=== PATIENT | female | born 1980 | race Hispanic/Latino ===

== ENCOUNTER 2020-08-07 07:13 | Emergency (ER) | payer SELFPAY ==
[2020-08-07] MEDS ORDERED: NA CHLORIDE 0.9% 1,000 ML ONE (08:04)
[2020-08-07 08:13] LABS: Absolute Lymphocytes (CBC) 1.9 K/uL (0.7-4.9); Basophils % 0.3 % (0-1.3); Hematocrit 37.3 % (36.0-45.0); Lymphocytes % 44.9 % (15.3-44.8); MPV 8.5 fL (7.6-11.3); RBC Red Blood Cell Count 4.76 M/uL (3.86-4.86)
[2020-08-07 08:49] LABS: BUN Blood Urea Nitrogen 10 mg/dL (7-18); Bicarbonate 21 mmol/L (21-32); Glucose Level 150 mg/dL (74-106); HCG, Quantitative 7864 mIU/mL (1-3); Potassium 3.8 mmol/L (3.5-5.1); Sodium Level 139 mmol/L (136-145)
[2020-08-07] MEDS ORDERED: CEFTRIAXONE/SWI 1gm 1 GM/10 ML SYR ONE (08:59)
--- NOTE | 2020-08-07 09:45 | ER ---
Nurse's Notes [facility] Name: Brenda Castillo Age: 40 yrs Sex: Female : 1980 Arrival Date: 08/07/2020 Time: 07:18 Bed 19 Private MD: Diagnosis: Threatened ; related conditions, unspecified, first trimester;Type 1 diabetes mellitus Presentation: 08/07 07:25 Chief complaint: Patient states: Blood on toilet paper when she wipes after voiding x ss 3-4 days. Vaginal bleeding that began this morning described as a light period. Pt reports she is approximately 8 weeks . Has had an appointment at the [facility] confirming the . Coronavirus screen: Client denies travel out of the [place] in the last 14 days. Ebola Screen: Patient denies exposure to infectious person. Patient denies travel to an Ebola-affected area in the 21 days before illness onset. Initial Sepsis Screen: Does the patient meet any 2 criteria? No. Patient's initial sepsis screen is negative. Does the patient have a suspected source of infection? No. Patient's initial sepsis screen is negative. Risk Assessment: Do you want to hurt yourself or someone else? Patient reports no desire to harm self or others. Onset of symptoms was August 02, 2020. 07:25 Method Of Arrival: Ambulatory ss 07:25 Acuity: CHIQUITA 3 ss V BELT M[employer]ER AND CURER: 09:39 5, Full Term 4, Premature 0, 0, Living 0 cleo Historical: - Allergies: 07:29 No Known Allergies; ss - PMHx: 07:29 High Cholesterol; Diabetes - IDDM; ss - PSHx: 07:29 None; ss - Immunization history:: Adult Immunizations up to date. - Social history:: Smoking status: Patient denies any tobacco usage or history of. - Family history:: not pertinent. Screenin:06 Abuse screen: Denies threats or abuse. Denies injuries from another. Nutritional hb screening: No deficits noted. Tuberculosis screening: No symptoms or risk factors identified. Fall Risk None identified. Assessment: 08:07 General: Appears in no apparent distress. Behavior is calm, cooperative. Pain: Pain hb currently is 4 out of 10 on a pain scale. Neuro: Level of Consciousness is awake, alert, obeys commands, Oriented to person, place, time, situation. Cardiovascular: Capillary refill < 3 seconds Patient's skin is warm and dry. Respiratory: Respiratory effort is even, unlabored, Respiratory pattern is regular, symmetrical. GI: No signs and/or symptoms were reported involving the gastrointestinal system. : Reports cramping, vaginal bleeding that is bright red, light flow. EENT: No signs and/or symptoms were reported regarding the EENT system. Derm: Skin is pink, warm \T\ dry. Musculoskeletal: No signs and/or symptoms reported regarding the musculoskeletal system. Vital Signs: 07:25 BP 126 / 91; Pulse 90; Resp 16; Temp 98.1(O); Pulse Ox 99% on R/A; Weight 83.46 kg; ss Height 5 ft. 4 in. (162.56 cm); Pain 4/10; 07:25 Body Mass Index 31.58 (83.46 kg, 162.56 cm) ED Course: 07:18 Patient arrived in ED. mr 07:28 Rufus Magallanes MD is Attending Physician. cleo 07:29 Triage completed. ss 07:29 Arm band placed on right wrist. ss 07:40 Katherine Mcginnis, KEATON is Primary Nurse. hb 07:47 Inserted saline lock: 20 gauge in right antecubital area, using aseptic technique. hb Blood collected. 08:06 Patient has correct armband on for positive identification. Call light in reach. Side hb rails up X 1. 09:38 US Transvaginal Ob In Process Unspecified. EDMS 09:44 Teto Mitchell MD is Referral Physician. cleo 10:02 IV discontinued, intact, bleeding controlled, No redness/swelling at site. hb Administered Medications: 07:50 Drug: NS 0.9% 1000 ml Route: IV; Rate: 1 bolus; Site: right antecubital; hb 09:20 Follow up: IV Status: Completed infusion; IV Intake: 1000ml hb 09:05 Drug: Rocephin 1 grams Route: IV; Rate: per protocol; Site: right antecubital; hb 09:07 Follow up: IV Status: Completed infusion; IV Intake: 10ml hb 09:45 Follow up: Response: No adverse reaction hb Intake: 09:07 IV: 10ml; Total: 10ml. hb 09:20 IV: 1000ml; Total: 1010ml. hb Outcome: 09:45 Discharge ordered by . cleo 10:00 Discharged to home ambulatory. hb 10:00 Condition: stable 10:00 Discharge instructions given to patient, Instructed on discharge instructions, follow up and referral plans. medication usage, Demonstrated understanding of instructions, follow-up care, medications, Prescriptions given X 1. 10:06 Patient left the ED. hb Addendum: 08/10/2020 09:51 Addendum: Culture Results: Positive urine culture. Patient was not prescribed s v antibiotics at discharge. Report given to SHASHANK for further evaluation and then to edge gluer for follow up with patient. Phone call Attempt #1 successful Prescription called-in to pharmacy of choice. Keo YUN. Signatures: Dispatcher [employer] Liza White, RN RN Rufus Jordan MD MD cha Rivera, Diana Savage RN RN ss Baxter, Heather, RN RN
--- NOTE | 2020-08-07 09:45 | EDPHYS ---
Physician Documentation [facility] Name: Brenda Castillo Age: 40 yrs Sex: Female : 1980 Arrival Date: 08/07/2020 Time: 07:18 Bed 19 Private MD: ED Physician Rufus Magallanes HPI: 08/07 09:39 This 40 yrs old Female presents to ER via Ambulatory with complaints of cleo Vaginal Bleeding, + Preg <12wks. 09:39 The patient presents to the emergency department with abdominal pain, of the right cleo lower quadrant and left lower quadrant. The estimated gestational age is 8 weeks. course: care: none. Previous pregnancies: in previous pregnancies patient has had Associated signs and symptoms: The patient has no apparent associated signs or symptoms. The patient has not experienced similar symptoms in the past. DATA LEAD: 09:39 5, Full Term 4, Premature 0, 0, Living 0 cleo Historical: - Allergies: 07:29 No Known Allergies; ss - PMHx: 07:29 High Cholesterol; Diabetes - IDDM; ss - PSHx: 07:29 None; ss - Immunization history:: Adult Immunizations up to date. - Social history:: Smoking status: Patient denies any tobacco usage or history of. - Family history:: not pertinent. ROS: 09:39 MS/Extremity: Negative for injury and deformity. cleo 09:39 Constitutional: Negative for fever, chills, and weight loss, Eyes: Negative for injury, pain, redness, and discharge, ENT: Negative for injury, pain, and discharge, Neck: Negative for injury, pain, and swelling, Cardiovascular: Negative for chest pain, palpitations, and edema, Respiratory: Negative for shortness of breath, cough, wheezing, and pleuritic chest pain, Back: Negative for injury and pain, MS/Extremity: Negative for injury and deformity, Skin: Negative for injury, rash, and discoloration, Neuro: Negative for headache, weakness, numbness, tingling, and seizure, Psych: Negative for depression, anxiety, suicide ideation, homicidal ideation, and hallucinations, Allergy/Immunology: Negative for hives, rash, and allergies, Endocrine: Negative for neck swelling, polydipsia, polyuria, polyphagia, and marked weight changes. 09:39 Abdomen/GI: Positive for abdominal pain, of the right lower quadrant and left lower quadrant. 09:39 : Positive for vaginal bleeding. 09:39 MS/extremity: Positive for Exam: 09:39 Constitutional: This is a well developed, well nourished patient who is awake, alert, cleo and in no acute distress. Head/Face: Normocephalic, atraumatic. Eyes: Pupils equal round and reactive to light, extra-ocular motions intact. Lids and lashes normal. Conjunctiva and sclera are non-icteric and not injected. Cornea within normal limits. Periorbital areas with no swelling, redness, or edema. ENT: Nares patent. No nasal discharge, no septal abnormalities noted. Tympanic membranes are normal and external auditory canals are clear. Oropharynx with no redness, swelling, or masses, exudates, or evidence of obstruction, uvula midline. Mucous membranes moist. Neck: Trachea midline, no thyromegaly or masses palpated, and no cervical lymphadenopathy. Supple, full range of motion without nuchal rigidity, or vertebral point tenderness. No Meningismus. Chest/axilla: Normal chest wall appearance and motion. Nontender with no deformity. No lesions are appreciated. Cardiovascular: Regular rate and rhythm with a normal S1 and S2. No gallops, murmurs, or rubs. Normal PMI, no JVD. No pulse deficits. Respiratory: Lungs have equal breath sounds bilaterally, clear to auscultation and percussion. No rales, rhonchi or wheezes noted. No increased work of breathing, no retractions or nasal flaring. Abdomen/GI: Soft, non-tender, with normal bowel sounds. No distension or tympany. No guarding or rebound. No evidence of tenderness throughout. Back: No spinal tenderness. No costovertebral tenderness. Full range of motion. Female : Normal external genitalia. Skin: Warm, dry with normal turgor. Normal color with no rashes, no lesions, and no evidence of cellulitis. MS/ Extremity: Pulses equal, no cyanosis. Neurovascular intact. Full, normal range of motion. Neuro: Awake and alert, GCS 15, oriented to person, place, time, and situation. Cranial nerves II-XII grossly intact. Motor strength 5/5 in all extremities. Sensory grossly intact. Cerebellar exam normal. Normal gait. Psych: Awake, alert, with orientation to person, place and time. Behavior, mood, and affect are within normal limits. Vital Signs: 07:25 BP 126 / 91; Pulse 90; Resp 16; Temp 98.1(O); Pulse Ox 99% on R/A; Weight 83.46 kg; ss Height 5 ft. 4 in. (162.56 cm); Pain 4/10; 07:25 Body Mass Index 31.58 (83.46 kg, 162.56 cm) ss MDM: 07:35 Patient medically screened. [facility] 09:39 Differential diagnosis: ectopic . Data reviewed: vital signs, nurses notes, [facility] lab test result(s), radiologic studies, ultrasound. Data interpreted: gambling monitor: not applicable for this patient encounter. rate is 90 beats/min, rhythm is regular, Pulse oximetry: on room air is 99 %. Counseling: I had a detailed discussion with the patient and/or guardian regarding: the historical points, exam findings, and any diagnostic results supporting the discharge/admit diagnosis, lab results, radiology results, the need for outpatient follow up, for definitive care, an OB/Gyne specialist. 08/07 07:29 Order name: Quantitative Hcg; Complete Time: 09:34 [facility] 08/07 07:29 Order name: Abo/rh Typing; Complete Time: 09:34 [facility] 08/07 07:29 Order name: Basic Metabolic Panel; Complete Time: 09:34 [facility] 08/07 07:29 Order name: CBC with Diff; Complete Time: 09:34 [facility] 08/07 07:29 Order name: Urine Culture [facility] 08/07 08:07 Order name: Urine Dipstick--Ancillary (enter results) 08/07 07:29 Order name: Urine Test (obtain specimen); Complete Time: 08:08 [facility] 08/07 07:29 Order name: IV Saline Lock; Complete Time: 08:08 [facility] 08/07 07:29 Order name: Labs collected and sent; Complete Time: 08:08 [facility] 08/07 07:29 Order name: NPO; Complete Time: 08:08 [facility] 08/07 07:29 Order name: US Transvaginal Ob [facility] 08/07 08:07 Order name: Urine --Ancillary (enter results) 08/07 07:29 Order name: Urine Dipstick-Ancillary (obtain specimen); Complete Time: 08:08 [facility] Administered Medications: 07:50 Drug: NS 0.9% 1000 ml Route: IV; Rate: 1 bolus; Site: right antecubital; hb 09:20 Follow up: IV Status: Completed infusion; IV Intake: 1000ml hb 09:05 Drug: Rocephin 1 grams Route: IV; Rate: per protocol; Site: right antecubital; hb 09:07 Follow up: IV Status: Completed infusion; IV Intake: 10ml hb 09:45 Follow up: Response: No adverse reaction hb Disposition: 08/07/20 09:45 Discharged to Home. Impression: Threatened , related conditions, unspecified, first trimester, Type 1 diabetes mellitus. - Condition is Stable. - Discharge Instructions: Type 1 Diabetes Mellitus, Diagnosis, Adult, Threatened Miscarriage, Vaginal Bleeding During , First Trimester, First Trimester of , [id number], First Trimester of , Diabetes Mellitus and Food, Threatened Miscarriage, [id number]-[id number], Pelvic Rest, Type 1 Diabetes Mellitus, Self Care, Adult, Type 1 Diabetes Mellitus, Diagnosis, Adult, Dzcr-[id number], Type 1 Diabetes Mellitus, Self Care, Adult, [id number]. - Prescriptions for Vitamin 27- 0.8 mg Oral Tablet - take 1 tablet by ORAL route once daily; 30 tablet. - Medication Reconciliation Form, Thank You Letter, Antibiotic Education, Prescription Opioid Use form. - Follow up: Private Physician; When: 2 - 3 days; Reason: Recheck today's complaints, Continuance of care, Re-evaluation by your physician. Follow up: Teto Mitchell MD; When: 2 - 3 days; Reason: Recheck today's complaints, Re-evaluation by your physician. - Problem is new. - Symptoms have improved. Signatures: Dispatcher [employer] EDTX Rufus Magallanes MD MD cha Smirch, Shelby, KEATON RN Katherine Mcginnis RN RN Corrections: (The following items were deleted from the chart) 09:45 09:45 08/07/2020 09:45 Discharged to Home. Impression: Threatened ; cleo related conditions, unspecified, first trimester. Condition is Stable. Forms are Medication Reconciliation Form, Thank You Letter, Antibiotic Education, Prescription Opioid Use. Follow up: Private Physician; When: 2 - 3 days; Reason: Recheck today's complaints, Continuance of care, Re-evaluation by your physician. Follow up: Teto Mitchell; When: 2 - 3 days; Reason: Recheck today's complaints, Re-evaluation by your physician. Problem is new. Symptoms have improved. cleo 10:06 09:45 08/07/2020 09:45 Discharged to Home. Impression: Threatened ; hb related conditions, unspecified, first trimester; Type 1 diabetes mellitus. Condition is Stable. Forms are Medication Reconciliation Form, Thank You Letter, Antibiotic Education, Prescription Opioid Use. Follow up: Private Physician; When: 2 - 3 days; Reason: Recheck today's complaints, Continuance of care, Re-evaluation by your physician. Follow up: Teto Mitchell; When: 2 - 3 days; Reason: Recheck today's complaints, Re-evaluation by your physician. Problem is new. Symptoms have improved. cleo
--- NOTE | 2020-08-07 09:56 | RAD REPORT ---
EXAM DESCRIPTION: US - Transvaginal OB - 08/07/2020 9:36 am CLINICAL HISTORY: with pelvic pain COMPARISON: None. FINDINGS: The uterus 10 x 5 x 6 centimeters. A gestational sac is present within the endometrium. W ithin this is a yolk sac and a pole with a crown-rump length 4 millimeters. Cardiac activity no t seen. . Borderline enlargement of the yolk sac 2.4 centimeter subserosal fibroid. 1.9 centimeter right ovarian cyst. Right ovary is normal in size and echotexture. 2 centimeter comple x cyst left ovary may hemorrhagic. The right and left adnexa unremarkable No significant free fluid IMPRESSION: Intrauterine with an estimated gestational 6 weeks 1 day SOHAN 04/01/2021. Cardi ac activity is not visualized which may indicate demise. Another consideration is that this is a viable and the heartbeat not seen secondary to the early gestation. It is recommended haleigh t the patient have a followup endovaginal sonogram in 1 week for re-evaluation
[2020-08-07 16:26] LABS: Urine Blood 3+ (NEG); Urine Glucose NEGATIVE (NEG); Urine Protein TRACE (NEG)
== END 2020-08-07 10:06 | disposition home or self-care (01) ==
LOC: ER 07:13
DX: O20.0 Threatened abortion (principal); O24.911 Unspecified diabetes mellitus in pregnancy, first trimester; Z3A.08 8 weeks gestation of pregnancy
CPT/HCPCS: 36415; 76817; 80048; 81003; 81025; 84702; 85025; 86900; 86901; 87077; 87086; 87088; 87186; 96361; 96374; 99284; J0696; J7030

== ENCOUNTER 2020-08-07 19:26 | Emergency (ER) | payer SELFPAY ==
[2020-08-07 20:13] LABS: Urine Blood 3+ (NEG); Urine Glucose NEGATIVE (NEG); Urine Protein 2+ (NEG); Urine Specific Gravity 1.015 (1.005-1.030); Urine pH 5.5 (5.0-7.0)
--- NOTE | 2020-08-07 21:16 | ER ---
Nurse's Notes [facility] Name: Brenda Castillo Age: 40 yrs Sex: Female : 1980 Arrival Date: 08/07/2020 Time: 19:27 Bed 20 Private MD: Diagnosis: Threatened Presentation: 08/07 19:36 Chief complaint: Patient states: vaginal bleeding. Coronavirus screen: Client denies mg2 travel out of the [place] in the last 14 days. At this time, the client does not indicate any symptoms associated with coronavirus-19. Ebola Screen: Patient negative for fever greater than or equal to 101.5 degrees Fahrenheit, and additional compatible Ebola Virus Disease symptoms. Initial Sepsis Screen: Does the patient meet any 2 criteria? No. Patient's initial sepsis screen is negative. Does the patient have a suspected source of infection? No. Patient's initial sepsis screen is negative. Risk Assessment: Do you want to hurt yourself or someone else? Patient reports no desire to harm self or others. Onset of symptoms was August 02, 2020. 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 - Social history:: Smoking status: Patient denies any tobacco usage or history of. Patient/guardian denies using alcohol, street drugs, IV drugs. Screenin:15 Abuse screen: Denies threats or abuse. Nutritional screening: No deficits noted. jb4 Tuberculosis screening: No symptoms or risk factors identified. Fall Risk None identified. Assessment: 20:15 General: Appears in no apparent distress. comfortable, Behavior is calm, cooperative. jb4 Pain: Denies pain. Neuro: Level of Consciousness is awake, alert, obeys commands, Oriented to person, place, time, situation. Cardiovascular: Patient's skin is warm and dry. Respiratory: Airway is patent Respiratory effort is even, unlabored, Respiratory pattern is regular, symmetrical. GI: No signs and/or symptoms were reported involving the gastrointestinal system. : Reports vaginal bleeding that is with clots. EENT: No signs and/or symptoms were reported regarding the EENT system. Derm: Skin is intact, Skin is pink, warm \T\ dry. Musculoskeletal: Circulation, motion, and sensation intact. Range of motion: intact in all extremities. 21:13 Reassessment: Patient appears in no apparent distress at this time. Patient and/or jb4 family updated on plan of care and expected duration. Pain level reassessed. Patient is alert, oriented x 3, equal unlabored respirations, skin warm/dry/pink. Vital Signs: 19:36 BP 126 / 90; Pulse 85; Resp 18; Temp 97.6; Pulse Ox 99% ; Weight 83.46 kg; mg2 21:00 BP 122 / 81; Pulse 73; Resp 16; Pulse Ox 99% on R/A; jb4 ED Course: 19:27 Patient arrived in ED. cl3 19:42 Triage completed. mg2 19:43 Arm band placed on. mg2 20:15 Patient has correct armband on for positive identification. Bed in low position. Call jb4 light in reach. Side rails up X 1. Pulse ox on. NIBP on. 20:23 Forest Lord MD is Attending Physician. 7 20:37 Laron Robles, KEATON is Primary Nurse. jb4 21:14 Teto Mitchell MD is Referral Physician. 7 21:20 No provider procedures requiring assistance completed. Patient did not have IV access jb4 during this emergency room visit. Administered Medications: No medications were administered Outcome: 21:15 Discharge ordered by . 7 21:20 Discharged to home ambulatory. jb4 21:20 Condition: stable 21:20 Discharge instructions given to patient, Instructed on discharge instructions, follow up and referral plans. Demonstrated understanding of instructions, follow-up care. 21:21 Patient left the ED. jb4 Signatures: Laron Robles RN RN jb4 Eleazar Cao RN RN mg2 Zoila Khan cl3 Forest Lord MD MD [facility]
--- NOTE | 2020-08-07 21:16 | EDPHYS ---
Physician Documentation [facility] Name: Brenda Castillo Age: 40 yrs Sex: Female : 1980 Arrival Date: 08/07/2020 Time: 19:27 Bed 20 Private MD: ED Physician Forest Lord HPI: 08/07 21:07 This 40 yrs old Female presents to ER via Ambulatory with complaints of mh7 Vaginal Bleeding. 21:07 The patient presents with vaginal bleeding that is moderate, with clots. Onset: The mh7 symptoms/episode began/occurred 5 day(s) ago. Modifying factors: The symptoms are alleviated by nothing, the symptoms are aggravated by nothing. Associated signs and symptoms: Pertinent positives: vaginal bleeding, Pertinent negatives: constipation, cramping, diarrhea, dyspareunia, dysuria, fever, hematuria, nausea, urinary frequency, vaginal discharge, vomiting. Severity of symptoms: At their worst the symptoms were moderate, this morning, in the emergency department the symptoms are unchanged. The patient has been recently seen at the [facility] Emergency Department, today. Patient 6 weeks with vaginal bleeding for 5 days. Seen here earlier today for same complaint with US pelvis showing IUP \T\ 6 weeks. States that she started having blood clots and possibly passed tissue later after leaving ED. She wants to know if she is still .. 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 - Social history:: Smoking status: Patient denies any tobacco usage or history of. Patient/guardian denies using alcohol, street drugs, IV drugs. ROS: 21:07 Constitutional: Negative for fever, chills, and weight loss, Eyes: Negative for injury, mh7 pain, redness, and discharge, ENT: Negative for injury, pain, and discharge, Neck: Negative for injury, pain, and swelling, Cardiovascular: Negative for chest pain, palpitations, and edema, Respiratory: Negative for shortness of breath, cough, wheezing, and pleuritic chest pain, Abdomen/GI: Negative for abdominal pain, nausea, vomiting, diarrhea, and constipation, Back: Negative for injury and pain, MS/Extremity: Negative for injury and deformity, Skin: Negative for injury, rash, and discoloration, Neuro: Negative for headache, weakness, numbness, tingling, and seizure, Psych: Negative for depression, anxiety, suicide ideation, homicidal ideation, and hallucinations, Allergy/Immunology: Negative for hives, rash, and allergies, Endocrine: Negative for neck swelling, polydipsia, polyuria, polyphagia, and marked weight changes, Hematologic/Lymphatic: Negative for swollen nodes, abnormal bleeding, and unusual bruising. Exam: 21:07 Constitutional: This is a well developed, well nourished patient who is awake, alert, mh7 and in no acute distress. Head/Face: Normocephalic, atraumatic. Eyes: Pupils equal round and reactive to light, extra-ocular motions intact. Lids and lashes normal. Conjunctiva and sclera are non-icteric and not injected. Cornea within normal limits. Periorbital areas with no swelling, redness, or edema. Neck: Trachea midline, no thyromegaly or masses palpated, and no cervical lymphadenopathy. Supple, full range of motion without nuchal rigidity, or vertebral point tenderness. No Meningismus. Chest/axilla: Normal chest wall appearance and motion. Nontender with no deformity. No lesions are appreciated. Cardiovascular: Regular rate and rhythm with a normal S1 and S2. No gallops, murmurs, or rubs. Normal PMI, no JVD. No pulse deficits. Respiratory: Lungs have equal breath sounds bilaterally, clear to auscultation and percussion. No rales, rhonchi or wheezes noted. No increased work of breathing, no retractions or nasal flaring. Abdomen/GI: Soft, non-tender, with normal bowel sounds. No distension or tympany. No guarding or rebound. No evidence of tenderness throughout. Back: No spinal tenderness. No costovertebral tenderness. Full range of motion. 21:07 Skin: Warm, dry with normal turgor. Normal color with no rashes, no lesions, and no evidence of cellulitis. MS/ Extremity: Pulses equal, no cyanosis. Neurovascular intact. Full, normal range of motion. Neuro: Awake and alert, GCS 15, oriented to person, place, time, and situation. Cranial nerves II-XII grossly intact. Motor strength 5/5 in all extremities. Sensory grossly intact. Cerebellar exam normal. Normal gait. Psych: Awake, alert, with orientation to person, place and time. Behavior, mood, and affect are within normal limits. 21:07 : CVA tenderness, is absent, Pelvic Exam: External exam: is normal, Speculum exam: mild bleeding, blood clots in vaginal vault, no cervicitis, os that is open, no tissue in cervix is seen, no tissue in vagina is seen, bimanual exam reveals no cervical motion tenderness, os that is open, no uterine tenderness, no adnexa tenderness or masses bilaterally, discharge, is not appreciated, the nurse was present for the exam, Bladder: is normal, Rectal exam: is refused by patient or guardian. Vital Signs: 19:36 BP 126 / 90; Pulse 85; Resp 18; Temp 97.6; Pulse Ox 99% ; Weight 83.46 kg; mg2 21:00 BP 122 / 81; Pulse 73; Resp 16; Pulse Ox 99% on R/A; jb4 MDM: 21:07 Differential diagnosis: cervicitis, threatened Ab, inevitable Ab, complete Ab, retained mh7 Ab, missed Ab, urinary tract infection. Data reviewed: vital signs, nurses notes, old medical records. Counseling: I had a detailed discussion with the patient and/or guardian regarding: the historical points, exam findings, and any diagnostic results supporting the discharge/admit diagnosis, to return to the emergency department if symptoms worsen or persist or if there are any questions or concerns that arise at home. Response to treatment: the patient's symptoms have markedly improved after treatment. Refusal of service: The patient/guardian displays adequate decision making capability and despite a detailed discussion of alternatives, benefits, risks, and consequences refuses: all lab tests. 21:15 Patient medically screened. [facility] 08/07 19:59 Order name: Urine Dipstick--Ancillary (enter results); Complete Time: 20:56 mt 08/07 19:59 Order name: Urine --Ancillary (enter results); Complete Time: 20:56 mt 08/07 20:56 Order name: Quantitative Hcg [facility] Administered Medications: No medications were administered Disposition: 08/07/20 21:15 Discharged to Home. Impression: Threatened . - Condition is Stable. - Discharge Instructions: Threatened Miscarriage, Vaginal Bleeding During , First Trimester. - Medication Reconciliation Form, Thank You Letter, Antibiotic Education, Prescription Opioid Use form. - Follow up: Private Physician; When: Tomorrow; Reason: Worsening of condition, Recheck today's complaints, Continuance of care, Re-evaluation by your physician. Follow up: Teto Mitchell MD; When: 1 - 2 days; Reason: Worsening of condition, Recheck today's complaints. - Problem is an ongoing problem. - Symptoms have improved. Signatures: Dispatcher [employer] EDMS Laron Robles RN RN jb4 Eleazar Cao RN RN mg2 Forest Lord MD MD 7 Corrections: (The following items were deleted from the chart) 21:07 20:56 IV Saline Lock ordered. [place] [id number] 21:07 20:56 Labs collected and sent ordered. [place] [id number] 21:08 20:56 NPO ordered. [place] [id number] 21:21 21:15 08/07/2020 21:15 Discharged to Home. Impression: Threatened . Condition jb4 is Stable. Forms are Medication Reconciliation Form, Thank You Letter, Antibiotic Education, Prescription Opioid Use. Follow up: Private Physician; When: Tomorrow; Reason: Worsening of condition, Recheck today's complaints, Continuance of care, Re-evaluation by your physician. Follow up: Teto Mitchell; When: 1 - 2 days; Reason: Worsening of condition, Recheck today's complaints. Problem is an ongoing problem. Symptoms have improved. [facility]
[2020-08-08 01:15] VITALS: TEMP 97.6; O2SAT 99
[2020-08-08 01:16] VITALS: BP 122/81
== END 2020-08-07 21:21 | disposition home or self-care (01) ==
LOC: ER 19:26
DX: O20.0 Threatened abortion (principal); O24.311 Unspecified pre-existing diabetes mellitus in pregnancy, first trimester; E11.9 Type 2 diabetes mellitus without complications; Z3A.08 8 weeks gestation of pregnancy
CPT/HCPCS: 81003; 81025; 99283

== ENCOUNTER 2021-06-24 06:28 | Emergency (ER) | payer OTHER, SELFPAY ==
[2021-06-24] MEDS ORDERED: HYDROCODONE/APAP 10/325 TAB ONE (07:52)
[2021-06-24] MEDS ORDERED: DIAZEPAM 5 MG TABLET ONE (07:53)
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
[2021-06-24] MEDS ORDERED: KETOROLAC 30 MG/ML INJ ONE (09:03)
[2021-06-24 09:46] VITALS: TEMP 96.8
[2021-06-24 09:54] VITALS: BP 96/61; O2SAT 100
== END 2021-06-24 09:34 | disposition home or self-care (01) ==
LOC: ER 06:28
DX: S86.912A Strain of unspecified muscle(s) and tendon(s) at lower leg level, left leg, initial encounter (principal); S86.911A Strain of unspecified muscle(s) and tendon(s) at lower leg level, right leg, initial encounter; M79.662 Pain in left lower leg; M79.661 Pain in right lower leg; V49.59XA Passenger injured in collision with other motor vehicles in traffic accident, initial encounter; E78.00 Pure hypercholesterolemia, unspecified; E11.9 Type 2 diabetes mellitus without complications; Z79.4 Long term (current) use of insulin
CPT/HCPCS: 72040; 96372; 99283

== ENCOUNTER 2023-01-24 10:01 | Emergency (ER) | payer SELFPAY ==
--- OUTSIDE RECORDS SUMMARY | 2023-01-24 10:14 | XMS REPORT | Continuity of Care Document ---
:1980 Author Organization [facility] t Address [address] [facility] [address] [place] [id number] Care Team Providers Name Role Phone Telma Wallace Primary Care Physician [phone] Problems This patient has no known problems. Allergies, Adverse Reactions, Alerts This patient has no known allergies or adverse reactions. Medications Ordered Filled Start Stop Current Ordering Indication Dosage Frequency Signature Comments Components Source Medication Medication Date Date Medication? Clinician (SIG) Name Name KEE MARIA GUADALUPE No TABLETA 8-18 ORALMENTE 00:00: CADA TONO AL 00 ACOSTARSE GRETEL SEA NECESARIO PARA ESPASMOS MUSCULARES KEE MARIA GUADALUPE 0 No 5 TABLETA 8-18 ORALMENTE 00:00: NICOLAS VECES 00 AL TONO GRETEL SEA NECESARIO PARA ESPASMOS MUSCULARES KEE MARIA GUADALUPE 0 No 5 TABLETA 8-18 ORALMENTE 00:00: NICOLAS VECES 00 AL TONO GRETEL SEA NECESARIO PARA ESPASMOS MUSCULARES TAKE No 600 TABLET 7-22 TWICE 00:00: DAILY. 00 25 UNITS AT 2021-0 No 100 NIGHT SC 7-22 00:00: 00 TAKE 2021-0 No 600 TABLET 7-22 TWICE 00:00: DAILY. 00 25 UNITS AT 2021-0 No 100 NIGHT SC 7-22 00:00: 00 TAKE 0 No 600 TABLET 7-22 TWICE 00:00: DAILY. 00 25 UNITS AT 2021-0 No 100 NIGHT SC 7-22 00:00: 00 TAKE 2021-0 No 600 TABLET 7-22 TWICE 00:00: DAILY. 00 25 UNITS AT 2021-0 No 100 NIGHT SC 7-22 00:00: 00 Rafal 50 2-0 No 1mg mg-1,000 mg 3-28 tablet 00:00: 00 Dose 2022-0 No Unknown 3-28 00:00: 00 Janumet 50 2022-0 No 1mg mg-1,000 mg 3-28 tablet 00:00: 00 Dose 2022-0 No Unknown 3-28 00:00: 00 Janumet 50 2022-0 No 1mg mg-1,000 mg 3-28 tablet 00:00: 00 Dose 2022-0 No Unknown 3-28 00:00: 00 Janumet 50 2-0 No 1mg mg-1,000 mg 3-28 tablet 00:00: 00 Dose 2022-0 No Unknown 3-28 00:00: 00 Dose 2022-0 No Unknown 3-08 00:00: 00 Dose 2022-0 No Unknown 3-08 00:00: 00 Dose 2022-0 No Unknown 3-08 00:00: 00 Dose 2022-0 No Unknown 3-08 00:00: 00 Dose 2022-0 No Unknown 3-08 00:00: 00 Dose 2022-0 No Unknown 3-08 00:00: 00 Dose 2022-0 No Unknown 3-08 00:00: 00 Dose 2022-0 No Unknown 3-08 00:00: 00 Levemir 2-0 No (3 mL) FlexTouch 3-07 U-100 00:00: Insulin 100 00 unit/mL (3 mL) subcutaneou s pen Levemir 2-0 No (3 mL) FlexTouch 3-07 U-100 00:00: Insulin 100 00 unit/mL (3 mL) subcutaneou s pen Levemir 2-0 No (3 mL) FlexTouch 3-07 U-100 00:00: Insulin 100 00 unit/mL (3 mL) subcutaneou s pen Levemir 2-0 No (3 mL) FlexTouch 3-07 U-100 00:00: Insulin 100 00 unit/mL (3 mL) subcutaneou s pen benzonatate 2020-1 No 1mg 100 mg 2-07 capsule 00:00: 00 penicillin 1-1 No 1mg V potassium 2-07 500 mg 00:00: tablet 00 benzonatate 2020-1 No 1mg 100 mg 2-07 capsule 00:00: 00 penicillin 2020-1 No 1mg V potassium 2-07 500 mg 00:00: tablet 00 benzonatate 2020-1 No 1mg 100 mg 2-07 capsule 00:00: 00 penicillin 2020-1 No 1mg V potassium 2-07 500 mg 00:00: tablet 00 benzonatate 2020-1 No 1mg 100 mg 2-07 capsule 00:00: 00 penicillin 2020- No 1mg V potassium 2-07 500 mg 00:00: tablet 00 diclofenac 2020- No 1% 1 % topical 1-15 gel 00:00: 00 Levemir 2020-06 No (3 mL) FlexTouch 1-15 U-100 00:00: Insulin 100 00 unit/mL (3 mL) subcutaneou s pen metformin 2020- No 1mg 850 mg 1-15 tablet 00:00: 00 gemfibrozil 2020- No 1mg 600 mg 1-15 tablet 00:00: 00 diclofenac 2020- No 1% 1 % topical 1-15 gel 00:00: 00 Levemir 2020-1 No (3 mL) FlexTouch 1-15 U-100 00:00: Insulin 100 00 unit/mL (3 mL) subcutaneou s pen metformin 2020- No 1mg 850 mg 1-15 tablet 00:00: 00 gemfibrozil 2020-1 No 1mg 600 mg 1-15 tablet 00:00: 00 diclofenac 2020- No 1% 1 % topical 1-15 gel 00:00: 00 Levemir 2020-1 No (3 mL) FlexTouch 1-15 U-100 00:00: Insulin 100 00 unit/mL (3 mL) subcutaneou s pen metformin 2020- No 1mg 850 mg 1-15 tablet 00:00: 00 gemfibrozil 2020-1 No 1mg 600 mg 1-15 tablet 00:00: 00 diclofenac 2020-1 No 1% 1 % topical 1-15 gel 00:00: 00 Levemir 2020-1 No (3 mL) FlexTouch 1-15 U-100 00:00: Insulin 100 00 unit/mL (3 mL) subcutaneou s pen metformin 2020- No 1mg 850 mg 1-15 tablet 00:00: 00 gemfibrozil 1-1 No 1mg 600 mg 1-15 tablet 00:00: 00 cholecalcif 2021-0 No 1(50,00 new 6-29 0 unit) (vitamin 00:00: D3) 1,250 00 mcg (50,000 unit) tablet cholecalcif 1-0 No 1(50,00 new 6-29 0 unit) (vitamin 00:00: D3) 1,250 00 mcg (50,000 unit) tablet cholecalcif 1-0 No 1(50,00 new 6-29 0 unit) (vitamin 00:00: D3) 1,250 00 mcg (50,000 unit) tablet cholecalcif 2021-0 No 1(50,00 new 6-29 0 unit) (vitamin 00:00: D3) 1,250 00 mcg (50,000 unit) tablet Levemir 2021-0 No (3 mL) FlexTouch 6-28 U-100 00:00: Insulin 100 00 unit/mL (3 mL) subcutaneou s pen gemfibrozil 2021-0 No 1mg 600 mg 6-28 tablet 00:00: 00 metformin 2021-0 No 1mg 850 mg 6-28 tablet 00:00: 00 Levemir 2021-0 No (3 mL) FlexTouch 6-28 U-100 00:00: Insulin 100 00 unit/mL (3 mL) subcutaneou s pen gemfibrozil 2021-0 No 1mg 600 mg 6-28 tablet 00:00: 00 metformin 2021-0 No 1mg 850 mg 6-28 tablet 00:00: 00 Levemir 2021-0 No (3 mL) FlexTouch 6-28 U-100 00:00: Insulin 100 00 unit/mL (3 mL) subcutaneou s pen gemfibrozil 2021-0 No 1mg 600 mg 6-28 tablet 00:00: 00 metformin 2021-0 No 1mg 850 mg 6-28 tablet 00:00: 00 Levemir 2021-0 No (3 mL) FlexTouch 6-28 U-100 00:00: Insulin 100 00 unit/mL (3 mL) subcutaneou s pen gemfibrozil 2021-0 No 1mg 600 mg 6-28 tablet 00:00: 00 metformin 2021-0 No 1mg 850 mg 6-28 tablet 00:00: 00 Levemir 2021-0 No 12(3 FlexTouch 4-07 mL) U-100 00:00: Insulin 100 00 unit/mL (3 mL) subcutaneou s pen metformin 2021-0 No 1mg 850 mg 4-07 tablet 00:00: 00 gemfibrozil 2021-0 No 1mg 600 mg 4-07 tablet 00:00: 00 Levemir 2021-0 No 12(3 FlexTouch 4-07 mL) U-100 00:00: Insulin 100 00 unit/mL (3 mL) subcutaneou s pen metformin 1-0 No 1mg 850 mg 4-07 tablet 00:00: 00 gemfibrozil 2021-0 No 1mg 600 mg 4-07 tablet 00:00: 00 Levemir 2021-0 No 12(3 FlexTouch 4-07 mL) U-100 00:00: Insulin 100 00 unit/mL (3 mL) subcutaneou s pen metformin 1-0 No 1mg 850 mg 4-07 tablet 00:00: 00 gemfibrozil 2021-0 No 1mg 600 mg 4-07 tablet 00:00: 00 Levemir 2021-0 No 12(3 FlexTouch 4-07 mL) U-100 00:00: Insulin 100 00 unit/mL (3 mL) subcutaneou s pen metformin 1-0 No 1mg 850 mg 4-07 tablet 00:00: 00 gemfibrozil 2021-0 No 1mg 600 mg 4-07 tablet 00:00: 00 Augmentin 2021-0 No 1mg 500 mg-125 2-16 mg tablet 00:00: 00 Augmentin 2021-0 No 1mg 500 mg-125 2-16 mg tablet 00:00: 00 Augmentin 2021-0 No 1mg 500 mg-125 2-16 mg tablet 00:00: 00 Augmentin 2021-0 No 1mg 500 mg-125 2-16 mg tablet 00:00: 00 Vitamin D2 2021-0 No 1(50,00 1,250 mcg 1-20 0 unit) (50,000 00:00: unit) 00 capsule Vitamin D2 1-0 No 1(50,00 1,250 mcg 1-20 0 unit) (50,000 00:00: unit) 00 capsule Vitamin D2 2020-0 No 1(50,00 1,250 mcg 1-20 0 unit) (50,000 00:00: unit) 00 capsule Vitamin D2 2020-0 No 1(50,00 1,250 mcg 1-20 0 unit) (50,000 00:00: unit) 00 capsule Levemir 2019-1 No 12(3 FlexTouch 2-14 mL) U-100 00:00: Insulin 100 00 unit/mL (3 mL) subcutaneou s pen gemfibrozil 2019-1 No 1mg 600 mg 2-14 tablet 00:00: 00 metformin 2019-1 No 1mg 850 mg 2-14 tablet 00:00: 00 Levemir 2019-1 No 12(3 FlexTouch 2-14 mL) U-100 00:00: Insulin 100 00 unit/mL (3 mL) subcutaneou s pen gemfibrozil 2019-1 No 1mg 600 mg 2-14 tablet 00:00: 00 metformin 2019-1 No 1mg 850 mg 2-14 tablet 00:00: 00 Levemir 2019-1 No 12(3 FlexTouch 2-14 mL) U-100 00:00: Insulin 100 00 unit/mL (3 mL) subcutaneou s pen gemfibrozil 2019-1 No 1mg 600 mg 2-14 tablet 00:00: 00 metformin 2020-1 No 1mg 850 mg 2-14 tablet 00:00: 00 Levemir 2020-1 No 12(3 FlexTouch 2-14 mL) U-100 00:00: Insulin 100 00 unit/mL (3 mL) subcutaneou s pen gemfibrozil 2019-1 No 1mg 600 mg 2-14 tablet 00:00: 00 metformin 2020-1 No 1mg 850 mg 2-14 tablet 00:00: 00 Levemir 2020-0 No 10(3 FlexTouch 7-02 mL) U-100 00:00: Insulin 100 00 unit/mL (3 mL) subcutaneou s pen diclofenac 2020-0 No 1% 3 % topical 7-02 gel 00:00: 00 gemfibrozil 2020-0 No 1mg 600 mg 7-02 tablet 00:00: 00 metformin 2020-0 No 1mg 850 mg 7-02 tablet 00:00: 00 Levemir 2020-0 No 10(3 FlexTouch 7-02 mL) U-100 00:00: Insulin 100 00 unit/mL (3 mL) subcutaneou s pen diclofenac 2020-0 No 1% 3 % topical 7-02 gel 00:00: 00 gemfibrozil 2020-0 No 1mg 600 mg 7-02 tablet 00:00: 00 metformin 2020-0 No 1mg 850 mg 7-02 tablet 00:00: 00 Levemir 2020-0 No 10(3 FlexTouch 7-02 mL) U-100 00:00: Insulin 100 00 unit/mL (3 mL) subcutaneou s pen diclofenac 2020-0 No 1% 3 % topical 7-02 gel 00:00: 00 gemfibrozil 2020-0 No 1mg 600 mg 7-02 tablet 00:00: 00 metformin 2020-0 No 1mg 850 mg 7-02 tablet 00:00: 00 Levemir 2020-0 No 10(3 FlexTouch 7-02 mL) U-100 00:00: Insulin 100 00 unit/mL (3 mL) subcutaneou s pen diclofenac 2020-0 No 1% 3 % topical 7-02 gel 00:00: 00 gemfibrozil 2020-0 No 1mg 600 mg 7-02 tablet 00:00: 00 metformin 2020-0 No 1mg 850 mg 7-02 tablet 00:00: 00 Levemir 2020-0 No 10(3 FlexTouch 3-10 mL) U-100 00:00: Insulin 100 00 unit/mL (3 mL) subcutaneou s pen gemfibrozil 2020-0 No 1mg 600 mg 3-10 tablet 00:00: 00 propranolol 2020-0 No 1mg 10 mg 3-10 tablet 00:00: 00 omeprazole 2020-0 No 1mg 20 mg 3-10 capsule,del 00:00: ayed 00 release Vitamin D2 2020-0 No 1(50,00 1,250 mcg 3-10 0 unit) (50,000 00:00: unit) 00 capsule Levemir 2020-0 No 10(3 FlexTouch 3-10 mL) U-100 00:00: Insulin 100 00 unit/mL (3 mL) subcutaneou s pen gemfibrozil 2020-0 No 1mg 600 mg 3-10 tablet 00:00: 00 propranolol 2020-0 No 1mg 10 mg 3-10 tablet 00:00: 00 omeprazole 2020-0 No 1mg 20 mg 3-10 capsule,del 00:00: ayed 00 release Vitamin D2 2020-0 No 1(50,00 1,250 mcg 3-10 0 unit) (50,000 00:00: unit) 00 capsule Levemir 2020-0 No 10(3 FlexTouch 3-10 mL) U-100 00:00: Insulin 100 00 unit/mL (3 mL) subcutaneou s pen gemfibrozil 2020-0 No 1mg 600 mg 3-10 tablet 00:00: 00 propranolol 2020-0 No 1mg 10 mg 3-10 tablet 00:00: 00 omeprazole 2020-0 No 1mg 20 mg 3-10 capsule,del 00:00: ayed 00 release Vitamin D2 2020-0 No 1(50,00 1,250 mcg 3-10 0 unit) (50,000 00:00: unit) 00 capsule Levemir 2020-0 No 10(3 FlexTouch 3-10 mL) U-100 00:00: Insulin 100 00 unit/mL (3 mL) subcutaneou s pen gemfibrozil 2020-0 No 1mg 600 mg 3-10 tablet 00:00: 00 propranolol 2020-0 No 1mg 10 mg 3-10 tablet 00:00: 00 omeprazole 2020-0 No 1mg 20 mg 3-10 capsule,del 00:00: ayed 00 release Vitamin D2 2020-0 No 1(50,00 1,250 mcg 3-10 0 unit) (50,000 00:00: unit) 00 capsule Levemir 2020-0 No 10(3 FlexTouch 2-12 mL) U-100 00:00: Insulin 100 00 unit/mL (3 mL) subcutaneou s pen gemfibrozil 2020-0 No 1mg 600 mg 2-12 tablet 00:00: 00 Levemir 2020-0 No 10(3 FlexTouch 2-12 mL) U-100 00:00: Insulin 100 00 unit/mL (3 mL) subcutaneou s pen gemfibrozil 2020-0 No 1mg 600 mg 2-12 tablet 00:00: 00 Levemir 2020-0 No 10(3 FlexTouch 2-12 mL) U-100 00:00: Insulin 100 00 unit/mL (3 mL) subcutaneou s pen gemfibrozil 2020-0 No 1mg 600 mg 2-12 tablet 00:00: 00 Levemir 2020-0 No 10(3 FlexTouch 2-12 mL) U-100 00:00: Insulin 100 00 unit/mL (3 mL) subcutaneou s pen gemfibrozil 2019-0 No 1mg 600 mg 2-12 tablet 00:00: 00 gemfibrozil 2019-1 No 1mg 600 mg 2-21 tablet 00:00: 00 gemfibrozil 2019-1 No 1mg 600 mg 2-21 tablet 00:00: 00 gemfibrozil 2019-1 No 1mg 600 mg 2-21 tablet 00:00: 00 gemfibrozil 2019-1 No 1mg 600 mg 2-21 tablet 00:00: 00 Levemir 2018- No 10(3 FlexTouch 2-18 mL) U-100 00:00: Insulin 100 00 unit/mL (3 mL) subcutaneou s pen terbinafine 2018-1 No 1% HCl 1 % 2-18 topical 00:00: cream losartan 25 2018-06 No 1mg mg tablet 2-18 00:00: 00 metformin 2019-1 No 1mg 850 mg 2-18 tablet 00:00: 00 atorvastati 2018-1 No 1mg n 40 mg 2-18 tablet 00:00: 00 Levemir 2018- No 10(3 FlexTouch 2-18 mL) U-100 00:00: Insulin 100 00 unit/mL (3 mL) subcutaneou s pen terbinafine 2018-1 No 1% HCl 1 % 2-18 topical 00:00: cream losartan 25 2018- No 1mg mg tablet 2-18 00:00: 00 metformin 2019-1 No 1mg 850 mg 2-18 tablet 00:00: 00 atorvastati 2018-1 No 1mg n 40 mg 2-18 tablet 00:00: 00 Levemir 2019-1 No 10(3 FlexTouch 2-18 mL) U-100 00:00: Insulin 100 00 unit/mL (3 mL) subcutaneou s pen terbinafine 2018-1 No 1% HCl 1 % 2-18 topical 00:00: cream 00 losartan 25 2018- No 1mg mg tablet 2-18 00:00: 00 metformin 2018-1 No 1mg 850 mg 2-18 tablet 00:00: 00 atorvastati 2018-06 No 1mg n 40 mg 2-18 tablet 00:00: 00 Levemir 2018- No 10(3 FlexTouch 2-18 mL) U-100 00:00: Insulin 100 00 unit/mL (3 mL) subcutaneou s pen terbinafine 2018- No 1% HCl 1 % 2-18 topical 00:00: cream 00 losartan 25 2018- No 1mg mg tablet 2-18 00:00: 00 metformin 2018-1 No 1mg 850 mg 2-18 tablet 00:00: 00 atorvastati 2018-06 No 1mg n 40 mg 2-18 tablet 00:00: 00 nystatin 2018- No 1unit/g 100,000 0-07 geoff unit/gram 00:00: topical 00 ointment Diflucan 2018- No 1mg 150 mg 0-07 tablet 00:00: 00 nystatin 2018- No 1unit/g 100,000 0-07 geoff unit/gram 00:00: topical 00 ointment Diflucan 2018- No 1mg 150 mg 0-07 tablet 00:00: 00 nystatin 2018- No 1unit/g 100,000 0-07 geoff unit/gram 00:00: topical 00 ointment Diflucan 2018- No 1mg 150 mg 0-07 tablet 00:00: 00 nystatin 2018-1 No 1unit/g 100,000 0-07 geoff unit/gram 00:00: topical 00 ointment Diflucan 2018- No 1mg 150 mg 0-07 tablet 00:00: 00 metformin 2019-0 No 1mg 850 mg 7-01 tablet 00:00: 00 metformin 2019-0 No 1mg 850 mg 7-01 tablet 00:00: 00 metformin 2019-0 No 1mg 850 mg 7-01 tablet 00:00: 00 metformin 2019-0 No 1mg 850 mg 7-01 tablet 00:00: 00 losartan 2018-0 No 1mg mg tablet 6-25 00:00: 00 metformin 2019-0 No 1mg 500 mg 6-25 tablet 00:00: 00 atorvastati 2019-0 No 1mg n 40 mg 6-25 tablet 00:00: 00 losartan 25 2019-0 No 1mg mg tablet 6-25 00:00: 00 metformin 2019-0 No 1mg 500 mg 6-25 tablet 00:00: 00 atorvastati 2019-0 No 1mg n 40 mg 6-25 tablet 00:00: 00 losartan 25 2019-0 No 1mg mg tablet 6-25 00:00: 00 metformin 2019-0 No 1mg 500 mg 6-25 tablet 00:00: 00 atorvastati 2019-0 No 1mg n 40 mg 6-25 tablet 00:00: 00 losartan 25 2019-0 No 1mg mg tablet 6-25 00:00: 00 metformin 2019-0 No 1mg 500 mg 6-25 tablet 00:00: 00 atorvastati 2019-0 No 1mg n 40 mg 6-25 tablet 00:00: 00 clarithromy 2019-0 No 2mg yao 250 mg 2-05 tablet 00:00: 00 cyclobenzap 2019-0 No 1mg rine 10 mg 2-05 tablet 00:00: 00 clarithromy 2019-0 No 2mg yao 250 mg 2-05 tablet 00:00: 00 prednisone 2019-0 No mg 20 mg 2-05 tablet 00:00: 00 omeprazole 2019-0 No 1mg 20 mg 2-05 capsule,del 00:00: ayed 00 release amoxicillin 2019-0 No 2mg 500 mg 2-05 capsule 00:00: 00 omeprazole 2019-0 No 1mg 20 mg 2-05 capsule,del 00:00: ayed 00 release clarithromy 2019-0 No 2mg yao 250 mg 2-05 tablet 00:00: 00 cyclobenzap 2019-0 No 1mg rine 10 mg 2-05 tablet 00:00: 00 clarithromy 2019-0 No 2mg yao 250 mg 2-05 tablet 00:00: 00 clarithromy 2019-0 No 2mg yao 250 mg 2-05 tablet 00:00: 00 cyclobenzap 2019-0 No 1mg rine 10 mg 2-05 tablet 00:00: 00 clarithromy 2019-0 No 2mg yao 250 mg 2-05 tablet 00:00: 00 prednisone 2019-0 No mg 20 mg 2-05 tablet 00:00: 00 omeprazole 2019-0 No 1mg 20 mg 2-05 capsule,del 00:00: ayed 00 release amoxicillin 2019-0 No 2mg 500 mg 2-05 capsule 00:00: 00 prednisone 2019-0 No mg 20 mg 2-05 tablet 00:00: 00 omeprazole 2019-0 No 1mg 20 mg 2-05 capsule,del 00:00: ayed 00 release omeprazole 2019-0 No 1mg 20 mg 2-05 capsule,del 00:00: ayed 00 release amoxicillin 2019-0 No 2mg 500 mg 2-05 capsule 00:00: 00 omeprazole 2019-0 No 1mg 20 mg 2-05 capsule,del 00:00: ayed 00 release clarithromy 2019-0 No 2mg yao 250 mg 2-05 tablet 00:00: 00 cyclobenzap 2019-0 No 1mg rine 10 mg 2-05 tablet 00:00: 00 clarithromy 2019-0 No 2mg yao 250 mg 2-05 tablet 00:00: 00 prednisone 2019-0 No mg 20 mg 2-05 tablet 00:00: 00 omeprazole 2019-0 No 1mg 20 mg 2-05 capsule,del 00:00: ayed 00 release amoxicillin 2019-0 No 2mg 500 mg 2-05 capsule 00:00: 00 omeprazole 2019-0 No 1mg 20 mg 2-05 capsule,del 00:00: ayed 00 release metformin 2019-0 No 1mg 500 mg 1-04 tablet 00:00: 00 sulfamethox 2019-0 No 1mg azole 800 1-04 mg-trimetho 00:00: prim 160 mg 00 tablet Vitamin D2 2019-0 No 1unit 50,000 unit 1-04 capsule 00:00: 00 metformin 2019-0 No 1mg 500 mg 1-04 tablet 00:00: 00 sulfamethox 2019-0 No 1mg azole 800 1-04 mg-trimetho 00:00: prim 160 mg 00 tablet Vitamin D2 2019-0 No 1unit 50,000 unit 1-04 capsule 00:00: 00 metformin 2019-0 No 1mg 500 mg 1-04 tablet 00:00: 00 sulfamethox 2019-0 No 1mg azole 800 1-04 mg-trimetho 00:00: prim 160 mg 00 tablet Vitamin D2 2019-0 No 1unit 50,000 unit 1-04 capsule 00:00: 00 metformin 2019-0 No 1mg 500 mg 1-04 tablet 00:00: 00 sulfamethox 2019-0 No 1mg azole 800 1-04 mg-trimetho 00:00: prim 160 mg 00 tablet Vitamin D2 2019-0 No 1unit 50,000 unit 1-04 capsule 00:00: 00 cyclobenzap 2019-0 No 1mg rine 10 mg 1-02 tablet 00:00: 00 prednisone 2019-0 No mg 20 mg 1-02 tablet 00:00: 00 cyclobenzap 2019-0 No 1mg rine 10 mg 1-02 tablet 00:00: 00 prednisone 2019-0 No mg 20 mg 1-02 tablet 00:00: 00 cyclobenzap 2019-0 No 1mg rine 10 mg 1-02 tablet 00:00: 00 prednisone 2019-0 No mg 20 mg 1-02 tablet 00:00: 00 cyclobenzap 2019-0 No 1mg rine 10 mg 1-02 tablet 00:00: 00 prednisone 2019-0 No mg 20 mg 1-02 tablet 00:00: 00 fluticasone 2018-0 No 12mcg/a 50 7-10 ctuatio mcg/actuati 00:00: n on nasal 00 spray,suspe nsion fluticasone 2018-0 No 12mcg/a 50 7-10 ctuatio mcg/actuati 00:00: n on nasal 00 spray,suspe nsion fluticasone 2018-0 No 12mcg/a 50 7-10 ctuatio mcg/actuati 00:00: n on nasal 00 spray,suspe nsion fluticasone 2018-0 No 12mcg/a 50 7-10 ctuatio mcg/actuati 00:00: n on nasal 00 spray,suspe nsion lisinopril 2018-0 No 1mg 2.5 mg 1-04 tablet 00:00: 00 citalopram 2018-0 No 1mg 40 mg 1-04 tablet 00:00: 00 metformin 2018-0 No 1mg 500 mg 1-04 tablet 00:00: 00 lisinopril 2018-0 No 1mg 2.5 mg 1-04 tablet 00:00: 00 citalopram 2018-0 No 1mg 40 mg 1-04 tablet 00:00: 00 metformin 2018-0 No 1mg 500 mg 1-04 tablet 00:00: 00 lisinopril 2018-0 No 1mg 2.5 mg 1-04 tablet 00:00: 00 citalopram 2018-0 No 1mg 40 mg 1-04 tablet 00:00: 00 metformin 2018-0 No 1mg 500 mg 1-04 tablet 00:00: 00 lisinopril 2018-0 No 1mg 2.5 mg 1-04 tablet 00:00: 00 citalopram 2018-0 No 1mg 40 mg 1-04 tablet 00:00: 00 metformin 2018-0 No 1mg 500 mg 1-04 tablet 00:00: 00 metformin 2017-0 No 1mg 500 mg 5-23 tablet 00:00: 00 lovastatin 2017-0 No 2mg 20 mg 5-23 tablet 00:00: 00 metformin 2017-0 No 1mg 500 mg 5-23 tablet 00:00: 00 lovastatin 2017-0 No 2mg 20 mg 5-23 tablet 00:00: 00 metformin 2017-0 No 1mg 500 mg 5-23 tablet 00:00: 00 lovastatin 2017-0 No 2mg 20 mg 5-23 tablet 00:00: 00 metformin 2017-0 No 1mg 500 mg 5-23 tablet 00:00: 00 lovastatin 2017-0 No 2mg 20 mg 5-23 tablet 00:00: 00 metformin 2016-1 No 1mg 500 mg 1-02 tablet 00:00: 00 lovastatin 2016-1 No 2mg 20 mg 1-02 tablet 00:00: 00 metformin 2016-1 No 1mg 500 mg 1-02 tablet 00:00: 00 lovastatin 2016-1 No 2mg 20 mg 1-02 tablet 00:00: 00 metformin 2016-1 No 1mg 500 mg 1-02 tablet 00:00: 00 lovastatin 2016-1 No 2mg 20 mg 1-02 tablet 00:00: 00 metformin 2016-1 No 1mg 500 mg 1-02 tablet 00:00: 00 lovastatin 2016-1 No 2mg 20 mg 1-02 tablet 00:00: 00 metformin 2016-0 No 1mg 500 mg 4-19 tablet 00:00: 00 metformin 2016-0 No 1mg 500 mg 4-19 tablet 00:00: 00 lovastatin 2016-0 No 2mg 20 mg 4-19 tablet 00:00: 00 lovastatin 2016-0 No 2mg 20 mg 4-19 tablet 00:00: 00 metformin 2016-0 No 1mg 500 mg 4-19 tablet 00:00: 00 metformin 2016-0 No 1mg 500 mg 4-19 tablet 00:00: 00 lovastatin 2016-0 No 2mg 20 mg 4-19 tablet 00:00: 00 lovastatin 2016-0 No 2mg 20 mg 4-19 tablet 00:00: 00 metformin 2016-0 No 1mg 500 mg 4-19 tablet 00:00: 00 metformin 2016-0 No 1mg 500 mg 4-19 tablet 00:00: 00 lovastatin 2016-0 No 2mg 20 mg 4-19 tablet 00:00: 00 lovastatin 2016-0 No 2mg 20 mg 4-19 tablet 00:00: 00 metformin 2016-0 No 1mg 500 mg 4-19 tablet 00:00: 00 metformin 2016-0 No 1mg 500 mg 4-19 tablet 00:00: 00 lovastatin 2016-0 No 2mg 20 mg 4-19 tablet 00:00: 00 lovastatin 2016-0 No 2mg 20 mg 4-19 tablet 00:00: 00 metformin 2015-0 No 1mg 500 mg 9-23 tablet 00:00: 00 naproxen 2015-0 No 1mg 500 mg 9-23 tablet 00:00: 00 lovastatin 2015-0 No 2mg 20 mg 9-23 tablet 00:00: 00 metformin 2015-0 No 1mg 500 mg 9-23 tablet 00:00: 00 naproxen 2015-0 No 1mg 500 mg 9-23 tablet 00:00: 00 lovastatin 2015-0 No 2mg 20 mg 9-23 tablet 00:00: 00 metformin 2015-0 No 1mg 500 mg 9-23 tablet 00:00: 00 naproxen 2015-0 No 1mg 500 mg 9-23 tablet 00:00: 00 lovastatin 2015-0 No 2mg 20 mg 9-23 tablet 00:00: 00 metformin 2015-0 No 1mg 500 mg 9-23 tablet 00:00: 00 naproxen 2015-0 No 1mg 500 mg 9-23 tablet 00:00: 00 lovastatin 2015-0 No 2mg 20 mg 9-23 tablet 00:00: 00 citalopram 2015-0 No 1mg 40 mg 8-13 tablet 00:00: 00 metformin 2015-0 No 1mg 500 mg 8-13 tablet 00:00: 00 citalopram 2015-0 No 1mg 40 mg 8-13 tablet 00:00: 00 naproxen 2015-0 No 1mg 500 mg 8-13 tablet 00:00: 00 lovastatin 2015-0 No 2mg 20 mg 8-13 tablet 00:00: 00 naproxen 2015-0 No 1mg 500 mg 8-13 tablet 00:00: 00 lovastatin 2015-0 No 2mg 20 mg 8-13 tablet 00:00: 00 metformin 2015-0 No 1mg 500 mg 8-13 tablet 00:00: 00 citalopram 2015-0 No 1mg 40 mg 8-13 tablet 00:00: 00 naproxen 2015-0 No 1mg 500 mg 8-13 tablet 00:00: 00 lovastatin 2015-0 No 2mg 20 mg 8-13 tablet 00:00: 00 metformin 2015-0 No 1mg 500 mg 8-13 tablet 00:00: 00 citalopram 2015-0 No 1mg 40 mg 8-13 tablet 00:00: 00 naproxen 2015-0 No 1mg 500 mg 8-13 tablet 00:00: 00 lovastatin 2015-0 No 2mg 20 mg 8-13 tablet 00:00: 00 metformin 2015-0 No 1mg 500 mg 8-13 tablet 00:00: 00 fluticasone 2015-0 No 12mcg/a 50 5-12 ctuatio mcg/actuati 00:00: n on nasal 00 spray,suspe nsion fluticasone 2015-0 No 12mcg/a 50 5-12 ctuatio mcg/actuati 00:00: n on nasal 00 spray,suspe nsion fluticasone 2015-0 No 12mcg/a 50 5-12 ctuatio mcg/actuati 00:00: n on nasal 00 spray,suspe nsion fluticasone 2015-0 No 12mcg/a 50 5-12 ctuatio mcg/actuati 00:00: n on nasal 00 spray,suspe nsion metformin 2015-0 No 1mg 500 mg 3-17 tablet 00:00: 00 lovastatin 2015-0 No 1mg 20 mg 3-17 tablet 00:00: 00 lovastatin 2015-0 No 2mg 20 mg 3-17 tablet 00:00: 00 metformin 2015-0 No 1mg 500 mg 3-17 tablet 00:00: 00 lovastatin 2015-0 No 1mg 20 mg 3-17 tablet 00:00: 00 lovastatin 2015-0 No 2mg 20 mg 3-17 tablet 00:00: 00 metformin 2015-0 No 1mg 500 mg 3-17 tablet 00:00: 00 lovastatin 2015-0 No 1mg 20 mg 3-17 tablet 00:00: 00 metformin 2015-0 No 1mg 500 mg 3-17 tablet 00:00: 00 lovastatin 2015-0 No 1mg 20 mg 3-17 tablet 00:00: 00 lovastatin 2015-0 No 2mg 20 mg 3-17 tablet 00:00: 00 lovastatin 2015-0 No 2mg 20 mg 3-17 tablet 00:00: 00 citalopram 2015-0 No 1mg 40 mg 3-09 tablet 00:00: 00 metformin 2015-0 No 1mg 500 mg 3-09 tablet 00:00: 00 citalopram 2015-0 No 1mg 40 mg 3-09 tablet 00:00: 00 citalopram 2015-0 No 1mg 40 mg 3-09 tablet 00:00: 00 metformin 2015-0 No 1mg 500 mg 3-09 tablet 00:00: 00 metformin 2015-0 No 1mg 500 mg 3-09 tablet 00:00: 00 citalopram 2015-0 No 1mg 40 mg 3-09 tablet 00:00: 00 metformin 2015-0 No 1mg 500 mg 3-09 tablet 00:00: 00 Immunizations Ordered Immunization Filled Immunization Date Status Commen ts Source Name Name Influenza, seasonal, 2020-05-23 Completed inj 00:00:00 Influenza, seasonal, 2020-05-23 Completed inj 00:00:00 Influenza, seasonal, 2020-05-23 Completed inj 00:00:00 Influenza, seasonal, 2020-05-23 Completed inj 00:00:00 influenza, injectable 2016-03-22 Completed 00:00:00 influenza, injectable 2016-03-22 Completed 00:00:00 influenza, injectable 2016-03-22 Completed 00:00:00 influenza, injectable 2016-03-22 Completed 00:00:00 [id number] 2014-12-17 Completed 00:00:00 [id number] 2014-12-17 Completed 00:00:00 [id number] 2014-12-17 Completed 00:00:00 [id number] 2014-12-17 Completed 00:00:00 [id number] 2014-10-22 Completed 00:00:00 [id number] 2014-10-22 Completed 00:00:00 [id number] 2014-10-22 Completed 00:00:00 [id number] 2014-10-22 Completed 00:00:00 Vital Signs Vital Name Observation Time Observation Value Comments Source BP Systolic 2022-05-21 14:16:00 133 mm[Hg] BP Diastolic 2022-05-21 14:16:00 87 mm[Hg] Weight Measured 2022-05-21 14:16:00 172.20 pounds Height Measured 2022-05-21 14:16:00 65.00 inches Body Temperature 2022-05-21 14:16:00 98.30 degrees Heart Rate 2022-05-21 14:16:00 70.00 /min Respiratory Rate 2022-05-21 14:16:00 18.00 /min BP Systolic 2022-02-06 08:18:00 111 mm[Hg] BP Diastolic 2022-02-06 08:18:00 71 mm[Hg] Weight Measured 2022-02-06 08:18:00 170.60 pounds Height Measured 2022-02-06 08:18:00 65.00 inches Body Temperature 2022-02-06 08:18:00 97.10 degrees Heart Rate 2022-02-06 08:18:00 71.00 /min Respiratory Rate 2022-02-06 08:18:00 BP Systolic 2022-01-30 08:16:00 123 mm[Hg] BP Diastolic 2022-01-30 08:16:00 86 mm[Hg] Weight Measured 2022-01-30 08:16:00 174.40 pounds Height Measured 2022-01-30 08:16:00 65.00 inches Body Temperature 2022-01-30 08:16:00 97.00 degrees Heart Rate 2022-01-30 08:16:00 67.00 /min Respiratory Rate 2022-01-30 08:16:00 24.00 /min BP Systolic 2021-12-28 16:31:00 120 mm[Hg] BP Diastolic 2021-12-28 16:31:00 83 mm[Hg] Weight Measured 2021-12-28 16:31:00 172.60 pounds Height Measured 2021-12-28 16:31:00 65.00 inches Body Temperature 2021-12-28 16:31:00 97.00 degrees Heart Rate 2021-12-28 16:31:00 86.00 /min Respiratory Rate 2021-12-28 16:31:00 BP Systolic 2021-09-04 14:19:00 123 mm[Hg] BP Diastolic 2021-09-04 14:19:00 83 mm[Hg] Weight Measured 2021-09-04 14:19:00 183.60 pounds Height Measured 2021-09-04 14:19:00 65.00 inches Body Temperature 2021-09-04 14:19:00 97.90 degrees Heart Rate 2021-09-04 14:19:00 89.00 /min Respiratory Rate 2021-09-04 14:19:00 16.00 /min BP Systolic 2021-08-14 12:03:00 123 mm[Hg] BP Diastolic 2021-08-14 12:03:00 82 mm[Hg] Weight Measured 2021-08-14 12:03:00 185.00 pounds Height Measured 2021-08-14 12:03:00 65.00 inches Body Temperature 2021-08-14 12:03:00 98.50 degrees Heart Rate 2021-08-14 12:03:00 78.00 /min Respiratory Rate 2021-08-14 12:03:00 16.00 /min BP Systolic 2021-06-15 16:41:00 130 mm[Hg] BP Diastolic 2021-06-15 16:41:00 86 mm[Hg] Weight Measured 2021-06-15 16:41:00 187.40 pounds Height Measured 2021-06-15 16:41:00 65.00 inches Body Temperature 2021-06-15 16:41:00 98.00 degrees Heart Rate 2021-06-15 16:41:00 78.00 /min Respiratory Rate 2021-06-15 16:41:00 16.00 /min BP Systolic 2021-05-16 14:38:00 116 mm[Hg] BP Diastolic 2021-05-16 14:38:00 81 mm[Hg] Weight Measured 2021-05-16 14:38:00 185.40 pounds Height Measured 2021-05-16 14:38:00 65.00 inches Body Temperature 2021-05-16 14:38:00 98.30 degrees Heart Rate 2021-05-16 14:38:00 70.00 /min Respiratory Rate 2021-05-16 14:38:00 BP Systolic 2021-04-24 08:09:00 113 mm[Hg] BP Diastolic 2021-04-24 08:09:00 67 mm[Hg] Weight Measured 2021-04-24 08:09:00 187.00 pounds Height Measured 2021-04-24 08:09:00 65.00 inches Body Temperature 2021-04-24 08:09:00 98.30 degrees Heart Rate 2021-04-24 08:09:00 70.00 /min Respiratory Rate 2021-04-24 08:09:00 BP Systolic 2021-04-17 10:24:00 120 mm[Hg] BP Diastolic 2021-04-17 10:24:00 81 mm[Hg] Weight Measured 2021-04-17 10:24:00 184.40 pounds Height Measured 2021-04-17 10:24:00 65.00 inches Body Temperature 2021-04-17 10:24:00 98.30 degrees Heart Rate 2021-04-17 10:24:00 79.00 /min Respiratory Rate 2021-04-17 10:24:00 BP Systolic 2020-12-07 15:20:00 111 mm[Hg] BP Diastolic 2020-12-07 15:20:00 68 mm[Hg] Weight Measured 2020-12-07 15:20:00 191.40 pounds Height Measured 2020-12-07 15:20:00 65.00 inches Body Temperature 2020-12-07 15:20:00 97.80 degrees Heart Rate 2020-12-07 15:20:00 89.00 /min Respiratory Rate 2020-12-07 15:20:00 21.00 /min BP Systolic 2020-12-05 08:04:00 113 mm[Hg] BP Diastolic 2020-12-05 08:04:00 71 mm[Hg] Weight Measured 2020-12-05 08:04:00 189.60 pounds Height Measured 2020-12-05 08:04:00 65.00 inches Body Temperature 2020-12-05 08:04:00 97.50 degrees Heart Rate 2020-12-05 08:04:00 69.00 /min Respiratory Rate 2020-12-05 08:04:00 BP Systolic 2020-09-14 09:23:00 122 mm[Hg] BP Diastolic 2020-09-14 09:23:00 79 mm[Hg] Weight Measured 2020-09-14 09:23:00 186.60 pounds Height Measured 2020-09-14 09:23:00 65.00 inches Body Temperature 2020-09-14 09:23:00 98.30 degrees Heart Rate 2020-09-14 09:23:00 74.00 /min Respiratory Rate 2020-09-14 09:23:00 17.00 /min Procedures This patient has no known procedures. Plan of Care Planned Activity Planned Date Details Comments Source Goal Plan of Care Note [code = 15924-3] Goal Plan of Care Note [code = 69909-9] Goal Plan of Care Note [code = 89102-4] Goal Plan of Care Note [code = 72290-6] Goal Plan of Care Note [code = 12543-1] Goal Plan of Care Note [code = 98687-3] Goal Plan of Care Note [code = 19906-1] Goal Plan of Care Note [code = 28497-7] Goal Plan of Care Note [code = 08766-4] Goal Plan of Care Note [code = 74482-6] Goal Plan of Care Note [code = 07822-9] Goal Plan of Care Note [code = 48316-3] Goal Plan of Care Note [code = 92839-0] Goal Plan of Care Note [code = 97971-8] Goal Plan of Care Note [code = 40822-5] Goal Plan of Care Note [code = 61761-5] Goal Plan of Care Note [code = 84827-5] Goal Plan of Care Note [code = 86376-6] Goal Plan of Care Note [code = 49444-1] Goal Plan of Care Note [code = 92308-2] Goal Plan of Care Note [code = 31076-4] Goal Plan of Care Note [code = 53462-1] Goal Plan of Care Note [code = 38088-5] Goal Plan of Care Note [code = 48305-0] Goal Plan of Care Note [code = 49802-8] Goal Plan of Care Note [code = 36049-1] Goal Plan of Care Note [code = 95789-7] Goal Plan of Care Note [code = 70604-7] Goal Plan of Care Note [code = 07362-9] Goal Plan of Care Note [code = 58029-1] Goal Plan of Care Note [code = 06832-0] Goal Plan of Care Note [code = 43502-9] Goal Plan of Care Note [code = 37960-3] Goal Plan of Care Note [code = 73198-0] Goal Plan of Care Note [code = 89136-0] Goal Plan of Care Note [code = 17516-8] Goal Plan of Care Note [code = 25492-7] Goal Plan of Care Note [code = 27716-2] Goal Plan of Care Note [code = 30300-8] Goal Plan of Care Note [code = 92928-9] Goal Plan of Care Note [code = 77886-7] Goal Plan of Care Note [code = 17690-4] Goal Plan of Care Note [code = 89264-5] Goal Plan of Care Note [code = 05677-5] Goal Plan of Care Note [code = 45053-6] Goal Plan of Care Note [code = 43705-9] Goal Plan of Care Note [code = 81475-8] Goal Plan of Care Note [code = 03017-5] Goal Plan of Care Note [code = 79708-7] Goal Plan of Care Note [code = 07339-3] Goal Plan of Care Note [code = 41964-0] Goal Plan of Care Note [code = 80418-9] Goal Plan of Care Note [code = 83658-5] Goal Plan of Care Note [code = 08451-8] Goal Plan of Care Note [code = 71786-2] Goal Plan of Care Note [code = 62843-9] Goal Plan of Care Note [code = 96190-9] Goal Plan of Care Note [code = 47569-6] Goal Plan of Care Note [code = 34668-9] Goal Plan of Care Note [code = 97705-1] Goal Plan of Care Note [code = 02228-5] Goal Plan of Care Note [code = 06646-1] Goal Plan of Care Note [code = 18363-4] Goal Plan of Care Note [code = 45284-2] Goal Plan of Care Note [code = 47676-1] Goal Plan of Care Note [code = 76405-1] Goal Plan of Care Note [code = 92468-6] Goal Plan of Care Note [code = 56272-8] Goal Plan of Care Note [code = 34352-0] Goal Plan of Care Note [code = 79105-4] Goal Plan of Care Note [code = 51838-1] Goal Plan of Care Note [code = 38643-0] Goal Plan of Care Note [code = 62563-8] Goal Plan of Care Note [code = 96597-5] Goal Plan of Care Note [code = 83069-4] Goal Plan of Care Note [code = 57948-2] Goal Plan of Care Note [code = 26953-5] Goal Plan of Care Note [code = 75537-1] Goal Plan of Care Note [code = 02343-1] Goal Plan of Care Note [code = 70680-0] Goal Plan of Care Note [code = 62855-7] Goal Plan of Care Note [code = 95154-2] Goal Plan of Care Note [code = 83633-8] Goal Plan of Care Note [code = 82494-3] Goal Plan of Care Note [code = 69983-9] Goal Plan of Care Note [code = 32521-4] Goal Plan of Care Note [code = 09565-7] Goal Plan of Care Note [code = 95736-5] Goal Plan of Care Note [code = 63989-8] Goal Plan of Care Note [code = 30337-8] Goal Plan of Care Note [code = 99111-4] Goal Plan of Care Note [code = 37533-8] Goal Plan of Care Note [code = 41053-2] Goal Plan of Care Note [code = 54007-1] Goal Plan of Care Note [code = 22779-6] Goal Plan of Care Note [code = 02697-2] Goal Plan of Care Note [code = 94814-7] Goal Plan of Care Note [code = 95965-6] Goal Plan of Care Note [code = 18149-7] Goal Plan of Care Note [code = 30038-7] Goal Plan of Care Note [code = 46839-0] Goal Plan of Care Note [code = 02212-3] Goal Plan of Care Note [code = 08378-5] Goal Plan of Care Note [code = 23794-9] Goal Plan of Care Note [code = 42695-3] Goal Plan of Care Note [code = 64928-3] Goal Plan of Care Note [code = 36988-7] Goal Plan of Care Note [code = 36894-4] Goal Plan of Care Note [code = 28560-4] Goal Plan of Care Note [code = 88260-0] Goal Plan of Care Note [code = 44946-7] Goal Plan of Care Note [code = 15725-9] Goal Plan of Care Note [code = 00833-4] Goal Plan of Care Note [code = 43687-7] Goal Plan of Care Note [code = 45533-6] Goal Plan of Care Note [code = 09892-4] Goal Plan of Care Note [code = 34123-9] Goal Plan of Care Note [code = 10774-0] Goal Plan of Care Note [code = 98173-9] Goal Plan of Care Note [code = 74970-2] Goal Plan of Care Note [code = 35569-9] Goal Plan of Care Note [code = 32453-4] Goal Plan of Care Note [code = 95864-6] Goal Plan of Care Note [code = 81068-8] Goal Plan of Care Note [code = 75572-3] Goal Plan of Care Note [code = 28559-2] Goal Plan of Care Note [code = 41345-8] Goal Plan of Care Note [code = 33356-1] Goal Plan of Care Note [code = 51212-7] Goal Plan of Care Note [code = 01975-9] Goal Plan of Care Note [code = 55415-8] Goal Plan of Care Note [code = 63147-4] Goal Plan of Care Note [code = 28243-6] Goal Plan of Care Note [code = 97985-1] Goal Plan of Care Note [code = 94888-9] Goal Plan of Care Note [code = 28008-5] Goal Plan of Care Note [code = 10345-6] Goal Plan of Care Note [code = 65587-2] Goal Plan of Care Note [code = 19533-5] Goal Plan of Care Note [code = 24724-4] Goal Plan of Care Note [code = 99126-3] Goal Plan of Care Note [code = 54210-9] Goal Plan of Care Note [code = 98477-1] Goal Plan of Care Note [code = 71852-4] Goal Plan of Care Note [code = 07510-7] Goal Plan of Care Note [code = 31723-8] Goal Plan of Care Note [code = 51311-2] Goal Plan of Care Note [code = 85380-9] Goal Plan of Care Note [code = 95329-6] Goal Plan of Care Note [code = 73515-0] Goal Plan of Care Note [code = 58803-7] Goal Plan of Care Note [code = 03451-8] Goal Plan of Care Note [code = 76617-0] Goal Plan of Care Note [code = 70136-8] Goal Plan of Care Note [code = 00949-1] Goal Plan of Care Note [code = 04063-6] Goal Plan of Care Note [code = 88654-4] Goal Plan of Care Note [code = 66425-9] Goal Plan of Care Note [code = 10960-2] Goal Plan of Care Note [code = 46758-3] Goal Plan of Care Note [code = 30470-3] Goal Plan of Care Note [code = 02754-6] Goal Plan of Care Note [code = 06824-3] Goal Plan of Care Note [code = 10483-5] Goal Plan of Care Note [code = 67107-8] Goal Plan of Care Note [code = 84239-7] Goal Plan of Care Note [code = 92596-0] Goal Plan of Care Note [code = 40721-2] Goal Plan of Care Note [code = 89400-4] Goal Plan of Care Note [code = 14749-0] Goal Plan of Care Note [code = 81682-2] Goal Plan of Care Note [code = 57188-3] Goal Plan of Care Note [code = 51111-0] Goal Plan of Care Note [code = 77274-1] Goal Plan of Care Note [code = 89189-9] Goal Plan of Care Note [code = 69295-9] Goal Plan of Care Note [code = 94678-7] Goal Plan of Care Note [code = 23421-4] Goal Plan of Care Note [code = 55058-5] Goal Plan of Care Note [code = 43453-7] Goal Plan of Care Note [code = 80513-3] Goal Plan of Care Note [code = 03497-1] Goal Plan of Care Note [code = 34635-9] Goal Plan of Care Note [code = 62064-8] Goal Plan of Care Note [code = 16081-0] Goal Plan of Care Note [code = 29308-7] Goal Plan of Care Note [code = 63370-8] Goal Plan of Care Note [code = 63974-8] Goal Plan of Care Note [code = 70862-7] Goal Plan of Care Note [code = 29775-5] Goal Plan of Care Note [code = 53675-1] Goal Plan of Care Note [code = 92700-0] Goal Plan of Care Note [code = 44846-3] Goal Plan of Care Note [code = 41287-2] Goal Plan of Care Note [code = 04649-3] Goal Plan of Care Note [code = 10843-7] Goal Plan of Care Note [code = 83605-6] Goal Plan of Care Note [code = 13338-4] Goal Plan of Care Note [code = 33369-4] Goal Plan of Care Note [code = 34212-5] Goal Plan of Care Note [code = 36603-9] Goal Plan of Care Note [code = 34125-7] Encounters Start End Encounter Admission Attending Care Care Encounter Source Date/Time Date/Time Type Type Clinicians Facility Department ID 2023-01-24 2023-01-24 Outpatient SFA SFA [id number] 230 Jayjay 08:56:06 08:56:06 817 F Moses 2022-12-26 2022-12-26 Outpatient SFA SFA 4853- 230 Jayjay 16:34:24 16:34:24 719 F Moses 2022-10-22 2022-10-22 Outpatient SFA SFA 4853- 230 Jayjay 15:38:20 15:38:20 515 F Moses 2022-08-17 2022-08-17 Outpatient SFA SFA 4853- 230 Jayjay 11:46:12 11:46:12 310 F Moses 2022-08-16 2022-08-16 Outpatient SFA SFA [id number] 230 Jayjay 08:21:17 08:21:17 309 F Cedar 2022-08-15 2022-08-15 Outpatient SFA SFA 4853-20 230 Jayjay 10:59:39 10:59:39 308 F [facility]edar 2022-08-14 2022-08-14 Outpatient SFA SFA 4853-20 230 Jayjay 09:39:39 09:39:39 307 F Cedar 2022-08-13 2022-08-13 Outpatient SFA SFA 4853-20 230 Jayjay 17:22:28 17:22:28 306 F Cedar 2022-07-23 2022-07-23 Outpatient SFA SFA 4853-20 230 Jayjay 08:25:54 08:25:54 213 F Cedar 2022-06-20 2022-06-20 Outpatient SFA SFA 4853-20 230 Jayjay 10:51:30 10:51:30 111 F Cedar 2022-05-23 2022-05-23 Outpatient SFA SFA 4853-20 221 Jayjay 17:22:02 17:22:02 214 F Cedar 2022-05-21 2022-05-21 Outpatient SFA SFA 4853-20 221 Jayjay 14:07:05 14:07:05 212 F Cedar 2022-05-21 2022-05-21 Outpatient [id number] 00:00:00 00:00:00 Visit p978-4u19 780-4e52-a -f777-0a1 040-9d74bf 3kl554y94 362e28 2022-02-06 2022-02-06 Outpatient [id number] ll1756-y 00:00:00 00:00:00 Visit k2i0-313t 8z4-035o-a -j983-99i 295-87m979 343c62z3p d32c0f 2022-01-30 2022-01-30 Outpatient [id number] 28l969-e 00:00:00 00:00:00 Visit d354-1al4 667-4cc7-b -t56o-75e 77a-02i864 9391dn2og 5ee5fd 2021-12-28 2021-12-28 Outpatient [id number] 1488af-[id number] 00:00:00 00:00:00 Visit 30e2-40rs 4u7-32ij-3 -27z9-3w9 0g3-6b4812 [id number] b76c57 Results Test Description Test Time Test Comments Results Result Comments Source TSH, THIRD GENERATION 2022-10-24 08:55:00 Test Item Value Reference Range Interpretation Comme nts TSH, THIRD GENERATION (test code = 2821) 1.010 UIU/ML 0.400-4.100 FSH + LH [id number] 08:55:00 Test Item Value Reference Range Interpretation Comments FOLLICLE STIM HORMONE 12.2 IU/L SEE BELOW EXPECTED (test code = 2700) VALUES FO R FSH FOR FEMALES >17 YEA RS FOLLICU LAR 3.5-12.5 IU/L M ID-CYCLE PEAK 4.7-21.5 I U/L LUTEAL PHASE 1. 7-7.7 IU/L POSTMENOPA USAL 25.8-134.8 IU/L LUTEINIZING HORMONE 4.1 IU/L SEE BELOW EXPECTED (test code = 2776) VALUES FO R LH FOR FEMALES >17 YEA RS MALES FEMALES >=18 YEARS 1.8- 8.6 IU/L FOLLICULAR 2.4- 12.6 IU/L MID-CYCLE PEAK 14.0-95.6 IU/L LUTEAL PHASE 1.0-11.4 IU/L POSTMENOPAUSAL 7.7-58.5 IU/L [id number] 08:55:00 Test Item Value Reference Range Interpretation Comments ESTRADIOL (test 27.2 PG/ML SEE BELOW EXPE CTED VALUES FOR code = 7065) ESTRADIOL FOR F EMALES >=18 YEARS FO LLICULAR . . . . . . . . . . . . . PG/ML 12.4-233.0 OVUL ATION. . . . . . . . . . . . . . PG/ML 41.0-398.0 LUTE AL PHASE . . . . . . . . . . . . PG/ML 22.3-341.0 POST MENOPAUSAL SUPPLEMENTED/NO N-SUPP . PG/ML <138.0/<20.0 NO TE: TO DETERMINE BARRON L VS. SUBNORMAL ESTRA DIOL IN POSTMENOPAUSAL FEMALES, CONSIDER ULTRAS ENSITIVE ESTRADIOL (CPL ORDER CODE 5678). METHODOL OGY IS LUISITO SHABANA ELECTROCH EMILUMINESCENT IMMUNOASSAY WIT H A LIMIT OF DETECTION OF 17 PG/ML. [id number] 08:55:00 Test Item Value Reference Range Interpretation Comments PROGESTERONE (test 0.25 NG/ML SEE BELOW E XPECTED code = 2790) VALUES FOR PROGESTERONE MALE . . . . . . . . . . . . . . . . N G/ML <0.20 FEMALE FOLLICULAR PHAS E . . . . . . . . . NG/ ML <0.90 OVULATION . . . . . . . . . . . . NG/ML <12.00 RORY TEAL PHASE . . . . . . . . . . . NG/ML 1.8 3-23.90 POSTMENOPAUSAL . . . . . . . . . . NG/ ML <0.20 1ST TRIMESTER. . . . . . . . . . . NG/ML 11.00-44.30 2ND TRIMESTER. . . . . . . . . . . NG/ML 25.40-83.30 3RD TRIMESTER. . . . . . . . . . . NG/ML 58.70-214.00 [id number] 08:55:00 Test Item Value Reference Range Interpretation Comments PROLACTIN (test 11.0 NG/ML 5.0-37.0 NOTE: Metho dology is Luisito code = 2800) Shabana Electrochemilum inescence Immunoassay (EC BRYANNA). Values obtained with d ifferent assays/manufact urers cannot be used interch angeably. Results should not be used as sole basis to e stablish the presence or abs ence of malignancy. UNL ESS OTHERWISE INDICATED, ALL TESTING PERFORMED AT [facility] [address] [place] [address], [place] [address] LABORATORY DIR MARCO: HILDA WYLIE M.D. WILDAIA NUMBER [id number] CAP ACCREDITATION N O. [id number] 08:01:53 Test Item Value Reference Range Interpretation Comments TESTOSTERONE (test <12 NG/DL See_Comment NOTE: TO VIKY code = 9628) TESTOSTERONE SAY SENSITIVITY IS 12 NG/DL. TO DETER MINE NORMAL VS. SUBN ORMAL TESTOSTERONE IN CHILDREN AND WO MEN, CONSIDER TESTIN G WITH ULTRASENSITIVE TESTOSTERONE. [Automated mess age] The system which ge nerated this result tra nsmitted reference range : <=55. The reference r og was not used to int erpret this result as normal/abnormal . CBC W/AUTO DIFF WITH [id number] 04:19:32 Test Item Value Reference Range Interpretation Comments WBC (test code = 8.4 K/UL 3.5-11.0 1001) RBC (test code = 4.86 M/UL 3.80-5.40 1002) HEMOGLOBIN (test code 11.6 G/DL 11.5-15.5 = 1003) HEMATOCRIT (test code 35.5 % 34.0-45.0 = 1004) MCV (test code = 73.0 fL 80.0-99.0 L 1005) MCH (test code = 23.9 PG 25.0-33.0 L 1006) MCHC (test code = 32.7 G/DL 31.0-36.0 1007) RDW (test code = 15.6 % 11.5-15.0 H 1038) NEUTROPHILS (test 57.8 % code = 1008) LYMPHOCYTES (test 33.3 % code = 1010) MONOCYTES (test code 5.6 % = 1011) EOSINOPHILS (test 2.3 % code = 1012) BASOPHILS (test code 0.6 % = 1013) IMMATURE GRANULOCYTES 0.4 % (test code = 1036) NUCLEATED RBCS (test 0.0 /100 WBC'S See_Comment [Aut omated code = 1065) message] The sy stem which generated this result transmitted reference range : 0.0. The refere nce range was not u sed to interpret th is result as normal/abnormal . PLATELET COUNT (test 384 K/UL 130-400 code = 1015) ABSOLUTE NEUTROPHILS 4.83 K/UL 1.50-7.50 (test code = 1066) ABSOLUTE LYMPHOCYTES 2.78 K/UL 1.00-4.00 (test code = 1067) ABSOLUTE MONOCYTES 0.47 K/UL 0.20-1.00 (test code = 1068) ABSOLUTE EOSINOPHILS 0.19 K/UL 0.00-0.50 (test code = 1040) ABSOLUTE BASOPHILS 0.05 K/UL 0.00-0.20 (test code = 1069) ABS IMMATURE 0.03 K/UL 0.00-0.10 GRANULOCYTES (test code = 1020) ABS NUCLEATED RBCS 0.00 K/UL 0.00-0.11 (test code = 51698) LIPID [id number] 06:59:50 Test Item Value Reference Range Interpretation Comments CHOLESTEROL (test 213 MG/DL <200 H code = 2210) TRIGLYCERIDES (test 212 MG/DL <150 H code = 2232) HDL CHOLESTEROL (test 39 MG/DL >39 L code = 2220) CALC LDL CHOL (test 139 MG/DL <100 H NOTE: C ALCULATED LDL code = 2237) IS BASED ON BYRON-COLUNGA METHOD WHICHINCLUDES ADJUSTABLE TRIGLYCERIDE:VL DL CHOLESTEROL RAT IO.THIS FACTOR VARIES B Y MEASURED TRIGLY CERIDE AND NON-HDLCHOL ESTEROL CONCENTRATIONS WITH INCREASED CALCU LATED LDL SEENIN HIGH ER TRIGLYCERIDE OR LOWER NON-HDL SPECIME NS. FOR MOREINFORMATION , SEE CLIENT ANNOUNCE MENT AT [email or web address] [email or web address] LDL/HDL 3.56 RATIO <3.22 H (test code = 2238) COMPREHENSIVE METABOLIC [id number] 06:59:50 Test Item Value Reference Range Interpretation Comments GLUCOSE (test code = 198 MG/DL 70-99 H 2216) BUN (test code = 12 MG/DL -2207) CREATININE (test 0.51 MG/DL 0.60-1.30 L code = 2214) eGFR (2020 CKD-EPI) 119 >60 (test code = 36110) ML/MIN/1.73 CALC BUN/CREAT (test 24 RATIO 6-28 code = 2235) SODIUM (test code = 137 MEQ/L 130-599 3592) POTASSIUM (test code 4.8 MEQ/L 3.5-5.4 = 2227) CHLORIDE (test code 102 MEQ/L 95-107 = 2214) CARBON DIOXIDE (test 25 MEQ/L 19-31 code = 220) CALCIUM (test code = 9.7 MG/DL 8.5-10.5 2208) PROTEIN, TOTAL (test 7.0 G/DL 6.1-8.3 code = 222) ALBUMIN (test code = 4.1 G/DL 3.5-5.2 2200) CALC GLOBULIN (test 2.9 G/DL 1.9-3.7 code = 2240) CALC A/G RATIO (test 1.4 RATIO 1.0-2.6 code = 2234) BILIRUBIN, TOTAL <0.2 MG/DL See_Comment [Automated message] (test code = 220) The syste m which generated this result transmitted ref erence range: <=1.2. T he reference range was not used to int erpret this result as normal/abnormal . ALKALINE PHOSPHATASE 107 U/L 40-113 (test code = 2203) AST (test code = 10 U/L 9-40 2217) ALT (test code = 11 U/L 5-40 CPL vizcaino s 2218) important patho logy staff changes effective 08/08. New patholo gy staff will prov martin uninterrupted, excellent patie nt care and clini breonna consultation. S ee URL: [email or web address]. UNLE SS OTHERWISE INDIC ATED, ALL TESTING PER FORMED AT [facility] [employer], [address] [place] [address] DIRECTOR: Anthony HILL BRYANNA NUMBER [id number] [facility] ACCREDITATION N O. [id number] HEMOGLOBIN [id number] 02:58:05 Test Item Value Reference Range Interpretation Comments HEMOGLOBIN A1c (test 11.1 % 4.2-5.6 H AMERIC AN DIABETES code = 40078) ASSOCIATION IDELINES FOR HGB A1C: PREDIABETES/INC REASED RISK . . . . . . . 5 .7-6.4% DIAGNOSIS OF DI ABETES . . . . . . . . . >=6 .5% WITH CONFIRMATION OR APPROPRIATE SYMPTOMS NOTE: ASSAY MAY BE AFFECTED BY HEMOGLOBINOPATH IES (SICKLE CELL ANEMIA, S- C DISEASE, OTHERS) OR YAN FICIALLY LOWERED BY DECR EASED RED CELL SURVIVAL ( HEMOLYTIC ANEMIAS, BLOOD LOSS, ETC.). CONSIDER ALTERN ATE TESTING OR LABORATORY C ONSULTATION. CT/NG, NAAT, [id number] 20:25:25 Test Item Value Reference Range Interpretation Comments CHLAMYDIA, NAAT, NEGATIVE NEGATIVE Testing is performed with URINE (test code Luisito SHABANA 6800/8800 = 62637) systems usingre al-time polymerase gwen n reaction (PCR) method. A negative result does not exclude low level infection , specimensamplin g error, or collection erro r. GONORRHEA, NAAT, NEGATIVE NEGATIVE Testing is performed with URINE (test code Luisito SHABANA 6800/8800 = 22084) systems usingre al-time polymerase gwen n reaction (PCR) method. A negative result does not exclude low level infection , specimensamplin g error, or collection erro r. VAGINAL PATHOGENS DNA [id number] 15:32:40 Test Item Value Reference Range Interpretation Comments LISA SPECIES NEGATIVE NEGATIVE (test code = ) G. VAGINALIS POSITIVE NEGATIVE A (test code = ) T. VAGINALIS NEGATIVE NEGATIVE Note: The BD A ffirm VPIII (test code = Microbial Ident ification ) Testis a DNA pr obe test intended for us e in the detectionand id entification of Lisa spec ies, Gardnerellavagi nalis and Trichomonas vag inalis nucleic acid. * [facility] has important patho logy staff changes effecti ve 08/08/2022. New pathology staff will provide uninterrupted, excellent patient care an d clinical consultation. S ee URL: [email or web address]. UNLESS OTHE RWISE INDICATED, [facility] [employer]. [address] [place] [id number] LABORATOR Y DIRECTOR: HILDA WYLIE M.D. IA NUMBER [id number] [facility] [place]ATION [place] O. [id number] 09:51:28 Test Item Value Reference Range Interpretation Comments D-DIMER (test 0.40 UG/ML FEU See_Comment NOTE: Provi ded code = 1405) reference range is established for evaluation of D eep Venous Thrombosis/Pulm onary Embolus (DVT/PE ). Results below c utoff value of <=0.49 UG/ML FEU have a high negative predictive valu e forDVT/PE. No r eference range is establ ished for disseminatedint ra-vascul ar coagulation (DIC). UNLESS OTHERWIS E INDICATED, [facility] [email or web address] [address] [place] [address] 78 [phone] LABORATORY DIRE CTOR: KIRSTIN GUTIERREZ M.D. CLIA NUMBER [id number] [place]. [id number] [Autom ated message] The sy stem which generated this result transmit more reference range : <=0.49. The reference r og was not used to int erpret this result as normal/abnormal . CBC W/AUTO DIFF WITH [id number] 06:57:16 Test Item Value Reference Range Interpretation Comments WBC (test code = 8.3 K/UL 3.5-11.0 1001) RBC (test code = 4.96 M/UL 3.80-5.40 1002) HEMOGLOBIN (test code 11.7 G/DL 11.5-15.5 = 1003) HEMATOCRIT (test code 36.7 % 34.0-45.0 = 1004) MCV (test code = 74.0 fL 80.0-99.0 L 1005) MCH (test code = 23.6 PG 25.0-33.0 L 1006) MCHC (test code = 31.9 G/DL 31.0-36.0 1007) RDW (test code = 14.4 % 11.5-15.0 1038) NEUTROPHILS (test 59.0 % code = 1008) LYMPHOCYTES (test 33.0 % code = 1010) MONOCYTES (test code 5.4 % = 1011) EOSINOPHILS (test 1.7 % code = 1012) BASOPHILS (test code 0.5 % = 1013) IMMATURE GRANULOCYTES 0.4 % (test code = 1036) NUCLEATED RBCS (test 0.0 /100 WBC'S See_Comment [Aut omated code = 1065) message] The sy stem which generated this result transmitted reference range : 0.0. The refere nce range was not u sed to interpret th is result as normal/abnormal . PLATELET COUNT (test 353 K/UL 130-400 code = 1015) ABSOLUTE NEUTROPHILS 4.89 K/UL 1.50-7.50 (test code = 1066) ABSOLUTE LYMPHOCYTES 2.73 K/UL 1.00-4.00 (test code = 1067) ABSOLUTE MONOCYTES 0.45 K/UL 0.20-1.00 (test code = 1068) ABSOLUTE EOSINOPHILS 0.14 K/UL 0.00-0.50 (test code = 1040) ABSOLUTE BASOPHILS 0.04 K/UL 0.00-0.20 (test code = 1069) ABS IMMATURE 0.03 K/UL 0.00-0.10 GRANULOCYTES (test code = 1020) ABS NUCLEATED RBCS 0.00 K/UL 0.00-0.11 (test code = 76841) HEMOGLOBIN [id number] 08:31:25 Test Item Value Reference Range Interpretation Comments HEMOGLOBIN A1c (test 9.7 % 4.2-5.6 H AMERIC AN DIABETES code = 84599) ASSOCIATION IDELINES FOR HGB A1C: PREDIABETES/INC REASED RISK . . . . . . . 5.7 -6.4% DIAGNOSIS OF DI ABETES . . . . . . . . . >=6 .5% WITH CONFIRMATION OR APPROPRIATE SYMPTOMS NOTE: ASSAY MAY BE AFFECTED BY HEMOGLOBINOPATH IES (SICKLE CELL ANEMIA, S- C DISEASE, OTHERS) OR YAN FICIALLY LOWERED BY DECR EASED RED CELL SURVIVAL ( HEMOLYTIC ANEMIAS, BLOOD LOSS, ETC.). CONSIDER ALTERN ATE TESTING OR LABORATORY C ONSULTATION. UNLESS OTHERWIS E INDICATED, ALL TESTING PER FORMED ATCLINICAL PATH [facility]. [address] [place] [address] 04 LABORATORY DIRE CTOR: KIRSTIN PAK M.D. CLIA NUMBER [id number] [place]. [id number] COMPREHENSIVE METABOLIC [id number] 04:26:44 Test Item Value Reference Range Interpretation Comments GLUCOSE (test code = 269 MG/DL 70-99 H 2216) BUN (test code = 14 MG/DL -2207) CREATININE (test 0.49 MG/DL 0.60-1.30 L code = 2214) eGFR (2020 CKD-EPI) 121 >60 (test code = 66396) ML/MIN/1.73 CALC BUN/CREAT (test 29 RATIO 6-28 H code = 2235) SODIUM (test code = 137 MEQ/L 642-691 2394) POTASSIUM (test code 5.4 MEQ/L 3.5-5.4 = 2228) CHLORIDE (test code 104 MEQ/L 95-107 = 2215) CARBON DIOXIDE (test 22 MEQ/L code = 2206) CALCIUM (test code = 9.8 MG/DL 8.5-10.5 2208) PROTEIN, TOTAL (test 7.5 G/DL 6.1-8.3 code = 222) ALBUMIN (test code = 4.3 G/DL 3.5-5.2 2200) CALC GLOBULIN (test 3.2 G/DL 1.9-3.7 code = 2240) CALC A/G RATIO (test 1.3 RATIO 1.0-2.6 code = 2234) BILIRUBIN, TOTAL <0.2 MG/DL See_Comment [Automated message] (test code = 220) The syste m which generated this result transmit more reference range : <=1.2. The refe rence range was not u sed to interpret th is result as normal/abnormal . ALKALINE PHOSPHATASE 107 U/L 40-113 (test code = 220) AST (test code = 9 U/L 9-40 2217) ALT (test code = 9 U/L 5-40 2218) LIPID [id number] 04:26:44 Test Item Value Reference Range Interpretation Comments CHOLESTEROL (test 211 MG/DL <200 H code = 2210) TRIGLYCERIDES (test 188 MG/DL <150 H code = 2232) HDL CHOLESTEROL (test 36 MG/DL >39 L code = 2220) CALC LDL CHOL (test 143 MG/DL <100 H NOTE: C ALCULATED LDL code = 2237) IS BASED ON BYRON-COLUNGA METHOD WHICHINCLUDES ADJUSTABLE TRIGLYCERIDE:VL DL CHOLESTEROL RAT IO.THIS FACTOR VARIES B Y MEASURED TRIGLY CERIDE AND NON-HDLCHOL ESTEROL CONCENTRATIONS WITH INCREASED CALCU LATED LDL SEENIN HIGH ER TRIGLYCERIDE OR LOWER NON-HDL SPECIME NS. FOR MOREINFORMATION , SEE CLIENT ANNOUNCE MENT AT [email or web address] RISK RATIO LDL/HDL 3.97 RATIO <3.22 H (test code = 2238) COMPREHENSIVE METABOLIC [id number] 00:00:00 Test Item Value Reference Range Interpretation Comments GLUCOSE (test code = 2217) 269 MG/DL BUN (test code = 2208) 14 MG/DL CREATININE (test code = 2214) 0.49 MG/DL eGFR (2020 CKD-EPI) (test 121 ML/MIN/1.73 code = 29086) CALC BUN/CREAT (test code = 29 RATIO 2235) SODIUM (test code = 2231) 137 MEQ/L POTASSIUM (test code = 2228) 5.4 MEQ/L CHLORIDE (test code = 2215) 104 MEQ/L CARBON DIOXIDE (test code = 22 MEQ/L 2206) CALCIUM (test code = 2209) 9.8 MG/DL PROTEIN, TOTAL (test code = 7.5 G/DL 2228) ALBUMIN (test code = 2201) 4.3 G/DL CALC GLOBULIN (test code = 3.2 G/DL 2240) CALC A/G RATIO (test code = 1.3 RATIO 2234) BILIRUBIN, TOTAL (test code = <0.2 MG/DL 2206) ALKALINE PHOSPHATASE (test 107 U/L code = 2204) AST (test code = 2218) 9 U/L ALT (test code = 2219) 9 U/L COMPREHENSIVE METABOLIC [id number] 00:00:00 Test Item Value Reference Range Interpretation Comments GLUCOSE (test code = 2217) 269 MG/DL BUN (test code = 2208) 14 MG/DL CREATININE (test code = 2214) 0.49 MG/DL eGFR (2020 CKD-EPI) (test 121 ML/MIN/1.73 code = 41864) CALC BUN/CREAT (test code = 29 RATIO 2235) SODIUM (test code = 2231) 137 MEQ/L POTASSIUM (test code = 2228) 5.4 MEQ/L CHLORIDE (test code = 2215) 104 MEQ/L CARBON DIOXIDE (test code = 22 MEQ/L 2206) CALCIUM (test code = 2209) 9.8 MG/DL PROTEIN, TOTAL (test code = 7.5 G/DL 2228) ALBUMIN (test code = 2201) 4.3 G/DL CALC GLOBULIN (test code = 3.2 G/DL 2240) CALC A/G RATIO (test code = 1.3 RATIO 2234) BILIRUBIN, TOTAL (test code = <0.2 MG/DL 2206) ALKALINE PHOSPHATASE (test 107 U/L code = 2204) AST (test code = 2218) 9 U/L ALT (test code = 2219) 9 U/L LIPID [id number] 00:00:00 Test Item Value Reference Range Interpretation Comments CHOLESTEROL (test code = 2210) 211 MG/DL TRIGLYCERIDES (test code = 2232) 188 MG/DL HDL CHOLESTEROL (test code = 2220) 36 MG/DL CALC LDL CHOL (test code = 2237) 143 MG/DL RISK RATIO LDL/HDL (test code = 3.97 RATIO 2238) LIPID [id number] 00:00:00 Test Item Value Reference Range Interpretation Comments CHOLESTEROL (test code = 2210) 211 MG/DL TRIGLYCERIDES (test code = 2232) 188 MG/DL HDL CHOLESTEROL (test code = 2220) 36 MG/DL CALC LDL CHOL (test code = 2237) 143 MG/DL RISK RATIO LDL/HDL (test code = 3.97 RATIO 2238) HEMOGLOBIN [id number] 00:00:00 Test Item Value Reference Range Interpretation Comments HEMOGLOBIN A1c (test code = 41367) 9.7 % HEMOGLOBIN [id number] 00:00:00 Test Item Value Reference Range Interpretation Comments HEMOGLOBIN A1c (test code = 12460) 9.7 % HEMOGLOBIN [id number] 00:00:00 Test Item Value Reference Range Interpretation Comments HEMOGLOBIN A1c (test code = 99086) 9.7 % HEMOGLOBIN [id number] 10:44:13 Test Item Value Reference Range Interpretation Comments HEMOGLOBIN A1c (test 10.5 % 4.2-5.6 H AMERIC AN DIABETES code = 91235) ASSOCIATION IDELINES FOR HGB A1C: PREDIABETES/INC REASED RISK . . . . . . . 5 .7-6.4% DIAGNOSIS OF DI ABETES . . . . . . . . . >=6 .5% WITH CONFIRMATION OR APPROPRIATE SYMPTOMS NOTE: ASSAY MAY BE AFFECTED BY HEMOGLOBINOPATH IES (SICKLE CELL ANEMIA, S- C DISEASE, OTHERS) OR YAN FICIALLY LOWERED BY DECR EASED RED CELL SURVIVAL ( HEMOLYTIC ANEMIAS, BLOOD LOSS, ETC.). CONSIDER ALTERN ATE TESTING OR LABORATORY C ONSULTATION. LIPID [id number] 04:39:45 Test Item Value Reference Range Interpretation Comments CHOLESTEROL (test 202 MG/DL <200 H code = 2210) TRIGLYCERIDES (test 281 MG/DL <150 H code = 2232) HDL CHOLESTEROL (test 36 MG/DL >39 L code = 2220) CALC LDL CHOL (test 123 MG/DL <100 H NOTE: C ALCULATED LDL code = 2237) IS BASED ON BYRON-COLUNGA METHOD WHICHINCLUDES ADJUSTABLE TRIGLYCERIDE:VL DL CHOLESTEROL RAT IO.THIS FACTOR VARIES B Y MEASURED TRIGLY CERIDE AND NON-HDLCHOL ESTEROL CONCENTRATIONS WITH INCREASED CALCU LATED LDL SEENIN HIGH ER TRIGLYCERIDE OR LOWER NON-HDL SPECIME NS. FOR MOREINFORMATION , SEE CLIENT ANNOUNCE MENT AT [email or web address] /CalcLDL-C RISK RATIO LDL/HDL 3.42 RATIO <3.22 H (test code = 2238) COMPREHENSIVE METABOLIC [id number] 04:39:45 Test Item Value Reference Range Interpretation Comments GLUCOSE (test code = 191 MG/DL 70-99 H 2216) BUN (test code = 12 MG/DL 6-20 2207) CREATININE (test 0.46 MG/DL 0.60-1.30 L code = 221) eGFR (2020 CKD-EPI) 122 >60 (test code = 28382) ML/MIN/1.73 CALC BUN/CREAT (test 26 RATIO 6-28 code = 2235) SODIUM (test code = 137 MEQ/L 692-172 5415) POTASSIUM (test code 4.6 MEQ/L 3.5-5.4 = 2227) CHLORIDE (test code 101 MEQ/L 95-107 = 221) CARBON DIOXIDE (test 25 MEQ/L 19-31 code = 220) CALCIUM (test code = 9.4 MG/DL 8.5-10.5 2208) PROTEIN, TOTAL (test 7.2 G/DL 6.1-8.3 code = 2229) ALBUMIN (test code = 4.1 G/DL 3.5-5.2 2200) CALC GLOBULIN (test 3.1 G/DL 1.9-3.7 code = 2240) CALC A/G RATIO (test 1.3 RATIO 1.0-2.6 code = 2234) BILIRUBIN, TOTAL 0.2 MG/DL See_Comment [Automated message] (test code = 220) The syste m which generated this result transmitted ref erence range: <=1.2. T he reference range was not used to int erpret this result as normal/abnormal . ALKALINE PHOSPHATASE 121 U/L 40-113 H (test code = 220) AST (test code = 10 U/L 9-40 2217) ALT (test code = 9 U/L 5-40 UNLESS OT HERWISE 2219) INDICATED, ALL TESTING PERFORM ED ATCLINICAL PATH [facility] [place] [address] [place] [address] [facility] DIRECTOR: Anthony ELAMIA NUMBER [id number] CAP ACCREDITATION N O. [id number] HEMOGLOBIN [id number] 00:00:00 Test Item Value Reference Range Interpretation Comments HEMOGLOBIN A1c (test code = 51369) 10.5 % HEMOGLOBIN [id number] 00:00:00 Test Item Value Reference Range Interpretation Comments HEMOGLOBIN A1c (test code = 55760) 10.5 % HEMOGLOBIN [id number] 00:00:00 Test Item Value Reference Range Interpretation Comments HEMOGLOBIN A1c (test code = 50402) 10.5 % LIPID [id number] 00:00:00 Test Item Value Reference Range Interpretation Comments CHOLESTEROL (test code = 2210) 202 MG/DL TRIGLYCERIDES (test code = 2232) 281 MG/DL HDL CHOLESTEROL (test code = 2220) 36 MG/DL CALC LDL CHOL (test code = 2237) 123 MG/DL RISK RATIO LDL/HDL (test code = 3.42 RATIO 2238) LIPID [id number] 00:00:00 Test Item Value Reference Range Interpretation Comments CHOLESTEROL (test code = 2210) 202 MG/DL TRIGLYCERIDES (test code = 2232) 281 MG/DL HDL CHOLESTEROL (test code = 2220) 36 MG/DL CALC LDL CHOL (test code = 2237) 123 MG/DL RISK RATIO LDL/HDL (test code = 3.42 RATIO 2238) COMPREHENSIVE METABOLIC [id number] 00:00:00 Test Item Value Reference Range Interpretation Comments GLUCOSE (test code = 2217) 191 MG/DL BUN (test code = 2208) 12 MG/DL CREATININE (test code = 2214) 0.46 MG/DL eGFR (2020 CKD-EPI) (test 122 ML/MIN/1.73 code = 35264) CALC BUN/CREAT (test code = 26 RATIO 2235) SODIUM (test code = 2231) 137 MEQ/L POTASSIUM (test code = 2228) 4.6 MEQ/L CHLORIDE (test code = 2215) 101 MEQ/L CARBON DIOXIDE (test code = 25 MEQ/L 2205) CALCIUM (test code = 2209) 9.4 MG/DL PROTEIN, TOTAL (test code = 7.2 G/DL 2228) ALBUMIN (test code = 2201) 4.1 G/DL CALC GLOBULIN (test code = 3.1 G/DL 2240) CALC A/G RATIO (test code = 1.3 RATIO 2234) BILIRUBIN, TOTAL (test code = 0.2 MG/DL 2206) ALKALINE PHOSPHATASE (test 121 U/L code = 2204) AST (test code = 2218) 10 U/L ALT (test code = 2219) 9 U/L COMPREHENSIVE METABOLIC [id number] 00:00:00 Test Item Value Reference Range Interpretation Comments GLUCOSE (test code = 2217) 191 MG/DL BUN (test code = 2208) 12 MG/DL CREATININE (test code = 2214) 0.46 MG/DL eGFR (2020 CKD-EPI) (test 122 ML/MIN/1.73 code = 57304) CALC BUN/CREAT (test code = 26 RATIO 2235) SODIUM (test code = 2231) 137 MEQ/L POTASSIUM (test code = 2228) 4.6 MEQ/L CHLORIDE (test code = 2215) 101 MEQ/L CARBON DIOXIDE (test code = 25 MEQ/L 6) CALCIUM (test code = 2209) 9.4 MG/DL PROTEIN, TOTAL (test code = 7.2 G/DL 2228) ALBUMIN (test code = 2201) 4.1 G/DL CALC GLOBULIN (test code = 3.1 G/DL 2240) CALC A/G RATIO (test code = 1.3 RATIO 2234) BILIRUBIN, TOTAL (test code = 0.2 MG/DL 2206) ALKALINE PHOSPHATASE (test 121 U/L code = 2204) AST (test code = 2218) 10 U/L ALT (test code = 2219) 9 U/L HEMOGLOBIN [id number] 00:00:00 Test Item Value Reference Range Interpretation Comments HEMOGLOBIN A1c (test code = 75534) 10.5 % HEMOGLOBIN [id number] 00:00:00 Test Item Value Reference Range Interpretation Comments HEMOGLOBIN A1c (test code = 13832) 10.5 % HEMOGLOBIN [id number] 00:00:00 Test Item Value Reference Range Interpretation Comments HEMOGLOBIN A1c (test code = 75405) 10.5 % LIPID [id number] 00:00:00 Test Item Value Reference Range Interpretation Comments CHOLESTEROL (test code = 2210) 202 MG/DL TRIGLYCERIDES (test code = 2232) 281 MG/DL HDL CHOLESTEROL (test code = 2220) 36 MG/DL CALC LDL CHOL (test code = 2237) 123 MG/DL RISK RATIO LDL/HDL (test code = 3.42 RATIO 2238) LIPID [id number] 00:00:00 Test Item Value Reference Range Interpretation Comments CHOLESTEROL (test code = 2210) 202 MG/DL TRIGLYCERIDES (test code = 2232) 281 MG/DL HDL CHOLESTEROL (test code = 2220) 36 MG/DL CALC LDL CHOL (test code = 2237) 123 MG/DL RISK RATIO LDL/HDL (test code = 3.42 RATIO 2238) COMPREHENSIVE METABOLIC [id number] 00:00:00 Test Item Value Reference Range Interpretation Comments GLUCOSE (test code = 2217) 191 MG/DL BUN (test code = 2208) 12 MG/DL CREATININE (test code = 2214) 0.46 MG/DL eGFR (2020 CKD-EPI) (test 122 ML/MIN/1.73 code = 71831) CALC BUN/CREAT (test code = 26 RATIO 2235) SODIUM (test code = 2231) 137 MEQ/L POTASSIUM (test code = 2228) 4.6 MEQ/L CHLORIDE (test code = 2215) 101 MEQ/L CARBON DIOXIDE (test code = 25 MEQ/L 2205) CALCIUM (test code = 2209) 9.4 MG/DL PROTEIN, TOTAL (test code = 7.2 G/DL 2228) ALBUMIN (test code = 2201) 4.1 G/DL CALC GLOBULIN (test code = 3.1 G/DL 2240) CALC A/G RATIO (test code = 1.3 RATIO 2234) BILIRUBIN, TOTAL (test code = 0.2 MG/DL 2206) ALKALINE PHOSPHATASE (test 121 U/L code = 2204) AST (test code = 2218) 10 U/L ALT (test code = 2219) 9 U/L COMPREHENSIVE METABOLIC [id number] 00:00:00 Test Item Value Reference Range Interpretation Comments GLUCOSE (test code = 2217) 191 MG/DL BUN (test code = 2208) 12 MG/DL CREATININE (test code = 2214) 0.46 MG/DL eGFR (2020 CKD-EPI) (test 122 ML/MIN/1.73 code = 68216) CALC BUN/CREAT (test code = 26 RATIO 2235) SODIUM (test code = 2231) 137 MEQ/L POTASSIUM (test code = 2228) 4.6 MEQ/L CHLORIDE (test code = 2215) 101 MEQ/L CARBON DIOXIDE (test code = 25 MEQ/L 2205) CALCIUM (test code = 2209) 9.4 MG/DL PROTEIN, TOTAL (test code = 7.2 G/DL 2228) ALBUMIN (test code = 2201) 4.1 G/DL CALC GLOBULIN (test code = 3.1 G/DL 2239) CALC A/G RATIO (test code = 1.3 RATIO 2233) BILIRUBIN, TOTAL (test code = 0.2 MG/DL 2206) ALKALINE PHOSPHATASE (test 121 U/L code = 2204) AST (test code = 2218) 10 U/L ALT (test code = 2219) 9 U/L HEMOGLOBIN [id number] 00:00:00 Test Item Value Reference Range Interpretation Comments HEMOGLOBIN A1c (test code = 95888) 10.5 % HEMOGLOBIN [id number] 00:00:00 Test Item Value Reference Range Interpretation Comments HEMOGLOBIN A1c (test code = 65690) 10.5 % HEMOGLOBIN [id number] 00:00:00 Test Item Value Reference Range Interpretation Comments HEMOGLOBIN A1c (test code = 20384) 10.5 % LIPID [id number] 00:00:00 Test Item Value Reference Range Interpretation Comments CHOLESTEROL (test code = 2210) 202 MG/DL TRIGLYCERIDES (test code = 2232) 281 MG/DL HDL CHOLESTEROL (test code = 2220) 36 MG/DL CALC LDL CHOL (test code = 2237) 123 MG/DL RISK RATIO LDL/HDL (test code = 3.42 RATIO 2238) LIPID [id number] 00:00:00 Test Item Value Reference Range Interpretation Comments CHOLESTEROL (test code = 2210) 202 MG/DL TRIGLYCERIDES (test code = 2232) 281 MG/DL HDL CHOLESTEROL (test code = 2220) 36 MG/DL CALC LDL CHOL (test code = 2237) 123 MG/DL RISK RATIO LDL/HDL (test code = 3.42 RATIO 2238) COMPREHENSIVE METABOLIC [id number] 00:00:00 Test Item Value Reference Range Interpretation Comments GLUCOSE (test code = 2217) 191 MG/DL BUN (test code = 2208) 12 MG/DL CREATININE (test code = 2214) 0.46 MG/DL eGFR (2020 CKD-EPI) (test 122 ML/MIN/1.73 code = 97160) CALC BUN/CREAT (test code = 26 RATIO 2235) SODIUM (test code = 2231) 137 MEQ/L POTASSIUM (test code = 2228) 4.6 MEQ/L CHLORIDE (test code = 2215) 101 MEQ/L CARBON DIOXIDE (test code = 25 MEQ/L 220) CALCIUM (test code = 2209) 9.4 MG/DL PROTEIN, TOTAL (test code = 7.2 G/DL 2228) ALBUMIN (test code = 2201) 4.1 G/DL CALC GLOBULIN (test code = 3.1 G/DL 2240) CALC A/G RATIO (test code = 1.3 RATIO 2234) BILIRUBIN, TOTAL (test code = 0.2 MG/DL 2206) ALKALINE PHOSPHATASE (test 121 U/L code = 2204) AST (test code = 2218) 10 U/L ALT (test code = 2219) 9 U/L COMPREHENSIVE METABOLIC [id number] 00:00:00 Test Item Value Reference Range Interpretation Comments GLUCOSE (test code = 2217) 191 MG/DL BUN (test code = 2208) 12 MG/DL CREATININE (test code = 2214) 0.46 MG/DL eGFR (2020 CKD-EPI) (test 122 ML/MIN/1.73 code = 30783) CALC BUN/CREAT (test code = 26 RATIO 2235) SODIUM (test code = 2231) 137 MEQ/L POTASSIUM (test code = 2228) 4.6 MEQ/L CHLORIDE (test code = 2215) 101 MEQ/L CARBON DIOXIDE (test code = 25 MEQ/L 220) CALCIUM (test code = 2209) 9.4 MG/DL PROTEIN, TOTAL (test code = 7.2 G/DL 2228) ALBUMIN (test code = 2201) 4.1 G/DL CALC GLOBULIN (test code = 3.1 G/DL 2240) CALC A/G RATIO (test code = 1.3 RATIO 2234) BILIRUBIN, TOTAL (test code = 0.2 MG/DL 2207) ALKALINE PHOSPHATASE (test 121 U/L code = 2204) AST (test code = 2218) 10 U/L ALT (test code = 2219) 9 U/L LIPID [id number] 05:56:32 Test Item Value Reference Range Interpretation Comments CHOLESTEROL (test 194 MG/DL <200 code = 2210) TRIGLYCERIDES (test 160 MG/DL <150 H code = 2232) HDL CHOLESTEROL (test 37 MG/DL >39 L code = 2220) CALC LDL CHOL (test 129 MG/DL <100 H NOTE: C ALCULATED LDL code = 2237) IS BASED ON BYRON-COLUNGA METHOD WHICHINCLUDES ADJUSTABLE TRIGLYCERIDE:VL DL CHOLESTEROL RAT IO.THIS FACTOR VARIES B Y MEASURED TRIGLY CERIDE AND NON-HDLCHOL ESTEROL CONCENTRATIONS WITH INCREASED CALCU LATED LDL SEENIN HIGH ER TRIGLYCERIDE OR LOWER NON-HDL SPECIME NS. FOR MOREINFORMATION , SEE CLIENT ANNOUNCE MENT AT [email or web address] /CalcLDL-C RISK RATIO LDL/HDL 3.49 RATIO <3.22 H UNLESS O THERWISE (test code = 2238) INDICATED , ALL TESTING PERFORMED [facility], [id number] [place] [address] DIRECTOR: KIRSTIN PAK M.D. CLIA NUMBER [id number] CAP ACCREDITATION N O. [id number] HEMOGLOBIN [id number] 03:52:59 Test Item Value Reference Range Interpretation Comments HEMOGLOBIN A1c (test 10.1 % 4.2-5.6 H [employer] AN DIABETES code = 84485) ASSOCIATION IDELINES FOR HGB A1C: PREDIABETES/INC REASED RISK . . . . . . . 5 .7-6.4% DIAGNOSIS OF DI ABETES . . . . . . . . . >=6 .5% WITH CONFIRMATION OR APPROPRIATE SYMPTOMS NOTE: ASSAY MAY BE AFFECTED BY HEMOGLOBINOPATH IES (SICKLE CELL ANEMIA, S- C DISEASE, OTHERS) OR YAN FICIALLY LOWERED BY DECR EASED RED CELL SURVIVAL ( HEMOLYTIC ANEMIAS, BLOOD LOSS, ETC.). CONSIDER ALTERN ATE TESTING OR LABORATORY C ONSULTATION. HEMOGLOBIN A1c [ADDED]2021-08-17 00:00:00 Test Item Value Reference Range Interpretation Comments HEMOGLOBIN A1c (test code = 75263) 10.1 % HEMOGLOBIN A1c [ADDED]2021-08-17 00:00:00 Test Item Value Reference Range Interpretation Comments HEMOGLOBIN A1c (test code = 36145) 10.1 % HEMOGLOBIN A1c [ADDED]2021-08-17 00:00:00 Test Item Value Reference Range Interpretation Comments HEMOGLOBIN A1c (test code = 09669) 10.1 % LIPID PANEL [ADDED]2021-08-17 00:00:00 Test Item Value Reference Range Interpretation Comments CHOLESTEROL (test code = 2210) 194 MG/DL TRIGLYCERIDES (test code = 2232) 160 MG/DL HDL CHOLESTEROL (test code = 2220) 37 MG/DL CALC LDL CHOL (test code = 2237) 129 MG/DL RISK RATIO LDL/HDL (test code = 3.49 RATIO 2238) LIPID PANEL [ADDED]2021-08-17 00:00:00 Test Item Value Reference Range Interpretation Comments CHOLESTEROL (test code = 2210) 194 MG/DL TRIGLYCERIDES (test code = 2232) 160 MG/DL HDL CHOLESTEROL (test code = 2220) 37 MG/DL CALC LDL CHOL (test code = 2237) 129 MG/DL RISK RATIO LDL/HDL (test code = 3.49 RATIO 2238) HEMOGLOBIN A1c [ADDED]2021-08-17 00:00:00 Test Item Value Reference Range Interpretation Comments HEMOGLOBIN A1c (test code = 49051) 10.1 % LIPID PANEL [ADDED]2021-08-17 00:00:00 Test Item Value Reference Range Interpretation Comments CHOLESTEROL (test code = 2210) 194 MG/DL TRIGLYCERIDES (test code = 2232) 160 MG/DL HDL CHOLESTEROL (test code = 2220) 37 MG/DL CALC LDL CHOL (test code = 2237) 129 MG/DL RISK RATIO LDL/HDL (test code = 3.49 RATIO 2238) HEMOGLOBIN A1c [ADDED]2021-08-17 00:00:00 Test Item Value Reference Range Interpretation Comments HEMOGLOBIN A1c (test code = 81674) 10.1 % HEMOGLOBIN A1c [ADDED]2021-08-17 00:00:00 Test Item Value Reference Range Interpretation Comments HEMOGLOBIN A1c (test code = 17256) 10.1 % HEMOGLOBIN A1c [ADDED]2021-08-17 00:00:00 Test Item Value Reference Range Interpretation Comments HEMOGLOBIN A1c (test code = 32154) 10.1 % LIPID PANEL [ADDED]2021-08-17 00:00:00 Test Item Value Reference Range Interpretation Comments CHOLESTEROL (test code = 2210) 194 MG/DL TRIGLYCERIDES (test code = 2232) 160 MG/DL HDL CHOLESTEROL (test code = 2220) 37 MG/DL CALC LDL CHOL (test code = 2237) 129 MG/DL RISK RATIO LDL/HDL (test code = 3.49 RATIO 2238) LIPID PANEL [ADDED]2021-08-17 00:00:00 Test Item Value Reference Range Interpretation Comments CHOLESTEROL (test code = 2210) 194 MG/DL TRIGLYCERIDES (test code = 2232) 160 MG/DL HDL CHOLESTEROL (test code = 2220) 37 MG/DL CALC LDL CHOL (test code = 2237) 129 MG/DL RISK RATIO LDL/HDL (test code = 3.49 RATIO 2238) HEMOGLOBIN A1c [ADDED]2021-08-17 00:00:00 Test Item Value Reference Range Interpretation Comments HEMOGLOBIN A1c (test code = 40225) 10.1 % HEMOGLOBIN A1c [ADDED]2021-08-17 00:00:00 Test Item Value Reference Range Interpretation Comments HEMOGLOBIN A1c (test code = 91751) 10.1 % HEMOGLOBIN A1c [ADDED]2021-08-17 00:00:00 Test Item Value Reference Range Interpretation Comments HEMOGLOBIN A1c (test code = 32088) 10.1 % LIPID PANEL [ADDED]2021-08-17 00:00:00 Test Item Value Reference Range Interpretation Comments CHOLESTEROL (test code = 2210) 194 MG/DL TRIGLYCERIDES (test code = 2232) 160 MG/DL HDL CHOLESTEROL (test code = 2220) 37 MG/DL CALC LDL CHOL (test code = 2237) 129 MG/DL RISK RATIO LDL/HDL (test code = 3.49 RATIO 2238) LIPID PANEL [ADDED]2021-08-17 00:00:00 Test Item Value Reference Range Interpretation Comments CHOLESTEROL (test code = 2210) 194 MG/DL TRIGLYCERIDES (test code = 2232) 160 MG/DL HDL CHOLESTEROL (test code = 2220) 37 MG/DL CALC LDL CHOL (test code = 2237) 129 MG/DL RISK RATIO LDL/HDL (test code = 3.49 RATIO 2238) HEMOGLOBIN A1c [ADDED]2021-08-17 00:00:00 Test Item Value Reference Range Interpretation Comments HEMOGLOBIN A1c (test code = 10056) 10.1 % HEMOGLOBIN [id number] 00:00:00 Test Item Value Reference Range Interpretation Comments HEMOGLOBIN A1c (test code = 46889) 8.8 % HEMOGLOBIN [id number] 00:00:00 Test Item Value Reference Range Interpretation Comments HEMOGLOBIN A1c (test code = 92217) 8.8 % HEMOGLOBIN [id number] 00:00:00 Test Item Value Reference Range Interpretation Comments HEMOGLOBIN A1c (test code = 28928) 8.8 % HEMOGLOBIN [id number] 00:00:00 Test Item Value Reference Range Interpretation Comments HEMOGLOBIN A1c (test code = 77869) 8.8 % HEMOGLOBIN [id number] 00:00:00 Test Item Value Reference Range Interpretation Comments HEMOGLOBIN A1c (test code = 88067) 8.8 % LIPID [id number] 00:00:00 Test Item Value Reference Range Interpretation Comments CHOLESTEROL (test code = 2210) 177 MG/DL TRIGLYCERIDES (test code = 2232) 206 MG/DL HDL CHOLESTEROL (test code = 2220) 37 MG/DL CALC LDL CHOL (test code = 2237) 108 MG/DL RISK RATIO LDL/HDL (test code = 2.92 RATIO 2238) LIPID [id number] 00:00:00 Test Item Value Reference Range Interpretation Comments CHOLESTEROL (test code = 2210) 177 MG/DL TRIGLYCERIDES (test code = 2232) 206 MG/DL HDL CHOLESTEROL (test code = 2220) 37 MG/DL CALC LDL CHOL (test code = 2237) 108 MG/DL RISK RATIO LDL/HDL (test code = 2.92 RATIO 2238) VITAMIN D, 25 [id number] 00:00:00 Test Item Value Reference Range Interpretation Comments VITAMIN D, 25 OH (test code = 4958) 30 NG/ML VITAMIN D, 25 [id number] 00:00:00 Test Item Value Reference Range Interpretation Comments VITAMIN D, 25 OH (test code = 4958) 30 NG/ML LIPID [id number] 00:00:00 Test Item Value Reference Range Interpretation Comments CHOLESTEROL (test code = 2210) 177 MG/DL TRIGLYCERIDES (test code = 2232) 206 MG/DL HDL CHOLESTEROL (test code = 2220) 37 MG/DL CALC LDL CHOL (test code = 2237) 108 MG/DL RISK RATIO LDL/HDL (test code = 2.92 RATIO 2238) VITAMIN D, 25 [id number] 00:00:00 Test Item Value Reference Range Interpretation Comments VITAMIN D, 25 OH (test code = 4958) 30 NG/ML HEMOGLOBIN [id number] 00:00:00 Test Item Value Reference Range Interpretation Comments HEMOGLOBIN A1c (test code = 30320) 8.8 % HEMOGLOBIN [id number] 00:00:00 Test Item Value Reference Range Interpretation Comments HEMOGLOBIN A1c (test code = 97186) 8.8 % HEMOGLOBIN [id number] 00:00:00 Test Item Value Reference Range Interpretation Comments HEMOGLOBIN A1c (test code = 44489) 8.8 % LIPID [id number] 00:00:00 Test Item Value Reference Range Interpretation Comments CHOLESTEROL (test code = 2210) 177 MG/DL TRIGLYCERIDES (test code = 2232) 206 MG/DL HDL CHOLESTEROL (test code = 2220) 37 MG/DL CALC LDL CHOL (test code = 2237) 108 MG/DL RISK RATIO LDL/HDL (test code = 2.92 RATIO 2238) LIPID [id number] 00:00:00 Test Item Value Reference Range Interpretation Comments CHOLESTEROL (test code = 2210) 177 MG/DL TRIGLYCERIDES (test code = 2232) 206 MG/DL HDL CHOLESTEROL (test code = 2220) 37 MG/DL CALC LDL CHOL (test code = 2237) 108 MG/DL RISK RATIO LDL/HDL (test code = 2.92 RATIO 2238) VITAMIN D, 25 [id number] 00:00:00 Test Item Value Reference Range Interpretation Comments VITAMIN D, 25 OH (test code = 4958) 30 NG/ML VITAMIN D, 25 [id number] 00:00:00 Test Item Value Reference Range Interpretation Comments VITAMIN D, 25 OH (test code = 4958) 30 NG/ML HEMOGLOBIN [id number] 00:00:00 Test Item Value Reference Range Interpretation Comments HEMOGLOBIN A1c (test code = 71970) 8.8 % HEMOGLOBIN [id number] 00:00:00 Test Item Value Reference Range Interpretation Comments HEMOGLOBIN A1c (test code = 48861) 8.8 % HEMOGLOBIN [id number] 00:00:00 Test Item Value Reference Range Interpretation Comments HEMOGLOBIN A1c (test code = 15947) 8.8 % LIPID [id number] 00:00:00 Test Item Value Reference Range Interpretation Comments CHOLESTEROL (test code = 2210) 177 MG/DL TRIGLYCERIDES (test code = 2232) 206 MG/DL HDL CHOLESTEROL (test code = 2220) 37 MG/DL CALC LDL CHOL (test code = 2237) 108 MG/DL RISK RATIO LDL/HDL (test code = 2.92 RATIO 2238) LIPID [id number] 00:00:00 Test Item Value Reference Range Interpretation Comments CHOLESTEROL (test code = 2210) 177 MG/DL TRIGLYCERIDES (test code = 2232) 206 MG/DL HDL CHOLESTEROL (test code = 2220) 37 MG/DL CALC LDL CHOL (test code = 2237) 108 MG/DL RISK RATIO LDL/HDL (test code = 2.92 RATIO 2238) VITAMIN D, 25 [id number] 00:00:00 Test Item Value Reference Range Interpretation Comments VITAMIN D, 25 OH (test code = 4958) 30 NG/ML VITAMIN D, 25 [id number] 00:00:00 Test Item Value Reference Range Interpretation Comments VITAMIN D, 25 OH (test code = 4958) 30 NG/ML HEMOGLOBIN [id number] 00:00:00 Test Item Value Reference Range Interpretation Comments HEMOGLOBIN A1c (test code = 58107) 8.3 % HEMOGLOBIN [id number] 00:00:00 Test Item Value Reference Range Interpretation Comments HEMOGLOBIN A1c (test code = 34987) 8.3 % HEMOGLOBIN [id number] 00:00:00 Test Item Value Reference Range Interpretation Comments HEMOGLOBIN A1c (test code = 21723) 8.3 % LIPID [id number] 00:00:00 Test Item Value Reference Range Interpretation Comments CHOLESTEROL (test code = 2210) 188 MG/DL TRIGLYCERIDES (test code = 2232) 323 MG/DL HDL CHOLESTEROL (test code = 2220) 36 MG/DL CALC LDL CHOL (test code = 2237) 109 MG/DL RISK RATIO LDL/HDL (test code = 3.03 RATIO 2238) HEMOGLOBIN [id number] 00:00:00 Test Item Value Reference Range Interpretation Comments HEMOGLOBIN A1c (test code = 15894) 8.3 % LIPID [id number] 00:00:00 Test Item Value Reference Range Interpretation Comments CHOLESTEROL (test code = 2210) 188 MG/DL TRIGLYCERIDES (test code = 2232) 323 MG/DL HDL CHOLESTEROL (test code = 2220) 36 MG/DL CALC LDL CHOL (test code = 2237) 109 MG/DL RISK RATIO LDL/HDL (test code = 3.03 RATIO 2238) COMPREHENSIVE METABOLIC [id number] 00:00:00 Test Item Value Reference Range Interpretation Comments GLUCOSE (test code = 2217) 201 MG/DL BUN (test code = 2208) 14 MG/DL CREATININE (test code = 2214) 0.66 MG/DL eGFR AMER. (test code 127 ML/MIN/1.73 = 57454) eGFR NON- AMER. (test 110 ML/MIN/1.73 code = 94064) CALC BUN/CREAT (test code = 21 RATIO 2235) SODIUM (test code = 2231) 139 MEQ/L POTASSIUM (test code = 2228) 4.4 MEQ/L CHLORIDE (test code = 2215) 104 MEQ/L CARBON DIOXIDE (test code = 23 MEQ/L 220) CALCIUM (test code = 2209) 9.6 MG/DL PROTEIN, TOTAL (test code = 7.1 G/DL 2228) ALBUMIN (test code = 2201) 4.2 G/DL CALC GLOBULIN (test code = 2.9 G/DL 2239) CALC A/G RATIO (test code = 1.4 RATIO 4) BILIRUBIN, TOTAL (test code = <0.2 MG/DL 2206) ALKALINE PHOSPHATASE (test 104 U/L code = 2204) AST (test code = 2218) 13 U/L ALT (test code = 2219) 13 U/L COMPREHENSIVE METABOLIC [id number] 00:00:00 Test Item Value Reference Range Interpretation Comments GLUCOSE (test code = 2217) 201 MG/DL BUN (test code = 2208) 14 MG/DL CREATININE (test code = 2214) 0.66 MG/DL eGFR AMER. (test code 127 ML/MIN/1.73 = 24164) eGFR NON- AMER. (test 110 ML/MIN/1.73 code = 43203) CALC BUN/CREAT (test code = 21 RATIO 2235) SODIUM (test code = 2231) 139 MEQ/L POTASSIUM (test code = 2228) 4.4 MEQ/L CHLORIDE (test code = 2215) 104 MEQ/L CARBON DIOXIDE (test code = 23 MEQ/L 2206) CALCIUM (test code = 2209) 9.6 MG/DL PROTEIN, TOTAL (test code = 7.1 G/DL 2228) ALBUMIN (test code = 2201) 4.2 G/DL CALC GLOBULIN (test code = 2.9 G/DL 2240) CALC A/G RATIO (test code = 1.4 RATIO 2234) BILIRUBIN, TOTAL (test code = <0.2 MG/DL 2206) ALKALINE PHOSPHATASE (test 104 U/L code = 2204) AST (test code = 2218) 13 U/L ALT (test code = 2219) 13 U/L VITAMIN D, 25 [id number] 00:00:00 Test Item Value Reference Range Interpretation Comments VITAMIN D, 25 OH (test code = 4958) 18 NG/ML VITAMIN D, 25 [id number] 00:00:00 Test Item Value Reference Range Interpretation Comments VITAMIN D, 25 OH (test code = 4958) 18 NG/ML LIPID [id number] 00:00:00 Test Item Value Reference Range Interpretation Comments CHOLESTEROL (test code = 2210) 188 MG/DL TRIGLYCERIDES (test code = 2232) 323 MG/DL HDL CHOLESTEROL (test code = 2220) 36 MG/DL CALC LDL CHOL (test code = 2237) 109 MG/DL RISK RATIO LDL/HDL (test code = 3.03 RATIO 2238) COMPREHENSIVE METABOLIC [id number] 00:00:00 Test Item Value Reference Range Interpretation Comments GLUCOSE (test code = 2217) 201 MG/DL BUN (test code = 2208) 14 MG/DL CREATININE (test code = 2214) 0.66 MG/DL eGFR AMER. (test code 127 ML/MIN/1.73 = 67205) eGFR NON- AMER. (test 110 ML/MIN/1.73 code = 04202) CALC BUN/CREAT (test code = 21 RATIO 2235) SODIUM (test code = 2231) 139 MEQ/L POTASSIUM (test code = 2228) 4.4 MEQ/L CHLORIDE (test code = 2215) 104 MEQ/L CARBON DIOXIDE (test code = 23 MEQ/L 6) CALCIUM (test code = 220) 9.6 MG/DL PROTEIN, TOTAL (test code = 7.1 G/DL 2228) ALBUMIN (test code = 2201) 4.2 G/DL CALC GLOBULIN (test code = 2.9 G/DL 2240) CALC A/G RATIO (test code = 1.4 RATIO 2234) BILIRUBIN, TOTAL (test code = <0.2 MG/DL 2206) ALKALINE PHOSPHATASE (test 104 U/L code = 2204) AST (test code = 2218) 13 U/L ALT (test code = 2219) 13 U/L VITAMIN D, 25 [id number] 00:00:00 Test Item Value Reference Range Interpretation Comments VITAMIN D, 25 OH (test code = 4958) 18 NG/ML HEMOGLOBIN [id number] 00:00:00 Test Item Value Reference Range Interpretation Comments HEMOGLOBIN A1c (test code = 64261) 8.3 % HEMOGLOBIN [id number] 00:00:00 Test Item Value Reference Range Interpretation Comments HEMOGLOBIN A1c (test code = 75709) 8.3 % HEMOGLOBIN [id number] 00:00:00 Test Item Value Reference Range Interpretation Comments HEMOGLOBIN A1c (test code = 13636) 8.3 % LIPID [id number] 00:00:00 Test Item Value Reference Range Interpretation Comments CHOLESTEROL (test code = 2210) 188 MG/DL TRIGLYCERIDES (test code = 2232) 323 MG/DL HDL CHOLESTEROL (test code = 2220) 36 MG/DL CALC LDL CHOL (test code = 2237) 109 MG/DL RISK RATIO LDL/HDL (test code = 3.03 RATIO 2238) LIPID [id number] 00:00:00 Test Item Value Reference Range Interpretation Comments CHOLESTEROL (test code = 2210) 188 MG/DL TRIGLYCERIDES (test code = 2232) 323 MG/DL HDL CHOLESTEROL (test code = 2220) 36 MG/DL CALC LDL CHOL (test code = 2237) 109 MG/DL RISK RATIO LDL/HDL (test code = 3.03 RATIO 2238) COMPREHENSIVE METABOLIC [id number] 00:00:00 Test Item Value Reference Range Interpretation Comments GLUCOSE (test code = 2217) 201 MG/DL BUN (test code = 2208) 14 MG/DL CREATININE (test code = 2214) 0.66 MG/DL eGFR AMER. (test code 127 ML/MIN/1.73 = 83313) eGFR NON- AMER. (test 110 ML/MIN/1.73 code = 65851) CALC BUN/CREAT (test code = 21 RATIO 2235) SODIUM (test code = 2231) 139 MEQ/L POTASSIUM (test code = 2228) 4.4 MEQ/L CHLORIDE (test code = 2215) 104 MEQ/L CARBON DIOXIDE (test code = 23 MEQ/L 2206) CALCIUM (test code = 2209) 9.6 MG/DL PROTEIN, TOTAL (test code = 7.1 G/DL 2229) ALBUMIN (test code = 2201) 4.2 G/DL CALC GLOBULIN (test code = 2.9 G/DL 2240) CALC A/G RATIO (test code = 1.4 RATIO 2234) BILIRUBIN, TOTAL (test code = <0.2 MG/DL 220) ALKALINE PHOSPHATASE (test 104 U/L code = 2204) AST (test code = 2218) 13 U/L ALT (test code = 2219) 13 U/L COMPREHENSIVE METABOLIC [id number] 00:00:00 Test Item Value Reference Range Interpretation Comments GLUCOSE (test code = 2217) 201 MG/DL BUN (test code = 2208) 14 MG/DL CREATININE (test code = 2214) 0.66 MG/DL eGFR AMER. (test code 127 ML/MIN/1.73 = 39211) eGFR NON- AMER. (test 110 ML/MIN/1.73 code = 95360) CALC BUN/CREAT (test code = 21 RATIO 2235) SODIUM (test code = 2231) 139 MEQ/L POTASSIUM (test code = 2228) 4.4 MEQ/L CHLORIDE (test code = 2215) 104 MEQ/L CARBON DIOXIDE (test code = 23 MEQ/L 2206) CALCIUM (test code = 2209) 9.6 MG/DL PROTEIN, TOTAL (test code = 7.1 G/DL 2229) ALBUMIN (test code = 2201) 4.2 G/DL CALC GLOBULIN (test code = 2.9 G/DL 2240) CALC A/G RATIO (test code = 1.4 RATIO 2234) BILIRUBIN, TOTAL (test code = <0.2 MG/DL 220) ALKALINE PHOSPHATASE (test 104 U/L code = 2204) AST (test code = 2218) 13 U/L ALT (test code = 2219) 13 U/L VITAMIN D, 25 [id number] 00:00:00 Test Item Value Reference Range Interpretation Comments VITAMIN D, 25 OH (test code = 4958) 18 NG/ML VITAMIN D, 25 [id number] 00:00:00 Test Item Value Reference Range Interpretation Comments VITAMIN D, 25 OH (test code = 4958) 18 NG/ML HEMOGLOBIN [id number] 00:00:00 Test Item Value Reference Range Interpretation Comments HEMOGLOBIN A1c (test code = 45586) 8.3 % HEMOGLOBIN [id number] 00:00:00 Test Item Value Reference Range Interpretation Comments HEMOGLOBIN A1c (test code = 99061) 8.3 % HEMOGLOBIN [id number] 00:00:00 Test Item Value Reference Range Interpretation Comments HEMOGLOBIN A1c (test code = 04225) 8.3 % LIPID [id number] 00:00:00 Test Item Value Reference Range Interpretation Comments CHOLESTEROL (test code = 2210) 188 MG/DL TRIGLYCERIDES (test code = 2232) 323 MG/DL HDL CHOLESTEROL (test code = 2220) 36 MG/DL CALC LDL CHOL (test code = 2237) 109 MG/DL RISK RATIO LDL/HDL (test code = 3.03 RATIO 2238) LIPID [id number] 00:00:00 Test Item Value Reference Range Interpretation Comments CHOLESTEROL (test code = 2210) 188 MG/DL TRIGLYCERIDES (test code = 2232) 323 MG/DL HDL CHOLESTEROL (test code = 2220) 36 MG/DL CALC LDL CHOL (test code = 2237) 109 MG/DL RISK RATIO LDL/HDL (test code = 3.03 RATIO 2238) COMPREHENSIVE METABOLIC [id number] 00:00:00 Test Item Value Reference Range Interpretation Comments GLUCOSE (test code = 2217) 201 MG/DL BUN (test code = 2208) 14 MG/DL CREATININE (test code = 2214) 0.66 MG/DL eGFR AMER. (test code 127 ML/MIN/1.73 = 47550) eGFR NON- AMER. (test 110 ML/MIN/1.73 code = 63915) CALC BUN/CREAT (test code = 21 RATIO 2235) SODIUM (test code = 2231) 139 MEQ/L POTASSIUM (test code = 2228) 4.4 MEQ/L CHLORIDE (test code = 2215) 104 MEQ/L CARBON DIOXIDE (test code = 23 MEQ/L 2206) CALCIUM (test code = 2209) 9.6 MG/DL PROTEIN, TOTAL (test code = 7.1 G/DL 222) ALBUMIN (test code = 2201) 4.2 G/DL CALC GLOBULIN (test code = 2.9 G/DL 2240) CALC A/G RATIO (test code = 1.4 RATIO 2234) BILIRUBIN, TOTAL (test code = <0.2 MG/DL 2206) ALKALINE PHOSPHATASE (test 104 U/L code = 2204) AST (test code = 2218) 13 U/L ALT (test code = 2219) 13 U/L COMPREHENSIVE METABOLIC [id number] 00:00:00 Test Item Value Reference Range Interpretation Comments GLUCOSE (test code = 2217) 201 MG/DL BUN (test code = 2208) 14 MG/DL CREATININE (test code = 2214) 0.66 MG/DL eGFR AMER. (test code 127 ML/MIN/1.73 = 49003) eGFR NON- AMER. (test 110 ML/MIN/1.73 code = 90047) CALC BUN/CREAT (test code = 21 RATIO 2235) SODIUM (test code = 2231) 139 MEQ/L POTASSIUM (test code = 2228) 4.4 MEQ/L CHLORIDE (test code = 2215) 104 MEQ/L CARBON DIOXIDE (test code = 23 MEQ/L 2205) CALCIUM (test code = 2209) 9.6 MG/DL PROTEIN, TOTAL (test code = 7.1 G/DL 2228) ALBUMIN (test code = 2201) 4.2 G/DL CALC GLOBULIN (test code = 2.9 G/DL 2240) CALC A/G RATIO (test code = 1.4 RATIO 2234) BILIRUBIN, TOTAL (test code = <0.2 MG/DL 2206) ALKALINE PHOSPHATASE (test 104 U/L code = 2204) AST (test code = 2218) 13 U/L ALT (test code = 2219) 13 U/L HEMOGLOBIN [id number] 00:00:00 Test Item Value Reference Range Interpretation Comments HEMOGLOBIN A1c (test code = 64213) 8.3 % VITAMIN D, 25 [id number] 00:00:00 Test Item Value Reference Range Interpretation Comments VITAMIN D, 25 OH (test code = 4958) 18 NG/ML VITAMIN D, 25 [id number] 00:00:00 Test Item Value Reference Range Interpretation Comments VITAMIN D, 25 OH (test code = 4958) 18 NG/ML HCG, [id number] 00:00:00 Test Item Value Reference Range Interpretation Comments HCG, QUANTITATIVE (test code = 43 MIU/ML 2506) HCG, [id number] 00:00:00 Test Item Value Reference Range Interpretation Comments HCG, QUANTITATIVE (test code = 43 MIU/ML 2506) HCG, [id number] 00:00:00 Test Item Value Reference Range Interpretation Comments HCG, QUANTITATIVE (test code = 43 MIU/ML 2506) HCG, [id number] 00:00:00 Test Item Value Reference Range Interpretation Comments HCG, QUANTITATIVE (test code = 43 MIU/ML 2506) HCG, [id number] 00:00:00 Test Item Value Reference Range Interpretation Comments HCG, QUANTITATIVE (test code = 43 MIU/ML 2506) HCG, [id number] 00:00:00 Test Item Value Reference Range Interpretation Comments HCG, QUANTITATIVE (test code = 43 MIU/ML 2506) HCG, [id number] 00:00:00 Test Item Value Reference Range Interpretation Comments HCG, QUANTITATIVE (test code = 43 MIU/ML 2506) HCG, [id number] 00:00:00 Test Item Value Reference Range Interpretation Comments HCG, QUANTITATIVE (test code = 43 MIU/ML 2506) HCG, [id number] 00:00:00 Test Item Value Reference Range Interpretation Comments HCG, QUANTITATIVE (test code = 43 MIU/ML 2506) HCG, [id number] 00:00:00 Test Item Value Reference Range Interpretation Comments HCG, QUANTITATIVE (test code = 43 MIU/ML 2506) HCG, [id number] 00:00:00 Test Item Value Reference Range Interpretation Comments HCG, QUANTITATIVE (test code = 43 MIU/ML 2506) HCG, [id number] 00:00:00 Test Item Value Reference Range Interpretation Comments HCG, QUANTITATIVE (test code = 707 MIU/ML 2506) HCG, [id number] 00:00:00 Test Item Value Reference Range Interpretation Comments HCG, QUANTITATIVE (test code = 707 MIU/ML 2506) HCG, [id number] 00:00:00 Test Item Value Reference Range Interpretation Comments HCG, QUANTITATIVE (test code = 707 MIU/ML 2506) HCG, [id number] 00:00:00 Test Item Value Reference Range Interpretation Comments HCG, QUANTITATIVE (test code = 707 MIU/ML 2506) HCG, [id number] 00:00:00 Test Item Value Reference Range Interpretation Comments HCG, QUANTITATIVE (test code = 707 MIU/ML 2506) HCG, [id number] 00:00:00 Test Item Value Reference Range Interpretation Comments HCG, QUANTITATIVE (test code = 707 MIU/ML 2506) HCG, [id number] 00:00:00 Test Item Value Reference Range Interpretation Comments HCG, QUANTITATIVE (test code = 707 MIU/ML 2506) HCG, [id number] 00:00:00 Test Item Value Reference Range Interpretation Comments HCG, QUANTITATIVE (test code = 707 MIU/ML 2506) HCG, [id number] 00:00:00 Test Item Value Reference Range Interpretation Comments HCG, QUANTITATIVE (test code = 707 MIU/ML 2506) HCG, [id number] 00:00:00 Test Item Value Reference Range Interpretation Comments HCG, QUANTITATIVE (test code = 707 MIU/ML 2506) HCG, [id number] 00:00:00 Test Item Value Reference Range Interpretation Comments HCG, QUANTITATIVE (test code = 707 MIU/ML 2506) SARS-CoV-2 (COVID-19) by RT-PCR (HIGH RISK)2020-08-07 00:00:00 Test Item Value Reference Range Interpretation Comments SARS-CoV-2 INTERPRETATION POSITIVE (test code = 25733) SOURCE (test code = 22549) NASOPHARYNGEAL SARS-CoV-2 (COVID-19) by RT-PCR (HIGH RISK)2020-08-07 00:00:00 Test Item Value Reference Range Interpretation Comments SARS-CoV-2 INTERPRETATION POSITIVE (test code = 04662) SOURCE (test code = 40999) NASOPHARYNGEAL SARS-CoV-2 (COVID-19) by RT-PCR (HIGH RISK)2020-08-07 00:00:00 Test Item Value Reference Range Interpretation Comments SARS-CoV-2 INTERPRETATION POSITIVE (test code = 68025) SOURCE (test code = 09584) NASOPHARYNGEAL SARS-CoV-2 (COVID-19) by RT-PCR (HIGH RISK)2020-08-07 00:00:00 Test Item Value Reference Range Interpretation Comments SARS-CoV-2 INTERPRETATION POSITIVE (test code = 70314) SOURCE (test code = 05782) NASOPHARYNGEAL SARS-CoV-2 (COVID-19) by RT-PCR (HIGH RISK)2020-08-07 00:00:00 Test Item Value Reference Range Interpretation Comments SARS-CoV-2 INTERPRETATION POSITIVE (test code = 83750) SOURCE (test code = 88910) NASOPHARYNGEAL SARS-CoV-2 (COVID-19) by RT-PCR (HIGH RISK)2020-08-07 00:00:00 Test Item Value Reference Range Interpretation Comments SARS-CoV-2 INTERPRETATION POSITIVE (test code = 86200) SOURCE (test code = 63270) NASOPHARYNGEAL SARS-CoV-2 (COVID-19) by RT-PCR (HIGH RISK)2020-08-07 00:00:00 Test Item Value Reference Range Interpretation Comments SARS-CoV-2 INTERPRETATION POSITIVE (test code = 05256) SOURCE (test code = 39003) NASOPHARYNGEAL HCG, [id number] 00:00:00 Test Item Value Reference Range Interpretation Comments HCG, QUANTITATIVE (test code = 8419 MIU/ML 2506) HCG, [id number] 00:00:00 Test Item Value Reference Range Interpretation Comments HCG, QUANTITATIVE (test code = 8419 MIU/ML 2506) HCG, [id number] 00:00:00 Test Item Value Reference Range Interpretation Comments HCG, QUANTITATIVE (test code = 8419 MIU/ML 2506) HCG, [id number] 00:00:00 Test Item Value Reference Range Interpretation Comments HCG, QUANTITATIVE (test code = 8419 MIU/ML 2506) [id number] 00:00:00 Test Item Value Reference Range Interpretation Comments PROGESTERONE (test code = 2790) 5.55 NG/ML [id number] 00:00:00 Test Item Value Reference Range Interpretation Comments PROGESTERONE (test code = 2790) 5.55 NG/ML HCG, [id number] 00:00:00 Test Item Value Reference Range Interpretation Comments HCG, QUANTITATIVE (test code = 8419 MIU/ML 2506) [id number] 00:00:00 Test Item Value Reference Range Interpretation Comments PROGESTERONE (test code = 2790) 5.55 NG/ML HCG, [id number] 00:00:00 Test Item Value Reference Range Interpretation Comments HCG, QUANTITATIVE (test code = 8419 MIU/ML 2506) HCG, [id number] 00:00:00 Test Item Value Reference Range Interpretation Comments HCG, QUANTITATIVE (test code = 8419 MIU/ML 2506) HCG, [id number] 00:00:00 Test Item Value Reference Range Interpretation Comments HCG, QUANTITATIVE (test code = 8419 MIU/ML 2506) [id number] 00:00:00 Test Item Value Reference Range Interpretation Comments PROGESTERONE (test code = 2790) 5.55 NG/ML [id number] 00:00:00 Test Item Value Reference Range Interpretation Comments PROGESTERONE (test code = 2790) 5.55 NG/ML HCG, [id number] 00:00:00 Test Item Value Reference Range Interpretation Comments HCG, QUANTITATIVE (test code = 8419 MIU/ML 2506) HCG, [id number] 00:00:00 Test Item Value Reference Range Interpretation Comments HCG, QUANTITATIVE (test code = 8419 MIU/ML 2506) HCG, [id number] 00:00:00 Test Item Value Reference Range Interpretation Comments HCG, QUANTITATIVE (test code = 8419 MIU/ML 2506) [id number] 00:00:00 Test Item Value Reference Range Interpretation Comments PROGESTERONE (test code = 2790) 5.55 NG/ML [id number] 00:00:00 Test Item Value Reference Range Interpretation Comments PROGESTERONE (test code = 2790) 5.55 NG/ML [id number] 00:00:00 Test Item Value Reference Range Interpretation Comments PROGESTERONE (test code = 2790) 8.47 NG/ML [id number] 00:00:00 Test Item Value Reference Range Interpretation Comments PROGESTERONE (test code = 2790) 8.47 NG/ML [id number] 00:00:00 Test Item Value Reference Range Interpretation Comments PROGESTERONE (test code = 2790) 8.47 NG/ML HCG, [id number] 00:00:00 Test Item Value Reference Range Interpretation Comments HCG, QUANTITATIVE (test code = 5806 MIU/ML 2506) HCG, [id number] 00:00:00 Test Item Value Reference Range Interpretation Comments HCG, QUANTITATIVE (test code = 5806 MIU/ML 2506) HCG, [id number] 00:00:00 Test Item Value Reference Range Interpretation Comments HCG, QUANTITATIVE (test code = 5806 MIU/ML 2506) HCG, [id number] 00:00:00 Test Item Value Reference Range Interpretation Comments HCG, QUANTITATIVE (test code = 5806 MIU/ML 2506) HCG, [id number] 00:00:00 Test Item Value Reference Range Interpretation Comments HCG, QUANTITATIVE (test code = 5806 MIU/ML 2506) [id number] 00:00:00 Test Item Value Reference Range Interpretation Comments PROGESTERONE (test code = 2790) 8.47 NG/ML [id number] 00:00:00 Test Item Value Reference Range Interpretation Comments PROGESTERONE (test code = 2790) 8.47 NG/ML HCG, [id number] 00:00:00 Test Item Value Reference Range Interpretation Comments HCG, QUANTITATIVE (test code = 5806 MIU/ML 2506) HCG, [id number] 00:00:00 Test Item Value Reference Range Interpretation Comments HCG, QUANTITATIVE (test code = 5806 MIU/ML 2506) HCG, [id number] 00:00:00 Test Item Value Reference Range Interpretation Comments HCG, QUANTITATIVE (test code = 5806 MIU/ML 2506) [id number] 00:00:00 Test Item Value Reference Range Interpretation Comments PROGESTERONE (test code = 2790) 8.47 NG/ML [id number] 00:00:00 Test Item Value Reference Range Interpretation Comments PROGESTERONE (test code = 2790) 8.47 NG/ML HCG, [id number] 00:00:00 Test Item Value Reference Range Interpretation Comments HCG, QUANTITATIVE (test code = 5806 MIU/ML 2506) HCG, [id number] 00:00:00 Test Item Value Reference Range Interpretation Comments HCG, QUANTITATIVE (test code = 5806 MIU/ML 2506) HCG, [id number] 00:00:00 Test Item Value Reference Range Interpretation Comments HCG, QUANTITATIVE (test code = 5806 MIU/ML 2506) DRUG ABUSE PANEL 10 WITH [id number] 00:00:00 Test Item Value Reference Range Interpretation Comments COMMENTS (test code = TEST NOT PERFORMED 3222) AMPHETAMINES (test code = TEST NOT PERFORMED 3201) BARBITURATES (test code = TEST NOT PERFORMED 3202) BENZODIAZEPINES (test code TEST NOT PERFORMED = 3203) CANNABINOIDS (test code = TEST NOT PERFORMED 3204) COCAINE METABOLITE (test TEST NOT PERFORMED code = 3205) OPIATES (test code = 3209) TEST NOT PERFORMED OXYCODONE (test code = TEST NOT PERFORMED 67400) PHENCYCLIDINE (test code = TEST NOT PERFORMED 3210) METHADONE (test code = TEST NOT PERFORMED 3207) BUPRENORPHINE (test code = TEST NOT PERFORMED 16868) DRUG ABUSE PANEL 10 WITH [id number] 00:00:00 Test Item Value Reference Range Interpretation Comments COMMENTS (test code = TEST NOT PERFORMED 3222) AMPHETAMINES (test code = TEST NOT PERFORMED 3201) BARBITURATES (test code = TEST NOT PERFORMED 3202) BENZODIAZEPINES (test code TEST NOT PERFORMED = 3203) CANNABINOIDS (test code = TEST NOT PERFORMED 3204) COCAINE METABOLITE (test TEST NOT PERFORMED code = 3205) OPIATES (test code = 3209) TEST NOT PERFORMED OXYCODONE (test code = TEST NOT PERFORMED 47305) PHENCYCLIDINE (test code = TEST NOT PERFORMED 3210) METHADONE (test code = TEST NOT PERFORMED 3207) BUPRENORPHINE (test code = TEST NOT PERFORMED 25084) DRUG ABUSE PANEL 10 WITH [id number] 00:00:00 Test Item Value Reference Range Interpretation Comments COMMENTS (test code = TEST NOT PERFORMED 3222) AMPHETAMINES (test code = TEST NOT PERFORMED 3201) BARBITURATES (test code = TEST NOT PERFORMED 3202) BENZODIAZEPINES (test code TEST NOT PERFORMED = 3203) CANNABINOIDS (test code = TEST NOT PERFORMED 3204) COCAINE METABOLITE (test TEST NOT PERFORMED code = 3205) OPIATES (test code = 3209) TEST NOT PERFORMED OXYCODONE (test code = TEST NOT PERFORMED 80270) PHENCYCLIDINE (test code = TEST NOT PERFORMED 3210) METHADONE (test code = TEST NOT PERFORMED 3207) BUPRENORPHINE (test code = TEST NOT PERFORMED 89491) DRUG ABUSE PANEL 10 WITH [id number] 00:00:00 Test Item Value Reference Range Interpretation Comments COMMENTS (test code = TEST NOT PERFORMED 3222) AMPHETAMINES (test code = TEST NOT PERFORMED 3201) BARBITURATES (test code = TEST NOT PERFORMED 3202) BENZODIAZEPINES (test code TEST NOT PERFORMED = 3203) CANNABINOIDS (test code = TEST NOT PERFORMED 3204) COCAINE METABOLITE (test TEST NOT PERFORMED code = 3205) OPIATES (test code = 3209) TEST NOT PERFORMED OXYCODONE (test code = TEST NOT PERFORMED 61675) PHENCYCLIDINE (test code = TEST NOT PERFORMED 3210) METHADONE (test code = TEST NOT PERFORMED 3207) BUPRENORPHINE (test code = TEST NOT PERFORMED 17743) DRUG ABUSE PANEL 10 WITH [id number] 00:00:00 Test Item Value Reference Range Interpretation Comments COMMENTS (test code = TEST NOT PERFORMED 3222) AMPHETAMINES (test code = TEST NOT PERFORMED 3201) BARBITURATES (test code = TEST NOT PERFORMED 3202) BENZODIAZEPINES (test code TEST NOT PERFORMED = 3203) CANNABINOIDS (test code = TEST NOT PERFORMED 3204) COCAINE METABOLITE (test TEST NOT PERFORMED code = 3205) OPIATES (test code = 3209) TEST NOT PERFORMED OXYCODONE (test code = TEST NOT PERFORMED 26910) PHENCYCLIDINE (test code = TEST NOT PERFORMED 3210) METHADONE (test code = TEST NOT PERFORMED 3207) BUPRENORPHINE (test code = TEST NOT PERFORMED 58109) DRUG ABUSE PANEL 10 WITH [id number] 00:00:00 Test Item Value Reference Range Interpretation Comments COMMENTS (test code = TEST NOT PERFORMED 3222) AMPHETAMINES (test code = TEST NOT PERFORMED 3201) BARBITURATES (test code = TEST NOT PERFORMED 3202) BENZODIAZEPINES (test code TEST NOT PERFORMED = 3203) CANNABINOIDS (test code = TEST NOT PERFORMED 3204) COCAINE METABOLITE (test TEST NOT PERFORMED code = 3205) OPIATES (test code = 3209) TEST NOT PERFORMED OXYCODONE (test code = TEST NOT PERFORMED 26739) PHENCYCLIDINE (test code = TEST NOT PERFORMED 3210) METHADONE (test code = TEST NOT PERFORMED 3207) BUPRENORPHINE (test code = TEST NOT PERFORMED 37194) DRUG ABUSE PANEL 10 WITH [id number] 00:00:00 Test Item Value Reference Range Interpretation Comments COMMENTS (test code = TEST NOT PERFORMED 3222) AMPHETAMINES (test code = TEST NOT PERFORMED 3201) BARBITURATES (test code = TEST NOT PERFORMED 3202) BENZODIAZEPINES (test code TEST NOT PERFORMED = 3203) CANNABINOIDS (test code = TEST NOT PERFORMED 3204) COCAINE METABOLITE (test TEST NOT PERFORMED code = 3205) OPIATES (test code = 3209) TEST NOT PERFORMED OXYCODONE (test code = TEST NOT PERFORMED 31798) PHENCYCLIDINE (test code = TEST NOT PERFORMED 3210) METHADONE (test code = TEST NOT PERFORMED 3207) BUPRENORPHINE (test code = TEST NOT PERFORMED 85019) CULTURE, [id number] 00:00:00 Test Item Value Reference Range Interpretation Comments CULTURE, URINE (test SPECIMEN NUMBER: code = 36770) [id number] CULTURE, [id number] 00:00:00 Test Item Value Reference Range Interpretation Comments CULTURE, URINE (test SPECIMEN NUMBER: code = 01706) [id number] CULTURE, [id number] 00:00:00 Test Item Value Reference Range Interpretation Comments CULTURE, URINE (test SPECIMEN NUMBER: code = 57870) [id number] CULTURE, [id number] 00:00:00 Test Item Value Reference Range Interpretation Comments CULTURE, URINE (test SPECIMEN NUMBER: code = 35022) [id number] CULTURE, [id number] 00:00:00 Test Item Value Reference Range Interpretation Comments CULTURE, URINE (test SPECIMEN NUMBER: code = 54745) [id number] CULTURE, [id number] 00:00:00 Test Item Value Reference Range Interpretation Comments CULTURE, URINE (test SPECIMEN NUMBER: code = 93639) [id number] CULTURE, [id number] 00:00:00 Test Item Value Reference Range Interpretation Comments CULTURE, URINE (test SPECIMEN NUMBER: code = 74711) [id number] HEMOGLOBIN [id number] 00:00:00 Test Item Value Reference Range Interpretation Comments HEMOGLOBIN A1 (test code = 2575) 97.3 % HEMOGLOBIN A2 (test code = 2576) 2.7 % HEMOGLOBIN F () (test code 0.0 % = 2722) HEMOGLOBIN S (test code = 2724) NONE % HEMOGLOBIN C (test code = 2726) NONE % OTHER HEMOGLOBIN VARIANT (test NONE DETEC % code = 10453) PATHOLOGIST'S INTERPRETATION (NOTE) (test code = 2577) HEMOGLOBIN [id number] 00:00:00 Test Item Value Reference Range Interpretation Comments HEMOGLOBIN A1 (test code = 2575) 97.3 % HEMOGLOBIN A2 (test code = 2576) 2.7 % HEMOGLOBIN F () (test code 0.0 % = 2722) HEMOGLOBIN S (test code = 2724) NONE % HEMOGLOBIN C (test code = 2726) NONE % OTHER HEMOGLOBIN VARIANT (test NONE DETEC % code = 55692) PATHOLOGIST'S INTERPRETATION (NOTE) (test code = 2577) HEMOGLOBIN [id number] 00:00:00 Test Item Value Reference Range Interpretation Comments HEMOGLOBIN A1 (test code = 2575) 97.3 % HEMOGLOBIN A2 (test code = 2576) 2.7 % HEMOGLOBIN F () (test code 0.0 % = 2722) HEMOGLOBIN S (test code = 2724) NONE % HEMOGLOBIN C (test code = 2726) NONE % OTHER HEMOGLOBIN VARIANT (test NONE DETEC % code = 49222) PATHOLOGIST'S INTERPRETATION (NOTE) (test code = 2577) HEMOGLOBIN [id number] 00:00:00 Test Item Value Reference Range Interpretation Comments HEMOGLOBIN A1 (test code = 2575) 97.3 % HEMOGLOBIN A2 (test code = 2576) 2.7 % HEMOGLOBIN F () (test code 0.0 % = 2722) HEMOGLOBIN S (test code = 2724) NONE % HEMOGLOBIN C (test code = 2726) NONE % OTHER HEMOGLOBIN VARIANT (test NONE DETEC % code = 08989) PATHOLOGIST'S INTERPRETATION (NOTE) (test code = 2577) HEMOGLOBIN [id number] 00:00:00 Test Item Value Reference Range Interpretation Comments HEMOGLOBIN A1 (test code = 2575) 97.3 % HEMOGLOBIN A2 (test code = 2576) 2.7 % HEMOGLOBIN F () (test code 0.0 % = 2722) HEMOGLOBIN S (test code = 2724) NONE % HEMOGLOBIN C (test code = 2726) NONE % OTHER HEMOGLOBIN VARIANT (test NONE DETEC % code = 79994) PATHOLOGIST'S INTERPRETATION (NOTE) (test code = 2577) HEMOGLOBIN [id number] 00:00:00 Test Item Value Reference Range Interpretation Comments HEMOGLOBIN A1 (test code = 2575) 97.3 % HEMOGLOBIN A2 (test code = 2576) 2.7 % HEMOGLOBIN F () (test code 0.0 % = 2722) HEMOGLOBIN S (test code = 2724) NONE % HEMOGLOBIN C (test code = 2726) NONE % OTHER HEMOGLOBIN VARIANT (test NONE DETEC % code = 95738) PATHOLOGIST'S INTERPRETATION (NOTE) (test code = 2577) HEMOGLOBIN [id number] 00:00:00 Test Item Value Reference Range Interpretation Comments HEMOGLOBIN A1 (test code = 2575) 97.3 % HEMOGLOBIN A2 (test code = 2576) 2.7 % HEMOGLOBIN F () (test code 0.0 % = 2722) HEMOGLOBIN S (test code = 2724) NONE % HEMOGLOBIN C (test code = 2726) NONE % OTHER HEMOGLOBIN VARIANT (test NONE DETEC % code = 59400) PATHOLOGIST'S INTERPRETATION (NOTE) (test code = 2577) HEMOGLOBIN [id number] 00:00:00 Test Item Value Reference Range Interpretation Comments HEMOGLOBIN A1 (test code = 2575) 97.3 % HEMOGLOBIN A2 (test code = 2576) 2.7 % HEMOGLOBIN F () (test code 0.0 % = 2722) HEMOGLOBIN S (test code = 2724) NONE % HEMOGLOBIN C (test code = 2726) NONE % OTHER HEMOGLOBIN VARIANT (test NONE DETEC % code = 22335) PATHOLOGIST'S INTERPRETATION (NOTE) (test code = 2577) HEMOGLOBIN [id number] 00:00:00 Test Item Value Reference Range Interpretation Comments HEMOGLOBIN A1 (test code = 2575) 97.3 % HEMOGLOBIN A2 (test code = 2576) 2.7 % HEMOGLOBIN F () (test code 0.0 % = 2722) HEMOGLOBIN S (test code = 2724) NONE % HEMOGLOBIN C (test code = 2726) NONE % OTHER HEMOGLOBIN VARIANT (test NONE DETEC % code = 20839) PATHOLOGIST'S INTERPRETATION (NOTE) (test code = 2577) HEMOGLOBIN [id number] 00:00:00 Test Item Value Reference Range Interpretation Comments HEMOGLOBIN A1 (test code = 2575) 97.3 % HEMOGLOBIN A2 (test code = 2576) 2.7 % HEMOGLOBIN F () (test code 0.0 % = 2722) HEMOGLOBIN S (test code = 2724) NONE % HEMOGLOBIN C (test code = 2726) NONE % OTHER HEMOGLOBIN VARIANT (test NONE DETEC % code = 65290) PATHOLOGIST'S INTERPRETATION (NOTE) (test code = 2577) HEMOGLOBIN [id number] 00:00:00 Test Item Value Reference Range Interpretation Comments HEMOGLOBIN A1 (test code = 2575) 97.3 % HEMOGLOBIN A2 (test code = 2576) 2.7 % HEMOGLOBIN F () (test code 0.0 % = 2722) HEMOGLOBIN S (test code = 2724) NONE % HEMOGLOBIN C (test code = 2726) NONE % OTHER HEMOGLOBIN VARIANT (test NONE DETEC % code = 54083) PATHOLOGIST'S INTERPRETATION (NOTE) (test code = 2577) OBSTETRIC PANEL + [id number] 00:00:00 Test Item Value Reference Range Interpretation Comments WBC (test code = 1001) 7.7 K/UL RBC (test code = 1002) 4.87 M/UL HEMOGLOBIN (test code = 12.6 G/DL 1003) HEMATOCRIT (test code = 38.6 % 1004) MCV (test code = 1005) 79.3 fL MCH (test code = 1006) 25.9 PG MCHC (test code = 1007) 32.6 G/DL RDW (test code = 1038) 14.2 % NEUTROPHILS (test code = 64.2 % 1008) LYMPHOCYTES (test code = 27.6 % 1010) MONOCYTES (test code = 1011) 5.6 % EOSINOPHILS (test code = 1.8 % 1012) BASOPHILS (test code = 1013) 0.8 % PLATELET COUNT (test code = 307 K/UL 1015) BLOOD TYPE AND RH (test code A POSITIVE = 3901) ANTIBODY SCREEN (test code = NEGATIVE 3902) RUBELLA ANTIBODY SCREEN 24 IU/ML (test code = 4600) RUBELLA IgG INTERP (test REACTIVE code = 95288) HEPATITIS B SURF AG (test NON-REACTIVE code = 2739) RPR (test code = 88521) NON-REACTIVE RPR TITER (test code = 3500) NOT INDIC. TITER HIV 1/2 4TH GEN, RFLX CONF NON-REACTIVE (test code = 3514) OBSTETRIC PANEL + [id number] 00:00:00 Test Item Value Reference Range Interpretation Comments WBC (test code = 1001) 7.7 K/UL RBC (test code = 1002) 4.87 M/UL HEMOGLOBIN (test code = 12.6 G/DL 1003) HEMATOCRIT (test code = 38.6 % 1004) MCV (test code = 1005) 79.3 fL MCH (test code = 1006) 25.9 PG MCHC (test code = 1007) 32.6 G/DL RDW (test code = 1038) 14.2 % NEUTROPHILS (test code = 64.2 % 1008) LYMPHOCYTES (test code = 27.6 % 1010) MONOCYTES (test code = 1011) 5.6 % EOSINOPHILS (test code = 1.8 % 1012) BASOPHILS (test code = 1013) 0.8 % PLATELET COUNT (test code = 307 K/UL 1015) BLOOD TYPE AND RH (test code A POSITIVE = 3901) ANTIBODY SCREEN (test code = NEGATIVE 3902) RUBELLA ANTIBODY SCREEN 24 IU/ML (test code = 4600) RUBELLA IgG INTERP (test REACTIVE code = 31944) HEPATITIS B SURF AG (test NON-REACTIVE code = 2739) RPR (test code = 11652) NON-REACTIVE RPR TITER (test code = 3500) NOT INDIC. TITER HIV 1/2 4TH GEN, RFLX CONF NON-REACTIVE (test code = 3514) OBSTETRIC PANEL + [id number] 00:00:00 Test Item Value Reference Range Interpretation Comments WBC (test code = 1001) 7.7 K/UL RBC (test code = 1002) 4.87 M/UL HEMOGLOBIN (test code = 12.6 G/DL 1003) HEMATOCRIT (test code = 38.6 % 1004) MCV (test code = 1005) 79.3 fL MCH (test code = 1006) 25.9 PG MCHC (test code = 1007) 32.6 G/DL RDW (test code = 1038) 14.2 % NEUTROPHILS (test code = 64.2 % 1008) LYMPHOCYTES (test code = 27.6 % 1010) MONOCYTES (test code = 1011) 5.6 % EOSINOPHILS (test code = 1.8 % 1012) BASOPHILS (test code = 1013) 0.8 % PLATELET COUNT (test code = 307 K/UL 1015) BLOOD TYPE AND RH (test code A POSITIVE = 3901) ANTIBODY SCREEN (test code = NEGATIVE 3902) RUBELLA ANTIBODY SCREEN 24 IU/ML (test code = 4600) RUBELLA IgG INTERP (test REACTIVE code = 52706) HEPATITIS B SURF AG (test NON-REACTIVE code = 2739) RPR (test code = 53070) NON-REACTIVE RPR TITER (test code = 3500) NOT INDIC. TITER HIV 1/2 4TH GEN, RFLX CONF NON-REACTIVE (test code = 3514) OBSTETRIC PANEL + [id number] 00:00:00 Test Item Value Reference Range Interpretation Comments WBC (test code = 1001) 7.7 K/UL RBC (test code = 1002) 4.87 M/UL HEMOGLOBIN (test code = 12.6 G/DL 1003) HEMATOCRIT (test code = 38.6 % 1004) MCV (test code = 1005) 79.3 fL MCH (test code = 1006) 25.9 PG MCHC (test code = 1007) 32.6 G/DL RDW (test code = 1038) 14.2 % NEUTROPHILS (test code = 64.2 % 1008) LYMPHOCYTES (test code = 27.6 % 1010) MONOCYTES (test code = 1011) 5.6 % EOSINOPHILS (test code = 1.8 % 1012) BASOPHILS (test code = 1013) 0.8 % PLATELET COUNT (test code = 307 K/UL 1015) BLOOD TYPE AND RH (test code A POSITIVE = 3901) ANTIBODY SCREEN (test code = NEGATIVE 3902) RUBELLA ANTIBODY SCREEN 24 IU/ML (test code = 4600) RUBELLA IgG INTERP (test REACTIVE code = 20095) HEPATITIS B SURF AG (test NON-REACTIVE code = 2739) RPR (test code = 07970) NON-REACTIVE RPR TITER (test code = 3500) NOT INDIC. TITER HIV 1/2 4TH GEN, RFLX CONF NON-REACTIVE (test code = 3514) HEPATITIS C REFLEX [id number] 00:00:00 Test Item Value Reference Range Interpretation Comments HEPATITIS C ANTIBODY (test code NON-REACTIVE = 4675) OBSTETRIC PANEL + [id number] 00:00:00 Test Item Value Reference Range Interpretation Comments WBC (test code = 1001) 7.7 K/UL RBC (test code = 1002) 4.87 M/UL HEMOGLOBIN (test code = 12.6 G/DL 1003) HEMATOCRIT (test code = 38.6 % 1004) MCV (test code = 1005) 79.3 fL MCH (test code = 1006) 25.9 PG MCHC (test code = 1007) 32.6 G/DL RDW (test code = 1038) 14.2 % NEUTROPHILS (test code = 64.2 % 1008) LYMPHOCYTES (test code = 27.6 % 1010) MONOCYTES (test code = 1011) 5.6 % EOSINOPHILS (test code = 1.8 % 1012) BASOPHILS (test code = 1013) 0.8 % PLATELET COUNT (test code = 307 K/UL 1015) BLOOD TYPE AND RH (test code A POSITIVE = 3901) ANTIBODY SCREEN (test code = NEGATIVE 3902) RUBELLA ANTIBODY SCREEN 24 IU/ML (test code = 4600) RUBELLA IgG INTERP (test REACTIVE code = 56983) HEPATITIS B SURF AG (test NON-REACTIVE code = 2739) RPR (test code = 56772) NON-REACTIVE RPR TITER (test code = 3500) NOT INDIC. TITER HIV 1/2 4TH GEN, RFLX CONF NON-REACTIVE (test code = 3514) HEPATITIS C REFLEX [id number] 00:00:00 Test Item Value Reference Range Interpretation Comments HEPATITIS C ANTIBODY (test code NON-REACTIVE = 4675) VARICELLA ZOSTER [id number] 00:00:00 Test Item Value Reference Range Interpretation Comments VARICELLA ZOSTER IgG (test code = 1653 INDEX 55669) VARICELLA ZOSTER [id number] 00:00:00 Test Item Value Reference Range Interpretation Comments VARICELLA ZOSTER IgG (test code = 1653 INDEX 93013) GC AND CHLAMYDIA, AMPLIFIED, [id number] 00:00:00 Test Item Value Reference Range Interpretation Comments GONORRHEA, NAAT (test code = 54111) NEGATIVE CHLAMYDIA, NAAT (test code = 38336) NEGATIVE GC AND CHLAMYDIA, AMPLIFIED, [id number] 00:00:00 Test Item Value Reference Range Interpretation Comments GONORRHEA, NAAT (test code = 90912) NEGATIVE CHLAMYDIA, NAAT (test code = 16742) NEGATIVE HEMOGLOBIN [id number] 00:00:00 Test Item Value Reference Range Interpretation Comments HEMOGLOBIN A1c (test code = 03424) 8.6 % HEMOGLOBIN [id number] 00:00:00 Test Item Value Reference Range Interpretation Comments HEMOGLOBIN A1c (test code = 30100) 8.6 % HEMOGLOBIN [id number] 00:00:00 Test Item Value Reference Range Interpretation Comments HEMOGLOBIN A1c (test code = 74942) 8.6 % HEPATITIS C REFLEX [id number] 00:00:00 Test Item Value Reference Range Interpretation Comments HEPATITIS C ANTIBODY (test code NON-REACTIVE = 4675) VARICELLA ZOSTER [id number] 00:00:00 Test Item Value Reference Range Interpretation Comments VARICELLA ZOSTER IgG (test code = 1653 INDEX 18283) GC AND CHLAMYDIA, AMPLIFIED, [id number] 00:00:00 Test Item Value Reference Range Interpretation Comments GONORRHEA, NAAT (test code = 70211) NEGATIVE CHLAMYDIA, NAAT (test code = 72398) NEGATIVE HEMOGLOBIN [id number] 00:00:00 Test Item Value Reference Range Interpretation Comments HEMOGLOBIN A1c (test code = 46084) 8.6 % HEMOGLOBIN [id number] 00:00:00 Test Item Value Reference Range Interpretation Comments HEMOGLOBIN A1c (test code = 52484) 8.6 % OBSTETRIC PANEL + [id number] 00:00:00 Test Item Value Reference Range Interpretation Comments WBC (test code = 1001) 7.7 K/UL RBC (test code = 1002) 4.87 M/UL HEMOGLOBIN (test code = 12.6 G/DL 1003) HEMATOCRIT (test code = 38.6 % 1004) MCV (test code = 1005) 79.3 fL MCH (test code = 1006) 25.9 PG MCHC (test code = 1007) 32.6 G/DL RDW (test code = 1038) 14.2 % NEUTROPHILS (test code = 64.2 % 1008) LYMPHOCYTES (test code = 27.6 % 1010) MONOCYTES (test code = 1011) 5.6 % EOSINOPHILS (test code = 1.8 % 1012) BASOPHILS (test code = 1013) 0.8 % PLATELET COUNT (test code = 307 K/UL 1015) BLOOD TYPE AND RH (test code A POSITIVE = 3901) ANTIBODY SCREEN (test code = NEGATIVE 3902) RUBELLA ANTIBODY SCREEN 24 IU/ML (test code = 4600) RUBELLA IgG INTERP (test REACTIVE code = 03733) HEPATITIS B SURF AG (test NON-REACTIVE code = 2739) RPR (test code = 53373) NON-REACTIVE RPR TITER (test code = 3500) NOT INDIC. TITER HIV 1/2 4TH GEN, RFLX CONF NON-REACTIVE (test code = 3514) OBSTETRIC PANEL + [id number] 00:00:00 Test Item Value Reference Range Interpretation Comments WBC (test code = 1001) 7.7 K/UL RBC (test code = 1002) 4.87 M/UL HEMOGLOBIN (test code = 12.6 G/DL 1003) HEMATOCRIT (test code = 38.6 % 1004) MCV (test code = 1005) 79.3 fL MCH (test code = 1006) 25.9 PG MCHC (test code = 1007) 32.6 G/DL RDW (test code = 1038) 14.2 % NEUTROPHILS (test code = 64.2 % 1008) LYMPHOCYTES (test code = 27.6 % 1010) MONOCYTES (test code = 1011) 5.6 % EOSINOPHILS (test code = 1.8 % 1012) BASOPHILS (test code = 1013) 0.8 % PLATELET COUNT (test code = 307 K/UL 1015) BLOOD TYPE AND RH (test code A POSITIVE = 3901) ANTIBODY SCREEN (test code = NEGATIVE 3902) RUBELLA ANTIBODY SCREEN 24 IU/ML (test code = 4600) RUBELLA IgG INTERP (test REACTIVE code = 03132) HEPATITIS B SURF AG (test NON-REACTIVE code = 2739) RPR (test code = 08294) NON-REACTIVE RPR TITER (test code = 3500) NOT INDIC. TITER HIV 1/2 4TH GEN, RFLX CONF NON-REACTIVE (test code = 3514) OBSTETRIC PANEL + [id number] 00:00:00 Test Item Value Reference Range Interpretation Comments WBC (test code = 1001) 7.7 K/UL RBC (test code = 1002) 4.87 M/UL HEMOGLOBIN (test code = 12.6 G/DL 1003) HEMATOCRIT (test code = 38.6 % 1004) MCV (test code = 1005) 79.3 fL MCH (test code = 1006) 25.9 PG MCHC (test code = 1007) 32.6 G/DL RDW (test code = 1038) 14.2 % NEUTROPHILS (test code = 64.2 % 1008) LYMPHOCYTES (test code = 27.6 % 1010) MONOCYTES (test code = 1011) 5.6 % EOSINOPHILS (test code = 1.8 % 1012) BASOPHILS (test code = 1013) 0.8 % PLATELET COUNT (test code = 307 K/UL 1015) BLOOD TYPE AND RH (test code A POSITIVE = 3901) ANTIBODY SCREEN (test code = NEGATIVE 3902) RUBELLA ANTIBODY SCREEN 24 IU/ML (test code = 4600) RUBELLA IgG INTERP (test REACTIVE code = 19417) HEPATITIS B SURF AG (test NON-REACTIVE code = 2739) RPR (test code = 77088) NON-REACTIVE RPR TITER (test code = 3500) NOT INDIC. TITER HIV 1/2 4TH GEN, RFLX CONF NON-REACTIVE (test code = 3514) HEPATITIS C REFLEX [id number] 00:00:00 Test Item Value Reference Range Interpretation Comments HEPATITIS C ANTIBODY (test code NON-REACTIVE = 4675) HEPATITIS C REFLEX [id number] 00:00:00 Test Item Value Reference Range Interpretation Comments HEPATITIS C ANTIBODY (test code NON-REACTIVE = 4675) VARICELLA ZOSTER [id number] 00:00:00 Test Item Value Reference Range Interpretation Comments VARICELLA ZOSTER IgG (test code = 1653 INDEX 35462) VARICELLA ZOSTER [id number] 00:00:00 Test Item Value Reference Range Interpretation Comments VARICELLA ZOSTER IgG (test code = 1653 INDEX 34278) GC AND CHLAMYDIA, AMPLIFIED, [id number] 00:00:00 Test Item Value Reference Range Interpretation Comments GONORRHEA, NAAT (test code = 96346) NEGATIVE CHLAMYDIA, NAAT (test code = 13583) NEGATIVE GC AND CHLAMYDIA, AMPLIFIED, [id number] 00:00:00 Test Item Value Reference Range Interpretation Comments GONORRHEA, NAAT (test code = 65090) NEGATIVE CHLAMYDIA, NAAT (test code = 04778) NEGATIVE HEMOGLOBIN [id number] 00:00:00 Test Item Value Reference Range Interpretation Comments HEMOGLOBIN A1c (test code = 48429) 8.6 % HEMOGLOBIN [id number] 00:00:00 Test Item Value Reference Range Interpretation Comments HEMOGLOBIN A1c (test code = 74574) 8.6 % HEMOGLOBIN [id number] 00:00:00 Test Item Value Reference Range Interpretation Comments HEMOGLOBIN A1c (test code = 32512) 8.6 % OBSTETRIC PANEL + [id number] 00:00:00 Test Item Value Reference Range Interpretation Comments WBC (test code = 1001) 7.7 K/UL RBC (test code = 1002) 4.87 M/UL HEMOGLOBIN (test code = 12.6 G/DL 1003) HEMATOCRIT (test code = 38.6 % 1004) MCV (test code = 1005) 79.3 fL MCH (test code = 1006) 25.9 PG MCHC (test code = 1007) 32.6 G/DL RDW (test code = 1038) 14.2 % NEUTROPHILS (test code = 64.2 % 1008) LYMPHOCYTES (test code = 27.6 % 1010) MONOCYTES (test code = 1011) 5.6 % EOSINOPHILS (test code = 1.8 % 1012) BASOPHILS (test code = 1013) 0.8 % PLATELET COUNT (test code = 307 K/UL 1015) BLOOD TYPE AND RH (test code A POSITIVE = 3901) ANTIBODY SCREEN (test code = NEGATIVE 3902) RUBELLA ANTIBODY SCREEN 24 IU/ML (test code = 4600) RUBELLA IgG INTERP (test REACTIVE code = 86328) HEPATITIS B SURF AG (test NON-REACTIVE code = 2739) RPR (test code = 71521) NON-REACTIVE RPR TITER (test code = 3500) NOT INDIC. TITER HIV 1/2 4TH GEN, RFLX CONF NON-REACTIVE (test code = 3514) OBSTETRIC PANEL + [id number] 00:00:00 Test Item Value Reference Range Interpretation Comments WBC (test code = 1001) 7.7 K/UL RBC (test code = 1002) 4.87 M/UL HEMOGLOBIN (test code = 12.6 G/DL 1003) HEMATOCRIT (test code = 38.6 % 1004) MCV (test code = 1005) 79.3 fL MCH (test code = 1006) 25.9 PG MCHC (test code = 1007) 32.6 G/DL RDW (test code = 1038) 14.2 % NEUTROPHILS (test code = 64.2 % 1008) LYMPHOCYTES (test code = 27.6 % 1010) MONOCYTES (test code = 1011) 5.6 % EOSINOPHILS (test code = 1.8 % 1012) BASOPHILS (test code = 1013) 0.8 % PLATELET COUNT (test code = 307 K/UL 1015) BLOOD TYPE AND RH (test code A POSITIVE = 3901) ANTIBODY SCREEN (test code = NEGATIVE 3902) RUBELLA ANTIBODY SCREEN 24 IU/ML (test code = 4600) RUBELLA IgG INTERP (test REACTIVE code = 25799) HEPATITIS B SURF AG (test NON-REACTIVE code = 2739) RPR (test code = 96660) NON-REACTIVE RPR TITER (test code = 3500) NOT INDIC. TITER HIV 1/2 4TH GEN, RFLX CONF NON-REACTIVE (test code = 3514) OBSTETRIC PANEL + [id number] 00:00:00 Test Item Value Reference Range Interpretation Comments WBC (test code = 1001) 7.7 K/UL RBC (test code = 1002) 4.87 M/UL HEMOGLOBIN (test code = 12.6 G/DL 1003) HEMATOCRIT (test code = 38.6 % 1004) MCV (test code = 1005) 79.3 fL MCH (test code = 1006) 25.9 PG MCHC (test code = 1007) 32.6 G/DL RDW (test code = 1038) 14.2 % NEUTROPHILS (test code = 64.2 % 1008) LYMPHOCYTES (test code = 27.6 % 1010) MONOCYTES (test code = 1011) 5.6 % EOSINOPHILS (test code = 1.8 % 1012) BASOPHILS (test code = 1013) 0.8 % PLATELET COUNT (test code = 307 K/UL 1015) BLOOD TYPE AND RH (test code A POSITIVE = 3901) ANTIBODY SCREEN (test code = NEGATIVE 3902) RUBELLA ANTIBODY SCREEN 24 IU/ML (test code = 4600) RUBELLA IgG INTERP (test REACTIVE code = 92662) HEPATITIS B SURF AG (test NON-REACTIVE code = 2739) RPR (test code = 18360) NON-REACTIVE RPR TITER (test code = 3500) NOT INDIC. TITER HIV 1/2 4TH GEN, RFLX CONF NON-REACTIVE (test code = 3514) HEPATITIS C REFLEX [id number] 00:00:00 Test Item Value Reference Range Interpretation Comments HEPATITIS C ANTIBODY (test code NON-REACTIVE = 4675) HEPATITIS C REFLEX [id number] 00:00:00 Test Item Value Reference Range Interpretation Comments HEPATITIS C ANTIBODY (test code NON-REACTIVE = 4675) VARICELLA ZOSTER [id number] 00:00:00 Test Item Value Reference Range Interpretation Comments VARICELLA ZOSTER IgG (test code = 1653 INDEX 53820) VARICELLA ZOSTER [id number] 00:00:00 Test Item Value Reference Range Interpretation Comments VARICELLA ZOSTER IgG (test code = 1653 INDEX 23475) GC AND CHLAMYDIA, AMPLIFIED, [id number] 00:00:00 Test Item Value Reference Range Interpretation Comments GONORRHEA, NAAT (test code = 70889) NEGATIVE CHLAMYDIA, NAAT (test code = 19179) NEGATIVE GC AND CHLAMYDIA, AMPLIFIED, [id number] 00:00:00 Test Item Value Reference Range Interpretation Comments GONORRHEA, NAAT (test code = 54039) NEGATIVE CHLAMYDIA, NAAT (test code = 47782) NEGATIVE HEMOGLOBIN [id number] 00:00:00 Test Item Value Reference Range Interpretation Comments HEMOGLOBIN A1c (test code = 57450) 8.6 % HEMOGLOBIN [id number] 00:00:00 Test Item Value Reference Range Interpretation Comments HEMOGLOBIN A1c (test code = 48019) 8.6 % HEMOGLOBIN [id number] 00:00:00 Test Item Value Reference Range Interpretation Comments HEMOGLOBIN A1c (test code = 33908) 8.6 % SARS-CoV-2 (COVID-19) by RT-PCR (HIGH RISK)2020-07-08 00:00:00 Test Item Value Reference Range Interpretation Comments SARS-CoV-2 INTERPRETATION (test NEGATIVE code = 22770) SOURCE (test code = 55387) NOT SPECIFIED SARS-CoV-2 (COVID-19) by RT-PCR (HIGH RISK)2020-07-08 00:00:00 Test Item Value Reference Range Interpretation Comments SARS-CoV-2 INTERPRETATION (test NEGATIVE code = 20526) SOURCE (test code = 25281) NOT SPECIFIED SARS-CoV-2 (COVID-19) by RT-PCR (HIGH RISK)2020-07-08 00:00:00 Test Item Value Reference Range Interpretation Comments SARS-CoV-2 INTERPRETATION (test NEGATIVE code = 85981) SOURCE (test code = 25889) NOT SPECIFIED SARS-CoV-2 (COVID-19) by RT-PCR (HIGH RISK)2020-07-08 00:00:00 Test Item Value Reference Range Interpretation Comments SARS-CoV-2 INTERPRETATION (test NEGATIVE code = 49139) SOURCE (test code = 94153) NOT SPECIFIED SARS-CoV-2 (COVID-19) by RT-PCR (HIGH RISK)2020-07-08 00:00:00 Test Item Value Reference Range Interpretation Comments SARS-CoV-2 INTERPRETATION (test NEGATIVE code = 81819) SOURCE (test code = 07621) NOT SPECIFIED SARS-CoV-2 (COVID-19) by RT-PCR (HIGH RISK)2020-07-08 00:00:00 Test Item Value Reference Range Interpretation Comments SARS-CoV-2 INTERPRETATION (test NEGATIVE code = 05428) SOURCE (test code = 15833) NOT SPECIFIED SARS-CoV-2 (COVID-19) by RT-PCR (HIGH RISK)2020-07-08 00:00:00 Test Item Value Reference Range Interpretation Comments SARS-CoV-2 INTERPRETATION (test NEGATIVE code = 52734) SOURCE (test code = 11751) NOT SPECIFIED HEMOGLOBIN [id number] 00:00:00 Test Item Value Reference Range Interpretation Comments HEMOGLOBIN A1c (test code = 59326) 9.0 % HEMOGLOBIN [id number] 00:00:00 Test Item Value Reference Range Interpretation Comments HEMOGLOBIN A1c (test code = 28544) 9.0 % HEMOGLOBIN [id number] 00:00:00 Test Item Value Reference Range Interpretation Comments HEMOGLOBIN A1c (test code = 81957) 9.0 % HEMOGLOBIN [id number] 00:00:00 Test Item Value Reference Range Interpretation Comments HEMOGLOBIN A1c (test code = 64505) 9.0 % COMPREHENSIVE METABOLIC [id number] 00:00:00 Test Item Value Reference Range Interpretation Comments GLUCOSE (test code = 2217) 148 MG/DL BUN (test code = 2208) 10 MG/DL CREATININE (test code = 2214) 0.52 MG/DL eGFR AMER. (test code 139 ML/MIN/1.73 = 24953) eGFR NON- AMER. (test 120 ML/MIN/1.73 code = 76241) CALC BUN/CREAT (test code = 19 RATIO 2235) SODIUM (test code = 2231) 138 MEQ/L POTASSIUM (test code = 2228) 4.5 MEQ/L CHLORIDE (test code = 2215) 103 MEQ/L CARBON DIOXIDE (test code = 23 MEQ/L 2205) CALCIUM (test code = 2209) 10.0 MG/DL PROTEIN, TOTAL (test code = 7.4 G/DL 2228) ALBUMIN (test code = 2201) 4.4 G/DL CALC GLOBULIN (test code = 3.0 G/DL 2240) CALC A/G RATIO (test code = 1.5 RATIO 2234) BILIRUBIN, TOTAL (test code = <0.2 MG/DL 2206) ALKALINE PHOSPHATASE (test 106 U/L code = 2204) AST (test code = 2218) 12 U/L ALT (test code = 2219) 12 U/L COMPREHENSIVE METABOLIC [id number] 00:00:00 Test Item Value Reference Range Interpretation Comments GLUCOSE (test code = 2217) 148 MG/DL BUN (test code = 2208) 10 MG/DL CREATININE (test code = 2214) 0.52 MG/DL eGFR AMER. (test code 139 ML/MIN/1.73 = 15121) eGFR NON- AMER. (test 120 ML/MIN/1.73 code = 20072) CALC BUN/CREAT (test code = 19 RATIO 2235) SODIUM (test code = 2231) 138 MEQ/L POTASSIUM (test code = 2228) 4.5 MEQ/L CHLORIDE (test code = 2215) 103 MEQ/L CARBON DIOXIDE (test code = 23 MEQ/L 2205) CALCIUM (test code = 2209) 10.0 MG/DL PROTEIN, TOTAL (test code = 7.4 G/DL 2228) ALBUMIN (test code = 2201) 4.4 G/DL CALC GLOBULIN (test code = 3.0 G/DL 2240) CALC A/G RATIO (test code = 1.5 RATIO 2234) BILIRUBIN, TOTAL (test code = <0.2 MG/DL 2206) ALKALINE PHOSPHATASE (test 106 U/L code = 2204) AST (test code = 2218) 12 U/L ALT (test code = 2219) 12 U/L CBC W/AUTO [id number] 00:00:00 Test Item Value Reference Range Interpretation Comments WBC (test code = 1001) 9.8 K/UL RBC (test code = 1002) 4.92 M/UL HEMOGLOBIN (test code = 1003) 12.8 G/DL HEMATOCRIT (test code = 1004) 38.3 % MCV (test code = 1005) 77.8 fL MCH (test code = 1006) 26.0 PG MCHC (test code = 1007) 33.4 G/DL RDW (test code = 1038) 13.8 % NEUTROPHILS (test code = 1008) 59.8 % LYMPHOCYTES (test code = 1010) 32.2 % MONOCYTES (test code = 1011) 5.9 % EOSINOPHILS (test code = 1012) 1.7 % BASOPHILS (test code = 1013) 0.4 % PLATELET COUNT (test code = 1015) 361 K/UL CBC W/AUTO [id number] 00:00:00 Test Item Value Reference Range Interpretation Comments WBC (test code = 1001) 9.8 K/UL RBC (test code = 1002) 4.92 M/UL HEMOGLOBIN (test code = 1003) 12.8 G/DL HEMATOCRIT (test code = 1004) 38.3 % MCV (test code = 1005) 77.8 fL MCH (test code = 1006) 26.0 PG MCHC (test code = 1007) 33.4 G/DL RDW (test code = 1038) 13.8 % NEUTROPHILS (test code = 1008) 59.8 % LYMPHOCYTES (test code = 1010) 32.2 % MONOCYTES (test code = 1011) 5.9 % EOSINOPHILS (test code = 1012) 1.7 % BASOPHILS (test code = 1013) 0.4 % PLATELET COUNT (test code = 1015) 361 K/UL CBC W/AUTO [id number] 00:00:00 Test Item Value Reference Range Interpretation Comments WBC (test code = 1001) 9.8 K/UL RBC (test code = 1002) 4.92 M/UL HEMOGLOBIN (test code = 1003) 12.8 G/DL HEMATOCRIT (test code = 1004) 38.3 % MCV (test code = 1005) 77.8 fL MCH (test code = 1006) 26.0 PG MCHC (test code = 1007) 33.4 G/DL RDW (test code = 1038) 13.8 % NEUTROPHILS (test code = 1008) 59.8 % LYMPHOCYTES (test code = 1010) 32.2 % MONOCYTES (test code = 1011) 5.9 % EOSINOPHILS (test code = 1012) 1.7 % BASOPHILS (test code = 1013) 0.4 % PLATELET COUNT (test code = 1015) 361 K/UL HEMOGLOBIN [id number] 00:00:00 Test Item Value Reference Range Interpretation Comments HEMOGLOBIN A1c (test code = 80102) 9.0 % VITAMIN D, 25 [id number] 00:00:00 Test Item Value Reference Range Interpretation Comments VITAMIN D, 25 OH (test code = 4958) 15 NG/ML VITAMIN D, 25 [id number] 00:00:00 Test Item Value Reference Range Interpretation Comments VITAMIN D, 25 OH (test code = 4958) 15 NG/ML MICROALBUMIN, [id number] 00:00:00 Test Item Value Reference Range Interpretation Comments ALBUMIN, URINE, RANDOM (test code = 2.9 MG/DL 67856) MICROALBUMIN, [id number] 00:00:00 Test Item Value Reference Range Interpretation Comments ALBUMIN, URINE, RANDOM (test code = 2.9 MG/DL 28744) COMPREHENSIVE METABOLIC [id number] 00:00:00 Test Item Value Reference Range Interpretation Comments GLUCOSE (test code = 2217) 148 MG/DL BUN (test code = 2208) 10 MG/DL CREATININE (test code = 2214) 0.52 MG/DL eGFR AMER. (test code 139 ML/MIN/1.73 = 27667) eGFR NON- AMER. (test 120 ML/MIN/1.73 code = 47877) CALC BUN/CREAT (test code = 19 RATIO 2235) SODIUM (test code = 2231) 138 MEQ/L POTASSIUM (test code = 2228) 4.5 MEQ/L CHLORIDE (test code = 2215) 103 MEQ/L CARBON DIOXIDE (test code = 23 MEQ/L 2205) CALCIUM (test code = 2209) 10.0 MG/DL PROTEIN, TOTAL (test code = 7.4 G/DL 2228) ALBUMIN (test code = 2201) 4.4 G/DL CALC GLOBULIN (test code = 3.0 G/DL 0) CALC A/G RATIO (test code = 1.5 RATIO 2234) BILIRUBIN, TOTAL (test code = <0.2 MG/DL 2206) ALKALINE PHOSPHATASE (test 106 U/L code = 2204) AST (test code = 2218) 12 U/L ALT (test code = 2219) 12 U/L CBC W/AUTO [id number] 00:00:00 Test Item Value Reference Range Interpretation Comments WBC (test code = 1001) 9.8 K/UL RBC (test code = 1002) 4.92 M/UL HEMOGLOBIN (test code = 1003) 12.8 G/DL HEMATOCRIT (test code = 1004) 38.3 % MCV (test code = 1005) 77.8 fL MCH (test code = 1006) 26.0 PG MCHC (test code = 1007) 33.4 G/DL RDW (test code = 1038) 13.8 % NEUTROPHILS (test code = 1008) 59.8 % LYMPHOCYTES (test code = 1010) 32.2 % MONOCYTES (test code = 1011) 5.9 % EOSINOPHILS (test code = 1012) 1.7 % BASOPHILS (test code = 1013) 0.4 % PLATELET COUNT (test code = 1015) 361 K/UL CBC W/AUTO [id number] 00:00:00 Test Item Value Reference Range Interpretation Comments WBC (test code = 1001) 9.8 K/UL RBC (test code = 1002) 4.92 M/UL HEMOGLOBIN (test code = 1003) 12.8 G/DL HEMATOCRIT (test code = 1004) 38.3 % MCV (test code = 1005) 77.8 fL MCH (test code = 1006) 26.0 PG MCHC (test code = 1007) 33.4 G/DL RDW (test code = 1038) 13.8 % NEUTROPHILS (test code = 1008) 59.8 % LYMPHOCYTES (test code = 1010) 32.2 % MONOCYTES (test code = 1011) 5.9 % EOSINOPHILS (test code = 1012) 1.7 % BASOPHILS (test code = 1013) 0.4 % PLATELET COUNT (test code = 1015) 361 K/UL VITAMIN D, 25 [id number] 00:00:00 Test Item Value Reference Range Interpretation Comments VITAMIN D, 25 OH (test code = 4958) 15 NG/ML MICROALBUMIN, [id number] 00:00:00 Test Item Value Reference Range Interpretation Comments ALBUMIN, URINE, RANDOM (test code = 2.9 MG/DL 81891) HEMOGLOBIN [id number] 00:00:00 Test Item Value Reference Range Interpretation Comments HEMOGLOBIN A1c (test code = 45533) 9.0 % HEMOGLOBIN [id number] 00:00:00 Test Item Value Reference Range Interpretation Comments HEMOGLOBIN A1c (test code = 54237) 9.0 % HEMOGLOBIN [id number] 00:00:00 Test Item Value Reference Range Interpretation Comments HEMOGLOBIN A1c (test code = 15908) 9.0 % COMPREHENSIVE METABOLIC [id number] 00:00:00 Test Item Value Reference Range Interpretation Comments GLUCOSE (test code = 2217) 148 MG/DL BUN (test code = 2208) 10 MG/DL CREATININE (test code = 2214) 0.52 MG/DL eGFR AMER. (test code 139 ML/MIN/1.73 = 54592) eGFR NON- AMER. (test 120 ML/MIN/1.73 code = 42383) CALC BUN/CREAT (test code = 19 RATIO 2235) SODIUM (test code = 2231) 138 MEQ/L POTASSIUM (test code = 2228) 4.5 MEQ/L CHLORIDE (test code = 2215) 103 MEQ/L CARBON DIOXIDE (test code = 23 MEQ/L 6) CALCIUM (test code = 2209) 10.0 MG/DL PROTEIN, TOTAL (test code = 7.4 G/DL 2228) ALBUMIN (test code = 2201) 4.4 G/DL CALC GLOBULIN (test code = 3.0 G/DL 2240) CALC A/G RATIO (test code = 1.5 RATIO 2234) BILIRUBIN, TOTAL (test code = <0.2 MG/DL 2206) ALKALINE PHOSPHATASE (test 106 U/L code = 2204) AST (test code = 2218) 12 U/L ALT (test code = 2219) 12 U/L COMPREHENSIVE METABOLIC [id number] 00:00:00 Test Item Value Reference Range Interpretation Comments GLUCOSE (test code = 2217) 148 MG/DL BUN (test code = 2208) 10 MG/DL CREATININE (test code = 2214) 0.52 MG/DL eGFR AMER. (test code 139 ML/MIN/1.73 = 93597) eGFR NON- AMER. (test 120 ML/MIN/1.73 code = 53229) CALC BUN/CREAT (test code = 19 RATIO 2235) SODIUM (test code = 2231) 138 MEQ/L POTASSIUM (test code = 2228) 4.5 MEQ/L CHLORIDE (test code = 2215) 103 MEQ/L CARBON DIOXIDE (test code = 23 MEQ/L 2205) CALCIUM (test code = 2209) 10.0 MG/DL PROTEIN, TOTAL (test code = 7.4 G/DL 2228) ALBUMIN (test code = 2201) 4.4 G/DL CALC GLOBULIN (test code = 3.0 G/DL 2239) CALC A/G RATIO (test code = 1.5 RATIO 2233) BILIRUBIN, TOTAL (test code = <0.2 MG/DL 2206) ALKALINE PHOSPHATASE (test 106 U/L code = 220) AST (test code = 2218) 12 U/L ALT (test code = 2219) 12 U/L CBC W/AUTO [id number] 00:00:00 Test Item Value Reference Range Interpretation Comments WBC (test code = 1001) 9.8 K/UL RBC (test code = 1002) 4.92 M/UL HEMOGLOBIN (test code = 1003) 12.8 G/DL HEMATOCRIT (test code = 1004) 38.3 % MCV (test code = 1005) 77.8 fL MCH (test code = 1006) 26.0 PG MCHC (test code = 1007) 33.4 G/DL RDW (test code = 1038) 13.8 % NEUTROPHILS (test code = 1008) 59.8 % LYMPHOCYTES (test code = 1010) 32.2 % MONOCYTES (test code = 1011) 5.9 % EOSINOPHILS (test code = 1012) 1.7 % BASOPHILS (test code = 1013) 0.4 % PLATELET COUNT (test code = 1015) 361 K/UL CBC W/AUTO [id number] 00:00:00 Test Item Value Reference Range Interpretation Comments WBC (test code = 1001) 9.8 K/UL RBC (test code = 1002) 4.92 M/UL HEMOGLOBIN (test code = 1003) 12.8 G/DL HEMATOCRIT (test code = 1004) 38.3 % MCV (test code = 1005) 77.8 fL MCH (test code = 1006) 26.0 PG MCHC (test code = 1007) 33.4 G/DL RDW (test code = 1038) 13.8 % NEUTROPHILS (test code = 1008) 59.8 % LYMPHOCYTES (test code = 1010) 32.2 % MONOCYTES (test code = 1011) 5.9 % EOSINOPHILS (test code = 1012) 1.7 % BASOPHILS (test code = 1013) 0.4 % PLATELET COUNT (test code = 1015) 361 K/UL CBC W/AUTO [id number] 00:00:00 Test Item Value Reference Range Interpretation Comments WBC (test code = 1001) 9.8 K/UL RBC (test code = 1002) 4.92 M/UL HEMOGLOBIN (test code = 1003) 12.8 G/DL HEMATOCRIT (test code = 1004) 38.3 % MCV (test code = 1005) 77.8 fL MCH (test code = 1006) 26.0 PG MCHC (test code = 1007) 33.4 G/DL RDW (test code = 1038) 13.8 % NEUTROPHILS (test code = 1008) 59.8 % LYMPHOCYTES (test code = 1010) 32.2 % MONOCYTES (test code = 1011) 5.9 % EOSINOPHILS (test code = 1012) 1.7 % BASOPHILS (test code = 1013) 0.4 % PLATELET COUNT (test code = 1015) 361 K/UL VITAMIN D, 25 [id number] 00:00:00 Test Item Value Reference Range Interpretation Comments VITAMIN D, 25 OH (test code = 4958) 15 NG/ML VITAMIN D, 25 [id number] 00:00:00 Test Item Value Reference Range Interpretation Comments VITAMIN D, 25 OH (test code = 4958) 15 NG/ML MICROALBUMIN, [id number] 00:00:00 Test Item Value Reference Range Interpretation Comments ALBUMIN, URINE, RANDOM (test code = 2.9 MG/DL 18739) MICROALBUMIN, [id number] 00:00:00 Test Item Value Reference Range Interpretation Comments ALBUMIN, URINE, RANDOM (test code = 2.9 MG/DL 32001) HEMOGLOBIN [id number] 00:00:00 Test Item Value Reference Range Interpretation Comments HEMOGLOBIN A1c (test code = 48996) 9.0 % HEMOGLOBIN [id number] 00:00:00 Test Item Value Reference Range Interpretation Comments HEMOGLOBIN A1c (test code = 09874) 9.0 % HEMOGLOBIN [id number] 00:00:00 Test Item Value Reference Range Interpretation Comments HEMOGLOBIN A1c (test code = 32386) 9.0 % COMPREHENSIVE METABOLIC [id number] 00:00:00 Test Item Value Reference Range Interpretation Comments GLUCOSE (test code = 2217) 148 MG/DL BUN (test code = 2208) 10 MG/DL CREATININE (test code = 2214) 0.52 MG/DL eGFR AMER. (test code 139 ML/MIN/1.73 = 99626) eGFR NON- AMER. (test 120 ML/MIN/1.73 code = 02778) CALC BUN/CREAT (test code = 19 RATIO 2235) SODIUM (test code = 2231) 138 MEQ/L POTASSIUM (test code = 2228) 4.5 MEQ/L CHLORIDE (test code = 2215) 103 MEQ/L CARBON DIOXIDE (test code = 23 MEQ/L 2206) CALCIUM (test code = 2209) 10.0 MG/DL PROTEIN, TOTAL (test code = 7.4 G/DL 2228) ALBUMIN (test code = 2201) 4.4 G/DL CALC GLOBULIN (test code = 3.0 G/DL 0) CALC A/G RATIO (test code = 1.5 RATIO 2234) BILIRUBIN, TOTAL (test code = <0.2 MG/DL 2206) ALKALINE PHOSPHATASE (test 106 U/L code = 2204) AST (test code = 2218) 12 U/L ALT (test code = 2219) 12 U/L COMPREHENSIVE METABOLIC [id number] 00:00:00 Test Item Value Reference Range Interpretation Comments GLUCOSE (test code = 2217) 148 MG/DL BUN (test code = 2208) 10 MG/DL CREATININE (test code = 2214) 0.52 MG/DL eGFR AMER. (test code 139 ML/MIN/1.73 = 67316) eGFR NON- AMER. (test 120 ML/MIN/1.73 code = 07549) CALC BUN/CREAT (test code = 19 RATIO 2235) SODIUM (test code = 2231) 138 MEQ/L POTASSIUM (test code = 2228) 4.5 MEQ/L CHLORIDE (test code = 2215) 103 MEQ/L CARBON DIOXIDE (test code = 23 MEQ/L 2206) CALCIUM (test code = 2209) 10.0 MG/DL PROTEIN, TOTAL (test code = 7.4 G/DL 2229) ALBUMIN (test code = 2201) 4.4 G/DL CALC GLOBULIN (test code = 3.0 G/DL 2240) CALC A/G RATIO (test code = 1.5 RATIO 2234) BILIRUBIN, TOTAL (test code = <0.2 MG/DL 220) ALKALINE PHOSPHATASE (test 106 U/L code = 2204) AST (test code = 2218) 12 U/L ALT (test code = 2219) 12 U/L CBC W/AUTO [id number] 00:00:00 Test Item Value Reference Range Interpretation Comments WBC (test code = 1001) 9.8 K/UL RBC (test code = 1002) 4.92 M/UL HEMOGLOBIN (test code = 1003) 12.8 G/DL HEMATOCRIT (test code = 1004) 38.3 % MCV (test code = 1005) 77.8 fL MCH (test code = 1006) 26.0 PG MCHC (test code = 1007) 33.4 G/DL RDW (test code = 1038) 13.8 % NEUTROPHILS (test code = 1008) 59.8 % LYMPHOCYTES (test code = 1010) 32.2 % MONOCYTES (test code = 1011) 5.9 % EOSINOPHILS (test code = 1012) 1.7 % BASOPHILS (test code = 1013) 0.4 % PLATELET COUNT (test code = 1015) 361 K/UL CBC W/AUTO [id number] 00:00:00 Test Item Value Reference Range Interpretation Comments WBC (test code = 1001) 9.8 K/UL RBC (test code = 1002) 4.92 M/UL HEMOGLOBIN (test code = 1003) 12.8 G/DL HEMATOCRIT (test code = 1004) 38.3 % MCV (test code = 1005) 77.8 fL MCH (test code = 1006) 26.0 PG MCHC (test code = 1007) 33.4 G/DL RDW (test code = 1038) 13.8 % NEUTROPHILS (test code = 1008) 59.8 % LYMPHOCYTES (test code = 1010) 32.2 % MONOCYTES (test code = 1011) 5.9 % EOSINOPHILS (test code = 1012) 1.7 % BASOPHILS (test code = 1013) 0.4 % PLATELET COUNT (test code = 1015) 361 K/UL CBC W/AUTO [id number] 00:00:00 Test Item Value Reference Range Interpretation Comments WBC (test code = 1001) 9.8 K/UL RBC (test code = 1002) 4.92 M/UL HEMOGLOBIN (test code = 1003) 12.8 G/DL HEMATOCRIT (test code = 1004) 38.3 % MCV (test code = 1005) 77.8 fL MCH (test code = 1006) 26.0 PG MCHC (test code = 1007) 33.4 G/DL RDW (test code = 1038) 13.8 % NEUTROPHILS (test code = 1008) 59.8 % LYMPHOCYTES (test code = 1010) 32.2 % MONOCYTES (test code = 1011) 5.9 % EOSINOPHILS (test code = 1012) 1.7 % BASOPHILS (test code = 1013) 0.4 % PLATELET COUNT (test code = 1015) 361 K/UL VITAMIN D, 25 [id number] 00:00:00 Test Item Value Reference Range Interpretation Comments VITAMIN D, 25 OH (test code = 4958) 15 NG/ML VITAMIN D, 25 [id number] 00:00:00 Test Item Value Reference Range Interpretation Comments VITAMIN D, 25 OH (test code = 4958) 15 NG/ML MICROALBUMIN, [id number] 00:00:00 Test Item Value Reference Range Interpretation Comments ALBUMIN, URINE, RANDOM (test code = 2.9 MG/DL 59527) MICROALBUMIN, [id number] 00:00:00 Test Item Value Reference Range Interpretation Comments ALBUMIN, URINE, RANDOM (test code = 2.9 MG/DL 31323) COMPREHENSIVE METABOLIC [id number] 00:00:00 Test Item Value Reference Range Interpretation Comments GLUCOSE (test code = 2217) 281 MG/DL BUN (test code = 2208) 10 MG/DL CREATININE (test code = 2214) 0.45 MG/DL eGFR AMER. (test code 145 ML/MIN/1.73 = 67414) eGFR NON- AMER. (test 125 ML/MIN/1.73 code = 93710) CALC BUN/CREAT (test code = 22 RATIO 2235) SODIUM (test code = 2231) 135 MEQ/L POTASSIUM (test code = 2228) 4.3 MEQ/L CHLORIDE (test code = 2215) 100 MEQ/L CARBON DIOXIDE (test code = 22 MEQ/L 2206) CALCIUM (test code = 2209) 9.3 MG/DL PROTEIN, TOTAL (test code = 7.2 G/DL 222) ALBUMIN (test code = 2201) 4.2 G/DL CALC GLOBULIN (test code = 3.0 G/DL 2240) CALC A/G RATIO (test code = 1.4 RATIO 2234) BILIRUBIN, TOTAL (test code = 0.3 MG/DL 2206) ALKALINE PHOSPHATASE (test 96 U/L code = 2204) AST (test code = 2218) 15 U/L ALT (test code = 2219) 19 U/L COMPREHENSIVE METABOLIC [id number] 00:00:00 Test Item Value Reference Range Interpretation Comments GLUCOSE (test code = 2217) 281 MG/DL BUN (test code = 2208) 10 MG/DL CREATININE (test code = 2214) 0.45 MG/DL eGFR AMER. (test code 145 ML/MIN/1.73 = 11645) eGFR NON- AMER. (test 125 ML/MIN/1.73 code = 60705) CALC BUN/CREAT (test code = 22 RATIO 2235) SODIUM (test code = 2231) 135 MEQ/L POTASSIUM (test code = 2228) 4.3 MEQ/L CHLORIDE (test code = 2215) 100 MEQ/L CARBON DIOXIDE (test code = 22 MEQ/L 2205) CALCIUM (test code = 2209) 9.3 MG/DL PROTEIN, TOTAL (test code = 7.2 G/DL 222) ALBUMIN (test code = 2201) 4.2 G/DL CALC GLOBULIN (test code = 3.0 G/DL 2240) CALC A/G RATIO (test code = 1.4 RATIO 2234) BILIRUBIN, TOTAL (test code = 0.3 MG/DL 2206) ALKALINE PHOSPHATASE (test 96 U/L code = 2204) AST (test code = 2218) 15 U/L ALT (test code = 2219) 19 U/L COMPREHENSIVE METABOLIC [id number] 00:00:00 Test Item Value Reference Range Interpretation Comments GLUCOSE (test code = 2217) 281 MG/DL BUN (test code = 2208) 10 MG/DL CREATININE (test code = 2214) 0.45 MG/DL eGFR AMER. (test code 145 ML/MIN/1.73 = 04889) eGFR NON- AMER. (test 125 ML/MIN/1.73 code = 86718) CALC BUN/CREAT (test code = 22 RATIO 2235) SODIUM (test code = 2231) 135 MEQ/L POTASSIUM (test code = 2228) 4.3 MEQ/L CHLORIDE (test code = 2215) 100 MEQ/L CARBON DIOXIDE (test code = 22 MEQ/L 220) CALCIUM (test code = 2209) 9.3 MG/DL PROTEIN, TOTAL (test code = 7.2 G/DL 2228) ALBUMIN (test code = 2201) 4.2 G/DL CALC GLOBULIN (test code = 3.0 G/DL 224) CALC A/G RATIO (test code = 1.4 RATIO 2234) BILIRUBIN, TOTAL (test code = 0.3 MG/DL 2206) ALKALINE PHOSPHATASE (test 96 U/L code = 2204) AST (test code = 2218) 15 U/L ALT (test code = 2219) 19 U/L LIPID [id number] 00:00:00 Test Item Value Reference Range Interpretation Comments CHOLESTEROL (test code = 2210) 183 MG/DL TRIGLYCERIDES (test code = 2232) 446 MG/DL HDL CHOLESTEROL (test code = 33 MG/DL 2220) CALC LDL CHOL (test code = 2237) (NOTE) MG/DL RISK RATIO LDL/HDL (test code = (NOTE) RATIO 2238) LIPID [id number] 00:00:00 Test Item Value Reference Range Interpretation Comments CHOLESTEROL (test code = 2210) 183 MG/DL TRIGLYCERIDES (test code = 2232) 446 MG/DL HDL CHOLESTEROL (test code = 33 MG/DL 2220) CALC LDL CHOL (test code = 2237) (NOTE) MG/DL RISK RATIO LDL/HDL (test code = (NOTE) RATIO 2238) CBC W/AUTO [id number] 00:00:00 Test Item Value Reference Range Interpretation Comments WBC (test code = 1001) 8.2 K/UL RBC (test code = 1002) 4.68 M/UL HEMOGLOBIN (test code = 1003) 13.0 G/DL HEMATOCRIT (test code = 1004) 39.0 % MCV (test code = 1005) 83.3 fL MCH (test code = 1006) 27.8 PG MCHC (test code = 1007) 33.3 G/DL RDW (test code = 1038) 13.9 % NEUTROPHILS (test code = 1008) 64.0 % LYMPHOCYTES (test code = 1010) 28.3 % MONOCYTES (test code = 1011) 5.9 % EOSINOPHILS (test code = 1012) 1.3 % BASOPHILS (test code = 1013) 0.5 % PLATELET COUNT (test code = 1015) 298 K/UL CBC W/AUTO [id number] 00:00:00 Test Item Value Reference Range Interpretation Comments WBC (test code = 1001) 8.2 K/UL RBC (test code = 1002) 4.68 M/UL HEMOGLOBIN (test code = 1003) 13.0 G/DL HEMATOCRIT (test code = 1004) 39.0 % MCV (test code = 1005) 83.3 fL MCH (test code = 1006) 27.8 PG MCHC (test code = 1007) 33.3 G/DL RDW (test code = 1038) 13.9 % NEUTROPHILS (test code = 1008) 64.0 % LYMPHOCYTES (test code = 1010) 28.3 % MONOCYTES (test code = 1011) 5.9 % EOSINOPHILS (test code = 1012) 1.3 % BASOPHILS (test code = 1013) 0.5 % PLATELET COUNT (test code = 1015) 298 K/UL CBC W/AUTO [id number] 00:00:00 Test Item Value Reference Range Interpretation Comments WBC (test code = 1001) 8.2 K/UL RBC (test code = 1002) 4.68 M/UL HEMOGLOBIN (test code = 1003) 13.0 G/DL HEMATOCRIT (test code = 1004) 39.0 % MCV (test code = 1005) 83.3 fL MCH (test code = 1006) 27.8 PG MCHC (test code = 1007) 33.3 G/DL RDW (test code = 1038) 13.9 % NEUTROPHILS (test code = 1008) 64.0 % LYMPHOCYTES (test code = 1010) 28.3 % MONOCYTES (test code = 1011) 5.9 % EOSINOPHILS (test code = 1012) 1.3 % BASOPHILS (test code = 1013) 0.5 % PLATELET COUNT (test code = 1015) 298 K/UL HEMOGLOBIN [id number] 00:00:00 Test Item Value Reference Range Interpretation Comments HEMOGLOBIN A1c (test code = 75597) 7.7 % HEMOGLOBIN [id number] 00:00:00 Test Item Value Reference Range Interpretation Comments HEMOGLOBIN A1c (test code = 40851) 7.7 % HEMOGLOBIN [id number] 00:00:00 Test Item Value Reference Range Interpretation Comments HEMOGLOBIN A1c (test code = 46051) 7.7 % LIPID [id number] 00:00:00 Test Item Value Reference Range Interpretation Comments CHOLESTEROL (test code = 2210) 183 MG/DL TRIGLYCERIDES (test code = 2232) 446 MG/DL HDL CHOLESTEROL (test code = 33 MG/DL 2220) CALC LDL CHOL (test code = 2237) (NOTE) MG/DL RISK RATIO LDL/HDL (test code = (NOTE) RATIO 2238) CBC W/AUTO [id number] 00:00:00 Test Item Value Reference Range Interpretation Comments WBC (test code = 1001) 8.2 K/UL RBC (test code = 1002) 4.68 M/UL HEMOGLOBIN (test code = 1003) 13.0 G/DL HEMATOCRIT (test code = 1004) 39.0 % MCV (test code = 1005) 83.3 fL MCH (test code = 1006) 27.8 PG MCHC (test code = 1007) 33.3 G/DL RDW (test code = 1038) 13.9 % NEUTROPHILS (test code = 1008) 64.0 % LYMPHOCYTES (test code = 1010) 28.3 % MONOCYTES (test code = 1011) 5.9 % EOSINOPHILS (test code = 1012) 1.3 % BASOPHILS (test code = 1013) 0.5 % PLATELET COUNT (test code = 1015) 298 K/UL CBC W/AUTO [id number] 00:00:00 Test Item Value Reference Range Interpretation Comments WBC (test code = 1001) 8.2 K/UL RBC (test code = 1002) 4.68 M/UL HEMOGLOBIN (test code = 1003) 13.0 G/DL HEMATOCRIT (test code = 1004) 39.0 % MCV (test code = 1005) 83.3 fL MCH (test code = 1006) 27.8 PG MCHC (test code = 1007) 33.3 G/DL RDW (test code = 1038) 13.9 % NEUTROPHILS (test code = 1008) 64.0 % LYMPHOCYTES (test code = 1010) 28.3 % MONOCYTES (test code = 1011) 5.9 % EOSINOPHILS (test code = 1012) 1.3 % BASOPHILS (test code = 1013) 0.5 % PLATELET COUNT (test code = 1015) 298 K/UL HEMOGLOBIN [id number] 00:00:00 Test Item Value Reference Range Interpretation Comments HEMOGLOBIN A1c (test code = 24055) 7.7 % HEMOGLOBIN [id number] 00:00:00 Test Item Value Reference Range Interpretation Comments HEMOGLOBIN A1c (test code = 04380) 7.7 % COMPREHENSIVE METABOLIC [id number] 00:00:00 Test Item Value Reference Range Interpretation Comments GLUCOSE (test code = 2217) 281 MG/DL BUN (test code = 2208) 10 MG/DL CREATININE (test code = 2214) 0.45 MG/DL eGFR AMER. (test code 145 ML/MIN/1.73 = 14643) eGFR NON- AMER. (test 125 ML/MIN/1.73 code = 44548) CALC BUN/CREAT (test code = 22 RATIO 2235) SODIUM (test code = 2231) 135 MEQ/L POTASSIUM (test code = 2228) 4.3 MEQ/L CHLORIDE (test code = 2215) 100 MEQ/L CARBON DIOXIDE (test code = 22 MEQ/L 2206) CALCIUM (test code = 2209) 9.3 MG/DL PROTEIN, TOTAL (test code = 7.2 G/DL 222) ALBUMIN (test code = 2201) 4.2 G/DL CALC GLOBULIN (test code = 3.0 G/DL 2240) CALC A/G RATIO (test code = 1.4 RATIO 2234) BILIRUBIN, TOTAL (test code = 0.3 MG/DL 2207) ALKALINE PHOSPHATASE (test 96 U/L code = 2204) AST (test code = 2218) 15 U/L ALT (test code = 2219) 19 U/L COMPREHENSIVE METABOLIC [id number] 00:00:00 Test Item Value Reference Range Interpretation Comments GLUCOSE (test code = 2217) 281 MG/DL BUN (test code = 2208) 10 MG/DL CREATININE (test code = 2214) 0.45 MG/DL eGFR AMER. (test code 145 ML/MIN/1.73 = 43269) eGFR NON- AMER. (test 125 ML/MIN/1.73 code = 94380) CALC BUN/CREAT (test code = 22 RATIO 2235) SODIUM (test code = 2231) 135 MEQ/L POTASSIUM (test code = 2228) 4.3 MEQ/L CHLORIDE (test code = 2215) 100 MEQ/L CARBON DIOXIDE (test code = 22 MEQ/L 220) CALCIUM (test code = 2209) 9.3 MG/DL PROTEIN, TOTAL (test code = 7.2 G/DL 2228) ALBUMIN (test code = 2201) 4.2 G/DL CALC GLOBULIN (test code = 3.0 G/DL 2240) CALC A/G RATIO (test code = 1.4 RATIO 2234) BILIRUBIN, TOTAL (test code = 0.3 MG/DL 2206) ALKALINE PHOSPHATASE (test 96 U/L code = 2204) AST (test code = 2218) 15 U/L ALT (test code = 2219) 19 U/L LIPID [id number] 00:00:00 Test Item Value Reference Range Interpretation Comments CHOLESTEROL (test code = 2210) 183 MG/DL TRIGLYCERIDES (test code = 2232) 446 MG/DL HDL CHOLESTEROL (test code = 33 MG/DL 2220) CALC LDL CHOL (test code = 2237) (NOTE) MG/DL RISK RATIO LDL/HDL (test code = (NOTE) RATIO 2238) LIPID [id number] 00:00:00 Test Item Value Reference Range Interpretation Comments CHOLESTEROL (test code = 2210) 183 MG/DL TRIGLYCERIDES (test code = 2232) 446 MG/DL HDL CHOLESTEROL (test code = 33 MG/DL 2220) CALC LDL CHOL (test code = 2237) (NOTE) MG/DL RISK RATIO LDL/HDL (test code = (NOTE) RATIO 2238) CBC W/AUTO [id number] 00:00:00 Test Item Value Reference Range Interpretation Comments WBC (test code = 1001) 8.2 K/UL RBC (test code = 1002) 4.68 M/UL HEMOGLOBIN (test code = 1003) 13.0 G/DL HEMATOCRIT (test code = 1004) 39.0 % MCV (test code = 1005) 83.3 fL MCH (test code = 1006) 27.8 PG MCHC (test code = 1007) 33.3 G/DL RDW (test code = 1038) 13.9 % NEUTROPHILS (test code = 1008) 64.0 % LYMPHOCYTES (test code = 1010) 28.3 % MONOCYTES (test code = 1011) 5.9 % EOSINOPHILS (test code = 1012) 1.3 % BASOPHILS (test code = 1013) 0.5 % PLATELET COUNT (test code = 1015) 298 K/UL CBC W/AUTO [id number] 00:00:00 Test Item Value Reference Range Interpretation Comments WBC (test code = 1001) 8.2 K/UL RBC (test code = 1002) 4.68 M/UL HEMOGLOBIN (test code = 1003) 13.0 G/DL HEMATOCRIT (test code = 1004) 39.0 % MCV (test code = 1005) 83.3 fL MCH (test code = 1006) 27.8 PG MCHC (test code = 1007) 33.3 G/DL RDW (test code = 1038) 13.9 % NEUTROPHILS (test code = 1008) 64.0 % LYMPHOCYTES (test code = 1010) 28.3 % MONOCYTES (test code = 1011) 5.9 % EOSINOPHILS (test code = 1012) 1.3 % BASOPHILS (test code = 1013) 0.5 % PLATELET COUNT (test code = 1015) 298 K/UL CBC W/AUTO [id number] 00:00:00 Test Item Value Reference Range Interpretation Comments WBC (test code = 1001) 8.2 K/UL RBC (test code = 1002) 4.68 M/UL HEMOGLOBIN (test code = 1003) 13.0 G/DL HEMATOCRIT (test code = 1004) 39.0 % MCV (test code = 1005) 83.3 fL MCH (test code = 1006) 27.8 PG MCHC (test code = 1007) 33.3 G/DL RDW (test code = 1038) 13.9 % NEUTROPHILS (test code = 1008) 64.0 % LYMPHOCYTES (test code = 1010) 28.3 % MONOCYTES (test code = 1011) 5.9 % EOSINOPHILS (test code = 1012) 1.3 % BASOPHILS (test code = 1013) 0.5 % PLATELET COUNT (test code = 1015) 298 K/UL HEMOGLOBIN [id number] 00:00:00 Test Item Value Reference Range Interpretation Comments HEMOGLOBIN A1c (test code = 56735) 7.7 % HEMOGLOBIN [id number] 00:00:00 Test Item Value Reference Range Interpretation Comments HEMOGLOBIN A1c (test code = 05554) 7.7 % HEMOGLOBIN [id number] 00:00:00 Test Item Value Reference Range Interpretation Comments HEMOGLOBIN A1c (test code = 39546) 7.7 % COMPREHENSIVE METABOLIC [id number] 00:00:00 Test Item Value Reference Range Interpretation Comments GLUCOSE (test code = 2217) 281 MG/DL BUN (test code = 2208) 10 MG/DL CREATININE (test code = 2214) 0.45 MG/DL eGFR AMER. (test code 145 ML/MIN/1.73 = 14276) eGFR NON- AMER. (test 125 ML/MIN/1.73 code = 08916) CALC BUN/CREAT (test code = 22 RATIO 2235) SODIUM (test code = 2231) 135 MEQ/L POTASSIUM (test code = 2228) 4.3 MEQ/L CHLORIDE (test code = 2215) 100 MEQ/L CARBON DIOXIDE (test code = 22 MEQ/L 2206) CALCIUM (test code = 2209) 9.3 MG/DL PROTEIN, TOTAL (test code = 7.2 G/DL 2228) ALBUMIN (test code = 2201) 4.2 G/DL CALC GLOBULIN (test code = 3.0 G/DL 2240) CALC A/G RATIO (test code = 1.4 RATIO 2234) BILIRUBIN, TOTAL (test code = 0.3 MG/DL 2206) ALKALINE PHOSPHATASE (test 96 U/L code = 2204) AST (test code = 2218) 15 U/L ALT (test code = 2219) 19 U/L COMPREHENSIVE METABOLIC [id number] 00:00:00 Test Item Value Reference Range Interpretation Comments GLUCOSE (test code = 2217) 281 MG/DL BUN (test code = 2208) 10 MG/DL CREATININE (test code = 2214) 0.45 MG/DL eGFR AMER. (test code 145 ML/MIN/1.73 = 30251) eGFR NON- AMER. (test 125 ML/MIN/1.73 code = 18355) CALC BUN/CREAT (test code = 22 RATIO 2235) SODIUM (test code = 2231) 135 MEQ/L POTASSIUM (test code = 2228) 4.3 MEQ/L CHLORIDE (test code = 2215) 100 MEQ/L CARBON DIOXIDE (test code = 22 MEQ/L 2205) CALCIUM (test code = 2209) 9.3 MG/DL PROTEIN, TOTAL (test code = 7.2 G/DL 2228) ALBUMIN (test code = 220) 4.2 G/DL CALC GLOBULIN (test code = 3.0 G/DL 2239) CALC A/G RATIO (test code = 1.4 RATIO 2234) BILIRUBIN, TOTAL (test code = 0.3 MG/DL 2206) ALKALINE PHOSPHATASE (test 96 U/L code = 2204) AST (test code = 2218) 15 U/L ALT (test code = 2219) 19 U/L LIPID [id number] 00:00:00 Test Item Value Reference Range Interpretation Comments CHOLESTEROL (test code = 2210) 183 MG/DL TRIGLYCERIDES (test code = 2232) 446 MG/DL HDL CHOLESTEROL (test code = 33 MG/DL 2220) CALC LDL CHOL (test code = 2237) (NOTE) MG/DL RISK RATIO LDL/HDL (test code = (NOTE) RATIO 2238) LIPID [id number] 00:00:00 Test Item Value Reference Range Interpretation Comments CHOLESTEROL (test code = 2210) 183 MG/DL TRIGLYCERIDES (test code = 2232) 446 MG/DL HDL CHOLESTEROL (test code = 33 MG/DL 2220) CALC LDL CHOL (test code = 2237) (NOTE) MG/DL RISK RATIO LDL/HDL (test code = (NOTE) RATIO 2238) CBC W/AUTO [id number] 00:00:00 Test Item Value Reference Range Interpretation Comments WBC (test code = 1001) 8.2 K/UL RBC (test code = 1002) 4.68 M/UL HEMOGLOBIN (test code = 1003) 13.0 G/DL HEMATOCRIT (test code = 1004) 39.0 % MCV (test code = 1005) 83.3 fL MCH (test code = 1006) 27.8 PG MCHC (test code = 1007) 33.3 G/DL RDW (test code = 1038) 13.9 % NEUTROPHILS (test code = 1008) 64.0 % LYMPHOCYTES (test code = 1010) 28.3 % MONOCYTES (test code = 1011) 5.9 % EOSINOPHILS (test code = 1012) 1.3 % BASOPHILS (test code = 1013) 0.5 % PLATELET COUNT (test code = 1015) 298 K/UL CBC W/AUTO [id number] 00:00:00 Test Item Value Reference Range Interpretation Comments WBC (test code = 1001) 8.2 K/UL RBC (test code = 1002) 4.68 M/UL HEMOGLOBIN (test code = 1003) 13.0 G/DL HEMATOCRIT (test code = 1004) 39.0 % MCV (test code = 1005) 83.3 fL MCH (test code = 1006) 27.8 PG MCHC (test code = 1007) 33.3 G/DL RDW (test code = 1038) 13.9 % NEUTROPHILS (test code = 1008) 64.0 % LYMPHOCYTES (test code = 1010) 28.3 % MONOCYTES (test code = 1011) 5.9 % EOSINOPHILS (test code = 1012) 1.3 % BASOPHILS (test code = 1013) 0.5 % PLATELET COUNT (test code = 1015) 298 K/UL CBC W/AUTO [id number] 00:00:00 Test Item Value Reference Range Interpretation Comments WBC (test code = 1001) 8.2 K/UL RBC (test code = 1002) 4.68 M/UL HEMOGLOBIN (test code = 1003) 13.0 G/DL HEMATOCRIT (test code = 1004) 39.0 % MCV (test code = 1005) 83.3 fL MCH (test code = 1006) 27.8 PG MCHC (test code = 1007) 33.3 G/DL RDW (test code = 1038) 13.9 % NEUTROPHILS (test code = 1008) 64.0 % LYMPHOCYTES (test code = 1010) 28.3 % MONOCYTES (test code = 1011) 5.9 % EOSINOPHILS (test code = 1012) 1.3 % BASOPHILS (test code = 1013) 0.5 % PLATELET COUNT (test code = 1015) 298 K/UL HEMOGLOBIN [id number] 00:00:00 Test Item Value Reference Range Interpretation Comments HEMOGLOBIN A1c (test code = 69444) 7.7 % HEMOGLOBIN [id number] 00:00:00 Test Item Value Reference Range Interpretation Comments HEMOGLOBIN A1c (test code = 97928) 7.7 % HEMOGLOBIN [id number] 00:00:00 Test Item Value Reference Range Interpretation Comments HEMOGLOBIN A1c (test code = 03940) 7.7 % CBC W/AUTO [id number] 00:00:00 Test Item Value Reference Range Interpretation Comments WBC (test code = 1001) 7.5 K/UL RBC (test code = 1002) 4.59 M/UL HEMOGLOBIN (test code = 1003) 11.9 G/DL HEMATOCRIT (test code = 1004) 35.7 % MCV (test code = 1005) 77.8 fL MCH (test code = 1006) 25.9 PG MCHC (test code = 1007) 33.3 G/DL RDW (test code = 1038) 15.2 % NEUTROPHILS (test code = 1008) 52.0 % LYMPHOCYTES (test code = 1010) 38.3 % MONOCYTES (test code = 1011) 6.5 % EOSINOPHILS (test code = 1012) 2.8 % BASOPHILS (test code = 1013) 0.4 % PLATELET COUNT (test code = 1015) 337 K/UL CBC W/AUTO [id number] 00:00:00 Test Item Value Reference Range Interpretation Comments WBC (test code = 1001) 7.5 K/UL RBC (test code = 1002) 4.59 M/UL HEMOGLOBIN (test code = 1003) 11.9 G/DL HEMATOCRIT (test code = 1004) 35.7 % MCV (test code = 1005) 77.8 fL MCH (test code = 1006) 25.9 PG MCHC (test code = 1007) 33.3 G/DL RDW (test code = 1038) 15.2 % NEUTROPHILS (test code = 1008) 52.0 % LYMPHOCYTES (test code = 1010) 38.3 % MONOCYTES (test code = 1011) 6.5 % EOSINOPHILS (test code = 1012) 2.8 % BASOPHILS (test code = 1013) 0.4 % PLATELET COUNT (test code = 1015) 337 K/UL CBC W/AUTO [id number] 00:00:00 Test Item Value Reference Range Interpretation Comments WBC (test code = 1001) 7.5 K/UL RBC (test code = 1002) 4.59 M/UL HEMOGLOBIN (test code = 1003) 11.9 G/DL HEMATOCRIT (test code = 1004) 35.7 % MCV (test code = 1005) 77.8 fL MCH (test code = 1006) 25.9 PG MCHC (test code = 1007) 33.3 G/DL RDW (test code = 1038) 15.2 % NEUTROPHILS (test code = 1008) 52.0 % LYMPHOCYTES (test code = 1010) 38.3 % MONOCYTES (test code = 1011) 6.5 % EOSINOPHILS (test code = 1012) 2.8 % BASOPHILS (test code = 1013) 0.4 % PLATELET COUNT (test code = 1015) 337 K/UL CBC W/AUTO [id number] 00:00:00 Test Item Value Reference Range Interpretation Comments WBC (test code = 1001) 7.5 K/UL RBC (test code = 1002) 4.59 M/UL HEMOGLOBIN (test code = 1003) 11.9 G/DL HEMATOCRIT (test code = 1004) 35.7 % MCV (test code = 1005) 77.8 fL MCH (test code = 1006) 25.9 PG MCHC (test code = 1007) 33.3 G/DL RDW (test code = 1038) 15.2 % NEUTROPHILS (test code = 1008) 52.0 % LYMPHOCYTES (test code = 1010) 38.3 % MONOCYTES (test code = 1011) 6.5 % EOSINOPHILS (test code = 1012) 2.8 % BASOPHILS (test code = 1013) 0.4 % PLATELET COUNT (test code = 1015) 337 K/UL HEMOGLOBIN [id number] 00:00:00 Test Item Value Reference Range Interpretation Comments HEMOGLOBIN A1c (test code = 10437) 8.3 % HEMOGLOBIN [id number] 00:00:00 Test Item Value Reference Range Interpretation Comments HEMOGLOBIN A1c (test code = 62974) 8.3 % HEMOGLOBIN [id number] 00:00:00 Test Item Value Reference Range Interpretation Comments HEMOGLOBIN A1c (test code = 33572) 8.3 % CBC W/AUTO [id number] 00:00:00 Test Item Value Reference Range Interpretation Comments WBC (test code = 1001) 7.5 K/UL RBC (test code = 1002) 4.59 M/UL HEMOGLOBIN (test code = 1003) 11.9 G/DL HEMATOCRIT (test code = 1004) 35.7 % MCV (test code = 1005) 77.8 fL MCH (test code = 1006) 25.9 PG MCHC (test code = 1007) 33.3 G/DL RDW (test code = 1038) 15.2 % NEUTROPHILS (test code = 1008) 52.0 % LYMPHOCYTES (test code = 1010) 38.3 % MONOCYTES (test code = 1011) 6.5 % EOSINOPHILS (test code = 1012) 2.8 % BASOPHILS (test code = 1013) 0.4 % PLATELET COUNT (test code = 1015) 337 K/UL LIPID [id number] 00:00:00 Test Item Value Reference Range Interpretation Comments CHOLESTEROL (test code = 2210) 191 MG/DL TRIGLYCERIDES (test code = 2232) 156 MG/DL HDL CHOLESTEROL (test code = 2220) 40 MG/DL CALC LDL CHOL (test code = 2237) 124 MG/DL RISK RATIO LDL/HDL (test code = 3.10 RATIO 2238) LIPID [id number] 00:00:00 Test Item Value Reference Range Interpretation Comments CHOLESTEROL (test code = 2210) 191 MG/DL TRIGLYCERIDES (test code = 2232) 156 MG/DL HDL CHOLESTEROL (test code = 2220) 40 MG/DL CALC LDL CHOL (test code = 2237) 124 MG/DL RISK RATIO LDL/HDL (test code = 3.10 RATIO 2238) HEMOGLOBIN [id number] 00:00:00 Test Item Value Reference Range Interpretation Comments HEMOGLOBIN A1c (test code = 35450) 8.3 % HEMOGLOBIN [id number] 00:00:00 Test Item Value Reference Range Interpretation Comments HEMOGLOBIN A1c (test code = 52924) 8.3 % LIPID [id number] 00:00:00 Test Item Value Reference Range Interpretation Comments CHOLESTEROL (test code = 2210) 191 MG/DL TRIGLYCERIDES (test code = 2232) 156 MG/DL HDL CHOLESTEROL (test code = 2220) 40 MG/DL CALC LDL CHOL (test code = 2237) 124 MG/DL RISK RATIO LDL/HDL (test code = 3.10 RATIO 2238) CBC W/AUTO [id number] 00:00:00 Test Item Value Reference Range Interpretation Comments WBC (test code = 1001) 7.5 K/UL RBC (test code = 1002) 4.59 M/UL HEMOGLOBIN (test code = 1003) 11.9 G/DL HEMATOCRIT (test code = 1004) 35.7 % MCV (test code = 1005) 77.8 fL MCH (test code = 1006) 25.9 PG MCHC (test code = 1007) 33.3 G/DL RDW (test code = 1038) 15.2 % NEUTROPHILS (test code = 1008) 52.0 % LYMPHOCYTES (test code = 1010) 38.3 % MONOCYTES (test code = 1011) 6.5 % EOSINOPHILS (test code = 1012) 2.8 % BASOPHILS (test code = 1013) 0.4 % PLATELET COUNT (test code = 1015) 337 K/UL CBC W/AUTO [id number] 00:00:00 Test Item Value Reference Range Interpretation Comments WBC (test code = 1001) 7.5 K/UL RBC (test code = 1002) 4.59 M/UL HEMOGLOBIN (test code = 1003) 11.9 G/DL HEMATOCRIT (test code = 1004) 35.7 % MCV (test code = 1005) 77.8 fL MCH (test code = 1006) 25.9 PG MCHC (test code = 1007) 33.3 G/DL RDW (test code = 1038) 15.2 % NEUTROPHILS (test code = 1008) 52.0 % LYMPHOCYTES (test code = 1010) 38.3 % MONOCYTES (test code = 1011) 6.5 % EOSINOPHILS (test code = 1012) 2.8 % BASOPHILS (test code = 1013) 0.4 % PLATELET COUNT (test code = 1015) 337 K/UL CBC W/AUTO [id number] 00:00:00 Test Item Value Reference Range Interpretation Comments WBC (test code = 1001) 7.5 K/UL RBC (test code = 1002) 4.59 M/UL HEMOGLOBIN (test code = 1003) 11.9 G/DL HEMATOCRIT (test code = 1004) 35.7 % MCV (test code = 1005) 77.8 fL MCH (test code = 1006) 25.9 PG MCHC (test code = 1007) 33.3 G/DL RDW (test code = 1038) 15.2 % NEUTROPHILS (test code = 1008) 52.0 % LYMPHOCYTES (test code = 1010) 38.3 % MONOCYTES (test code = 1011) 6.5 % EOSINOPHILS (test code = 1012) 2.8 % BASOPHILS (test code = 1013) 0.4 % PLATELET COUNT (test code = 1015) 337 K/UL HEMOGLOBIN [id number] 00:00:00 Test Item Value Reference Range Interpretation Comments HEMOGLOBIN A1c (test code = 93341) 8.3 % HEMOGLOBIN [id number] 00:00:00 Test Item Value Reference Range Interpretation Comments HEMOGLOBIN A1c (test code = 61416) 8.3 % HEMOGLOBIN [id number] 00:00:00 Test Item Value Reference Range Interpretation Comments HEMOGLOBIN A1c (test code = 20156) 8.3 % LIPID [id number] 00:00:00 Test Item Value Reference Range Interpretation Comments CHOLESTEROL (test code = 2210) 191 MG/DL TRIGLYCERIDES (test code = 2232) 156 MG/DL HDL CHOLESTEROL (test code = 2220) 40 MG/DL CALC LDL CHOL (test code = 2237) 124 MG/DL RISK RATIO LDL/HDL (test code = 3.10 RATIO 2238) LIPID [id number] 00:00:00 Test Item Value Reference Range Interpretation Comments CHOLESTEROL (test code = 2210) 191 MG/DL TRIGLYCERIDES (test code = 2232) 156 MG/DL HDL CHOLESTEROL (test code = 2220) 40 MG/DL CALC LDL CHOL (test code = 2237) 124 MG/DL RISK RATIO LDL/HDL (test code = 3.10 RATIO 2238) CBC W/AUTO [id number] 00:00:00 Test Item Value Reference Range Interpretation Comments WBC (test code = 1001) 7.5 K/UL RBC (test code = 1002) 4.59 M/UL HEMOGLOBIN (test code = 1003) 11.9 G/DL HEMATOCRIT (test code = 1004) 35.7 % MCV (test code = 1005) 77.8 fL MCH (test code = 1006) 25.9 PG MCHC (test code = 1007) 33.3 G/DL RDW (test code = 1038) 15.2 % NEUTROPHILS (test code = 1008) 52.0 % LYMPHOCYTES (test code = 1010) 38.3 % MONOCYTES (test code = 1011) 6.5 % EOSINOPHILS (test code = 1012) 2.8 % BASOPHILS (test code = 1013) 0.4 % PLATELET COUNT (test code = 1015) 337 K/UL CBC W/AUTO [id number] 00:00:00 Test Item Value Reference Range Interpretation Comments WBC (test code = 1001) 7.5 K/UL RBC (test code = 1002) 4.59 M/UL HEMOGLOBIN (test code = 1003) 11.9 G/DL HEMATOCRIT (test code = 1004) 35.7 % MCV (test code = 1005) 77.8 fL MCH (test code = 1006) 25.9 PG MCHC (test code = 1007) 33.3 G/DL RDW (test code = 1038) 15.2 % NEUTROPHILS (test code = 1008) 52.0 % LYMPHOCYTES (test code = 1010) 38.3 % MONOCYTES (test code = 1011) 6.5 % EOSINOPHILS (test code = 1012) 2.8 % BASOPHILS (test code = 1013) 0.4 % PLATELET COUNT (test code = 1015) 337 K/UL CBC W/AUTO [id number] 00:00:00 Test Item Value Reference Range Interpretation Comments WBC (test code = 1001) 7.5 K/UL RBC (test code = 1002) 4.59 M/UL HEMOGLOBIN (test code = 1003) 11.9 G/DL HEMATOCRIT (test code = 1004) 35.7 % MCV (test code = 1005) 77.8 fL MCH (test code = 1006) 25.9 PG MCHC (test code = 1007) 33.3 G/DL RDW (test code = 1038) 15.2 % NEUTROPHILS (test code = 1008) 52.0 % LYMPHOCYTES (test code = 1010) 38.3 % MONOCYTES (test code = 1011) 6.5 % EOSINOPHILS (test code = 1012) 2.8 % BASOPHILS (test code = 1013) 0.4 % PLATELET COUNT (test code = 1015) 337 K/UL HEMOGLOBIN [id number] 00:00:00 Test Item Value Reference Range Interpretation Comments HEMOGLOBIN A1c (test code = 24920) 8.3 % HEMOGLOBIN [id number] 00:00:00 Test Item Value Reference Range Interpretation Comments HEMOGLOBIN A1c (test code = 64988) 8.3 % HEMOGLOBIN [id number] 00:00:00 Test Item Value Reference Range Interpretation Comments HEMOGLOBIN A1c (test code = 42078) 8.3 % LIPID [id number] 00:00:00 Test Item Value Reference Range Interpretation Comments CHOLESTEROL (test code = 2210) 191 MG/DL TRIGLYCERIDES (test code = 2232) 156 MG/DL HDL CHOLESTEROL (test code = 2220) 40 MG/DL CALC LDL CHOL (test code = 2237) 124 MG/DL RISK RATIO LDL/HDL (test code = 3.10 RATIO 2238) LIPID [id number] 00:00:00 Test Item Value Reference Range Interpretation Comments CHOLESTEROL (test code = 2210) 191 MG/DL TRIGLYCERIDES (test code = 2232) 156 MG/DL HDL CHOLESTEROL (test code = 2220) 40 MG/DL CALC LDL CHOL (test code = 2237) 124 MG/DL RISK RATIO LDL/HDL (test code = 3.10 RATIO 2238) [id number] 00:00:00 Test Item Value Reference Range Interpretation Comments TSH, THIRD GENERATION (test code 1.190 UIU/ML = 2821) [id number] 00:00:00 Test Item Value Reference Range Interpretation Comments TSH, THIRD GENERATION (test code 1.190 UIU/ML = 2821) [id number] 00:00:00 Test Item Value Reference Range Interpretation Comments TSH, THIRD GENERATION (test code 1.190 UIU/ML = 2821) [id number] 00:00:00 Test Item Value Reference Range Interpretation Comments TSH, THIRD GENERATION (test code 1.190 UIU/ML = 2821) [id number] 00:00:00 Test Item Value Reference Range Interpretation Comments TSH, THIRD GENERATION (test code 1.190 UIU/ML = 2821) VITAMIN D, 25 [id number] 00:00:00 Test Item Value Reference Range Interpretation Comments VITAMIN D, 25 OH (test code = 4958) 22 NG/ML VITAMIN D, 25 [id number] 00:00:00 Test Item Value Reference Range Interpretation Comments VITAMIN D, 25 OH (test code = 4958) 22 NG/ML VITAMIN D, 25 [id number] 00:00:00 Test Item Value Reference Range Interpretation Comments VITAMIN D, 25 OH (test code = 4958) 22 NG/ML [id number] 00:00:00 Test Item Value Reference Range Interpretation Comments TSH, THIRD GENERATION (test code 1.190 UIU/ML = 2821) [id number] 00:00:00 Test Item Value Reference Range Interpretation Comments TSH, THIRD GENERATION (test code 1.190 UIU/ML = 2821) [id number] 00:00:00 Test Item Value Reference Range Interpretation Comments TSH, THIRD GENERATION (test code 1.190 UIU/ML = 2821) VITAMIN D, 25 [id number] 00:00:00 Test Item Value Reference Range Interpretation Comments VITAMIN D, 25 OH (test code = 4958) 22 NG/ML VITAMIN D, 25 [id number] 00:00:00 Test Item Value Reference Range Interpretation Comments VITAMIN D, 25 OH (test code = 4958) 22 NG/ML [id number] 00:00:00 Test Item Value Reference Range Interpretation Comments TSH, THIRD GENERATION (test code 1.190 UIU/ML = 2821) [id number] 00:00:00 Test Item Value Reference Range Interpretation Comments TSH, THIRD GENERATION (test code 1.190 UIU/ML = 2821) [id number] 00:00:00 Test Item Value Reference Range Interpretation Comments TSH, THIRD GENERATION (test code 1.190 UIU/ML = 2821) VITAMIN D, 25 [id number] 00:00:00 Test Item Value Reference Range Interpretation Comments VITAMIN D, 25 OH (test code = 4958) 22 NG/ML VITAMIN D, 25 [id number] 00:00:00 Test Item Value Reference Range Interpretation Comments VITAMIN D, 25 OH (test code = 4958) 22 NG/ML [id number] 00:00:00 Test Item Value Reference Range Interpretation Comments FERRITIN (test code = 2075) 9 NG/ML [id number] 00:00:00 Test Item Value Reference Range Interpretation Comments FERRITIN (test code = 2074) 9 NG/ML [id number] 00:00:00 Test Item Value Reference Range Interpretation Comments FERRITIN (test code = 2074) 9 NG/ML [id number] 00:00:00 Test Item Value Reference Range Interpretation Comments FERRITIN (test code = 2074) 9 NG/ML [id number] 00:00:00 Test Item Value Reference Range Interpretation Comments FERRITIN (test code = 2074) 9 NG/ML [id number] 00:00:00 Test Item Value Reference Range Interpretation Comments FERRITIN (test code = 2074) 9 NG/ML [id number] 00:00:00 Test Item Value Reference Range Interpretation Comments FERRITIN (test code = 2074) 9 NG/ML IRON BINDING CAPACITY AND IRON AND % [id number] 00:00:00 Test Item Value Reference Range Interpretation Comments IRON, SERUM (test code = 2221) 52 UG/DL UNSATURATED IBC (test code = ) 363 UG/DL CALC TOTAL IBC (test code = 2076) 415 UG/DL CALC % IRON SAT (test code = 2078) 13 % IRON BINDING CAPACITY AND IRON AND % [id number] 00:00:00 Test Item Value Reference Range Interpretation Comments IRON, SERUM (test code = 2221) 52 UG/DL UNSATURATED IBC (test code = ) 363 UG/DL CALC TOTAL IBC (test code = 2076) 415 UG/DL CALC % IRON SAT (test code = 2078) 13 % IRON BINDING CAPACITY AND IRON AND % [id number] 00:00:00 Test Item Value Reference Range Interpretation Comments IRON, SERUM (test code = 2221) 52 UG/DL UNSATURATED IBC (test code = ) 363 UG/DL CALC TOTAL IBC (test code = 2076) 415 UG/DL CALC % IRON SAT (test code = 2078) 13 % IRON BINDING CAPACITY AND IRON AND % [id number] 00:00:00 Test Item Value Reference Range Interpretation Comments IRON, SERUM (test code = 2221) 52 UG/DL UNSATURATED IBC (test code = ) 363 UG/DL CALC TOTAL IBC (test code = 2076) 415 UG/DL CALC % IRON SAT (test code = 2078) 13 % IRON BINDING CAPACITY AND IRON AND % [id number] 00:00:00 Test Item Value Reference Range Interpretation Comments IRON, SERUM (test code = 2) 52 UG/DL UNSATURATED IBC (test code = 83251) 363 UG/DL CALC TOTAL IBC (test code = 2076) 415 UG/DL CALC % IRON SAT (test code = 2078) 13 % IRON BINDING CAPACITY AND IRON AND % [id number] 00:00:00 Test Item Value Reference Range Interpretation Comments IRON, SERUM (test code = 2) 52 UG/DL UNSATURATED IBC (test code = 09163) 363 UG/DL CALC TOTAL IBC (test code = 2076) 415 UG/DL CALC % IRON SAT (test code = 2078) 13 % IRON BINDING CAPACITY AND IRON AND % [id number] 00:00:00 Test Item Value Reference Range Interpretation Comments IRON, SERUM (test code = 2) 52 UG/DL UNSATURATED IBC (test code = 20762) 363 UG/DL CALC TOTAL IBC (test code = 2076) 415 UG/DL CALC % IRON SAT (test code = 2078) 13 % CBC W/AUTO [id number] 00:00:00 Test Item Value Reference Range Interpretation Comments WBC (test code = 1001) 8.2 K/UL RBC (test code = 1002) 5.14 M/UL HEMOGLOBIN (test code = 1003) 12.2 G/DL HEMATOCRIT (test code = 1004) 38.2 % MCV (test code = 1005) 74.3 fL MCH (test code = 1006) 23.7 PG MCHC (test code = 1007) 31.9 G/DL RDW (test code = 1038) 15.8 % NEUTROPHILS (test code = 1008) 62.9 % LYMPHOCYTES (test code = 1010) 29.1 % MONOCYTES (test code = 1011) 5.6 % EOSINOPHILS (test code = 1012) 2.0 % BASOPHILS (test code = 1013) 0.4 % PLATELET COUNT (test code = 1015) 306 K/UL CBC W/AUTO [id number] 00:00:00 Test Item Value Reference Range Interpretation Comments WBC (test code = 1001) 8.2 K/UL RBC (test code = 1002) 5.14 M/UL HEMOGLOBIN (test code = 1003) 12.2 G/DL HEMATOCRIT (test code = 1004) 38.2 % MCV (test code = 1005) 74.3 fL MCH (test code = 1006) 23.7 PG MCHC (test code = 1007) 31.9 G/DL RDW (test code = 1038) 15.8 % NEUTROPHILS (test code = 1008) 62.9 % LYMPHOCYTES (test code = 1010) 29.1 % MONOCYTES (test code = 1011) 5.6 % EOSINOPHILS (test code = 1012) 2.0 % BASOPHILS (test code = 1013) 0.4 % PLATELET COUNT (test code = 1015) 306 K/UL CBC W/AUTO [id number] 00:00:00 Test Item Value Reference Range Interpretation Comments WBC (test code = 1001) 8.2 K/UL RBC (test code = 1002) 5.14 M/UL HEMOGLOBIN (test code = 1003) 12.2 G/DL HEMATOCRIT (test code = 1004) 38.2 % MCV (test code = 1005) 74.3 fL MCH (test code = 1006) 23.7 PG MCHC (test code = 1007) 31.9 G/DL RDW (test code = 1038) 15.8 % NEUTROPHILS (test code = 1008) 62.9 % LYMPHOCYTES (test code = 1010) 29.1 % MONOCYTES (test code = 1011) 5.6 % EOSINOPHILS (test code = 1012) 2.0 % BASOPHILS (test code = 1013) 0.4 % PLATELET COUNT (test code = 1015) 306 K/UL HEMOGLOBIN [id number] 00:00:00 Test Item Value Reference Range Interpretation Comments HEMOGLOBIN A1c (test code = 34920) 11.3 % HEMOGLOBIN [id number] 00:00:00 Test Item Value Reference Range Interpretation Comments HEMOGLOBIN A1c (test code = 23910) 11.3 % CBC W/AUTO [id number] 00:00:00 Test Item Value Reference Range Interpretation Comments WBC (test code = 1001) 8.2 K/UL RBC (test code = 1002) 5.14 M/UL HEMOGLOBIN (test code = 1003) 12.2 G/DL HEMATOCRIT (test code = 1004) 38.2 % MCV (test code = 1005) 74.3 fL MCH (test code = 1006) 23.7 PG MCHC (test code = 1007) 31.9 G/DL RDW (test code = 1038) 15.8 % NEUTROPHILS (test code = 1008) 62.9 % LYMPHOCYTES (test code = 1010) 29.1 % MONOCYTES (test code = 1011) 5.6 % EOSINOPHILS (test code = 1012) 2.0 % BASOPHILS (test code = 1013) 0.4 % PLATELET COUNT (test code = 1015) 306 K/UL HEMOGLOBIN [id number] 00:00:00 Test Item Value Reference Range Interpretation Comments HEMOGLOBIN A1c (test code = 36419) 11.3 % LIPID [id number] 00:00:00 Test Item Value Reference Range Interpretation Comments CHOLESTEROL (test code = 2210) 197 MG/DL TRIGLYCERIDES (test code = 2232) 561 MG/DL HDL CHOLESTEROL (test code = 30 MG/DL 2220) CALC LDL CHOL (test code = 2237) NOTE MG/DL RISK RATIO LDL/HDL (test code = (NOTE) RATIO 2238) LIPID [id number] 00:00:00 Test Item Value Reference Range Interpretation Comments CHOLESTEROL (test code = 2210) 197 MG/DL TRIGLYCERIDES (test code = 2232) 561 MG/DL HDL CHOLESTEROL (test code = 30 MG/DL 2220) CALC LDL CHOL (test code = 2237) NOTE MG/DL RISK RATIO LDL/HDL (test code = (NOTE) RATIO 2238) COMPREHENSIVE METABOLIC [id number] 00:00:00 Test Item Value Reference Range Interpretation Comments GLUCOSE (test code = 2217) 371 MG/DL BUN (test code = 2208) 12 MG/DL CREATININE (test code = 2214) 0.54 MG/DL eGFR AMER. (test code 138 ML/MIN/1.73 = 47490) eGFR NON- AMER. (test 119 ML/MIN/1.73 code = 54650) CALC BUN/CREAT (test code = 22 RATIO 2235) SODIUM (test code = 2231) 132 MEQ/L POTASSIUM (test code = 2228) 4.3 MEQ/L CHLORIDE (test code = 2215) 97 MEQ/L CARBON DIOXIDE (test code = 24 MEQ/L 2206) CALCIUM (test code = 2209) 9.7 MG/DL PROTEIN, TOTAL (test code = 7.5 G/DL 222) ALBUMIN (test code = 2201) 4.2 G/DL CALC GLOBULIN (test code = 3.3 G/DL 2240) CALC A/G RATIO (test code = 1.3 RATIO 2234) BILIRUBIN, TOTAL (test code = <0.2 MG/DL 2206) ALKALINE PHOSPHATASE (test 130 U/L code = 2204) AST (test code = 2218) 10 U/L ALT (test code = 2219) 12 U/L COMPREHENSIVE METABOLIC [id number] 00:00:00 Test Item Value Reference Range Interpretation Comments GLUCOSE (test code = 2217) 371 MG/DL BUN (test code = 2208) 12 MG/DL CREATININE (test code = 2214) 0.54 MG/DL eGFR AMER. (test code 138 ML/MIN/1.73 = 62031) eGFR NON- AMER. (test 119 ML/MIN/1.73 code = 20310) CALC BUN/CREAT (test code = 22 RATIO 2235) SODIUM (test code = 2231) 132 MEQ/L POTASSIUM (test code = 2228) 4.3 MEQ/L CHLORIDE (test code = 2215) 97 MEQ/L CARBON DIOXIDE (test code = 24 MEQ/L 2205) CALCIUM (test code = 2209) 9.7 MG/DL PROTEIN, TOTAL (test code = 7.5 G/DL 2228) ALBUMIN (test code = 2201) 4.2 G/DL CALC GLOBULIN (test code = 3.3 G/DL 2240) CALC A/G RATIO (test code = 1.3 RATIO 2234) BILIRUBIN, TOTAL (test code = <0.2 MG/DL 2206) ALKALINE PHOSPHATASE (test 130 U/L code = 2204) AST (test code = 2218) 10 U/L ALT (test code = 2219) 12 U/L MICROALBUMIN/CREATININE, RANDOM AND [id number] 00:00:00 Test Item Value Reference Range Interpretation Comments CREATININE, URINE, CONC. (test 30.5 MG/DL code = 2072) ALBUMIN, URINE, RANDOM (test code 1.1 MG/DL = 12744) CALC ALBUMIN/CREAT, RND (test code 36 MG/G = 40260) MICROALBUMIN/CREATININE, RANDOM AND [id number] 00:00:00 Test Item Value Reference Range Interpretation Comments CREATININE, URINE, CONC. (test 30.5 MG/DL code = 2072) ALBUMIN, URINE, RANDOM (test code 1.1 MG/DL = 98563) CALC ALBUMIN/CREAT, RND (test code 36 MG/G = 30596) HEMOGLOBIN [id number] 00:00:00 Test Item Value Reference Range Interpretation Comments HEMOGLOBIN A1c (test code = 84204) 11.3 % HEMOGLOBIN [id number] 00:00:00 Test Item Value Reference Range Interpretation Comments HEMOGLOBIN A1c (test code = 26538) 11.3 % LIPID [id number] 00:00:00 Test Item Value Reference Range Interpretation Comments CHOLESTEROL (test code = 2210) 197 MG/DL TRIGLYCERIDES (test code = 2232) 561 MG/DL HDL CHOLESTEROL (test code = 30 MG/DL 2220) CALC LDL CHOL (test code = 2237) NOTE MG/DL RISK RATIO LDL/HDL (test code = (NOTE) RATIO 2238) COMPREHENSIVE METABOLIC [id number] 00:00:00 Test Item Value Reference Range Interpretation Comments GLUCOSE (test code = 2217) 371 MG/DL BUN (test code = 2208) 12 MG/DL CREATININE (test code = 2214) 0.54 MG/DL eGFR AMER. (test code 138 ML/MIN/1.73 = 86194) eGFR NON- AMER. (test 119 ML/MIN/1.73 code = 28693) CALC BUN/CREAT (test code = 22 RATIO 2235) SODIUM (test code = 2231) 132 MEQ/L POTASSIUM (test code = 2228) 4.3 MEQ/L CHLORIDE (test code = 2215) 97 MEQ/L CARBON DIOXIDE (test code = 24 MEQ/L 2206) CALCIUM (test code = 2209) 9.7 MG/DL PROTEIN, TOTAL (test code = 7.5 G/DL 2228) ALBUMIN (test code = 2201) 4.2 G/DL CALC GLOBULIN (test code = 3.3 G/DL 2240) CALC A/G RATIO (test code = 1.3 RATIO 2234) BILIRUBIN, TOTAL (test code = <0.2 MG/DL 2206) ALKALINE PHOSPHATASE (test 130 U/L code = 2204) AST (test code = 2218) 10 U/L ALT (test code = 2219) 12 U/L MICROALBUMIN/CREATININE, RANDOM AND [id number] 00:00:00 Test Item Value Reference Range Interpretation Comments CREATININE, URINE, CONC. (test 30.5 MG/DL code = 2072) ALBUMIN, URINE, RANDOM (test code 1.1 MG/DL = 00293) CALC ALBUMIN/CREAT, RND (test code 36 MG/G = 06121) CBC W/AUTO [id number] 00:00:00 Test Item Value Reference Range Interpretation Comments WBC (test code = 1001) 8.2 K/UL RBC (test code = 1002) 5.14 M/UL HEMOGLOBIN (test code = 1003) 12.2 G/DL HEMATOCRIT (test code = 1004) 38.2 % MCV (test code = 1005) 74.3 fL MCH (test code = 1006) 23.7 PG MCHC (test code = 1007) 31.9 G/DL RDW (test code = 1038) 15.8 % NEUTROPHILS (test code = 1008) 62.9 % LYMPHOCYTES (test code = 1010) 29.1 % MONOCYTES (test code = 1011) 5.6 % EOSINOPHILS (test code = 1012) 2.0 % BASOPHILS (test code = 1013) 0.4 % PLATELET COUNT (test code = 1015) 306 K/UL CBC W/AUTO [id number] 00:00:00 Test Item Value Reference Range Interpretation Comments WBC (test code = 1001) 8.2 K/UL RBC (test code = 1002) 5.14 M/UL HEMOGLOBIN (test code = 1003) 12.2 G/DL HEMATOCRIT (test code = 1004) 38.2 % MCV (test code = 1005) 74.3 fL MCH (test code = 1006) 23.7 PG MCHC (test code = 1007) 31.9 G/DL RDW (test code = 1038) 15.8 % NEUTROPHILS (test code = 1008) 62.9 % LYMPHOCYTES (test code = 1010) 29.1 % MONOCYTES (test code = 1011) 5.6 % EOSINOPHILS (test code = 1012) 2.0 % BASOPHILS (test code = 1013) 0.4 % PLATELET COUNT (test code = 1015) 306 K/UL CBC W/AUTO [id number] 00:00:00 Test Item Value Reference Range Interpretation Comments WBC (test code = 1001) 8.2 K/UL RBC (test code = 1002) 5.14 M/UL HEMOGLOBIN (test code = 1003) 12.2 G/DL HEMATOCRIT (test code = 1004) 38.2 % MCV (test code = 1005) 74.3 fL MCH (test code = 1006) 23.7 PG MCHC (test code = 1007) 31.9 G/DL RDW (test code = 1038) 15.8 % NEUTROPHILS (test code = 1008) 62.9 % LYMPHOCYTES (test code = 1010) 29.1 % MONOCYTES (test code = 1011) 5.6 % EOSINOPHILS (test code = 1012) 2.0 % BASOPHILS (test code = 1013) 0.4 % PLATELET COUNT (test code = 1015) 306 K/UL HEMOGLOBIN [id number] 00:00:00 Test Item Value Reference Range Interpretation Comments HEMOGLOBIN A1c (test code = 30857) 11.3 % HEMOGLOBIN [id number] 00:00:00 Test Item Value Reference Range Interpretation Comments HEMOGLOBIN A1c (test code = 02528) 11.3 % HEMOGLOBIN [id number] 00:00:00 Test Item Value Reference Range Interpretation Comments HEMOGLOBIN A1c (test code = 42968) 11.3 % LIPID [id number] 00:00:00 Test Item Value Reference Range Interpretation Comments CHOLESTEROL (test code = 2210) 197 MG/DL TRIGLYCERIDES (test code = 2232) 561 MG/DL HDL CHOLESTEROL (test code = 30 MG/DL 2220) CALC LDL CHOL (test code = 2237) NOTE MG/DL RISK RATIO LDL/HDL (test code = (NOTE) RATIO 2238) LIPID [id number] 00:00:00 Test Item Value Reference Range Interpretation Comments CHOLESTEROL (test code = 2210) 197 MG/DL TRIGLYCERIDES (test code = 2232) 561 MG/DL HDL CHOLESTEROL (test code = 30 MG/DL 2220) CALC LDL CHOL (test code = 2237) NOTE MG/DL RISK RATIO LDL/HDL (test code = (NOTE) RATIO 2238) COMPREHENSIVE METABOLIC [id number] 00:00:00 Test Item Value Reference Range Interpretation Comments GLUCOSE (test code = 2217) 371 MG/DL BUN (test code = 2208) 12 MG/DL CREATININE (test code = 2214) 0.54 MG/DL eGFR AMER. (test code 138 ML/MIN/1.73 = 70971) eGFR NON- AMER. (test 119 ML/MIN/1.73 code = 31859) CALC BUN/CREAT (test code = 22 RATIO 2235) SODIUM (test code = 2231) 132 MEQ/L POTASSIUM (test code = 2228) 4.3 MEQ/L CHLORIDE (test code = 2215) 97 MEQ/L CARBON DIOXIDE (test code = 24 MEQ/L 220) CALCIUM (test code = 2209) 9.7 MG/DL PROTEIN, TOTAL (test code = 7.5 G/DL 2228) ALBUMIN (test code = 2201) 4.2 G/DL CALC GLOBULIN (test code = 3.3 G/DL 2240) CALC A/G RATIO (test code = 1.3 RATIO 2233) BILIRUBIN, TOTAL (test code = <0.2 MG/DL 2206) ALKALINE PHOSPHATASE (test 130 U/L code = 2204) AST (test code = 2218) 10 U/L ALT (test code = 2219) 12 U/L COMPREHENSIVE METABOLIC [id number] 00:00:00 Test Item Value Reference Range Interpretation Comments GLUCOSE (test code = 2217) 371 MG/DL BUN (test code = 2208) 12 MG/DL CREATININE (test code = 2214) 0.54 MG/DL eGFR AMER. (test code 138 ML/MIN/1.73 = 76798) eGFR NON- AMER. (test 119 ML/MIN/1.73 code = 64262) CALC BUN/CREAT (test code = 22 RATIO 2235) SODIUM (test code = 2231) 132 MEQ/L POTASSIUM (test code = 2228) 4.3 MEQ/L CHLORIDE (test code = 2215) 97 MEQ/L CARBON DIOXIDE (test code = 24 MEQ/L 2206) CALCIUM (test code = 2209) 9.7 MG/DL PROTEIN, TOTAL (test code = 7.5 G/DL 2228) ALBUMIN (test code = 2201) 4.2 G/DL CALC GLOBULIN (test code = 3.3 G/DL 2240) CALC A/G RATIO (test code = 1.3 RATIO 2234) BILIRUBIN, TOTAL (test code = <0.2 MG/DL 2207) ALKALINE PHOSPHATASE (test 130 U/L code = 2204) AST (test code = 2218) 10 U/L ALT (test code = 2219) 12 U/L MICROALBUMIN/CREATININE, RANDOM AND [id number] 00:00:00 Test Item Value Reference Range Interpretation Comments CREATININE, URINE, CONC. (test 30.5 MG/DL code = 2072) ALBUMIN, URINE, RANDOM (test code 1.1 MG/DL = 30971) CALC ALBUMIN/CREAT, RND (test code 36 MG/G = 24635) MICROALBUMIN/CREATININE, RANDOM AND [id number] 00:00:00 Test Item Value Reference Range Interpretation Comments CREATININE, URINE, CONC. (test 30.5 MG/DL code = 2) ALBUMIN, URINE, RANDOM (test code 1.1 MG/DL = 91592) CALC ALBUMIN/CREAT, RND (test code 36 MG/G = 42388) CBC W/AUTO [id number] 00:00:00 Test Item Value Reference Range Interpretation Comments WBC (test code = 1001) 8.2 K/UL RBC (test code = 1002) 5.14 M/UL HEMOGLOBIN (test code = 1003) 12.2 G/DL HEMATOCRIT (test code = 1004) 38.2 % MCV (test code = 1005) 74.3 fL MCH (test code = 1006) 23.7 PG MCHC (test code = 1007) 31.9 G/DL RDW (test code = 1038) 15.8 % NEUTROPHILS (test code = 1008) 62.9 % LYMPHOCYTES (test code = 1010) 29.1 % MONOCYTES (test code = 1011) 5.6 % EOSINOPHILS (test code = 1012) 2.0 % BASOPHILS (test code = 1013) 0.4 % PLATELET COUNT (test code = 1015) 306 K/UL CBC W/AUTO [id number] 00:00:00 Test Item Value Reference Range Interpretation Comments WBC (test code = 1001) 8.2 K/UL RBC (test code = 1002) 5.14 M/UL HEMOGLOBIN (test code = 1003) 12.2 G/DL HEMATOCRIT (test code = 1004) 38.2 % MCV (test code = 1005) 74.3 fL MCH (test code = 1006) 23.7 PG MCHC (test code = 1007) 31.9 G/DL RDW (test code = 1038) 15.8 % NEUTROPHILS (test code = 1008) 62.9 % LYMPHOCYTES (test code = 1010) 29.1 % MONOCYTES (test code = 1011) 5.6 % EOSINOPHILS (test code = 1012) 2.0 % BASOPHILS (test code = 1013) 0.4 % PLATELET COUNT (test code = 1015) 306 K/UL CBC W/AUTO [id number] 00:00:00 Test Item Value Reference Range Interpretation Comments WBC (test code = 1001) 8.2 K/UL RBC (test code = 1002) 5.14 M/UL HEMOGLOBIN (test code = 1003) 12.2 G/DL HEMATOCRIT (test code = 1004) 38.2 % MCV (test code = 1005) 74.3 fL MCH (test code = 1006) 23.7 PG MCHC (test code = 1007) 31.9 G/DL RDW (test code = 1038) 15.8 % NEUTROPHILS (test code = 1008) 62.9 % LYMPHOCYTES (test code = 1010) 29.1 % MONOCYTES (test code = 1011) 5.6 % EOSINOPHILS (test code = 1012) 2.0 % BASOPHILS (test code = 1013) 0.4 % PLATELET COUNT (test code = 1015) 306 K/UL HEMOGLOBIN [id number] 00:00:00 Test Item Value Reference Range Interpretation Comments HEMOGLOBIN A1c (test code = 54188) 11.3 % HEMOGLOBIN [id number] 00:00:00 Test Item Value Reference Range Interpretation Comments HEMOGLOBIN A1c (test code = 39290) 11.3 % HEMOGLOBIN [id number] 00:00:00 Test Item Value Reference Range Interpretation Comments HEMOGLOBIN A1c (test code = 53348) 11.3 % LIPID [id number] 00:00:00 Test Item Value Reference Range Interpretation Comments CHOLESTEROL (test code = 2210) 197 MG/DL TRIGLYCERIDES (test code = 2232) 561 MG/DL HDL CHOLESTEROL (test code = 30 MG/DL 2220) CALC LDL CHOL (test code = 2237) NOTE MG/DL RISK RATIO LDL/HDL (test code = (NOTE) RATIO 2238) LIPID [id number] 00:00:00 Test Item Value Reference Range Interpretation Comments CHOLESTEROL (test code = 2210) 197 MG/DL TRIGLYCERIDES (test code = 2232) 561 MG/DL HDL CHOLESTEROL (test code = 30 MG/DL 2220) CALC LDL CHOL (test code = 2237) NOTE MG/DL RISK RATIO LDL/HDL (test code = (NOTE) RATIO 2238) COMPREHENSIVE METABOLIC [id number] 00:00:00 Test Item Value Reference Range Interpretation Comments GLUCOSE (test code = 2217) 371 MG/DL BUN (test code = 2208) 12 MG/DL CREATININE (test code = 2214) 0.54 MG/DL eGFR AMER. (test code 138 ML/MIN/1.73 = 05939) eGFR NON- AMER. (test 119 ML/MIN/1.73 code = 70310) CALC BUN/CREAT (test code = 22 RATIO 2235) SODIUM (test code = 2231) 132 MEQ/L POTASSIUM (test code = 2228) 4.3 MEQ/L CHLORIDE (test code = 2215) 97 MEQ/L CARBON DIOXIDE (test code = 24 MEQ/L 2205) CALCIUM (test code = 2209) 9.7 MG/DL PROTEIN, TOTAL (test code = 7.5 G/DL 2228) ALBUMIN (test code = 2201) 4.2 G/DL CALC GLOBULIN (test code = 3.3 G/DL 2240) CALC A/G RATIO (test code = 1.3 RATIO 2234) BILIRUBIN, TOTAL (test code = <0.2 MG/DL 2206) ALKALINE PHOSPHATASE (test 130 U/L code = 2204) AST (test code = 2218) 10 U/L ALT (test code = 2219) 12 U/L COMPREHENSIVE METABOLIC [id number] 00:00:00 Test Item Value Reference Range Interpretation Comments GLUCOSE (test code = 2217) 371 MG/DL BUN (test code = 2208) 12 MG/DL CREATININE (test code = 2214) 0.54 MG/DL eGFR AMER. (test code 138 ML/MIN/1.73 = 55129) eGFR NON- AMER. (test 119 ML/MIN/1.73 code = 16845) CALC BUN/CREAT (test code = 22 RATIO 2235) SODIUM (test code = 2231) 132 MEQ/L POTASSIUM (test code = 2228) 4.3 MEQ/L CHLORIDE (test code = 2215) 97 MEQ/L CARBON DIOXIDE (test code = 24 MEQ/L 220) CALCIUM (test code = 2209) 9.7 MG/DL PROTEIN, TOTAL (test code = 7.5 G/DL 2228) ALBUMIN (test code = 2201) 4.2 G/DL CALC GLOBULIN (test code = 3.3 G/DL 224) CALC A/G RATIO (test code = 1.3 RATIO 223) BILIRUBIN, TOTAL (test code = <0.2 MG/DL 2206) ALKALINE PHOSPHATASE (test 130 U/L code = 220) AST (test code = 2218) 10 U/L ALT (test code = 2219) 12 U/L MICROALBUMIN/CREATININE, RANDOM AND [id number] 00:00:00 Test Item Value Reference Range Interpretation Comments CREATININE, URINE, CONC. (test 30.5 MG/DL code = 2072) ALBUMIN, URINE, RANDOM (test code 1.1 MG/DL = 59276) CALC ALBUMIN/CREAT, RND (test code 36 MG/G = 04249) MICROALBUMIN/CREATININE, RANDOM AND [id number] 00:00:00 Test Item Value Reference Range Interpretation Comments CREATININE, URINE, CONC. (test 30.5 MG/DL code = 2072) ALBUMIN, URINE, RANDOM (test code 1.1 MG/DL = 95387) CALC ALBUMIN/CREAT, RND (test code 36 MG/G = 91005) CBC W/AUTO [id number] 00:00:00 Test Item Value Reference Range Interpretation Comments WBC (test code = 1001) 8.2 K/UL RBC (test code = 1002) 5.14 M/UL HEMOGLOBIN (test code = 1003) 12.2 G/DL HEMATOCRIT (test code = 1004) 38.2 % MCV (test code = 1005) 74.3 fL MCH (test code = 1006) 23.7 PG MCHC (test code = 1007) 31.9 G/DL RDW (test code = 1038) 15.8 % NEUTROPHILS (test code = 1008) 62.9 % LYMPHOCYTES (test code = 1010) 29.1 % MONOCYTES (test code = 1011) 5.6 % EOSINOPHILS (test code = 1012) 2.0 % BASOPHILS (test code = 1013) 0.4 % PLATELET COUNT (test code = 1015) 306 K/UL VAGINAL PATHOGENS DNA [id number] 00:00:00 Test Item Value Reference Range Interpretation Comments LISA SPECIES (test code = 35006) NEGATIVE G. VAGINALIS (test code = 12521) NEGATIVE T. VAGINALIS (test code = 41372) NEGATIVE VAGINAL PATHOGENS DNA [id number] 00:00:00 Test Item Value Reference Range Interpretation Comments LISA SPECIES (test code = 45514) NEGATIVE G. VAGINALIS (test code = 34323) NEGATIVE T. VAGINALIS (test code = 41754) NEGATIVE VAGINAL PATHOGENS DNA [id number] 00:00:00 Test Item Value Reference Range Interpretation Comments LISA SPECIES (test code = 16080) NEGATIVE G. VAGINALIS (test code = 33183) NEGATIVE T. VAGINALIS (test code = 35022) NEGATIVE VAGINAL PATHOGENS DNA [id number] 00:00:00 Test Item Value Reference Range Interpretation Comments LISA SPECIES (test code = 08593) NEGATIVE G. VAGINALIS (test code = 88676) NEGATIVE T. VAGINALIS (test code = 17346) NEGATIVE VAGINAL PATHOGENS DNA [id number] 00:00:00 Test Item Value Reference Range Interpretation Comments LISA SPECIES (test code = 14068) NEGATIVE G. VAGINALIS (test code = 20008) NEGATIVE T. VAGINALIS (test code = 08008) NEGATIVE VAGINAL PATHOGENS DNA [id number] 00:00:00 Test Item Value Reference Range Interpretation Comments LISA SPECIES (test code = 78535) NEGATIVE G. VAGINALIS (test code = 35369) NEGATIVE T. VAGINALIS (test code = 54524) NEGATIVE VAGINAL PATHOGENS DNA [id number] 00:00:00 Test Item Value Reference Range Interpretation Comments LISA SPECIES (test code = 26224) NEGATIVE G. VAGINALIS (test code = 64599) NEGATIVE T. VAGINALIS (test code = 45976) NEGATIVE COMPREHENSIVE METABOLIC [id number] 00:00:00 Test Item Value Reference Range Interpretation Comments GLUCOSE (test code = 2217) 123 MG/DL BUN (test code = 2208) 9 MG/DL CREATININE (test code = 2214) 0.51 MG/DL eGFR AMER. (test code 140 ML/MIN/1.73 = 13450) eGFR NON- AMER. (test 121 ML/MIN/1.73 code = 13194) CALC BUN/CREAT (test code = 18 RATIO 2235) SODIUM (test code = 2231) 140 MEQ/L POTASSIUM (test code = 2228) 4.4 MEQ/L CHLORIDE (test code = 2215) 104 MEQ/L CARBON DIOXIDE (test code = 24 MEQ/L 2205) CALCIUM (test code = 2209) 9.5 MG/DL PROTEIN, TOTAL (test code = 7.3 G/DL 2228) ALBUMIN (test code = 2201) 4.1 G/DL CALC GLOBULIN (test code = 3.2 G/DL 2240) CALC A/G RATIO (test code = 1.3 RATIO 2234) BILIRUBIN, TOTAL (test code = 0.2 MG/DL 2206) ALKALINE PHOSPHATASE (test 101 U/L code = 2204) AST (test code = 2218) 13 U/L ALT (test code = 2219) 13 U/L COMPREHENSIVE METABOLIC [id number] 00:00:00 Test Item Value Reference Range Interpretation Comments GLUCOSE (test code = 2217) 123 MG/DL BUN (test code = 2208) 9 MG/DL CREATININE (test code = 2214) 0.51 MG/DL eGFR AMER. (test code 140 ML/MIN/1.73 = 39419) eGFR NON- AMER. (test 121 ML/MIN/1.73 code = 58194) CALC BUN/CREAT (test code = 18 RATIO 2235) SODIUM (test code = 2231) 140 MEQ/L POTASSIUM (test code = 2228) 4.4 MEQ/L CHLORIDE (test code = 2215) 104 MEQ/L CARBON DIOXIDE (test code = 24 MEQ/L 2205) CALCIUM (test code = 2209) 9.5 MG/DL PROTEIN, TOTAL (test code = 7.3 G/DL 2228) ALBUMIN (test code = 2201) 4.1 G/DL CALC GLOBULIN (test code = 3.2 G/DL 2240) CALC A/G RATIO (test code = 1.3 RATIO 2234) BILIRUBIN, TOTAL (test code = 0.2 MG/DL 7) ALKALINE PHOSPHATASE (test 101 U/L code = 2204) AST (test code = 2218) 13 U/L ALT (test code = 2219) 13 U/L LIPID [id number] 00:00:00 Test Item Value Reference Range Interpretation Comments CHOLESTEROL (test code = 2210) 201 MG/DL TRIGLYCERIDES (test code = 2232) 332 MG/DL HDL CHOLESTEROL (test code = 2220) 36 MG/DL CALC LDL CHOL (test code = 2237) 99 MG/DL RISK RATIO LDL/HDL (test code = 2.74 RATIO 2238) LIPID [id number] 00:00:00 Test Item Value Reference Range Interpretation Comments CHOLESTEROL (test code = 2210) 201 MG/DL TRIGLYCERIDES (test code = 2232) 332 MG/DL HDL CHOLESTEROL (test code = 2220) 36 MG/DL CALC LDL CHOL (test code = 2237) 99 MG/DL RISK RATIO LDL/HDL (test code = 2.74 RATIO 2238) HEMOGLOBIN [id number] 00:00:00 Test Item Value Reference Range Interpretation Comments HEMOGLOBIN A1c (test code = 66684) 8.1 % HEMOGLOBIN [id number] 00:00:00 Test Item Value Reference Range Interpretation Comments HEMOGLOBIN A1c (test code = 72754) 8.1 % HEMOGLOBIN [id number] 00:00:00 Test Item Value Reference Range Interpretation Comments HEMOGLOBIN A1c (test code = 06212) 8.1 % CBC W/AUTO [id number] 00:00:00 Test Item Value Reference Range Interpretation Comments WBC (test code = 1001) 6.7 K/UL RBC (test code = 1002) 4.49 M/UL HEMOGLOBIN (test code = 1003) 10.9 G/DL HEMATOCRIT (test code = 1004) 33.8 % MCV (test code = 1005) 75.3 fL MCH (test code = 1006) 24.3 PG MCHC (test code = 1007) 32.2 G/DL RDW (test code = 1038) 14.3 % NEUTROPHILS (test code = 1008) 51.0 % LYMPHOCYTES (test code = 1010) 39.0 % MONOCYTES (test code = 1011) 5.1 % EOSINOPHILS (test code = 1012) 4.5 % BASOPHILS (test code = 1013) 0.4 % PLATELET COUNT (test code = 1015) 330 K/UL CBC W/AUTO [id number] 00:00:00 Test Item Value Reference Range Interpretation Comments WBC (test code = 1001) 6.7 K/UL RBC (test code = 1002) 4.49 M/UL HEMOGLOBIN (test code = 1003) 10.9 G/DL HEMATOCRIT (test code = 1004) 33.8 % MCV (test code = 1005) 75.3 fL MCH (test code = 1006) 24.3 PG MCHC (test code = 1007) 32.2 G/DL RDW (test code = 1038) 14.3 % NEUTROPHILS (test code = 1008) 51.0 % LYMPHOCYTES (test code = 1010) 39.0 % MONOCYTES (test code = 1011) 5.1 % EOSINOPHILS (test code = 1012) 4.5 % BASOPHILS (test code = 1013) 0.4 % PLATELET COUNT (test code = 1015) 330 K/UL CBC W/AUTO [id number] 00:00:00 Test Item Value Reference Range Interpretation Comments WBC (test code = 1001) 6.7 K/UL RBC (test code = 1002) 4.49 M/UL HEMOGLOBIN (test code = 1003) 10.9 G/DL HEMATOCRIT (test code = 1004) 33.8 % MCV (test code = 1005) 75.3 fL MCH (test code = 1006) 24.3 PG MCHC (test code = 1007) 32.2 G/DL RDW (test code = 1038) 14.3 % NEUTROPHILS (test code = 1008) 51.0 % LYMPHOCYTES (test code = 1010) 39.0 % MONOCYTES (test code = 1011) 5.1 % EOSINOPHILS (test code = 1012) 4.5 % BASOPHILS (test code = 1013) 0.4 % PLATELET COUNT (test code = 1015) 330 K/UL LIPID [id number] 00:00:00 Test Item Value Reference Range Interpretation Comments CHOLESTEROL (test code = 2210) 201 MG/DL TRIGLYCERIDES (test code = 2232) 332 MG/DL HDL CHOLESTEROL (test code = 2220) 36 MG/DL CALC LDL CHOL (test code = 2237) 99 MG/DL RISK RATIO LDL/HDL (test code = 2.74 RATIO 2238) HEMOGLOBIN [id number] 00:00:00 Test Item Value Reference Range Interpretation Comments HEMOGLOBIN A1c (test code = 73270) 8.1 % HEMOGLOBIN [id number] 00:00:00 Test Item Value Reference Range Interpretation Comments HEMOGLOBIN A1c (test code = 77881) 8.1 % CBC W/AUTO [id number] 00:00:00 Test Item Value Reference Range Interpretation Comments WBC (test code = 1001) 6.7 K/UL RBC (test code = 1002) 4.49 M/UL HEMOGLOBIN (test code = 1003) 10.9 G/DL HEMATOCRIT (test code = 1004) 33.8 % MCV (test code = 1005) 75.3 fL MCH (test code = 1006) 24.3 PG MCHC (test code = 1007) 32.2 G/DL RDW (test code = 1038) 14.3 % NEUTROPHILS (test code = 1008) 51.0 % LYMPHOCYTES (test code = 1010) 39.0 % MONOCYTES (test code = 1011) 5.1 % EOSINOPHILS (test code = 1012) 4.5 % BASOPHILS (test code = 1013) 0.4 % PLATELET COUNT (test code = 1015) 330 K/UL CBC W/AUTO [id number] 00:00:00 Test Item Value Reference Range Interpretation Comments WBC (test code = 1001) 6.7 K/UL RBC (test code = 1002) 4.49 M/UL HEMOGLOBIN (test code = 1003) 10.9 G/DL HEMATOCRIT (test code = 1004) 33.8 % MCV (test code = 1005) 75.3 fL MCH (test code = 1006) 24.3 PG MCHC (test code = 1007) 32.2 G/DL RDW (test code = 1038) 14.3 % NEUTROPHILS (test code = 1008) 51.0 % LYMPHOCYTES (test code = 1010) 39.0 % MONOCYTES (test code = 1011) 5.1 % EOSINOPHILS (test code = 1012) 4.5 % BASOPHILS (test code = 1013) 0.4 % PLATELET COUNT (test code = 1015) 330 K/UL COMPREHENSIVE METABOLIC [id number] 00:00:00 Test Item Value Reference Range Interpretation Comments GLUCOSE (test code = 2217) 123 MG/DL BUN (test code = 2208) 9 MG/DL CREATININE (test code = 2214) 0.51 MG/DL eGFR AMER. (test code 140 ML/MIN/1.73 = 63107) eGFR NON- AMER. (test 121 ML/MIN/1.73 code = 19418) CALC BUN/CREAT (test code = 18 RATIO 2235) SODIUM (test code = 2231) 140 MEQ/L POTASSIUM (test code = 2228) 4.4 MEQ/L CHLORIDE (test code = 2215) 104 MEQ/L CARBON DIOXIDE (test code = 24 MEQ/L 220) CALCIUM (test code = 2209) 9.5 MG/DL PROTEIN, TOTAL (test code = 7.3 G/DL 2228) ALBUMIN (test code = 2201) 4.1 G/DL CALC GLOBULIN (test code = 3.2 G/DL 2240) CALC A/G RATIO (test code = 1.3 RATIO 2234) BILIRUBIN, TOTAL (test code = 0.2 MG/DL 2206) ALKALINE PHOSPHATASE (test 101 U/L code = 2204) AST (test code = 2218) 13 U/L ALT (test code = 2219) 13 U/L COMPREHENSIVE METABOLIC [id number] 00:00:00 Test Item Value Reference Range Interpretation Comments GLUCOSE (test code = 2217) 123 MG/DL BUN (test code = 2208) 9 MG/DL CREATININE (test code = 2214) 0.51 MG/DL eGFR AMER. (test code 140 ML/MIN/1.73 = 96407) eGFR NON- AMER. (test 121 ML/MIN/1.73 code = 33730) CALC BUN/CREAT (test code = 18 RATIO 2235) SODIUM (test code = 2231) 140 MEQ/L POTASSIUM (test code = 2228) 4.4 MEQ/L CHLORIDE (test code = 2215) 104 MEQ/L CARBON DIOXIDE (test code = 24 MEQ/L 2206) CALCIUM (test code = 2209) 9.5 MG/DL PROTEIN, TOTAL (test code = 7.3 G/DL 2228) ALBUMIN (test code = 2201) 4.1 G/DL CALC GLOBULIN (test code = 3.2 G/DL 2240) CALC A/G RATIO (test code = 1.3 RATIO 2234) BILIRUBIN, TOTAL (test code = 0.2 MG/DL 2206) ALKALINE PHOSPHATASE (test 101 U/L code = 2204) AST (test code = 2218) 13 U/L ALT (test code = 2219) 13 U/L LIPID [id number] 00:00:00 Test Item Value Reference Range Interpretation Comments CHOLESTEROL (test code = 2210) 201 MG/DL TRIGLYCERIDES (test code = 2232) 332 MG/DL HDL CHOLESTEROL (test code = 2220) 36 MG/DL CALC LDL CHOL (test code = 2237) 99 MG/DL RISK RATIO LDL/HDL (test code = 2.74 RATIO 2238) LIPID [id number] 00:00:00 Test Item Value Reference Range Interpretation Comments CHOLESTEROL (test code = 2210) 201 MG/DL TRIGLYCERIDES (test code = 2232) 332 MG/DL HDL CHOLESTEROL (test code = 2220) 36 MG/DL CALC LDL CHOL (test code = 2237) 99 MG/DL RISK RATIO LDL/HDL (test code = 2.74 RATIO 2238) HEMOGLOBIN [id number] 00:00:00 Test Item Value Reference Range Interpretation Comments HEMOGLOBIN A1c (test code = 43473) 8.1 % HEMOGLOBIN [id number] 00:00:00 Test Item Value Reference Range Interpretation Comments HEMOGLOBIN A1c (test code = 74413) 8.1 % HEMOGLOBIN [id number] 00:00:00 Test Item Value Reference Range Interpretation Comments HEMOGLOBIN A1c (test code = 07257) 8.1 % CBC W/AUTO [id number] 00:00:00 Test Item Value Reference Range Interpretation Comments WBC (test code = 1001) 6.7 K/UL RBC (test code = 1002) 4.49 M/UL HEMOGLOBIN (test code = 1003) 10.9 G/DL HEMATOCRIT (test code = 1004) 33.8 % MCV (test code = 1005) 75.3 fL MCH (test code = 1006) 24.3 PG MCHC (test code = 1007) 32.2 G/DL RDW (test code = 1038) 14.3 % NEUTROPHILS (test code = 1008) 51.0 % LYMPHOCYTES (test code = 1010) 39.0 % MONOCYTES (test code = 1011) 5.1 % EOSINOPHILS (test code = 1012) 4.5 % BASOPHILS (test code = 1013) 0.4 % PLATELET COUNT (test code = 1015) 330 K/UL CBC W/AUTO [id number] 00:00:00 Test Item Value Reference Range Interpretation Comments WBC (test code = 1001) 6.7 K/UL RBC (test code = 1002) 4.49 M/UL HEMOGLOBIN (test code = 1003) 10.9 G/DL HEMATOCRIT (test code = 1004) 33.8 % MCV (test code = 1005) 75.3 fL MCH (test code = 1006) 24.3 PG MCHC (test code = 1007) 32.2 G/DL RDW (test code = 1038) 14.3 % NEUTROPHILS (test code = 1008) 51.0 % LYMPHOCYTES (test code = 1010) 39.0 % MONOCYTES (test code = 1011) 5.1 % EOSINOPHILS (test code = 1012) 4.5 % BASOPHILS (test code = 1013) 0.4 % PLATELET COUNT (test code = 1015) 330 K/UL CBC W/AUTO [id number] 00:00:00 Test Item Value Reference Range Interpretation Comments WBC (test code = 1001) 6.7 K/UL RBC (test code = 1002) 4.49 M/UL HEMOGLOBIN (test code = 1003) 10.9 G/DL HEMATOCRIT (test code = 1004) 33.8 % MCV (test code = 1005) 75.3 fL MCH (test code = 1006) 24.3 PG MCHC (test code = 1007) 32.2 G/DL RDW (test code = 1038) 14.3 % NEUTROPHILS (test code = 1008) 51.0 % LYMPHOCYTES (test code = 1010) 39.0 % MONOCYTES (test code = 1011) 5.1 % EOSINOPHILS (test code = 1012) 4.5 % BASOPHILS (test code = 1013) 0.4 % PLATELET COUNT (test code = 1015) 330 K/UL COMPREHENSIVE METABOLIC [id number] 00:00:00 Test Item Value Reference Range Interpretation Comments GLUCOSE (test code = 2217) 123 MG/DL BUN (test code = 2208) 9 MG/DL CREATININE (test code = 2214) 0.51 MG/DL eGFR AMER. (test code 140 ML/MIN/1.73 = 42764) eGFR NON- AMER. (test 121 ML/MIN/1.73 code = 67778) CALC BUN/CREAT (test code = 18 RATIO 2235) SODIUM (test code = 2231) 140 MEQ/L POTASSIUM (test code = 2228) 4.4 MEQ/L CHLORIDE (test code = 2215) 104 MEQ/L CARBON DIOXIDE (test code = 24 MEQ/L 2206) CALCIUM (test code = 2209) 9.5 MG/DL PROTEIN, TOTAL (test code = 7.3 G/DL 2228) ALBUMIN (test code = 2201) 4.1 G/DL CALC GLOBULIN (test code = 3.2 G/DL 2240) CALC A/G RATIO (test code = 1.3 RATIO 2234) BILIRUBIN, TOTAL (test code = 0.2 MG/DL 2206) ALKALINE PHOSPHATASE (test 101 U/L code = 2204) AST (test code = 2218) 13 U/L ALT (test code = 2219) 13 U/L COMPREHENSIVE METABOLIC [id number] 00:00:00 Test Item Value Reference Range Interpretation Comments GLUCOSE (test code = 2217) 123 MG/DL BUN (test code = 2208) 9 MG/DL CREATININE (test code = 2214) 0.51 MG/DL eGFR AMER. (test code 140 ML/MIN/1.73 = 84639) eGFR NON- AMER. (test 121 ML/MIN/1.73 code = 96511) CALC BUN/CREAT (test code = 18 RATIO 2235) SODIUM (test code = 2231) 140 MEQ/L POTASSIUM (test code = 2228) 4.4 MEQ/L CHLORIDE (test code = 2215) 104 MEQ/L CARBON DIOXIDE (test code = 24 MEQ/L 2206) CALCIUM (test code = 2209) 9.5 MG/DL PROTEIN, TOTAL (test code = 7.3 G/DL 2228) ALBUMIN (test code = 2201) 4.1 G/DL CALC GLOBULIN (test code = 3.2 G/DL 2240) CALC A/G RATIO (test code = 1.3 RATIO 2234) BILIRUBIN, TOTAL (test code = 0.2 MG/DL 2206) ALKALINE PHOSPHATASE (test 101 U/L code = 2204) AST (test code = 2218) 13 U/L ALT (test code = 2219) 13 U/L LIPID [id number] 00:00:00 Test Item Value Reference Range Interpretation Comments CHOLESTEROL (test code = 2210) 201 MG/DL TRIGLYCERIDES (test code = 2232) 332 MG/DL HDL CHOLESTEROL (test code = 2220) 36 MG/DL CALC LDL CHOL (test code = 2237) 99 MG/DL RISK RATIO LDL/HDL (test code = 2.74 RATIO 2238) LIPID [id number] 00:00:00 Test Item Value Reference Range Interpretation Comments CHOLESTEROL (test code = 2210) 201 MG/DL TRIGLYCERIDES (test code = 2232) 332 MG/DL HDL CHOLESTEROL (test code = 2220) 36 MG/DL CALC LDL CHOL (test code = 2237) 99 MG/DL RISK RATIO LDL/HDL (test code = 2.74 RATIO 2238) HEMOGLOBIN [id number] 00:00:00 Test Item Value Reference Range Interpretation Comments HEMOGLOBIN A1c (test code = 20365) 8.1 % HEMOGLOBIN [id number] 00:00:00 Test Item Value Reference Range Interpretation Comments HEMOGLOBIN A1c (test code = 11144) 8.1 % HEMOGLOBIN [id number] 00:00:00 Test Item Value Reference Range Interpretation Comments HEMOGLOBIN A1c (test code = 14286) 8.1 % CBC W/AUTO [id number] 00:00:00 Test Item Value Reference Range Interpretation Comments WBC (test code = 1001) 6.7 K/UL RBC (test code = 1002) 4.49 M/UL HEMOGLOBIN (test code = 1003) 10.9 G/DL HEMATOCRIT (test code = 1004) 33.8 % MCV (test code = 1005) 75.3 fL MCH (test code = 1006) 24.3 PG MCHC (test code = 1007) 32.2 G/DL RDW (test code = 1038) 14.3 % NEUTROPHILS (test code = 1008) 51.0 % LYMPHOCYTES (test code = 1010) 39.0 % MONOCYTES (test code = 1011) 5.1 % EOSINOPHILS (test code = 1012) 4.5 % BASOPHILS (test code = 1013) 0.4 % PLATELET COUNT (test code = 1015) 330 K/UL CBC W/AUTO [id number] 00:00:00 Test Item Value Reference Range Interpretation Comments WBC (test code = 1001) 6.7 K/UL RBC (test code = 1002) 4.49 M/UL HEMOGLOBIN (test code = 1003) 10.9 G/DL HEMATOCRIT (test code = 1004) 33.8 % MCV (test code = 1005) 75.3 fL MCH (test code = 1006) 24.3 PG MCHC (test code = 1007) 32.2 G/DL RDW (test code = 1038) 14.3 % NEUTROPHILS (test code = 1008) 51.0 % LYMPHOCYTES (test code = 1010) 39.0 % MONOCYTES (test code = 1011) 5.1 % EOSINOPHILS (test code = 1012) 4.5 % BASOPHILS (test code = 1013) 0.4 % PLATELET COUNT (test code = 1015) 330 K/UL CBC W/AUTO [id number] 00:00:00 Test Item Value Reference Range Interpretation Comments WBC (test code = 1001) 6.7 K/UL RBC (test code = 1002) 4.49 M/UL HEMOGLOBIN (test code = 1003) 10.9 G/DL HEMATOCRIT (test code = 1004) 33.8 % MCV (test code = 1005) 75.3 fL MCH (test code = 1006) 24.3 PG MCHC (test code = 1007) 32.2 G/DL RDW (test code = 1038) 14.3 % NEUTROPHILS (test code = 1008) 51.0 % LYMPHOCYTES (test code = 1010) 39.0 % MONOCYTES (test code = 1011) 5.1 % EOSINOPHILS (test code = 1012) 4.5 % BASOPHILS (test code = 1013) 0.4 % PLATELET COUNT (test code = 1015) 330 K/UL COMPREHENSIVE METABOLIC [id number] 00:00:00 Test Item Value Reference Range Interpretation Comments GLUCOSE (test code = 2217) 123 MG/DL BUN (test code = 2208) 9 MG/DL CREATININE (test code = 2214) 0.51 MG/DL eGFR AMER. (test code 140 ML/MIN/1.73 = 47785) eGFR NON- AMER. (test 121 ML/MIN/1.73 code = 40342) CALC BUN/CREAT (test code = 18 RATIO 2235) SODIUM (test code = 2231) 140 MEQ/L POTASSIUM (test code = 2228) 4.4 MEQ/L CHLORIDE (test code = 2215) 104 MEQ/L CARBON DIOXIDE (test code = 24 MEQ/L 2205) CALCIUM (test code = 2209) 9.5 MG/DL PROTEIN, TOTAL (test code = 7.3 G/DL 2228) ALBUMIN (test code = 2201) 4.1 G/DL CALC GLOBULIN (test code = 3.2 G/DL 2239) CALC A/G RATIO (test code = 1.3 RATIO 2233) BILIRUBIN, TOTAL (test code = 0.2 MG/DL 2206) ALKALINE PHOSPHATASE (test 101 U/L code = 2204) AST (test code = 2218) 13 U/L ALT (test code = 2219) 13 U/L CBC W/AUTO [id number] 00:00:00 Test Item Value Reference Range Interpretation Comments WBC (test code = 1001) 8.5 K/UL RBC (test code = 1002) 4.34 M/UL HEMOGLOBIN (test code = 1003) 11.6 G/DL HEMATOCRIT (test code = 1004) 35.7 % MCV (test code = 1005) 82.3 fL MCH (test code = 1006) 26.7 PG MCHC (test code = 1007) 32.5 G/DL RDW (test code = 1038) 13.4 % NEUTROPHILS (test code = 1008) 70.2 % LYMPHOCYTES (test code = 1010) 21.3 % MONOCYTES (test code = 1011) 6.3 % EOSINOPHILS (test code = 1012) 1.8 % BASOPHILS (test code = 1013) 0.4 % PLATELET COUNT (test code = 1015) 302 K/UL CBC W/AUTO [id number] 00:00:00 Test Item Value Reference Range Interpretation Comments WBC (test code = 1001) 8.5 K/UL RBC (test code = 1002) 4.34 M/UL HEMOGLOBIN (test code = 1003) 11.6 G/DL HEMATOCRIT (test code = 1004) 35.7 % MCV (test code = 1005) 82.3 fL MCH (test code = 1006) 26.7 PG MCHC (test code = 1007) 32.5 G/DL RDW (test code = 1038) 13.4 % NEUTROPHILS (test code = 1008) 70.2 % LYMPHOCYTES (test code = 1010) 21.3 % MONOCYTES (test code = 1011) 6.3 % EOSINOPHILS (test code = 1012) 1.8 % BASOPHILS (test code = 1013) 0.4 % PLATELET COUNT (test code = 1015) 302 K/UL CBC W/AUTO [id number] 00:00:00 Test Item Value Reference Range Interpretation Comments WBC (test code = 1001) 8.5 K/UL RBC (test code = 1002) 4.34 M/UL HEMOGLOBIN (test code = 1003) 11.6 G/DL HEMATOCRIT (test code = 1004) 35.7 % MCV (test code = 1005) 82.3 fL MCH (test code = 1006) 26.7 PG MCHC (test code = 1007) 32.5 G/DL RDW (test code = 1038) 13.4 % NEUTROPHILS (test code = 1008) 70.2 % LYMPHOCYTES (test code = 1010) 21.3 % MONOCYTES (test code = 1011) 6.3 % EOSINOPHILS (test code = 1012) 1.8 % BASOPHILS (test code = 1013) 0.4 % PLATELET COUNT (test code = 1015) 302 K/UL CBC W/AUTO [id number] 00:00:00 Test Item Value Reference Range Interpretation Comments WBC (test code = 1001) 8.5 K/UL RBC (test code = 1002) 4.34 M/UL HEMOGLOBIN (test code = 1003) 11.6 G/DL HEMATOCRIT (test code = 1004) 35.7 % MCV (test code = 1005) 82.3 fL MCH (test code = 1006) 26.7 PG MCHC (test code = 1007) 32.5 G/DL RDW (test code = 1038) 13.4 % NEUTROPHILS (test code = 1008) 70.2 % LYMPHOCYTES (test code = 1010) 21.3 % MONOCYTES (test code = 1011) 6.3 % EOSINOPHILS (test code = 1012) 1.8 % BASOPHILS (test code = 1013) 0.4 % PLATELET COUNT (test code = 1015) 302 K/UL COMPREHENSIVE METABOLIC [id number] 00:00:00 Test Item Value Reference Range Interpretation Comments GLUCOSE (test code = 2217) 127 MG/DL BUN (test code = 2208) 8 MG/DL CREATININE (test code = 2214) 0.53 MG/DL eGFR AMER. (test code 139 ML/MIN/1.73 = 00196) eGFR NON- AMER. (test 120 ML/MIN/1.73 code = 07541) CALC BUN/CREAT (test code = 15 RATIO 2235) SODIUM (test code = 2231) 138 MEQ/L POTASSIUM (test code = 2228) 4.5 MEQ/L CHLORIDE (test code = 2215) 102 MEQ/L CARBON DIOXIDE (test code = 26 MEQ/L 220) CALCIUM (test code = 2209) 9.3 MG/DL PROTEIN, TOTAL (test code = 7.1 G/DL 2228) ALBUMIN (test code = 2201) 4.3 G/DL CALC GLOBULIN (test code = 2.8 G/DL 2240) CALC A/G RATIO (test code = 1.5 RATIO 2234) BILIRUBIN, TOTAL (test code = 0.2 MG/DL 2206) ALKALINE PHOSPHATASE (test 93 U/L code = 2204) AST (test code = 2218) 15 U/L ALT (test code = 2219) 21 U/L COMPREHENSIVE METABOLIC [id number] 00:00:00 Test Item Value Reference Range Interpretation Comments GLUCOSE (test code = 2217) 127 MG/DL BUN (test code = 2208) 8 MG/DL CREATININE (test code = 2214) 0.53 MG/DL eGFR AMER. (test code 139 ML/MIN/1.73 = 90530) eGFR NON- AMER. (test 120 ML/MIN/1.73 code = 22352) CALC BUN/CREAT (test code = 15 RATIO 2235) SODIUM (test code = 2231) 138 MEQ/L POTASSIUM (test code = 2228) 4.5 MEQ/L CHLORIDE (test code = 2215) 102 MEQ/L CARBON DIOXIDE (test code = 26 MEQ/L 2206) CALCIUM (test code = 2209) 9.3 MG/DL PROTEIN, TOTAL (test code = 7.1 G/DL 2228) ALBUMIN (test code = 2201) 4.3 G/DL CALC GLOBULIN (test code = 2.8 G/DL 2240) CALC A/G RATIO (test code = 1.5 RATIO 2234) BILIRUBIN, TOTAL (test code = 0.2 MG/DL 2207) ALKALINE PHOSPHATASE (test 93 U/L code = 2204) AST (test code = 2218) 15 U/L ALT (test code = 2219) 21 U/L SEDIMENTATION [id number] 00:00:00 Test Item Value Reference Range Interpretation Comments SEDIMENTATION RATE (test code = 42 MM/HOUR 1017) SEDIMENTATION [id number] 00:00:00 Test Item Value Reference Range Interpretation Comments SEDIMENTATION RATE (test code = 42 MM/HOUR 1017) HEMOGLOBIN [id number] 00:00:00 Test Item Value Reference Range Interpretation Comments HEMOGLOBIN A1c (test code = 92182) 6.6 % HEMOGLOBIN [id number] 00:00:00 Test Item Value Reference Range Interpretation Comments HEMOGLOBIN A1c (test code = 41867) 6.6 % HEMOGLOBIN [id number] 00:00:00 Test Item Value Reference Range Interpretation Comments HEMOGLOBIN A1c (test code = 58276) 6.6 % LIPID [id number] 00:00:00 Test Item Value Reference Range Interpretation Comments CHOLESTEROL (test code = 2210) 183 MG/DL TRIGLYCERIDES (test code = 2232) 334 MG/DL HDL CHOLESTEROL (test code = 2220) 36 MG/DL CALC LDL CHOL (test code = 2237) 80 MG/DL RISK RATIO LDL/HDL (test code = 2.23 RATIO 2238) LIPID [id number] 00:00:00 Test Item Value Reference Range Interpretation Comments CHOLESTEROL (test code = 2210) 183 MG/DL TRIGLYCERIDES (test code = 2232) 334 MG/DL HDL CHOLESTEROL (test code = 2220) 36 MG/DL CALC LDL CHOL (test code = 2237) 80 MG/DL RISK RATIO LDL/HDL (test code = 2.23 RATIO 2238) C-REACTIVE [id number] 00:00:00 Test Item Value Reference Range Interpretation Comments C-REACTIVE PROTEIN (test code = 0.7 MG/DL 3513) C-REACTIVE [id number] 00:00:00 Test Item Value Reference Range Interpretation Comments C-REACTIVE PROTEIN (test code = 0.7 MG/DL 3513) VITAMIN D, 25 [id number] 00:00:00 Test Item Value Reference Range Interpretation Comments VITAMIN D, 25 OH (test code = 4958) 16 NG/ML VITAMIN D, 25 [id number] 00:00:00 Test Item Value Reference Range Interpretation Comments VITAMIN D, 25 OH (test code = 4958) 16 NG/ML [id number] 00:00:00 Test Item Value Reference Range Interpretation Comments MAGNESIUM (test code = 2226) 1.8 MG/DL [id number] 00:00:00 Test Item Value Reference Range Interpretation Comments MAGNESIUM (test code = 2226) 1.8 MG/DL [id number] 00:00:00 Test Item Value Reference Range Interpretation Comments MAGNESIUM (test code = 2226) 1.8 MG/DL COMPREHENSIVE METABOLIC [id number] 00:00:00 Test Item Value Reference Range Interpretation Comments GLUCOSE (test code = 2217) 127 MG/DL BUN (test code = 2208) 8 MG/DL CREATININE (test code = 2214) 0.53 MG/DL eGFR AMER. (test code 139 ML/MIN/1.73 = 51932) eGFR NON- AMER. (test 120 ML/MIN/1.73 code = 12725) CALC BUN/CREAT (test code = 15 RATIO 2235) SODIUM (test code = 2231) 138 MEQ/L POTASSIUM (test code = 2228) 4.5 MEQ/L CHLORIDE (test code = 2215) 102 MEQ/L CARBON DIOXIDE (test code = 26 MEQ/L 2205) CALCIUM (test code = 2209) 9.3 MG/DL PROTEIN, TOTAL (test code = 7.1 G/DL 2228) ALBUMIN (test code = 2201) 4.3 G/DL CALC GLOBULIN (test code = 2.8 G/DL 2240) CALC A/G RATIO (test code = 1.5 RATIO 2234) BILIRUBIN, TOTAL (test code = 0.2 MG/DL 2206) ALKALINE PHOSPHATASE (test 93 U/L code = 2204) AST (test code = 2218) 15 U/L ALT (test code = 2219) 21 U/L SEDIMENTATION [id number] 00:00:00 Test Item Value Reference Range Interpretation Comments SEDIMENTATION RATE (test code = 42 MM/HOUR 1017) HEMOGLOBIN [id number] 00:00:00 Test Item Value Reference Range Interpretation Comments HEMOGLOBIN A1c (test code = 30575) 6.6 % HEMOGLOBIN [id number] 00:00:00 Test Item Value Reference Range Interpretation Comments HEMOGLOBIN A1c (test code = 78498) 6.6 % LIPID [id number] 00:00:00 Test Item Value Reference Range Interpretation Comments CHOLESTEROL (test code = 2210) 183 MG/DL TRIGLYCERIDES (test code = 2232) 334 MG/DL HDL CHOLESTEROL (test code = 2220) 36 MG/DL CALC LDL CHOL (test code = 2237) 80 MG/DL RISK RATIO LDL/HDL (test code = 2.23 RATIO 2238) C-REACTIVE [id number] 00:00:00 Test Item Value Reference Range Interpretation Comments C-REACTIVE PROTEIN (test code = 0.7 MG/DL 3513) VITAMIN D, 25 [id number] 00:00:00 Test Item Value Reference Range Interpretation Comments VITAMIN D, 25 OH (test code = 4958) 16 NG/ML [id number] 00:00:00 Test Item Value Reference Range Interpretation Comments MAGNESIUM (test code = 2226) 1.8 MG/DL [id number] 00:00:00 Test Item Value Reference Range Interpretation Comments MAGNESIUM (test code = 2226) 1.8 MG/DL CBC W/AUTO [id number] 00:00:00 Test Item Value Reference Range Interpretation Comments WBC (test code = 1001) 8.5 K/UL RBC (test code = 1002) 4.34 M/UL HEMOGLOBIN (test code = 1003) 11.6 G/DL HEMATOCRIT (test code = 1004) 35.7 % MCV (test code = 1005) 82.3 fL MCH (test code = 1006) 26.7 PG MCHC (test code = 1007) 32.5 G/DL RDW (test code = 1038) 13.4 % NEUTROPHILS (test code = 1008) 70.2 % LYMPHOCYTES (test code = 1010) 21.3 % MONOCYTES (test code = 1011) 6.3 % EOSINOPHILS (test code = 1012) 1.8 % BASOPHILS (test code = 1013) 0.4 % PLATELET COUNT (test code = 1015) 302 K/UL CBC W/AUTO [id number] 00:00:00 Test Item Value Reference Range Interpretation Comments WBC (test code = 1001) 8.5 K/UL RBC (test code = 1002) 4.34 M/UL HEMOGLOBIN (test code = 1003) 11.6 G/DL HEMATOCRIT (test code = 1004) 35.7 % MCV (test code = 1005) 82.3 fL MCH (test code = 1006) 26.7 PG MCHC (test code = 1007) 32.5 G/DL RDW (test code = 1038) 13.4 % NEUTROPHILS (test code = 1008) 70.2 % LYMPHOCYTES (test code = 1010) 21.3 % MONOCYTES (test code = 1011) 6.3 % EOSINOPHILS (test code = 1012) 1.8 % BASOPHILS (test code = 1013) 0.4 % PLATELET COUNT (test code = 1015) 302 K/UL CBC W/AUTO [id number] 00:00:00 Test Item Value Reference Range Interpretation Comments WBC (test code = 1001) 8.5 K/UL RBC (test code = 1002) 4.34 M/UL HEMOGLOBIN (test code = 1003) 11.6 G/DL HEMATOCRIT (test code = 1004) 35.7 % MCV (test code = 1005) 82.3 fL MCH (test code = 1006) 26.7 PG MCHC (test code = 1007) 32.5 G/DL RDW (test code = 1038) 13.4 % NEUTROPHILS (test code = 1008) 70.2 % LYMPHOCYTES (test code = 1010) 21.3 % MONOCYTES (test code = 1011) 6.3 % EOSINOPHILS (test code = 1012) 1.8 % BASOPHILS (test code = 1013) 0.4 % PLATELET COUNT (test code = 1015) 302 K/UL COMPREHENSIVE METABOLIC [id number] 00:00:00 Test Item Value Reference Range Interpretation Comments GLUCOSE (test code = 2217) 127 MG/DL BUN (test code = 2208) 8 MG/DL CREATININE (test code = 2214) 0.53 MG/DL eGFR AMER. (test code 139 ML/MIN/1.73 = 76990) eGFR NON- AMER. (test 120 ML/MIN/1.73 code = 10647) CALC BUN/CREAT (test code = 15 RATIO 2235) SODIUM (test code = 2231) 138 MEQ/L POTASSIUM (test code = 2228) 4.5 MEQ/L CHLORIDE (test code = 2215) 102 MEQ/L CARBON DIOXIDE (test code = 26 MEQ/L 2205) CALCIUM (test code = 2209) 9.3 MG/DL PROTEIN, TOTAL (test code = 7.1 G/DL 2228) ALBUMIN (test code = 2201) 4.3 G/DL CALC GLOBULIN (test code = 2.8 G/DL 2240) CALC A/G RATIO (test code = 1.5 RATIO 2234) BILIRUBIN, TOTAL (test code = 0.2 MG/DL 2206) ALKALINE PHOSPHATASE (test 93 U/L code = 2204) AST (test code = 2218) 15 U/L ALT (test code = 2219) 21 U/L COMPREHENSIVE METABOLIC [id number] 00:00:00 Test Item Value Reference Range Interpretation Comments GLUCOSE (test code = 2217) 127 MG/DL BUN (test code = 2208) 8 MG/DL CREATININE (test code = 2214) 0.53 MG/DL eGFR AMER. (test code 139 ML/MIN/1.73 = 40023) eGFR NON- AMER. (test 120 ML/MIN/1.73 code = 30833) CALC BUN/CREAT (test code = 15 RATIO 223) SODIUM (test code = 2231) 138 MEQ/L POTASSIUM (test code = 2228) 4.5 MEQ/L CHLORIDE (test code = 2215) 102 MEQ/L CARBON DIOXIDE (test code = 26 MEQ/L 2205) CALCIUM (test code = 2209) 9.3 MG/DL PROTEIN, TOTAL (test code = 7.1 G/DL 2228) ALBUMIN (test code = 2201) 4.3 G/DL CALC GLOBULIN (test code = 2.8 G/DL 2240) CALC A/G RATIO (test code = 1.5 RATIO 2234) BILIRUBIN, TOTAL (test code = 0.2 MG/DL 2206) ALKALINE PHOSPHATASE (test 93 U/L code = 2204) AST (test code = 2218) 15 U/L ALT (test code = 2219) 21 U/L SEDIMENTATION [id number] 00:00:00 Test Item Value Reference Range Interpretation Comments SEDIMENTATION RATE (test code = 42 MM/HOUR 1017) SEDIMENTATION [id number] 00:00:00 Test Item Value Reference Range Interpretation Comments SEDIMENTATION RATE (test code = 42 MM/HOUR 1017) HEMOGLOBIN [id number] 00:00:00 Test Item Value Reference Range Interpretation Comments HEMOGLOBIN A1c (test code = 75238) 6.6 % HEMOGLOBIN [id number] 00:00:00 Test Item Value Reference Range Interpretation Comments HEMOGLOBIN A1c (test code = 90955) 6.6 % HEMOGLOBIN [id number] 00:00:00 Test Item Value Reference Range Interpretation Comments HEMOGLOBIN A1c (test code = 87464) 6.6 % LIPID [id number] 00:00:00 Test Item Value Reference Range Interpretation Comments CHOLESTEROL (test code = 2210) 183 MG/DL TRIGLYCERIDES (test code = 2232) 334 MG/DL HDL CHOLESTEROL (test code = 2220) 36 MG/DL CALC LDL CHOL (test code = 2237) 80 MG/DL RISK RATIO LDL/HDL (test code = 2.23 RATIO 2238) LIPID [id number] 00:00:00 Test Item Value Reference Range Interpretation Comments CHOLESTEROL (test code = 2210) 183 MG/DL TRIGLYCERIDES (test code = 2232) 334 MG/DL HDL CHOLESTEROL (test code = 2220) 36 MG/DL CALC LDL CHOL (test code = 2237) 80 MG/DL RISK RATIO LDL/HDL (test code = 2.23 RATIO 2238) C-REACTIVE [id number] 00:00:00 Test Item Value Reference Range Interpretation Comments C-REACTIVE PROTEIN (test code = 0.7 MG/DL 3513) C-REACTIVE [id number] 00:00:00 Test Item Value Reference Range Interpretation Comments C-REACTIVE PROTEIN (test code = 0.7 MG/DL 3513) VITAMIN D, 25 [id number] 00:00:00 Test Item Value Reference Range Interpretation Comments VITAMIN D, 25 OH (test code = 4958) 16 NG/ML VITAMIN D, 25 [id number] 00:00:00 Test Item Value Reference Range Interpretation Comments VITAMIN D, 25 OH (test code = 4958) 16 NG/ML [id number] 00:00:00 Test Item Value Reference Range Interpretation Comments MAGNESIUM (test code = 2226) 1.8 MG/DL [id number] 00:00:00 Test Item Value Reference Range Interpretation Comments MAGNESIUM (test code = 2226) 1.8 MG/DL [id number] 00:00:00 Test Item Value Reference Range Interpretation Comments MAGNESIUM (test code = 2226) 1.8 MG/DL CBC W/AUTO [id number] 00:00:00 Test Item Value Reference Range Interpretation Comments WBC (test code = 1001) 8.5 K/UL RBC (test code = 1002) 4.34 M/UL HEMOGLOBIN (test code = 1003) 11.6 G/DL HEMATOCRIT (test code = 1004) 35.7 % MCV (test code = 1005) 82.3 fL MCH (test code = 1006) 26.7 PG MCHC (test code = 1007) 32.5 G/DL RDW (test code = 1038) 13.4 % NEUTROPHILS (test code = 1008) 70.2 % LYMPHOCYTES (test code = 1010) 21.3 % MONOCYTES (test code = 1011) 6.3 % EOSINOPHILS (test code = 1012) 1.8 % BASOPHILS (test code = 1013) 0.4 % PLATELET COUNT (test code = 1015) 302 K/UL CBC W/AUTO [id number] 00:00:00 Test Item Value Reference Range Interpretation Comments WBC (test code = 1001) 8.5 K/UL RBC (test code = 1002) 4.34 M/UL HEMOGLOBIN (test code = 1003) 11.6 G/DL HEMATOCRIT (test code = 1004) 35.7 % MCV (test code = 1005) 82.3 fL MCH (test code = 1006) 26.7 PG MCHC (test code = 1007) 32.5 G/DL RDW (test code = 1038) 13.4 % NEUTROPHILS (test code = 1008) 70.2 % LYMPHOCYTES (test code = 1010) 21.3 % MONOCYTES (test code = 1011) 6.3 % EOSINOPHILS (test code = 1012) 1.8 % BASOPHILS (test code = 1013) 0.4 % PLATELET COUNT (test code = 1015) 302 K/UL CBC W/AUTO [id number] 00:00:00 Test Item Value Reference Range Interpretation Comments WBC (test code = 1001) 8.5 K/UL RBC (test code = 1002) 4.34 M/UL HEMOGLOBIN (test code = 1003) 11.6 G/DL HEMATOCRIT (test code = 1004) 35.7 % MCV (test code = 1005) 82.3 fL MCH (test code = 1006) 26.7 PG MCHC (test code = 1007) 32.5 G/DL RDW (test code = 1038) 13.4 % NEUTROPHILS (test code = 1008) 70.2 % LYMPHOCYTES (test code = 1010) 21.3 % MONOCYTES (test code = 1011) 6.3 % EOSINOPHILS (test code = 1012) 1.8 % BASOPHILS (test code = 1013) 0.4 % PLATELET COUNT (test code = 1015) 302 K/UL COMPREHENSIVE METABOLIC [id number] 00:00:00 Test Item Value Reference Range Interpretation Comments GLUCOSE (test code = 2217) 127 MG/DL BUN (test code = 2208) 8 MG/DL CREATININE (test code = 2214) 0.53 MG/DL eGFR AMER. (test code 139 ML/MIN/1.73 = 99039) eGFR NON- AMER. (test 120 ML/MIN/1.73 code = 70893) CALC BUN/CREAT (test code = 15 RATIO 2235) SODIUM (test code = 2231) 138 MEQ/L POTASSIUM (test code = 2228) 4.5 MEQ/L CHLORIDE (test code = 2215) 102 MEQ/L CARBON DIOXIDE (test code = 26 MEQ/L 2206) CALCIUM (test code = 2209) 9.3 MG/DL PROTEIN, TOTAL (test code = 7.1 G/DL 2228) ALBUMIN (test code = 2201) 4.3 G/DL CALC GLOBULIN (test code = 2.8 G/DL 2240) CALC A/G RATIO (test code = 1.5 RATIO 2234) BILIRUBIN, TOTAL (test code = 0.2 MG/DL 2206) ALKALINE PHOSPHATASE (test 93 U/L code = 2204) AST (test code = 2218) 15 U/L ALT (test code = 2219) 21 U/L COMPREHENSIVE METABOLIC [id number] 00:00:00 Test Item Value Reference Range Interpretation Comments GLUCOSE (test code = 2217) 127 MG/DL BUN (test code = 2208) 8 MG/DL CREATININE (test code = 2214) 0.53 MG/DL eGFR AMER. (test code 139 ML/MIN/1.73 = 58526) eGFR NON- AMER. (test 120 ML/MIN/1.73 code = 95716) CALC BUN/CREAT (test code = 15 RATIO 2235) SODIUM (test code = 2231) 138 MEQ/L POTASSIUM (test code = 2228) 4.5 MEQ/L CHLORIDE (test code = 2215) 102 MEQ/L CARBON DIOXIDE (test code = 26 MEQ/L 2205) CALCIUM (test code = 2209) 9.3 MG/DL PROTEIN, TOTAL (test code = 7.1 G/DL 2228) ALBUMIN (test code = 2201) 4.3 G/DL CALC GLOBULIN (test code = 2.8 G/DL 2239) CALC A/G RATIO (test code = 1.5 RATIO 2233) BILIRUBIN, TOTAL (test code = 0.2 MG/DL 2206) ALKALINE PHOSPHATASE (test 93 U/L code = 2204) AST (test code = 2218) 15 U/L ALT (test code = 2219) 21 U/L SEDIMENTATION [id number] 00:00:00 Test Item Value Reference Range Interpretation Comments SEDIMENTATION RATE (test code = 42 MM/HOUR 1017) SEDIMENTATION [id number] 00:00:00 Test Item Value Reference Range Interpretation Comments SEDIMENTATION RATE (test code = 42 MM/HOUR 1017) HEMOGLOBIN [id number] 00:00:00 Test Item Value Reference Range Interpretation Comments HEMOGLOBIN A1c (test code = 83440) 6.6 % HEMOGLOBIN [id number] 00:00:00 Test Item Value Reference Range Interpretation Comments HEMOGLOBIN A1c (test code = 82334) 6.6 % HEMOGLOBIN [id number] 00:00:00 Test Item Value Reference Range Interpretation Comments HEMOGLOBIN A1c (test code = 67895) 6.6 % CBC W/AUTO [id number] 00:00:00 Test Item Value Reference Range Interpretation Comments WBC (test code = 1001) 8.5 K/UL RBC (test code = 1002) 4.34 M/UL HEMOGLOBIN (test code = 1003) 11.6 G/DL HEMATOCRIT (test code = 1004) 35.7 % MCV (test code = 1005) 82.3 fL MCH (test code = 1006) 26.7 PG MCHC (test code = 1007) 32.5 G/DL RDW (test code = 1038) 13.4 % NEUTROPHILS (test code = 1008) 70.2 % LYMPHOCYTES (test code = 1010) 21.3 % MONOCYTES (test code = 1011) 6.3 % EOSINOPHILS (test code = 1012) 1.8 % BASOPHILS (test code = 1013) 0.4 % PLATELET COUNT (test code = 1015) 302 K/UL LIPID [id number] 00:00:00 Test Item Value Reference Range Interpretation Comments CHOLESTEROL (test code = 2210) 183 MG/DL TRIGLYCERIDES (test code = 2232) 334 MG/DL HDL CHOLESTEROL (test code = 2220) 36 MG/DL CALC LDL CHOL (test code = 2237) 80 MG/DL RISK RATIO LDL/HDL (test code = 2.23 RATIO 2238) LIPID [id number] 00:00:00 Test Item Value Reference Range Interpretation Comments CHOLESTEROL (test code = 2210) 183 MG/DL TRIGLYCERIDES (test code = 2232) 334 MG/DL HDL CHOLESTEROL (test code = 2220) 36 MG/DL CALC LDL CHOL (test code = 2237) 80 MG/DL RISK RATIO LDL/HDL (test code = 2.23 RATIO 2238) C-REACTIVE [id number] 00:00:00 Test Item Value Reference Range Interpretation Comments C-REACTIVE PROTEIN (test code = 0.7 MG/DL 3513) C-REACTIVE [id number] 00:00:00 Test Item Value Reference Range Interpretation Comments C-REACTIVE PROTEIN (test code = 0.7 MG/DL 3513) VITAMIN D, 25 [id number] 00:00:00 Test Item Value Reference Range Interpretation Comments VITAMIN D, 25 OH (test code = 4958) 16 NG/ML VITAMIN D, 25 [id number] 00:00:00 Test Item Value Reference Range Interpretation Comments VITAMIN D, 25 OH (test code = 4958) 16 NG/ML [id number] 00:00:00 Test Item Value Reference Range Interpretation Comments MAGNESIUM (test code = 2226) 1.8 MG/DL [id number] 00:00:00 Test Item Value Reference Range Interpretation Comments MAGNESIUM (test code = 2226) 1.8 MG/DL [id number] 00:00:00 Test Item Value Reference Range Interpretation Comments MAGNESIUM (test code = 2226) 1.8 MG/DL PAP TEST, THINPREP, [id number] 00:00:00 Test Item Value Reference Range Interpretation Comments SOURCE: (test code = Cervical/Endocervical 8001) SLIDES: (test code = 1 8011) LMP: (test code = 03/01/18 8021) SPECIMEN ADEQUACY: (NOTE) (test code = 67703) INTERPRETATION: (test NO EPITHELIAL code = 30454) ABNORMALITY SEE BELOW OTHER COMMENTS: (test (NOTE) code = 8081) ORGANIC CHEMISTRY PROFESSOR: MERYL Busby (test code = 8101) (ASCP) LOCATION: (test code (NOTE) = 60526) CPT: (test code = (NOTE) 8140) PAP TEST, THINPREP, [id number] 00:00:00 Test Item Value Reference Range Interpretation Comments SOURCE: (test code = Cervical/Endocervical 8001) SLIDES: (test code = 1 8011) LMP: (test code = 03/01/18 8021) SPECIMEN ADEQUACY: (NOTE) (test code = 49497) INTERPRETATION: (test NO EPITHELIAL code = 33374) ABNORMALITY SEE BELOW OTHER COMMENTS: (test (NOTE) code = 8081) ORGANIC CHEMISTRY PROFESSOR: MERYL Busby (test code = 8101) (ASCP) LOCATION: (test code (NOTE) = 93663) CPT: (test code = (NOTE) 8140) PAP TEST, THINPREP, [id number] 00:00:00 Test Item Value Reference Range Interpretation Comments SOURCE: (test code = Cervical/Endocervical 8001) SLIDES: (test code = 1 8011) LMP: (test code = 03/01/18 8021) SPECIMEN ADEQUACY: (NOTE) (test code = 99195) INTERPRETATION: (test NO EPITHELIAL code = 60202) ABNORMALITY SEE BELOW OTHER COMMENTS: (test (NOTE) code = 8081) ORGANIC CHEMISTRY PROFESSOR: MERYL Busby (test code = 8101) (ASCP) LOCATION: (test code (NOTE) = 30634) CPT: (test code = (NOTE) 8140) PAP TEST, THINPREP, [id number] 00:00:00 Test Item Value Reference Range Interpretation Comments SOURCE: (test code = Cervical/Endocervical 8001) SLIDES: (test code = 1 8011) LMP: (test code = 03/01/18 8021) SPECIMEN ADEQUACY: (NOTE) (test code = 15830) INTERPRETATION: (test NO EPITHELIAL code = 62894) ABNORMALITY SEE BELOW OTHER COMMENTS: (test (NOTE) code = 8081) ORGANIC CHEMISTRY PROFESSOR: MERYL Busby (test code = 8101) (ASCP) LOCATION: (test code (NOTE) = 99111) CPT: (test code = (NOTE) 8140) PAP TEST, THINPREP, [id number] 00:00:00 Test Item Value Reference Range Interpretation Comments SOURCE: (test code = Cervical/Endocervical 8001) SLIDES: (test code = 1 8011) LMP: (test code = 03/01/18 8021) SPECIMEN ADEQUACY: (NOTE) (test code = 15395) INTERPRETATION: (test NO EPITHELIAL code = 67875) ABNORMALITY SEE BELOW OTHER COMMENTS: (test (NOTE) code = 8081) ORGANIC CHEMISTRY PROFESSOR: MERYL Busby (test code = 8101) (ASCP) LOCATION: (test code (NOTE) = 50395) CPT: (test code = (NOTE) 8140) PAP TEST, THINPREP, [id number] 00:00:00 Test Item Value Reference Range Interpretation Comments SOURCE: (test code = Cervical/Endocervical 8001) SLIDES: (test code = 1 8011) LMP: (test code = 03/01/18 8021) SPECIMEN ADEQUACY: (NOTE) (test code = 52377) INTERPRETATION: (test NO EPITHELIAL code = 19475) ABNORMALITY SEE BELOW OTHER COMMENTS: (test (NOTE) code = 8081) ORGANIC CHEMISTRY PROFESSOR: MERYL Busby (test code = 8101) (ASCP) LOCATION: (test code (NOTE) = 29523) CPT: (test code = (NOTE) 8140) PAP TEST, THINPREP, [id number] 00:00:00 Test Item Value Reference Range Interpretation Comments SOURCE: (test code = Cervical/Endocervical 8001) SLIDES: (test code = 1 8011) LMP: (test code = 03/01/18 8021) SPECIMEN ADEQUACY: (NOTE) (test code = 76268) INTERPRETATION: (test NO EPITHELIAL code = 81952) ABNORMALITY SEE BELOW OTHER COMMENTS: (test (NOTE) code = 8081) ORGANIC CHEMISTRY PROFESSOR: MERYL Busby (test code = 8101) (ASCP) LOCATION: (test code (NOTE) = 02149) CPT: (test code = (NOTE) 8140) HPV HIGH RISK WITH GENOTYPE, [id number] 00:00:00 Test Item Value Reference Range Interpretation Comments HPV HIGH RISK INTERP (test code = NEGATIVE 51903) HPV 16 (test code = 89008) NEGATIVE HPV 18 (test code = 15407) NEGATIVE HPV, HR, OTHER GENOTYPES (test code NEGATIVE = 57085) HPV HIGH RISK WITH GENOTYPE, [id number] 00:00:00 Test Item Value Reference Range Interpretation Comments HPV HIGH RISK INTERP (test code = NEGATIVE 71309) HPV 16 (test code = 93560) NEGATIVE HPV 18 (test code = 49952) NEGATIVE HPV, HR, OTHER GENOTYPES (test code NEGATIVE = 21476) HPV HIGH RISK WITH GENOTYPE, [id number] 00:00:00 Test Item Value Reference Range Interpretation Comments HPV HIGH RISK INTERP (test code = NEGATIVE 55989) HPV 16 (test code = 66166) NEGATIVE HPV 18 (test code = 63038) NEGATIVE HPV, HR, OTHER GENOTYPES (test code NEGATIVE = 02245) HPV HIGH RISK WITH GENOTYPE, [id number] 00:00:00 Test Item Value Reference Range Interpretation Comments HPV HIGH RISK INTERP (test code = NEGATIVE 85126) HPV 16 (test code = 48594) NEGATIVE HPV 18 (test code = 46109) NEGATIVE HPV, HR, OTHER GENOTYPES (test code NEGATIVE = 19243) HPV HIGH RISK WITH GENOTYPE, [id number] 00:00:00 Test Item Value Reference Range Interpretation Comments HPV HIGH RISK INTERP (test code = NEGATIVE 77699) HPV 16 (test code = 63525) NEGATIVE HPV 18 (test code = 14227) NEGATIVE HPV, HR, OTHER GENOTYPES (test code NEGATIVE = 52473) HPV HIGH RISK WITH GENOTYPE, [id number] 00:00:00 Test Item Value Reference Range Interpretation Comments HPV HIGH RISK INTERP (test code = NEGATIVE 17417) HPV 16 (test code = 83227) NEGATIVE HPV 18 (test code = 26675) NEGATIVE HPV, HR, OTHER GENOTYPES (test code NEGATIVE = 19716) HPV HIGH RISK WITH GENOTYPE, [id number] 00:00:00 Test Item Value Reference Range Interpretation Comments HPV HIGH RISK INTERP (test code = NEGATIVE 08393) HPV 16 (test code = 73591) NEGATIVE HPV 18 (test code = 16211) NEGATIVE HPV, HR, OTHER GENOTYPES (test code NEGATIVE = 38107) COMPREHENSIVE METABOLIC [id number] 00:00:00 Test Item Value Reference Range Interpretation Comments GLUCOSE (test code = 2217) 115 MG/DL BUN (test code = 2208) 10 MG/DL CREATININE (test code = 2214) 0.57 MG/DL eGFR AMER. (test code 138 ML/MIN/1.73 = 00113) eGFR NON- AMER. (test 119 ML/MIN/1.73 code = 76100) CALC BUN/CREAT (test code = 18 RATIO 2235) SODIUM (test code = 2231) 142 MEQ/L POTASSIUM (test code = 2228) 4.6 MEQ/L CHLORIDE (test code = 2215) 105 MEQ/L CARBON DIOXIDE (test code = 25 MEQ/L 2206) CALCIUM (test code = 2209) 9.3 MG/DL PROTEIN, TOTAL (test code = 7.4 G/DL 2229) ALBUMIN (test code = 2201) 4.3 G/DL CALC GLOBULIN (test code = 3.1 G/DL 2240) CALC A/G RATIO (test code = 1.4 RATIO 2234) BILIRUBIN, TOTAL (test code = 0.3 MG/DL 220) ALKALINE PHOSPHATASE (test 86 U/L code = 2204) AST (test code = 2218) 14 U/L ALT (test code = 2219) 13 U/L COMPREHENSIVE METABOLIC [id number] 00:00:00 Test Item Value Reference Range Interpretation Comments GLUCOSE (test code = 2217) 115 MG/DL BUN (test code = 2208) 10 MG/DL CREATININE (test code = 2214) 0.57 MG/DL eGFR AMER. (test code 138 ML/MIN/1.73 = 11016) eGFR NON- AMER. (test 119 ML/MIN/1.73 code = 56153) CALC BUN/CREAT (test code = 18 RATIO 2235) SODIUM (test code = 2231) 142 MEQ/L POTASSIUM (test code = 2228) 4.6 MEQ/L CHLORIDE (test code = 2215) 105 MEQ/L CARBON DIOXIDE (test code = 25 MEQ/L 2206) CALCIUM (test code = 2209) 9.3 MG/DL PROTEIN, TOTAL (test code = 7.4 G/DL 2228) ALBUMIN (test code = 2201) 4.3 G/DL CALC GLOBULIN (test code = 3.1 G/DL 2240) CALC A/G RATIO (test code = 1.4 RATIO 2234) BILIRUBIN, TOTAL (test code = 0.3 MG/DL 2206) ALKALINE PHOSPHATASE (test 86 U/L code = 2204) AST (test code = 2218) 14 U/L ALT (test code = 2219) 13 U/L COMPREHENSIVE METABOLIC [id number] 00:00:00 Test Item Value Reference Range Interpretation Comments GLUCOSE (test code = 2217) 115 MG/DL BUN (test code = 2208) 10 MG/DL CREATININE (test code = 2214) 0.57 MG/DL eGFR AMER. (test code 138 ML/MIN/1.73 = 94663) eGFR NON- AMER. (test 119 ML/MIN/1.73 code = 68704) CALC BUN/CREAT (test code = 18 RATIO 2235) SODIUM (test code = 2231) 142 MEQ/L POTASSIUM (test code = 2228) 4.6 MEQ/L CHLORIDE (test code = 2215) 105 MEQ/L CARBON DIOXIDE (test code = 25 MEQ/L 2205) CALCIUM (test code = 2209) 9.3 MG/DL PROTEIN, TOTAL (test code = 7.4 G/DL 2228) ALBUMIN (test code = 2201) 4.3 G/DL CALC GLOBULIN (test code = 3.1 G/DL 2240) CALC A/G RATIO (test code = 1.4 RATIO 2234) BILIRUBIN, TOTAL (test code = 0.3 MG/DL 2206) ALKALINE PHOSPHATASE (test 86 U/L code = 2204) AST (test code = 2218) 14 U/L ALT (test code = 2219) 13 U/L COMPREHENSIVE METABOLIC [id number] 00:00:00 Test Item Value Reference Range Interpretation Comments GLUCOSE (test code = 2217) 115 MG/DL BUN (test code = 2208) 10 MG/DL CREATININE (test code = 2214) 0.57 MG/DL eGFR AMER. (test code 138 ML/MIN/1.73 = 30638) eGFR NON- AMER. (test 119 ML/MIN/1.73 code = 92548) CALC BUN/CREAT (test code = 18 RATIO 2235) SODIUM (test code = 2231) 142 MEQ/L POTASSIUM (test code = 2228) 4.6 MEQ/L CHLORIDE (test code = 2215) 105 MEQ/L CARBON DIOXIDE (test code = 25 MEQ/L 220) CALCIUM (test code = 2209) 9.3 MG/DL PROTEIN, TOTAL (test code = 7.4 G/DL 2228) ALBUMIN (test code = 2201) 4.3 G/DL CALC GLOBULIN (test code = 3.1 G/DL 0) CALC A/G RATIO (test code = 1.4 RATIO 2234) BILIRUBIN, TOTAL (test code = 0.3 MG/DL 2206) ALKALINE PHOSPHATASE (test 86 U/L code = 2204) AST (test code = 2218) 14 U/L ALT (test code = 2219) 13 U/L COMPREHENSIVE METABOLIC [id number] 00:00:00 Test Item Value Reference Range Interpretation Comments GLUCOSE (test code = 2217) 115 MG/DL BUN (test code = 2208) 10 MG/DL CREATININE (test code = 2214) 0.57 MG/DL eGFR AMER. (test code 138 ML/MIN/1.73 = 49529) eGFR NON- AMER. (test 119 ML/MIN/1.73 code = 55890) CALC BUN/CREAT (test code = 18 RATIO 2235) SODIUM (test code = 2231) 142 MEQ/L POTASSIUM (test code = 2228) 4.6 MEQ/L CHLORIDE (test code = 2215) 105 MEQ/L CARBON DIOXIDE (test code = 25 MEQ/L 220) CALCIUM (test code = 2209) 9.3 MG/DL PROTEIN, TOTAL (test code = 7.4 G/DL 2228) ALBUMIN (test code = 2201) 4.3 G/DL CALC GLOBULIN (test code = 3.1 G/DL 2240) CALC A/G RATIO (test code = 1.4 RATIO 2234) BILIRUBIN, TOTAL (test code = 0.3 MG/DL 2207) ALKALINE PHOSPHATASE (test 86 U/L code = 2204) AST (test code = 2218) 14 U/L ALT (test code = 2219) 13 U/L COMPREHENSIVE METABOLIC [id number] 00:00:00 Test Item Value Reference Range Interpretation Comments GLUCOSE (test code = 2217) 115 MG/DL BUN (test code = 2208) 10 MG/DL CREATININE (test code = 2214) 0.57 MG/DL eGFR AMER. (test code 138 ML/MIN/1.73 = 05002) eGFR NON- AMER. (test 119 ML/MIN/1.73 code = 37565) CALC BUN/CREAT (test code = 18 RATIO 2235) SODIUM (test code = 2231) 142 MEQ/L POTASSIUM (test code = 2228) 4.6 MEQ/L CHLORIDE (test code = 2215) 105 MEQ/L CARBON DIOXIDE (test code = 25 MEQ/L 2205) CALCIUM (test code = 2209) 9.3 MG/DL PROTEIN, TOTAL (test code = 7.4 G/DL 2229) ALBUMIN (test code = 2201) 4.3 G/DL CALC GLOBULIN (test code = 3.1 G/DL 2240) CALC A/G RATIO (test code = 1.4 RATIO 2234) BILIRUBIN, TOTAL (test code = 0.3 MG/DL 2207) ALKALINE PHOSPHATASE (test 86 U/L code = 2204) AST (test code = 2218) 14 U/L ALT (test code = 2219) 13 U/L COMPREHENSIVE METABOLIC [id number] 00:00:00 Test Item Value Reference Range Interpretation Comments GLUCOSE (test code = 2217) 115 MG/DL BUN (test code = 2208) 10 MG/DL CREATININE (test code = 2214) 0.57 MG/DL eGFR AMER. (test code 138 ML/MIN/1.73 = 02734) eGFR NON- AMER. (test 119 ML/MIN/1.73 code = 45547) CALC BUN/CREAT (test code = 18 RATIO 2235) SODIUM (test code = 2231) 142 MEQ/L POTASSIUM (test code = 2228) 4.6 MEQ/L CHLORIDE (test code = 2215) 105 MEQ/L CARBON DIOXIDE (test code = 25 MEQ/L 2205) CALCIUM (test code = 2209) 9.3 MG/DL PROTEIN, TOTAL (test code = 7.4 G/DL 2228) ALBUMIN (test code = 2201) 4.3 G/DL CALC GLOBULIN (test code = 3.1 G/DL 2239) CALC A/G RATIO (test code = 1.4 RATIO 2233) BILIRUBIN, TOTAL (test code = 0.3 MG/DL 2206) ALKALINE PHOSPHATASE (test 86 U/L code = 2204) AST (test code = 2218) 14 U/L ALT (test code = 2219) 13 U/L PAP TEST, THINPREP, [id number] 00:00:00 Test Item Value Reference Range Interpretation Comments SOURCE: (test code = Cervical/Endocervical 8001) SLIDES: (test code = 1 8011) LMP: (test code = 03/04/2016 8021) SPECIMEN ADEQUACY: (NOTE) (test code = 26803) INTERPRETATION: (test NO EPITHELIAL code = 57598) ABNORMALITY SEE BELOW ORGANIC CHEMISTRY PROFESSOR: MERYL LOYD(ASCP) (test code = 8101) LOCATION: (test code (NOTE) = 33754) CPT: (test code = (NOTE) 8140) PAP TEST, THINPREP, [id number] 00:00:00 Test Item Value Reference Range Interpretation Comments SOURCE: (test code = Cervical/Endocervical 8001) SLIDES: (test code = 1 8011) LMP: (test code = 03/04/2016 8021) SPECIMEN ADEQUACY: (NOTE) (test code = 17892) INTERPRETATION: (test NO EPITHELIAL code = 67049) ABNORMALITY SEE BELOW ORGANIC CHEMISTRY PROFESSOR: MERYL LOYD(ASCP) (test code = 8101) LOCATION: (test code (NOTE) = 73324) CPT: (test code = (NOTE) 8140) HPV HIGH RISK WITH GENOTYPE, [id number] 00:00:00 Test Item Value Reference Range Interpretation Comments HPV HIGH RISK INTERP (test code = NEGATIVE 94872) HPV 16 (test code = 91823) NEGATIVE HPV 18 (test code = 76143) NEGATIVE HPV, HR, OTHER GENOTYPES (test code NEGATIVE = 58864) HPV HIGH RISK WITH GENOTYPE, [id number] 00:00:00 Test Item Value Reference Range Interpretation Comments HPV HIGH RISK INTERP (test code = NEGATIVE 70607) HPV 16 (test code = 70604) NEGATIVE HPV 18 (test code = 47090) NEGATIVE HPV, HR, OTHER GENOTYPES (test code NEGATIVE = 43339) PAP TEST, THINPREP, [id number] 00:00:00 Test Item Value Reference Range Interpretation Comments SOURCE: (test code = Cervical/Endocervical 8001) SLIDES: (test code = 1 8011) LMP: (test code = 03/04/2016 8021) SPECIMEN ADEQUACY: (NOTE) (test code = 12227) INTERPRETATION: (test NO EPITHELIAL code = 52764) ABNORMALITY SEE BELOW ORGANIC CHEMISTRY PROFESSOR: MERYL LOYD(ASCP) (test code = 8101) LOCATION: (test code (NOTE) = 26368) CPT: (test code = (NOTE) 8140) HPV HIGH RISK WITH GENOTYPE, [id number] 00:00:00 Test Item Value Reference Range Interpretation Comments HPV HIGH RISK INTERP (test code = NEGATIVE 19640) HPV 16 (test code = 82910) NEGATIVE HPV 18 (test code = 75578) NEGATIVE HPV, HR, OTHER GENOTYPES (test code NEGATIVE = 73285) PAP TEST, THINPREP, [id number] 00:00:00 Test Item Value Reference Range Interpretation Comments SOURCE: (test code = Cervical/Endocervical 8001) SLIDES: (test code = 1 8011) LMP: (test code = 03/04/2016 8021) SPECIMEN ADEQUACY: (NOTE) (test code = 57680) INTERPRETATION: (test NO EPITHELIAL code = 66945) ABNORMALITY SEE BELOW ORGANIC CHEMISTRY PROFESSOR: MERYL LOYD(ASCP) (test code = 8101) LOCATION: (test code (NOTE) = 54474) CPT: (test code = (NOTE) 8140) PAP TEST, THINPREP, [id number] 00:00:00 Test Item Value Reference Range Interpretation Comments SOURCE: (test code = Cervical/Endocervical 8001) SLIDES: (test code = 1 8011) LMP: (test code = 03/04/2016 8021) SPECIMEN ADEQUACY: (NOTE) (test code = 71401) INTERPRETATION: (test NO EPITHELIAL code = 89564) ABNORMALITY SEE BELOW ORGANIC CHEMISTRY PROFESSOR: MERYL LOYD(ASCP) (test code = 8101) LOCATION: (test code (NOTE) = 61821) CPT: (test code = (NOTE) 8140) HPV HIGH RISK WITH GENOTYPE, [id number] 00:00:00 Test Item Value Reference Range Interpretation Comments HPV HIGH RISK INTERP (test code = NEGATIVE 84350) HPV 16 (test code = 51408) NEGATIVE HPV 18 (test code = 10597) NEGATIVE HPV, HR, OTHER GENOTYPES (test code NEGATIVE = 49134) HPV HIGH RISK WITH GENOTYPE, [id number] 00:00:00 Test Item Value Reference Range Interpretation Comments HPV HIGH RISK INTERP (test code = NEGATIVE 76649) HPV 16 (test code = 13229) NEGATIVE HPV 18 (test code = 46026) NEGATIVE HPV, HR, OTHER GENOTYPES (test code NEGATIVE = 31250) PAP TEST, THINPREP, [id number] 00:00:00 Test Item Value Reference Range Interpretation Comments SOURCE: (test code = Cervical/Endocervical 8001) SLIDES: (test code = 1 8011) LMP: (test code = 03/04/2016 8021) SPECIMEN ADEQUACY: (NOTE) (test code = 31589) INTERPRETATION: (test NO EPITHELIAL code = 66769) ABNORMALITY SEE BELOW ORGANIC CHEMISTRY PROFESSOR: MERYL LOYD(ASCP) (test code = 8101) LOCATION: (test code (NOTE) = 40873) CPT: (test code = (NOTE) 8140) PAP TEST, THINPREP, [id number] 00:00:00 Test Item Value Reference Range Interpretation Comments SOURCE: (test code = Cervical/Endocervical 8001) SLIDES: (test code = 1 8011) LMP: (test code = 03/04/2016 8021) SPECIMEN ADEQUACY: (NOTE) (test code = 97320) INTERPRETATION: (test NO EPITHELIAL code = 19736) ABNORMALITY SEE BELOW ORGANIC CHEMISTRY PROFESSOR: MERYL LOYD(ASCP) (test code = 8101) LOCATION: (test code (NOTE) = 79057) CPT: (test code = (NOTE) 8140) HPV HIGH RISK WITH GENOTYPE, [id number] 00:00:00 Test Item Value Reference Range Interpretation Comments HPV HIGH RISK INTERP (test code = NEGATIVE 05434) HPV 16 (test code = 16021) NEGATIVE HPV 18 (test code = 91447) NEGATIVE HPV, HR, OTHER GENOTYPES (test code NEGATIVE = 72798) HPV HIGH RISK WITH GENOTYPE, [id number] 00:00:00 Test Item Value Reference Range Interpretation Comments HPV HIGH RISK INTERP (test code = NEGATIVE 88534) HPV 16 (test code = 46732) NEGATIVE HPV 18 (test code = 75718) NEGATIVE HPV, HR, OTHER GENOTYPES (test code NEGATIVE = 15062) GC AND CHLAMYDIA AMPLIFIED, [id number] 00:00:00 Test Item Value Reference Range Interpretation Comments GONORRHEA, TMA (test code = 64451) NEGATIVE CHLAMYDIA, TMA (test code = 72470) NEGATIVE GC AND CHLAMYDIA AMPLIFIED, [id number] 00:00:00 Test Item Value Reference Range Interpretation Comments GONORRHEA, TMA (test code = 51881) NEGATIVE CHLAMYDIA, TMA (test code = 25134) NEGATIVE GC AND CHLAMYDIA AMPLIFIED, [id number] 00:00:00 Test Item Value Reference Range Interpretation Comments GONORRHEA, TMA (test code = 99540) NEGATIVE CHLAMYDIA, TMA (test code = 97655) NEGATIVE GC AND CHLAMYDIA AMPLIFIED, [id number] 00:00:00 Test Item Value Reference Range Interpretation Comments GONORRHEA, TMA (test code = 04568) NEGATIVE CHLAMYDIA, TMA (test code = 43830) NEGATIVE GC AND CHLAMYDIA AMPLIFIED, [id number] 00:00:00 Test Item Value Reference Range Interpretation Comments GONORRHEA, TMA (test code = 09544) NEGATIVE CHLAMYDIA, TMA (test code = 23694) NEGATIVE GC AND CHLAMYDIA AMPLIFIED, [id number] 00:00:00 Test Item Value Reference Range Interpretation Comments GONORRHEA, TMA (test code = 55875) NEGATIVE CHLAMYDIA, TMA (test code = 67090) NEGATIVE GC AND CHLAMYDIA AMPLIFIED, [id number] 00:00:00 Test Item Value Reference Range Interpretation Comments GONORRHEA, TMA (test code = 00742) NEGATIVE CHLAMYDIA, TMA (test code = 52688) NEGATIVE HEMOGLOBIN [id number] 00:00:00 Test Item Value Reference Range Interpretation Comments HEMOGLOBIN A1c (test code = 23688) 5.9 % HEMOGLOBIN [id number] 00:00:00 Test Item Value Reference Range Interpretation Comments HEMOGLOBIN A1c (test code = 78085) 5.9 % HEMOGLOBIN [id number] 00:00:00 Test Item Value Reference Range Interpretation Comments HEMOGLOBIN A1c (test code = 80618) 5.9 % HEMOGLOBIN [id number] 00:00:00 Test Item Value Reference Range Interpretation Comments HEMOGLOBIN A1c (test code = 35616) 5.9 % CBC W/AUTO [id number] 00:00:00 Test Item Value Reference Range Interpretation Comments WBC (test code = 1001) 9.9 K/UL RBC (test code = 1002) 4.21 M/UL HEMOGLOBIN (test code = 1003) 12.0 G/DL HEMATOCRIT (test code = 1004) 35.1 % MCV (test code = 1005) 83.4 fL MCH (test code = 1006) 28.5 PG MCHC (test code = 1007) 34.2 G/DL RDW (test code = 1038) 13.9 % NEUTROPHILS (test code = 1008) 68 % LYMPHOCYTES (test code = 1010) 24 % MONOCYTES (test code = 1011) 6 % EOSINOPHILS (test code = 1012) 2 % BASOPHILS (test code = 1013) % PLATELET COUNT (test code = 1015) 253 K/UL CBC W/AUTO [id number] 00:00:00 Test Item Value Reference Range Interpretation Comments WBC (test code = 1001) 9.9 K/UL RBC (test code = 1002) 4.21 M/UL HEMOGLOBIN (test code = 1003) 12.0 G/DL HEMATOCRIT (test code = 1004) 35.1 % MCV (test code = 1005) 83.4 fL MCH (test code = 1006) 28.5 PG MCHC (test code = 1007) 34.2 G/DL RDW (test code = 1038) 13.9 % NEUTROPHILS (test code = 1008) 68 % LYMPHOCYTES (test code = 1010) 24 % MONOCYTES (test code = 1011) 6 % EOSINOPHILS (test code = 1012) 2 % BASOPHILS (test code = 1013) % PLATELET COUNT (test code = 1015) 253 K/UL CBC W/AUTO [id number] 00:00:00 Test Item Value Reference Range Interpretation Comments WBC (test code = 1001) 9.9 K/UL RBC (test code = 1002) 4.21 M/UL HEMOGLOBIN (test code = 1003) 12.0 G/DL HEMATOCRIT (test code = 1004) 35.1 % MCV (test code = 1005) 83.4 fL MCH (test code = 1006) 28.5 PG MCHC (test code = 1007) 34.2 G/DL RDW (test code = 1038) 13.9 % NEUTROPHILS (test code = 1008) 68 % LYMPHOCYTES (test code = 1010) 24 % MONOCYTES (test code = 1011) 6 % EOSINOPHILS (test code = 1012) 2 % BASOPHILS (test code = 1013) % PLATELET COUNT (test code = 1015) 253 K/UL COMPREHENSIVE METABOLIC [id number] 00:00:00 Test Item Value Reference Range Interpretation Comments GLUCOSE (test code = 2217) 84 MG/DL BUN (test code = 2208) 10 MG/DL CREATININE (test code = 2214) 0.47 MG/DL eGFR AMER. (test code 147 ML/MIN/1.73 = 89290) eGFR NON- AMER. (test 127 ML/MIN/1.73 code = 85082) CALCULATED BUN/CREAT (test 21 RATIO code = 2235) SODIUM (test code = 2231) 133 MEQ/L POTASSIUM (test code = 2228) 4.0 MEQ/L CHLORIDE (test code = 2215) 105 MEQ/L CARBON DIOXIDE (test code = 22 MEQ/L 2205) CALCIUM (test code = 2209) 9.1 MG/DL PROTEIN, TOTAL (test code = 6.7 G/DL 2228) ALBUMIN (test code = 2201) 3.9 G/DL CALCULATED GLOBULIN (test 2.8 G/DL code = 2240) CALCULATED A/G RATIO (test 1.4 RATIO code = 2234) BILIRUBIN, TOTAL (test code = 0.5 MG/DL 2206) ALKALINE PHOSPHATASE (test 64 U/L code = 2204) SGOT (AST) (test code = 2218) 12 U/L SGPT (ALT) (test code = 2219) 10 U/L COMPREHENSIVE METABOLIC [id number] 00:00:00 Test Item Value Reference Range Interpretation Comments GLUCOSE (test code = 2217) 84 MG/DL BUN (test code = 2208) 10 MG/DL CREATININE (test code = 2214) 0.47 MG/DL eGFR AMER. (test code 147 ML/MIN/1.73 = 95099) eGFR NON- AMER. (test 127 ML/MIN/1.73 code = 17914) CALCULATED BUN/CREAT (test 21 RATIO code = 2235) SODIUM (test code = 2231) 133 MEQ/L POTASSIUM (test code = 2228) 4.0 MEQ/L CHLORIDE (test code = 2215) 105 MEQ/L CARBON DIOXIDE (test code = 22 MEQ/L 2205) CALCIUM (test code = 2209) 9.1 MG/DL PROTEIN, TOTAL (test code = 6.7 G/DL 2228) ALBUMIN (test code = 2201) 3.9 G/DL CALCULATED GLOBULIN (test 2.8 G/DL code = 2240) CALCULATED A/G RATIO (test 1.4 RATIO code = 2234) BILIRUBIN, TOTAL (test code = 0.5 MG/DL 2206) ALKALINE PHOSPHATASE (test 64 U/L code = 2204) SGOT (AST) (test code = 2218) 12 U/L SGPT (ALT) (test code = 2219) 10 U/L LIPID [id number] 00:00:00 Test Item Value Reference Range Interpretation Comments CHOLESTEROL (test code = 2210) 164 MG/DL TRIGLYCERIDES (test code = 2232) 151 MG/DL HDL CHOLESTEROL (test code = 2220) 39 MG/DL CALCULATED LDL CHOL (test code = 95 MG/DL 2237) RISK RATIO LDL/HDL (test code = 2.43 RATIO 2238) LIPID [id number] 00:00:00 Test Item Value Reference Range Interpretation Comments CHOLESTEROL (test code = 2210) 164 MG/DL TRIGLYCERIDES (test code = 2232) 151 MG/DL HDL CHOLESTEROL (test code = 2220) 39 MG/DL CALCULATED LDL CHOL (test code = 95 MG/DL 2237) RISK RATIO LDL/HDL (test code = 2.43 RATIO 2238) THYROID II PROFILE (T3U, T4, T7, TSH)[id number] 00:00:00 Test Item Value Reference Range Interpretation Comments T3 UPTAKE (test code = 2817) 24.7 % T4 (THYROXINE) (test code = 2819) 9.2 UG/DL CALCULATED T7 (FTI) (test code = 2.27 2820) TSH (test code = 2821) 0.9 UIU/ML THYROID II PROFILE (T3U, T4, T7, TSH)[id number] 00:00:00 Test Item Value Reference Range Interpretation Comments T3 UPTAKE (test code = 2817) 24.7 % T4 (THYROXINE) (test code = 2819) 9.2 UG/DL CALCULATED T7 (FTI) (test code = 2.27 2820) TSH (test code = 2821) 0.9 UIU/ML CBC W/AUTO [id number] 00:00:00 Test Item Value Reference Range Interpretation Comments WBC (test code = 1001) 9.9 K/UL RBC (test code = 1002) 4.21 M/UL HEMOGLOBIN (test code = 1003) 12.0 G/DL HEMATOCRIT (test code = 1004) 35.1 % MCV (test code = 1005) 83.4 fL MCH (test code = 1006) 28.5 PG MCHC (test code = 1007) 34.2 G/DL RDW (test code = 1038) 13.9 % NEUTROPHILS (test code = 1008) 68 % LYMPHOCYTES (test code = 1010) 24 % MONOCYTES (test code = 1011) 6 % EOSINOPHILS (test code = 1012) 2 % BASOPHILS (test code = 1013) % PLATELET COUNT (test code = 1015) 253 K/UL CBC W/AUTO [id number] 00:00:00 Test Item Value Reference Range Interpretation Comments WBC (test code = 1001) 9.9 K/UL RBC (test code = 1002) 4.21 M/UL HEMOGLOBIN (test code = 1003) 12.0 G/DL HEMATOCRIT (test code = 1004) 35.1 % MCV (test code = 1005) 83.4 fL MCH (test code = 1006) 28.5 PG MCHC (test code = 1007) 34.2 G/DL RDW (test code = 1038) 13.9 % NEUTROPHILS (test code = 1008) 68 % LYMPHOCYTES (test code = 1010) 24 % MONOCYTES (test code = 1011) 6 % EOSINOPHILS (test code = 1012) 2 % BASOPHILS (test code = 1013) % PLATELET COUNT (test code = 1015) 253 K/UL COMPREHENSIVE METABOLIC [id number] 00:00:00 Test Item Value Reference Range Interpretation Comments GLUCOSE (test code = 2217) 84 MG/DL BUN (test code = 2208) 10 MG/DL CREATININE (test code = 2214) 0.47 MG/DL eGFR AMER. (test code 147 ML/MIN/1.73 = 58451) eGFR NON- AMER. (test 127 ML/MIN/1.73 code = 55985) CALCULATED BUN/CREAT (test 21 RATIO code = 2235) SODIUM (test code = 2231) 133 MEQ/L POTASSIUM (test code = 2228) 4.0 MEQ/L CHLORIDE (test code = 2215) 105 MEQ/L CARBON DIOXIDE (test code = 22 MEQ/L 2205) CALCIUM (test code = 2209) 9.1 MG/DL PROTEIN, TOTAL (test code = 6.7 G/DL 2228) ALBUMIN (test code = 2201) 3.9 G/DL CALCULATED GLOBULIN (test 2.8 G/DL code = 2240) CALCULATED A/G RATIO (test 1.4 RATIO code = 2234) BILIRUBIN, TOTAL (test code = 0.5 MG/DL 2206) ALKALINE PHOSPHATASE (test 64 U/L code = 2204) SGOT (AST) (test code = 2218) 12 U/L SGPT (ALT) (test code = 2219) 10 U/L LIPID [id number] 00:00:00 Test Item Value Reference Range Interpretation Comments CHOLESTEROL (test code = 2210) 164 MG/DL TRIGLYCERIDES (test code = 2232) 151 MG/DL HDL CHOLESTEROL (test code = 2220) 39 MG/DL CALCULATED LDL CHOL (test code = 95 MG/DL 2236) RISK RATIO LDL/HDL (test code = 2.43 RATIO 2238) THYROID II PROFILE (T3U, T4, T7, TSH)[id number] 00:00:00 Test Item Value Reference Range Interpretation Comments T3 UPTAKE (test code = 2817) 24.7 % T4 (THYROXINE) (test code = 2819) 9.2 UG/DL CALCULATED T7 (FTI) (test code = 2.27 0) TSH (test code = 2821) 0.9 UIU/ML HEMOGLOBIN [id number] 00:00:00 Test Item Value Reference Range Interpretation Comments HEMOGLOBIN A1c (test code = 34760) 5.9 % HEMOGLOBIN [id number] 00:00:00 Test Item Value Reference Range Interpretation Comments HEMOGLOBIN A1c (test code = 89121) 5.9 % HEMOGLOBIN [id number] 00:00:00 Test Item Value Reference Range Interpretation Comments HEMOGLOBIN A1c (test code = 72849) 5.9 % CBC W/AUTO [id number] 00:00:00 Test Item Value Reference Range Interpretation Comments WBC (test code = 1001) 9.9 K/UL RBC (test code = 1002) 4.21 M/UL HEMOGLOBIN (test code = 1003) 12.0 G/DL HEMATOCRIT (test code = 1004) 35.1 % MCV (test code = 1005) 83.4 fL MCH (test code = 1006) 28.5 PG MCHC (test code = 1007) 34.2 G/DL RDW (test code = 1038) 13.9 % NEUTROPHILS (test code = 1008) 68 % LYMPHOCYTES (test code = 1010) 24 % MONOCYTES (test code = 1011) 6 % EOSINOPHILS (test code = 1012) 2 % BASOPHILS (test code = 1013) % PLATELET COUNT (test code = 1015) 253 K/UL CBC W/AUTO [id number] 00:00:00 Test Item Value Reference Range Interpretation Comments WBC (test code = 1001) 9.9 K/UL RBC (test code = 1002) 4.21 M/UL HEMOGLOBIN (test code = 1003) 12.0 G/DL HEMATOCRIT (test code = 1004) 35.1 % MCV (test code = 1005) 83.4 fL MCH (test code = 1006) 28.5 PG MCHC (test code = 1007) 34.2 G/DL RDW (test code = 1038) 13.9 % NEUTROPHILS (test code = 1008) 68 % LYMPHOCYTES (test code = 1010) 24 % MONOCYTES (test code = 1011) 6 % EOSINOPHILS (test code = 1012) 2 % BASOPHILS (test code = 1013) % PLATELET COUNT (test code = 1015) 253 K/UL CBC W/AUTO [id number] 00:00:00 Test Item Value Reference Range Interpretation Comments WBC (test code = 1001) 9.9 K/UL RBC (test code = 1002) 4.21 M/UL HEMOGLOBIN (test code = 1003) 12.0 G/DL HEMATOCRIT (test code = 1004) 35.1 % MCV (test code = 1005) 83.4 fL MCH (test code = 1006) 28.5 PG MCHC (test code = 1007) 34.2 G/DL RDW (test code = 1038) 13.9 % NEUTROPHILS (test code = 1008) 68 % LYMPHOCYTES (test code = 1010) 24 % MONOCYTES (test code = 1011) 6 % EOSINOPHILS (test code = 1012) 2 % BASOPHILS (test code = 1013) % PLATELET COUNT (test code = 1015) 253 K/UL COMPREHENSIVE METABOLIC [id number] 00:00:00 Test Item Value Reference Range Interpretation Comments GLUCOSE (test code = 2217) 84 MG/DL BUN (test code = 2208) 10 MG/DL CREATININE (test code = 2214) 0.47 MG/DL eGFR AMER. (test code 147 ML/MIN/1.73 = 52652) eGFR NON- AMER. (test 127 ML/MIN/1.73 code = 18398) CALCULATED BUN/CREAT (test 21 RATIO code = 2235) SODIUM (test code = 2231) 133 MEQ/L POTASSIUM (test code = 2228) 4.0 MEQ/L CHLORIDE (test code = 2215) 105 MEQ/L CARBON DIOXIDE (test code = 22 MEQ/L 2206) CALCIUM (test code = 2209) 9.1 MG/DL PROTEIN, TOTAL (test code = 6.7 G/DL 2228) ALBUMIN (test code = 2201) 3.9 G/DL CALCULATED GLOBULIN (test 2.8 G/DL code = 2240) CALCULATED A/G RATIO (test 1.4 RATIO code = 2234) BILIRUBIN, TOTAL (test code = 0.5 MG/DL 2206) ALKALINE PHOSPHATASE (test 64 U/L code = 2204) SGOT (AST) (test code = 2218) 12 U/L SGPT (ALT) (test code = 2219) 10 U/L COMPREHENSIVE METABOLIC [id number] 00:00:00 Test Item Value Reference Range Interpretation Comments GLUCOSE (test code = 2217) 84 MG/DL BUN (test code = 2208) 10 MG/DL CREATININE (test code = 2214) 0.47 MG/DL eGFR AMER. (test code 147 ML/MIN/1.73 = 68492) eGFR NON- AMER. (test 127 ML/MIN/1.73 code = 53422) CALCULATED BUN/CREAT (test 21 RATIO code = 2235) SODIUM (test code = 2231) 133 MEQ/L POTASSIUM (test code = 2228) 4.0 MEQ/L CHLORIDE (test code = 2215) 105 MEQ/L CARBON DIOXIDE (test code = 22 MEQ/L 2205) CALCIUM (test code = 2209) 9.1 MG/DL PROTEIN, TOTAL (test code = 6.7 G/DL 2228) ALBUMIN (test code = 2201) 3.9 G/DL CALCULATED GLOBULIN (test 2.8 G/DL code = 2240) CALCULATED A/G RATIO (test 1.4 RATIO code = 2234) BILIRUBIN, TOTAL (test code = 0.5 MG/DL 2206) ALKALINE PHOSPHATASE (test 64 U/L code = 2204) SGOT (AST) (test code = 2218) 12 U/L SGPT (ALT) (test code = 2219) 10 U/L LIPID [id number] 00:00:00 Test Item Value Reference Range Interpretation Comments CHOLESTEROL (test code = 2210) 164 MG/DL TRIGLYCERIDES (test code = 2232) 151 MG/DL HDL CHOLESTEROL (test code = 2220) 39 MG/DL CALCULATED LDL CHOL (test code = 95 MG/DL 2237) RISK RATIO LDL/HDL (test code = 2.43 RATIO 2238) LIPID [id number] 00:00:00 Test Item Value Reference Range Interpretation Comments CHOLESTEROL (test code = 2210) 164 MG/DL TRIGLYCERIDES (test code = 2232) 151 MG/DL HDL CHOLESTEROL (test code = 2220) 39 MG/DL CALCULATED LDL CHOL (test code = 95 MG/DL 2237) RISK RATIO LDL/HDL (test code = 2.43 RATIO 2238) THYROID II PROFILE (T3U, T4, T7, TSH)[id number] 00:00:00 Test Item Value Reference Range Interpretation Comments T3 UPTAKE (test code = 2817) 24.7 % T4 (THYROXINE) (test code = 2819) 9.2 UG/DL CALCULATED T7 (FTI) (test code = 2.27 2820) TSH (test code = 2821) 0.9 UIU/ML THYROID II PROFILE (T3U, T4, T7, TSH)[id number] 00:00:00 Test Item Value Reference Range Interpretation Comments T3 UPTAKE (test code = 2817) 24.7 % T4 (THYROXINE) (test code = 2819) 9.2 UG/DL CALCULATED T7 (FTI) (test code = 2.0) TSH (test code = 2821) 0.9 UIU/ML HEMOGLOBIN [id number] 00:00:00 Test Item Value Reference Range Interpretation Comments HEMOGLOBIN A1c (test code = 63563) 5.9 % HEMOGLOBIN [id number] 00:00:00 Test Item Value Reference Range Interpretation Comments HEMOGLOBIN A1c (test code = 74321) 5.9 % HEMOGLOBIN [id number] 00:00:00 Test Item Value Reference Range Interpretation Comments HEMOGLOBIN A1c (test code = 74947) 5.9 % CBC W/AUTO [id number] 00:00:00 Test Item Value Reference Range Interpretation Comments WBC (test code = 1001) 9.9 K/UL RBC (test code = 1002) 4.21 M/UL HEMOGLOBIN (test code = 1003) 12.0 G/DL HEMATOCRIT (test code = 1004) 35.1 % MCV (test code = 1005) 83.4 fL MCH (test code = 1006) 28.5 PG MCHC (test code = 1007) 34.2 G/DL RDW (test code = 1038) 13.9 % NEUTROPHILS (test code = 1008) 68 % LYMPHOCYTES (test code = 1010) 24 % MONOCYTES (test code = 1011) 6 % EOSINOPHILS (test code = 1012) 2 % BASOPHILS (test code = 1013) % PLATELET COUNT (test code = 1015) 253 K/UL CBC W/AUTO [id number] 00:00:00 Test Item Value Reference Range Interpretation Comments WBC (test code = 1001) 9.9 K/UL RBC (test code = 1002) 4.21 M/UL HEMOGLOBIN (test code = 1003) 12.0 G/DL HEMATOCRIT (test code = 1004) 35.1 % MCV (test code = 1005) 83.4 fL MCH (test code = 1006) 28.5 PG MCHC (test code = 1007) 34.2 G/DL RDW (test code = 1038) 13.9 % NEUTROPHILS (test code = 1008) 68 % LYMPHOCYTES (test code = 1010) 24 % MONOCYTES (test code = 1011) 6 % EOSINOPHILS (test code = 1012) 2 % BASOPHILS (test code = 1013) % PLATELET COUNT (test code = 1015) 253 K/UL CBC W/AUTO [id number] 00:00:00 Test Item Value Reference Range Interpretation Comments WBC (test code = 1001) 9.9 K/UL RBC (test code = 1002) 4.21 M/UL HEMOGLOBIN (test code = 1003) 12.0 G/DL HEMATOCRIT (test code = 1004) 35.1 % MCV (test code = 1005) 83.4 fL MCH (test code = 1006) 28.5 PG MCHC (test code = 1007) 34.2 G/DL RDW (test code = 1038) 13.9 % NEUTROPHILS (test code = 1008) 68 % LYMPHOCYTES (test code = 1010) 24 % MONOCYTES (test code = 1011) 6 % EOSINOPHILS (test code = 1012) 2 % BASOPHILS (test code = 1013) % PLATELET COUNT (test code = 1015) 253 K/UL COMPREHENSIVE METABOLIC [id number] 00:00:00 Test Item Value Reference Range Interpretation Comments GLUCOSE (test code = 2217) 84 MG/DL BUN (test code = 2208) 10 MG/DL CREATININE (test code = 2214) 0.47 MG/DL eGFR AMER. (test code 147 ML/MIN/1.73 = 85659) eGFR NON- AMER. (test 127 ML/MIN/1.73 code = 03795) CALCULATED BUN/CREAT (test 21 RATIO code = 2235) SODIUM (test code = 2231) 133 MEQ/L POTASSIUM (test code = 2228) 4.0 MEQ/L CHLORIDE (test code = 2215) 105 MEQ/L CARBON DIOXIDE (test code = 22 MEQ/L 2205) CALCIUM (test code = 2209) 9.1 MG/DL PROTEIN, TOTAL (test code = 6.7 G/DL 2228) ALBUMIN (test code = 2201) 3.9 G/DL CALCULATED GLOBULIN (test 2.8 G/DL code = 2240) CALCULATED A/G RATIO (test 1.4 RATIO code = 2234) BILIRUBIN, TOTAL (test code = 0.5 MG/DL 2206) ALKALINE PHOSPHATASE (test 64 U/L code = 2204) SGOT (AST) (test code = 2218) 12 U/L SGPT (ALT) (test code = 2219) 10 U/L COMPREHENSIVE METABOLIC [id number] 00:00:00 Test Item Value Reference Range Interpretation Comments GLUCOSE (test code = 2217) 84 MG/DL BUN (test code = 2208) 10 MG/DL CREATININE (test code = 2214) 0.47 MG/DL eGFR AMER. (test code 147 ML/MIN/1.73 = 39075) eGFR NON- AMER. (test 127 ML/MIN/1.73 code = 32551) CALCULATED BUN/CREAT (test 21 RATIO code = 2235) SODIUM (test code = 2231) 133 MEQ/L POTASSIUM (test code = 2228) 4.0 MEQ/L CHLORIDE (test code = 2215) 105 MEQ/L CARBON DIOXIDE (test code = 22 MEQ/L 2205) CALCIUM (test code = 2209) 9.1 MG/DL PROTEIN, TOTAL (test code = 6.7 G/DL 2228) ALBUMIN (test code = 2201) 3.9 G/DL CALCULATED GLOBULIN (test 2.8 G/DL code = 2240) CALCULATED A/G RATIO (test 1.4 RATIO code = 2234) BILIRUBIN, TOTAL (test code = 0.5 MG/DL 2206) ALKALINE PHOSPHATASE (test 64 U/L code = 2204) SGOT (AST) (test code = 2218) 12 U/L SGPT (ALT) (test code = 2219) 10 U/L LIPID [id number] 00:00:00 Test Item Value Reference Range Interpretation Comments CHOLESTEROL (test code = 2210) 164 MG/DL TRIGLYCERIDES (test code = 2232) 151 MG/DL HDL CHOLESTEROL (test code = 2220) 39 MG/DL CALCULATED LDL CHOL (test code = 95 MG/DL 2236) RISK RATIO LDL/HDL (test code = 2.43 RATIO 2238) LIPID [id number] 00:00:00 Test Item Value Reference Range Interpretation Comments CHOLESTEROL (test code = 2210) 164 MG/DL TRIGLYCERIDES (test code = 2232) 151 MG/DL HDL CHOLESTEROL (test code = 2220) 39 MG/DL CALCULATED LDL CHOL (test code = 95 MG/DL 2237) RISK RATIO LDL/HDL (test code = 2.43 RATIO 2238) THYROID II PROFILE (T3U, T4, T7, TSH)[id number] 00:00:00 Test Item Value Reference Range Interpretation Comments T3 UPTAKE (test code = 2817) 24.7 % T4 (THYROXINE) (test code = 2819) 9.2 UG/DL CALCULATED T7 (FTI) (test code = 2.27 2820) TSH (test code = 2821) 0.9 UIU/ML THYROID II PROFILE (T3U, T4, T7, TSH)2015-09-28 00:00:00 Test Item Value Reference Range Interpretation Comments T3 UPTAKE (test code = 2817) 24.7 % T4 (THYROXINE) (test code = 2819) 9.2 UG/DL CALCULATED T7 (FTI) (test code = 2.27 2820) TSH (test code = 2821) 0.9 UIU/ML HEMOGLOBIN [id number] 00:00:00 Test Item Value Reference Range Interpretation Comments HEMOGLOBIN A1c (test code = 84433) 5.9 % HEMOGLOBIN [id number] 00:00:00 Test Item Value Reference Range Interpretation Comments HEMOGLOBIN A1c (test code = 94325) 6.1 % HEMOGLOBIN [id number] 00:00:00 Test Item Value Reference Range Interpretation Comments HEMOGLOBIN A1c (test code = 89938) 6.1 % HEMOGLOBIN [id number] 00:00:00 Test Item Value Reference Range Interpretation Comments HEMOGLOBIN A1c (test code = 85579) 6.1 % HEMOGLOBIN [id number] 00:00:00 Test Item Value Reference Range Interpretation Comments HEMOGLOBIN A1c (test code = 16903) 6.1 % CBC W/AUTO [id number] 00:00:00 Test Item Value Reference Range Interpretation Comments WBC (test code = 1001) 7.0 K/UL RBC (test code = 1002) 4.51 M/UL HEMOGLOBIN (test code = 1003) 12.9 G/DL HEMATOCRIT (test code = 1004) 39.0 % MCV (test code = 1005) 86.5 fL MCH (test code = 1006) 28.6 PG MCHC (test code = 1007) 33.1 G/DL RDW (test code = 1038) 13.5 % NEUTROPHILS (test code = 1008) 58 % LYMPHOCYTES (test code = 1010) 34 % MONOCYTES (test code = 1011) 6 % EOSINOPHILS (test code = 1012) 2 % BASOPHILS (test code = 1013) % PLATELET COUNT (test code = 1015) 286 K/UL CBC W/AUTO [id number] 00:00:00 Test Item Value Reference Range Interpretation Comments WBC (test code = 1001) 7.0 K/UL RBC (test code = 1002) 4.51 M/UL HEMOGLOBIN (test code = 1003) 12.9 G/DL HEMATOCRIT (test code = 1004) 39.0 % MCV (test code = 1005) 86.5 fL MCH (test code = 1006) 28.6 PG MCHC (test code = 1007) 33.1 G/DL RDW (test code = 1038) 13.5 % NEUTROPHILS (test code = 1008) 58 % LYMPHOCYTES (test code = 1010) 34 % MONOCYTES (test code = 1011) 6 % EOSINOPHILS (test code = 1012) 2 % BASOPHILS (test code = 1013) % PLATELET COUNT (test code = 1015) 286 K/UL CBC W/AUTO [id number] 00:00:00 Test Item Value Reference Range Interpretation Comments WBC (test code = 1001) 7.0 K/UL RBC (test code = 1002) 4.51 M/UL HEMOGLOBIN (test code = 1003) 12.9 G/DL HEMATOCRIT (test code = 1004) 39.0 % MCV (test code = 1005) 86.5 fL MCH (test code = 1006) 28.6 PG MCHC (test code = 1007) 33.1 G/DL RDW (test code = 1038) 13.5 % NEUTROPHILS (test code = 1008) 58 % LYMPHOCYTES (test code = 1010) 34 % MONOCYTES (test code = 1011) 6 % EOSINOPHILS (test code = 1012) 2 % BASOPHILS (test code = 1013) % PLATELET COUNT (test code = 1015) 286 K/UL COMPREHENSIVE METABOLIC [id number] 00:00:00 Test Item Value Reference Range Interpretation Comments GLUCOSE (test code = 2217) 88 MG/DL BUN (test code = 2208) 13 MG/DL CREATININE (test code = 2214) 0.6 MG/DL eGFR AMER. (test code 138 ML/MIN/1.73 = 89338) eGFR NON- AMER. (test 114 ML/MIN/1.73 code = 49652) CALCULATED BUN/CREAT (test 22 RATIO code = 2235) SODIUM (test code = 2231) 134 MEQ/L POTASSIUM (test code = 2228) 4.2 MEQ/L CHLORIDE (test code = 2215) 103 MEQ/L CARBON DIOXIDE (test code = 24 MEQ/L 220) CALCIUM (test code = 2209) 9.5 MG/DL PROTEIN, TOTAL (test code = 7.1 G/DL 2228) ALBUMIN (test code = 2201) 4.2 G/DL CALCULATED GLOBULIN (test 2.9 G/DL code = 2240) CALCULATED A/G RATIO (test 1.4 RATIO code = 2234) BILIRUBIN, TOTAL (test code = 0.7 MG/DL 2206) ALKALINE PHOSPHATASE (test 70 U/L code = 2204) SGOT (AST) (test code = 2218) 11 U/L SGPT (ALT) (test code = 2219) 8 U/L COMPREHENSIVE METABOLIC [id number] 00:00:00 Test Item Value Reference Range Interpretation Comments GLUCOSE (test code = 2217) 88 MG/DL BUN (test code = 2208) 13 MG/DL CREATININE (test code = 2214) 0.6 MG/DL eGFR AMER. (test code 138 ML/MIN/1.73 = 45647) eGFR NON- AMER. (test 114 ML/MIN/1.73 code = 44774) CALCULATED BUN/CREAT (test 22 RATIO code = 2235) SODIUM (test code = 2231) 134 MEQ/L POTASSIUM (test code = 2228) 4.2 MEQ/L CHLORIDE (test code = 2215) 103 MEQ/L CARBON DIOXIDE (test code = 24 MEQ/L 2206) CALCIUM (test code = 2209) 9.5 MG/DL PROTEIN, TOTAL (test code = 7.1 G/DL 2228) ALBUMIN (test code = 2201) 4.2 G/DL CALCULATED GLOBULIN (test 2.9 G/DL code = 2240) CALCULATED A/G RATIO (test 1.4 RATIO code = 2234) BILIRUBIN, TOTAL (test code = 0.7 MG/DL 2206) ALKALINE PHOSPHATASE (test 70 U/L code = 2204) SGOT (AST) (test code = 2218) 11 U/L SGPT (ALT) (test code = 2219) 8 U/L LIPID [id number] 00:00:00 Test Item Value Reference Range Interpretation Comments CHOLESTEROL (test code = 2210) 195 MG/DL TRIGLYCERIDES (test code = 2232) 133 MG/DL HDL CHOLESTEROL (test code = 2220) 38 MG/DL CALCULATED LDL CHOL (test code = 130 MG/DL 2237) RISK RATIO LDL/HDL (test code = 3.43 RATIO 2238) HEMOGLOBIN [id number] 00:00:00 Test Item Value Reference Range Interpretation Comments HEMOGLOBIN A1c (test code = 22207) 6.1 % LIPID [id number] 00:00:00 Test Item Value Reference Range Interpretation Comments CHOLESTEROL (test code = 2210) 195 MG/DL TRIGLYCERIDES (test code = 2232) 133 MG/DL HDL CHOLESTEROL (test code = 2220) 38 MG/DL CALCULATED LDL CHOL (test code = 130 MG/DL 2237) RISK RATIO LDL/HDL (test code = 3.43 RATIO 2238) THYROID II PROFILE (T3U, T4, T7, TSH)2015-02-23 00:00:00 Test Item Value Reference Range Interpretation Comments T3 UPTAKE (test code = 2817) 26.9 % T4 (THYROXINE) (test code = 2819) 8.8 UG/DL CALCULATED T7 (FTI) (test code = 2.37 2820) TSH (test code = 2821) 0.9 UIU/ML THYROID II PROFILE (T3U, T4, T7, TSH)2015-02-23 00:00:00 Test Item Value Reference Range Interpretation Comments T3 UPTAKE (test code = 2817) 26.9 % T4 (THYROXINE) (test code = 2819) 8.8 UG/DL CALCULATED T7 (FTI) (test code = 2.37 2820) TSH (test code = 2821) 0.9 UIU/ML CBC W/AUTO [id number] 00:00:00 Test Item Value Reference Range Interpretation Comments WBC (test code = 1001) 7.0 K/UL RBC (test code = 1002) 4.51 M/UL HEMOGLOBIN (test code = 1003) 12.9 G/DL HEMATOCRIT (test code = 1004) 39.0 % MCV (test code = 1005) 86.5 fL MCH (test code = 1006) 28.6 PG MCHC (test code = 1007) 33.1 G/DL RDW (test code = 1038) 13.5 % NEUTROPHILS (test code = 1008) 58 % LYMPHOCYTES (test code = 1010) 34 % MONOCYTES (test code = 1011) 6 % EOSINOPHILS (test code = 1012) 2 % BASOPHILS (test code = 1013) % PLATELET COUNT (test code = 1015) 286 K/UL CBC W/AUTO [id number] 00:00:00 Test Item Value Reference Range Interpretation Comments WBC (test code = 1001) 7.0 K/UL RBC (test code = 1002) 4.51 M/UL HEMOGLOBIN (test code = 1003) 12.9 G/DL HEMATOCRIT (test code = 1004) 39.0 % MCV (test code = 1005) 86.5 fL MCH (test code = 1006) 28.6 PG MCHC (test code = 1007) 33.1 G/DL RDW (test code = 1038) 13.5 % NEUTROPHILS (test code = 1008) 58 % LYMPHOCYTES (test code = 1010) 34 % MONOCYTES (test code = 1011) 6 % EOSINOPHILS (test code = 1012) 2 % BASOPHILS (test code = 1013) % PLATELET COUNT (test code = 1015) 286 K/UL COMPREHENSIVE METABOLIC [id number] 00:00:00 Test Item Value Reference Range Interpretation Comments GLUCOSE (test code = 2217) 88 MG/DL BUN (test code = 2208) 13 MG/DL CREATININE (test code = 2214) 0.6 MG/DL eGFR AMER. (test code 138 ML/MIN/1.73 = 37451) eGFR NON- AMER. (test 114 ML/MIN/1.73 code = 34034) CALCULATED BUN/CREAT (test 22 RATIO code = 2235) SODIUM (test code = 2231) 134 MEQ/L POTASSIUM (test code = 2228) 4.2 MEQ/L CHLORIDE (test code = 2215) 103 MEQ/L CARBON DIOXIDE (test code = 24 MEQ/L 2205) CALCIUM (test code = 2209) 9.5 MG/DL PROTEIN, TOTAL (test code = 7.1 G/DL 2228) ALBUMIN (test code = 2201) 4.2 G/DL CALCULATED GLOBULIN (test 2.9 G/DL code = 2240) CALCULATED A/G RATIO (test 1.4 RATIO code = 2234) BILIRUBIN, TOTAL (test code = 0.7 MG/DL 2206) ALKALINE PHOSPHATASE (test 70 U/L code = 2204) SGOT (AST) (test code = 2218) 11 U/L SGPT (ALT) (test code = 2219) 8 U/L LIPID [id number] 00:00:00 Test Item Value Reference Range Interpretation Comments CHOLESTEROL (test code = 2210) 195 MG/DL TRIGLYCERIDES (test code = 2232) 133 MG/DL HDL CHOLESTEROL (test code = 2220) 38 MG/DL CALCULATED LDL CHOL (test code = 130 MG/DL 2236) RISK RATIO LDL/HDL (test code = 3.43 RATIO 8) THYROID II PROFILE (T3U, T4, T7, TSH)2015-02-23 00:00:00 Test Item Value Reference Range Interpretation Comments T3 UPTAKE (test code = 2817) 26.9 % T4 (THYROXINE) (test code = 2819) 8.8 UG/DL CALCULATED T7 (FTI) (test code = 2.37 2820) TSH (test code = 2821) 0.9 UIU/ML HEMOGLOBIN [id number] 00:00:00 Test Item Value Reference Range Interpretation Comments HEMOGLOBIN A1c (test code = 99999) 6.1 % HEMOGLOBIN [id number] 00:00:00 Test Item Value Reference Range Interpretation Comments HEMOGLOBIN A1c (test code = 00944) 6.1 % HEMOGLOBIN [id number] 00:00:00 Test Item Value Reference Range Interpretation Comments HEMOGLOBIN A1c (test code = 58149) 6.1 % CBC W/AUTO [id number] 00:00:00 Test Item Value Reference Range Interpretation Comments WBC (test code = 1001) 7.0 K/UL RBC (test code = 1002) 4.51 M/UL HEMOGLOBIN (test code = 1003) 12.9 G/DL HEMATOCRIT (test code = 1004) 39.0 % MCV (test code = 1005) 86.5 fL MCH (test code = 1006) 28.6 PG MCHC (test code = 1007) 33.1 G/DL RDW (test code = 1038) 13.5 % NEUTROPHILS (test code = 1008) 58 % LYMPHOCYTES (test code = 1010) 34 % MONOCYTES (test code = 1011) 6 % EOSINOPHILS (test code = 1012) 2 % BASOPHILS (test code = 1013) % PLATELET COUNT (test code = 1015) 286 K/UL CBC W/AUTO [id number] 00:00:00 Test Item Value Reference Range Interpretation Comments WBC (test code = 1001) 7.0 K/UL RBC (test code = 1002) 4.51 M/UL HEMOGLOBIN (test code = 1003) 12.9 G/DL HEMATOCRIT (test code = 1004) 39.0 % MCV (test code = 1005) 86.5 fL MCH (test code = 1006) 28.6 PG MCHC (test code = 1007) 33.1 G/DL RDW (test code = 1038) 13.5 % NEUTROPHILS (test code = 1008) 58 % LYMPHOCYTES (test code = 1010) 34 % MONOCYTES (test code = 1011) 6 % EOSINOPHILS (test code = 1012) 2 % BASOPHILS (test code = 1013) % PLATELET COUNT (test code = 1015) 286 K/UL CBC W/AUTO [id number] 00:00:00 Test Item Value Reference Range Interpretation Comments WBC (test code = 1001) 7.0 K/UL RBC (test code = 1002) 4.51 M/UL HEMOGLOBIN (test code = 1003) 12.9 G/DL HEMATOCRIT (test code = 1004) 39.0 % MCV (test code = 1005) 86.5 fL MCH (test code = 1006) 28.6 PG MCHC (test code = 1007) 33.1 G/DL RDW (test code = 1038) 13.5 % NEUTROPHILS (test code = 1008) 58 % LYMPHOCYTES (test code = 1010) 34 % MONOCYTES (test code = 1011) 6 % EOSINOPHILS (test code = 1012) 2 % BASOPHILS (test code = 1013) % PLATELET COUNT (test code = 1015) 286 K/UL COMPREHENSIVE METABOLIC [id number] 00:00:00 Test Item Value Reference Range Interpretation Comments GLUCOSE (test code = 2217) 88 MG/DL BUN (test code = 2208) 13 MG/DL CREATININE (test code = 2214) 0.6 MG/DL eGFR AMER. (test code 138 ML/MIN/1.73 = 47142) eGFR NON- AMER. (test 114 ML/MIN/1.73 code = 28609) CALCULATED BUN/CREAT (test 22 RATIO code = 2235) SODIUM (test code = 2231) 134 MEQ/L POTASSIUM (test code = 2228) 4.2 MEQ/L CHLORIDE (test code = 2215) 103 MEQ/L CARBON DIOXIDE (test code = 24 MEQ/L 220) CALCIUM (test code = 2209) 9.5 MG/DL PROTEIN, TOTAL (test code = 7.1 G/DL 2228) ALBUMIN (test code = 2201) 4.2 G/DL CALCULATED GLOBULIN (test 2.9 G/DL code = 2240) CALCULATED A/G RATIO (test 1.4 RATIO code = 2234) BILIRUBIN, TOTAL (test code = 0.7 MG/DL 2206) ALKALINE PHOSPHATASE (test 70 U/L code = 2204) SGOT (AST) (test code = 2218) 11 U/L SGPT (ALT) (test code = 2219) 8 U/L COMPREHENSIVE METABOLIC [id number] 00:00:00 Test Item Value Reference Range Interpretation Comments GLUCOSE (test code = 2217) 88 MG/DL BUN (test code = 2208) 13 MG/DL CREATININE (test code = 2214) 0.6 MG/DL eGFR AMER. (test code 138 ML/MIN/1.73 = 41355) eGFR NON- AMER. (test 114 ML/MIN/1.73 code = 80182) CALCULATED BUN/CREAT (test 22 RATIO code = 2235) SODIUM (test code = 2231) 134 MEQ/L POTASSIUM (test code = 2228) 4.2 MEQ/L CHLORIDE (test code = 2215) 103 MEQ/L CARBON DIOXIDE (test code = 24 MEQ/L 220) CALCIUM (test code = 2209) 9.5 MG/DL PROTEIN, TOTAL (test code = 7.1 G/DL 2228) ALBUMIN (test code = 2201) 4.2 G/DL CALCULATED GLOBULIN (test 2.9 G/DL code = 2240) CALCULATED A/G RATIO (test 1.4 RATIO code = 2234) BILIRUBIN, TOTAL (test code = 0.7 MG/DL 2206) ALKALINE PHOSPHATASE (test 70 U/L code = 2204) SGOT (AST) (test code = 2218) 11 U/L SGPT (ALT) (test code = 2219) 8 U/L LIPID [id number] 00:00:00 Test Item Value Reference Range Interpretation Comments CHOLESTEROL (test code = 2210) 195 MG/DL TRIGLYCERIDES (test code = 2232) 133 MG/DL HDL CHOLESTEROL (test code = 2220) 38 MG/DL CALCULATED LDL CHOL (test code = 130 MG/DL 2237) RISK RATIO LDL/HDL (test code = 3.43 RATIO 2238) LIPID [id number] 00:00:00 Test Item Value Reference Range Interpretation Comments CHOLESTEROL (test code = 2210) 195 MG/DL TRIGLYCERIDES (test code = 2232) 133 MG/DL HDL CHOLESTEROL (test code = 2220) 38 MG/DL CALCULATED LDL CHOL (test code = 130 MG/DL 2237) RISK RATIO LDL/HDL (test code = 3.43 RATIO 2238) THYROID II PROFILE (T3U, T4, T7, TSH)2015-02-23 00:00:00 Test Item Value Reference Range Interpretation Comments T3 UPTAKE (test code = 2817) 26.9 % T4 (THYROXINE) (test code = 2819) 8.8 UG/DL CALCULATED T7 (FTI) (test code = 2.37 2820) TSH (test code = 2821) 0.9 UIU/ML THYROID II PROFILE (T3U, T4, T7, TSH)2015-02-23 00:00:00 Test Item Value Reference Range Interpretation Comments T3 UPTAKE (test code = 2817) 26.9 % T4 (THYROXINE) (test code = 2819) 8.8 UG/DL CALCULATED T7 (FTI) (test code = 2.37 2820) TSH (test code = 2821) 0.9 UIU/ML HEMOGLOBIN [id number] 00:00:00 Test Item Value Reference Range Interpretation Comments HEMOGLOBIN A1c (test code = 00619) 6.1 % HEMOGLOBIN [id number] 00:00:00 Test Item Value Reference Range Interpretation Comments HEMOGLOBIN A1c (test code = 82012) 6.1 % HEMOGLOBIN [id number] 00:00:00 Test Item Value Reference Range Interpretation Comments HEMOGLOBIN A1c (test code = 27975) 6.1 % CBC W/AUTO [id number] 00:00:00 Test Item Value Reference Range Interpretation Comments WBC (test code = 1001) 7.0 K/UL RBC (test code = 1002) 4.51 M/UL HEMOGLOBIN (test code = 1003) 12.9 G/DL HEMATOCRIT (test code = 1004) 39.0 % MCV (test code = 1005) 86.5 fL MCH (test code = 1006) 28.6 PG MCHC (test code = 1007) 33.1 G/DL RDW (test code = 1038) 13.5 % NEUTROPHILS (test code = 1008) 58 % LYMPHOCYTES (test code = 1010) 34 % MONOCYTES (test code = 1011) 6 % EOSINOPHILS (test code = 1012) 2 % BASOPHILS (test code = 1013) % PLATELET COUNT (test code = 1015) 286 K/UL CBC W/AUTO [id number] 00:00:00 Test Item Value Reference Range Interpretation Comments WBC (test code = 1001) 7.0 K/UL RBC (test code = 1002) 4.51 M/UL HEMOGLOBIN (test code = 1003) 12.9 G/DL HEMATOCRIT (test code = 1004) 39.0 % MCV (test code = 1005) 86.5 fL MCH (test code = 1006) 28.6 PG MCHC (test code = 1007) 33.1 G/DL RDW (test code = 1038) 13.5 % NEUTROPHILS (test code = 1008) 58 % LYMPHOCYTES (test code = 1010) 34 % MONOCYTES (test code = 1011) 6 % EOSINOPHILS (test code = 1012) 2 % BASOPHILS (test code = 1013) % PLATELET COUNT (test code = 1015) 286 K/UL CBC W/AUTO [id number] 00:00:00 Test Item Value Reference Range Interpretation Comments WBC (test code = 1001) 7.0 K/UL RBC (test code = 1002) 4.51 M/UL HEMOGLOBIN (test code = 1003) 12.9 G/DL HEMATOCRIT (test code = 1004) 39.0 % MCV (test code = 1005) 86.5 fL MCH (test code = 1006) 28.6 PG MCHC (test code = 1007) 33.1 G/DL RDW (test code = 1038) 13.5 % NEUTROPHILS (test code = 1008) 58 % LYMPHOCYTES (test code = 1010) 34 % MONOCYTES (test code = 1011) 6 % EOSINOPHILS (test code = 1012) 2 % BASOPHILS (test code = 1013) % PLATELET COUNT (test code = 1015) 286 K/UL COMPREHENSIVE METABOLIC [id number] 00:00:00 Test Item Value Reference Range Interpretation Comments GLUCOSE (test code = 2217) 88 MG/DL BUN (test code = 2208) 13 MG/DL CREATININE (test code = 2214) 0.6 MG/DL eGFR AMER. (test code 138 ML/MIN/1.73 = 38639) eGFR NON- AMER. (test 114 ML/MIN/1.73 code = 95974) CALCULATED BUN/CREAT (test 22 RATIO code = 2235) SODIUM (test code = 2231) 134 MEQ/L POTASSIUM (test code = 2228) 4.2 MEQ/L CHLORIDE (test code = 2215) 103 MEQ/L CARBON DIOXIDE (test code = 24 MEQ/L 2205) CALCIUM (test code = 2209) 9.5 MG/DL PROTEIN, TOTAL (test code = 7.1 G/DL 2228) ALBUMIN (test code = 2201) 4.2 G/DL CALCULATED GLOBULIN (test 2.9 G/DL code = 2240) CALCULATED A/G RATIO (test 1.4 RATIO code = 2234) BILIRUBIN, TOTAL (test code = 0.7 MG/DL 2206) ALKALINE PHOSPHATASE (test 70 U/L code = 2204) SGOT (AST) (test code = 2218) 11 U/L SGPT (ALT) (test code = 2219) 8 U/L COMPREHENSIVE METABOLIC [id number] 00:00:00 Test Item Value Reference Range Interpretation Comments GLUCOSE (test code = 2217) 88 MG/DL BUN (test code = 2208) 13 MG/DL CREATININE (test code = 2214) 0.6 MG/DL eGFR AMER. (test code 138 ML/MIN/1.73 = 86664) eGFR NON- AMER. (test 114 ML/MIN/1.73 code = 34456) CALCULATED BUN/CREAT (test 22 RATIO code = 2235) SODIUM (test code = 2231) 134 MEQ/L POTASSIUM (test code = 2228) 4.2 MEQ/L CHLORIDE (test code = 2215) 103 MEQ/L CARBON DIOXIDE (test code = 24 MEQ/L 2205) CALCIUM (test code = 2209) 9.5 MG/DL PROTEIN, TOTAL (test code = 7.1 G/DL 2228) ALBUMIN (test code = 2201) 4.2 G/DL CALCULATED GLOBULIN (test 2.9 G/DL code = 2240) CALCULATED A/G RATIO (test 1.4 RATIO code = 2234) BILIRUBIN, TOTAL (test code = 0.7 MG/DL 2206) ALKALINE PHOSPHATASE (test 70 U/L code = 2204) SGOT (AST) (test code = 2218) 11 U/L SGPT (ALT) (test code = 2219) 8 U/L LIPID [id number] 00:00:00 Test Item Value Reference Range Interpretation Comments CHOLESTEROL (test code = 2210) 195 MG/DL TRIGLYCERIDES (test code = 2232) 133 MG/DL HDL CHOLESTEROL (test code = 2220) 38 MG/DL CALCULATED LDL CHOL (test code = 130 MG/DL 2237) RISK RATIO LDL/HDL (test code = 3.43 RATIO 2238) LIPID [id number] 00:00:00 Test Item Value Reference Range Interpretation Comments CHOLESTEROL (test code = 2210) 195 MG/DL TRIGLYCERIDES (test code = 2232) 133 MG/DL HDL CHOLESTEROL (test code = 2220) 38 MG/DL CALCULATED LDL CHOL (test code = 130 MG/DL 2237) RISK RATIO LDL/HDL (test code = 3.43 RATIO 2238) THYROID II PROFILE (T3U, T4, T7, TSH)2015-02-23 00:00:00 Test Item Value Reference Range Interpretation Comments T3 UPTAKE (test code = 2817) 26.9 % T4 (THYROXINE) (test code = 2819) 8.8 UG/DL CALCULATED T7 (FTI) (test code = 2.37 4300) TSH (test code = 2821) 0.9 UIU/ML THYROID II PROFILE (T3U, T4, T7, TSH)2015-02-23 00:00:00 Test Item Value Reference Range Interpretation Comments T3 UPTAKE (test code = 2817) 26.9 % T4 (THYROXINE) (test code = 2819) 8.8 UG/DL CALCULATED T7 (FTI) (test code = 2.37 3140) TSH (test code = 2821) 0.9 UIU/ML CT/NG, AMPLIFIED, THINPREP [ADDED]2014-09-30 00:00:00 Test Item Value Reference Range Interpretation Comments GONORRHEA, AMPLIFIED (test code = NEGATIVE 61171) CHLAMYDIA, AMPLIFIED (test code = NEGATIVE 37010) CT/NG, AMPLIFIED, THINPREP [ADDED]2014-09-30 00:00:00 Test Item Value Reference Range Interpretation Comments GONORRHEA, AMPLIFIED (test code = NEGATIVE 55951) CHLAMYDIA, AMPLIFIED (test code = NEGATIVE 80845) CT/NG, AMPLIFIED, THINPREP [ADDED]2014-09-30 00:00:00 Test Item Value Reference Range Interpretation Comments GONORRHEA, AMPLIFIED (test code = NEGATIVE 74935) CHLAMYDIA, AMPLIFIED (test code = NEGATIVE 16890) CT/NG, AMPLIFIED, THINPREP [ADDED]2014-09-30 00:00:00 Test Item Value Reference Range Interpretation Comments GONORRHEA, AMPLIFIED (test code = NEGATIVE 02860) CHLAMYDIA, AMPLIFIED (test code = NEGATIVE 26523) CT/NG, AMPLIFIED, THINPREP [ADDED]2014-09-30 00:00:00 Test Item Value Reference Range Interpretation Comments GONORRHEA, AMPLIFIED (test code = NEGATIVE 61720) CHLAMYDIA, AMPLIFIED (test code = NEGATIVE 84012) CT/NG, AMPLIFIED, THINPREP [ADDED]2014-09-30 00:00:00 Test Item Value Reference Range Interpretation Comments GONORRHEA, AMPLIFIED (test code = NEGATIVE 59048) CHLAMYDIA, AMPLIFIED (test code = NEGATIVE 27863) CT/NG, AMPLIFIED, THINPREP [ADDED]2014-09-30 00:00:00 Test Item Value Reference Range Interpretation Comments GONORRHEA, AMPLIFIED (test code = NEGATIVE 14237) CHLAMYDIA, AMPLIFIED (test code = NEGATIVE 88327) PAP TEST, THINPREP, IMAGED [ADDED]2014-09-29 00:00:00 Test Item Value Reference Range Interpretation Comments SOURCE: (test code = CERVICAL, ENDOCERVICAL 8001) SLIDES: (test code = 1 8011) LMP: (test code = NOT GIVEN 8021) SPECIMEN ADEQUACY: (NOTE) (test code = 16597) INTERPRETATION: (test NO EPITHELIAL code = 61911) ABNORMALITY SEE BELOW OTHER COMMENTS: (test (NOTE) code = 8081) ORGANIC CHEMISTRY PROFESSOR: (NOTE) (test code = 8101) LOCATION: (test code MAIN = 25905) PAP TEST, THINPREP, IMAGED [ADDED]2014-09-29 00:00:00 Test Item Value Reference Range Interpretation Comments SOURCE: (test code = CERVICAL, ENDOCERVICAL 8001) SLIDES: (test code = 1 8011) LMP: (test code = NOT GIVEN 8021) SPECIMEN ADEQUACY: (NOTE) (test code = 24201) INTERPRETATION: (test NO EPITHELIAL code = 52086) ABNORMALITY SEE BELOW OTHER COMMENTS: (test (NOTE) code = 8081) ORGANIC CHEMISTRY PROFESSOR: (NOTE) (test code = 8101) LOCATION: (test code MAIN = 53468) PAP TEST, THINPREP, IMAGED [ADDED]2014-09-29 00:00:00 Test Item Value Reference Range Interpretation Comments SOURCE: (test code = CERVICAL, ENDOCERVICAL 8001) SLIDES: (test code = 1 8011) LMP: (test code = NOT GIVEN 8021) SPECIMEN ADEQUACY: (NOTE) (test code = 81638) INTERPRETATION: (test NO EPITHELIAL code = 54010) ABNORMALITY SEE BELOW OTHER COMMENTS: (test (NOTE) code = 8081) ORGANIC CHEMISTRY PROFESSOR: (NOTE) (test code = 8101) LOCATION: (test code MAIN = 97716) HPV HIGH RISK WITH GENOTYPE, TP [ADDED]2014-09-29 00:00:00 Test Item Value Reference Range Interpretation Comments HPV HIGH RISK INTERP (test code = NEGATIVE 48396) HPV 16 (test code = 77199) NEGATIVE HPV 18 (test code = 41901) NEGATIVE HPV, HR, OTHER GENOTYPES (test code NEGATIVE = 70314) HPV HIGH RISK WITH GENOTYPE, TP [ADDED]2014-09-29 00:00:00 Test Item Value Reference Range Interpretation Comments HPV HIGH RISK INTERP (test code = NEGATIVE 32737) HPV 16 (test code = 22260) NEGATIVE HPV 18 (test code = 26319) NEGATIVE HPV, HR, OTHER GENOTYPES (test code NEGATIVE = 43688) HPV HIGH RISK WITH GENOTYPE, TP [ADDED]2014-09-29 00:00:00 Test Item Value Reference Range Interpretation Comments HPV HIGH RISK INTERP (test code = NEGATIVE 82130) HPV 16 (test code = 98788) NEGATIVE HPV 18 (test code = 70885) NEGATIVE HPV, HR, OTHER GENOTYPES (test code NEGATIVE = 38793) PAP TEST, THINPREP, IMAGED [ADDED]2014-09-29 00:00:00 Test Item Value Reference Range Interpretation Comments SOURCE: (test code = CERVICAL, ENDOCERVICAL 8001) SLIDES: (test code = 1 8011) LMP: (test code = NOT GIVEN 8021) SPECIMEN ADEQUACY: (NOTE) (test code = 71619) INTERPRETATION: (test NO EPITHELIAL code = 13719) ABNORMALITY SEE BELOW OTHER COMMENTS: (test (NOTE) code = 8081) ORGANIC CHEMISTRY PROFESSOR: (NOTE) (test code = 8101) LOCATION: (test code MAIN = 27321) PAP TEST, THINPREP, IMAGED [ADDED]2014-09-29 00:00:00 Test Item Value Reference Range Interpretation Comments SOURCE: (test code = CERVICAL, ENDOCERVICAL 8001) SLIDES: (test code = 1 8011) LMP: (test code = NOT GIVEN 8021) SPECIMEN ADEQUACY: (NOTE) (test code = 30345) INTERPRETATION: (test NO EPITHELIAL code = 06482) ABNORMALITY SEE BELOW OTHER COMMENTS: (test (NOTE) code = 8081) ORGANIC CHEMISTRY PROFESSOR: (NOTE) (test code = 8101) LOCATION: (test code MAIN = 28680) HPV HIGH RISK WITH GENOTYPE, TP [ADDED]2014-09-29 00:00:00 Test Item Value Reference Range Interpretation Comments HPV HIGH RISK INTERP (test code = NEGATIVE 58571) HPV 16 (test code = 17782) NEGATIVE HPV 18 (test code = 15160) NEGATIVE HPV, HR, OTHER GENOTYPES (test code NEGATIVE = 76129) HPV HIGH RISK WITH GENOTYPE, TP [ADDED]2014-09-29 00:00:00 Test Item Value Reference Range Interpretation Comments HPV HIGH RISK INTERP (test code = NEGATIVE 27388) HPV 16 (test code = 04653) NEGATIVE HPV 18 (test code = 74852) NEGATIVE HPV, HR, OTHER GENOTYPES (test code NEGATIVE = 94304) PAP TEST, THINPREP, IMAGED [ADDED]2014-09-29 00:00:00 Test Item Value Reference Range Interpretation Comments SOURCE: (test code = CERVICAL, ENDOCERVICAL 8001) SLIDES: (test code = 1 8011) LMP: (test code = NOT GIVEN 8021) SPECIMEN ADEQUACY: (NOTE) (test code = 30852) INTERPRETATION: (test NO EPITHELIAL code = 41075) ABNORMALITY SEE BELOW OTHER COMMENTS: (test (NOTE) code = 8081) ORGANIC CHEMISTRY PROFESSOR: (NOTE) (test code = 8101) LOCATION: (test code MAIN = 49031) PAP TEST, THINPREP, IMAGED [ADDED]2014-09-29 00:00:00 Test Item Value Reference Range Interpretation Comments SOURCE: (test code = CERVICAL, ENDOCERVICAL 8001) SLIDES: (test code = 1 8011) LMP: (test code = NOT GIVEN 8021) SPECIMEN ADEQUACY: (NOTE) (test code = 85135) INTERPRETATION: (test NO EPITHELIAL code = 08027) ABNORMALITY SEE BELOW OTHER COMMENTS: (test (NOTE) code = 8081) ORGANIC CHEMISTRY PROFESSOR: (NOTE) (test code = 8101) LOCATION: (test code MAIN = 68609) HPV HIGH RISK WITH GENOTYPE, TP [ADDED]2014-09-29 00:00:00 Test Item Value Reference Range Interpretation Comments HPV HIGH RISK INTERP (test code = NEGATIVE 79273) HPV 16 (test code = 73084) NEGATIVE HPV 18 (test code = 91117) NEGATIVE HPV, HR, OTHER GENOTYPES (test code NEGATIVE = 32268) HPV HIGH RISK WITH GENOTYPE, TP [ADDED]2014-09-29 00:00:00 Test Item Value Reference Range Interpretation Comments HPV HIGH RISK INTERP (test code = NEGATIVE 17783) HPV 16 (test code = 29832) NEGATIVE HPV 18 (test code = 88838) NEGATIVE HPV, HR, OTHER GENOTYPES (test code NEGATIVE = 50584) [id number] 00:00:00 Test Item Value Reference Range Interpretation Comments RPR RESULT (test code = NON-REACTIVE 3501) RPR TITER (test code = 3500) NOT INDIC. TITER [id number] 00:00:00 Test Item Value Reference Range Interpretation Comments RPR RESULT (test code = NON-REACTIVE 3501) RPR TITER (test code = 3500) NOT INDIC. TITER [id number] 00:00:00 Test Item Value Reference Range Interpretation Comments RPR RESULT (test code = NON-REACTIVE 3501) RPR TITER (test code = 3500) NOT INDIC. TITER HIV AB/AG COMBO RFLX [id number] 00:00:00 Test Item Value Reference Range Interpretation Comments HIV AB/AG COMBO RFLX CONF (test NON-REACTIVE code = 3514) HIV AB/AG COMBO RFLX [id number] 00:00:00 Test Item Value Reference Range Interpretation Comments HIV AB/AG COMBO RFLX CONF (test NON-REACTIVE code = 3514) HEPATITIS PROFILE (A,B,C)2014-09-28 00:00:00 Test Item Value Reference Range Interpretation Comments HEPATITIS A TOTAL AB (test code REACTIVE = 2725) HEPATITIS B SURF AG (test code = NON-REACTIVE 2739) HEP B CORE TOTAL AB (test code = NON-REACTIVE 2729) HEPATITIS B SURFACE AB (test NON-REACTIVE code = 2737) HEPATITIS C ANTIBODY (test code NON-REACTIVE = 4675) INTERPRETATION HEPATITIS A: (NOTE) (test code = 2552) INTERPRETATION HEPATITIS B: (NOTE) (test code = 12279) INTERPRETATION HEPATITIS C: (NOTE) (test code = 27552) HEPATITIS PROFILE (A,B,C)2014-09-28 00:00:00 Test Item Value Reference Range Interpretation Comments HEPATITIS A TOTAL AB (test code REACTIVE = 2725) HEPATITIS B SURF AG (test code = NON-REACTIVE 2739) HEP B CORE TOTAL AB (test code = NON-REACTIVE 2729) HEPATITIS B SURFACE AB (test NON-REACTIVE code = 2737) HEPATITIS C ANTIBODY (test code NON-REACTIVE = 4675) INTERPRETATION HEPATITIS A: (NOTE) (test code = 2552) INTERPRETATION HEPATITIS B: (NOTE) (test code = 92227) INTERPRETATION HEPATITIS C: (NOTE) (test code = 67781) HEPATITIS A IgM [REFLEX]2014-09-28 00:00:00 Test Item Value Reference Range Interpretation Comments HEPATITIS A IgM (test code = NON-REACTIVE 2728) [id number] 00:00:00 Test Item Value Reference Range Interpretation Comments RPR RESULT (test code = NON-REACTIVE 3501) RPR TITER (test code = 3500) NOT INDIC. TITER [id number] 00:00:00 Test Item Value Reference Range Interpretation Comments RPR RESULT (test code = NON-REACTIVE 3501) RPR TITER (test code = 3500) NOT INDIC. TITER HIV AB/AG COMBO RFLX [id number] 00:00:00 Test Item Value Reference Range Interpretation Comments HIV AB/AG COMBO RFLX CONF (test NON-REACTIVE code = 3514) HEPATITIS PROFILE (A,B,C)2014-09-28 00:00:00 Test Item Value Reference Range Interpretation Comments HEPATITIS A TOTAL AB (test code REACTIVE = 2725) HEPATITIS B SURF AG (test code = NON-REACTIVE 2739) HEP B CORE TOTAL AB (test code = NON-REACTIVE 2729) HEPATITIS B SURFACE AB (test NON-REACTIVE code = 2737) HEPATITIS C ANTIBODY (test code NON-REACTIVE = 4675) INTERPRETATION HEPATITIS A: (NOTE) (test code = 2552) INTERPRETATION HEPATITIS B: (NOTE) (test code = 98753) INTERPRETATION HEPATITIS C: (NOTE) (test code = 47376) HEPATITIS A IgM [REFLEX]2014-09-28 00:00:00 Test Item Value Reference Range Interpretation Comments HEPATITIS A IgM (test code = NON-REACTIVE 2728) [id number] 00:00:00 Test Item Value Reference Range Interpretation Comments RPR RESULT (test code = NON-REACTIVE 3501) RPR TITER (test code = 3500) NOT INDIC. TITER [id number] 00:00:00 Test Item Value Reference Range Interpretation Comments RPR RESULT (test code = NON-REACTIVE 3501) RPR TITER (test code = 3500) NOT INDIC. TITER [id number] 00:00:00 Test Item Value Reference Range Interpretation Comments RPR RESULT (test code = NON-REACTIVE 3501) RPR TITER (test code = 3500) NOT INDIC. TITER HIV AB/AG COMBO RFLX [id number] 00:00:00 Test Item Value Reference Range Interpretation Comments HIV AB/AG COMBO RFLX CONF (test NON-REACTIVE code = 3514) HIV AB/AG COMBO RFLX [id number] 00:00:00 Test Item Value Reference Range Interpretation Comments HIV AB/AG COMBO RFLX CONF (test NON-REACTIVE code = 3514) HEPATITIS PROFILE (A,B,C)2014-09-28 00:00:00 Test Item Value Reference Range Interpretation Comments HEPATITIS A TOTAL AB (test code REACTIVE = 2725) HEPATITIS B SURF AG (test code = NON-REACTIVE 2739) HEP B CORE TOTAL AB (test code = NON-REACTIVE 2729) HEPATITIS B SURFACE AB (test NON-REACTIVE code = 2737) HEPATITIS C ANTIBODY (test code NON-REACTIVE = 4675) INTERPRETATION HEPATITIS A: (NOTE) (test code = 2552) INTERPRETATION HEPATITIS B: (NOTE) (test code = 07279) INTERPRETATION HEPATITIS C: (NOTE) (test code = 37934) HEPATITIS PROFILE (A,B,C)2014-09-28 00:00:00 Test Item Value Reference Range Interpretation Comments HEPATITIS A TOTAL AB (test code REACTIVE = 2725) HEPATITIS B SURF AG (test code = NON-REACTIVE 2739) HEP B CORE TOTAL AB (test code = NON-REACTIVE 2729) HEPATITIS B SURFACE AB (test NON-REACTIVE code = 2737) HEPATITIS C ANTIBODY (test code NON-REACTIVE = 4675) INTERPRETATION HEPATITIS A: (NOTE) (test code = 2552) INTERPRETATION HEPATITIS B: (NOTE) (test code = 85157) INTERPRETATION HEPATITIS C: (NOTE) (test code = 62240) HEPATITIS A IgM [REFLEX]2014-09-28 00:00:00 Test Item Value Reference Range Interpretation Comments HEPATITIS A IgM (test code = NON-REACTIVE 2728) [id number] 00:00:00 Test Item Value Reference Range Interpretation Comments RPR RESULT (test code = NON-REACTIVE 3501) RPR TITER (test code = 3500) NOT INDIC. TITER [id number] 00:00:00 Test Item Value Reference Range Interpretation Comments RPR RESULT (test code = NON-REACTIVE 3501) RPR TITER (test code = 3500) NOT INDIC. TITER [id number] 00:00:00 Test Item Value Reference Range Interpretation Comments RPR RESULT (test code = NON-REACTIVE 3501) RPR TITER (test code = 3500) NOT INDIC. TITER HIV AB/AG COMBO RFLX [id number] 00:00:00 Test Item Value Reference Range Interpretation Comments HIV AB/AG COMBO RFLX CONF (test NON-REACTIVE code = 3514) HIV AB/AG COMBO RFLX [id number] 00:00:00 Test Item Value Reference Range Interpretation Comments HIV AB/AG COMBO RFLX CONF (test NON-REACTIVE code = 3514) HEPATITIS PROFILE (A,B,C)2014-09-28 00:00:00 Test Item Value Reference Range Interpretation Comments HEPATITIS A TOTAL AB (test code REACTIVE = 2725) HEPATITIS B SURF AG (test code = NON-REACTIVE 2739) HEP B CORE TOTAL AB (test code = NON-REACTIVE 2729) HEPATITIS B SURFACE AB (test NON-REACTIVE code = 2737) HEPATITIS C ANTIBODY (test code NON-REACTIVE = 4675) INTERPRETATION HEPATITIS A: (NOTE) (test code = 2552) INTERPRETATION HEPATITIS B: (NOTE) (test code = 14566) INTERPRETATION HEPATITIS C: (NOTE) (test code = 81248) HEPATITIS PROFILE (A,B,C)2014-09-28 00:00:00 Test Item Value Reference Range Interpretation Comments HEPATITIS A TOTAL AB (test code REACTIVE = 2725) HEPATITIS B SURF AG (test code = NON-REACTIVE 2739) HEP B CORE TOTAL AB (test code = NON-REACTIVE 2729) HEPATITIS B SURFACE AB (test NON-REACTIVE code = 2737) HEPATITIS C ANTIBODY (test code NON-REACTIVE = 4675) INTERPRETATION HEPATITIS A: (NOTE) (test code = 2552) INTERPRETATION HEPATITIS B: (NOTE) (test code = 42398) INTERPRETATION HEPATITIS C: (NOTE) (test code = 67085) HEPATITIS A IgM [REFLEX]2014-09-28 00:00:00 Test Item Value Reference Range Interpretation Comments HEPATITIS A IgM (test code = NON-REACTIVE 8)
[2023-01-24] MEDS ORDERED: NITROGLYCERIN 0.4 MG/TAB SL ONE (10:25)
[2023-01-24] MEDS ORDERED: ASPIRIN 81 MG CHEWABLE TABLET ONE (10:25)
[2023-01-24 10:35] LABS: Absolute Lymphocytes (CBC) 2.2 K/uL (0.7-4.9); Lymphocytes % 29.4 % (15.3-44.8); MCV 73.2 fL (80-100); MPV 7.8 fL (7.6-11.3); Platelets 337 thou/uL (152-406); RBC Red Blood Cell Count 4.92 M/uL (3.86-4.86)
[2023-01-24 10:55] LABS: Albumin 3.4 g/dL (3.4-5.0); Bilirubin Direct 0.2 mg/dL (0-0.2); Bilirubin Indirect, Calculated 0.2 mg/dL (0.2-0.8); Bilirubin Total 0.4 mg/dL (0.2-1.0); Magnesium 1.9 mg/dL (1.6-2.4); Protein, Total 7.6 g/dL (6.4-8.2); Troponin High Sensitivity 3.3 pg/mL (<58.9)
--- NOTE | 2023-01-24 11:15 | RAD REPORT ---
EXAM DESCRIPTION: [place] Single View01/24/2023 10:27 am CLINICAL HISTORY: CHEST PAIN COMPARISON: No comparisons TECHNIQUE: Portable AP view of the chest. FINDINGS: The lungs are clear.Mild central interstitial prominence fine streaky opacities. No pneumo thorax or effusion. The cardiomediastinal contours are unremarkable. IMPRESSION: Mild central opacities as above, may reflect reactive airway changes versus mild edema.
--- NOTE | 2023-01-24 13:38 | ER ---
Nurse's Notes [facility] Name: Brenda Castillo Age: 42 yrs Sex: Female : 1980 Arrival Date: 01/24/2023 Time: 10:01 Bed 5 Private MD: Diagnosis: Chest pain, unspecified Presentation: 01/24 10:10 Chief complaint: Patient states: SUBSTERNAL CHEST PAIN EXTENDING DOWN ULNAR AREA OF LUE bp WITH SOB AND DIZZINESS. Coronavirus screen: At this time, the client does not indicate any symptoms associated with coronavirus-19. Ebola Screen: No symptoms or risks identified at this time. Initial Sepsis Screen: Does the patient meet any 2 criteria? No. Patient's initial sepsis screen is negative. Does the patient have a suspected source of infection? No. Patient's initial sepsis screen is negative. Risk Assessment: Do you want to hurt yourself or someone else? Patient reports no desire to harm self or others. Onset of symptoms was January 24, 2023 at 07:00. 10:10 Method Of Arrival: Ambulatory bp 10:10 Acuity: CHIQUITA 2 bp 10:13 Care prior to arrival: Glucose check: 304. bp Triage Assessment: 10:11 General: Appears distressed, uncomfortable, Behavior is cooperative, appropriate for bp age, anxious. Pain: Complains of pain in chest Pain radiates to left arm. EENT: No deficits noted. Neuro: No deficits noted. Cardiovascular: Reports chest pain. Respiratory: Reports shortness of breath. GI: No signs and/or symptoms were reported involving the gastrointestinal system. : No signs and/or symptoms were reported regarding the genitourinary system. Derm: No deficits noted. Musculoskeletal: No deficits noted. 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 - Social history:: Smoking status: Patient denies any tobacco usage or history of. - Family history:: not pertinent. Screenin:18 [facility] ED Fall Risk Assessment (Adult) History of falling in the last 3 months, ap3 including since admission No falls in past 3 months (0 pts). Abuse screen: Denies threats or abuse. Nutritional screening: No deficits noted. Tuberculosis screening: No symptoms or risk factors identified. Assessment: 10:19 General: Appears in no apparent distress. uncomfortable, Behavior is calm, cooperative, ld1 appropriate for age. Pain: Complains of pain in chest Pain radiates to left arm Pain currently is 8 out of 10 on a pain scale. Quality of pain is described as sharp, shooting, throbbing, Pain began 2 hours ago. Is continuous. Neuro: Level of Consciousness is awake, alert, obeys commands, Oriented to person, place, time, situation. Cardiovascular: Capillary refill < 3 seconds Patient's skin is warm and dry. Rhythm is sinus rhythm. Cardiovascular: Reports chest pain. Respiratory: Airway is patent Respiratory effort is even, unlabored. GI: Abdomen is round non-distended. : No signs and/or symptoms were reported regarding the genitourinary system. EENT: No signs and/or symptoms were reported regarding the EENT system. Derm: No signs and/or symptoms reported regarding the dermatologic system. Musculoskeletal: No signs and/or symptoms reported regarding the musculoskeletal system. Vital Signs: 10:18 BP 135 / 76; Pulse 92; Pulse Ox 98% on R/A; ap3 10:19 BP 135 / 76; Pulse 95; Resp 18; Pulse Ox 96% on R/A; Pain 8/10; ld1 11:13 BP 123 / 80; Pulse 79; Pulse Ox 100% ; ap3 11:50 BP 124 / 76; Pulse 76; Pulse Ox 98% on R/A; ap3 13:04 BP 114 / 70; Pulse 68; Pulse Ox 98% on R/A; ap3 13:45 BP 128 / 94; Pulse 67; Pulse Ox 99% on R/A; ap3 10:19 Pain Scale: Adult ld1 ED Course: 10:03 Patient arrived in ED. rg4 10:03 Viraj Kuhn MD is Attending Physician. rt 10:06 Leah Ruggiero, KEATON is Primary Nurse. ld1 10:11 Triage completed. bp 10:11 Arm band placed on. bp 10:16 EKG done, by ED staff. aw1 10:16 Inserted saline lock: 20 gauge in right antecubital area, using aseptic technique. ld1 Blood collected. 10:18 Patient has correct armband on for positive identification. Placed in gown. Bed in low ap3 position. Call light in reach. Side rails up X2. quality assurance monitor chassis on. Pulse ox on. NIBP on. 10:19 No provider procedures requiring assistance completed. ld1 10:29 XRAY Chest (1 view) In Process Unspecified. EDMS 13:37 Jeffery Munoz MD is Referral Physician. rt 13:43 IV discontinued, intact, bleeding controlled, No redness/swelling at site. Pressure ap3 dressing applied. 13:44 Provided Education on: discharge instructions. ap3 Administered Medications: 10:17 Drug: Aspirin PO Chewable Tablet 324 mg Route: PO; ap3 13:44 Follow up: Response: No adverse reaction ap3 10:17 Drug: Nitroglycerin Sublingual 0.4 mg Route: Sublingual; ap3 13:44 Follow up: Response: No adverse reaction ap3 Medication: 10:19 VIS not applicable for this client. ld1 Outcome: 13:37 Discharge ordered by . rt 13:43 Discharged to home ambulatory, with family. ap3 13:43 Condition: good 13:43 Discharge instructions given to patient, family, Instructed on discharge instructions, follow up and referral plans. Demonstrated understanding of instructions, follow-up care. 13:44 Patient left the ED. ap3 Signatures: Dispatcher [employer] EDNC Carolyn Allen rg4 Charly Bee RN RN bp Betty Barone RN RN ap3 Leah Ruggiero RN RN ld1 Viraj Kuhn MD MD rt Any Regalado aw1
--- NOTE | 2023-01-24 13:38 | EDPHYS ---
Physician Documentation [facility] Name: Brenda Castillo Age: 42 yrs Sex: Female : 1980 Arrival Date: 01/24/2023 Time: 10:01 Bed 5 Private MD: ED Physician Viraj Kuhn HPI: 01/24 10:30 This 42 yrs old Female presents to ER via Ambulatory with complaints of rt Shoulder Pain. 10:30 Patient presents to the ED with a chest pain rating to the shoulder, the neck started rt about 2 hours prior to arrival. Patient states that she has associated dizziness as well as shortness of breath. Denies nausea, vomiting. Denies other acute complaints, symptoms are moderate severity, no other aggravating or elevating factors.. 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 - Social history:: Smoking status: Patient denies any tobacco usage or history of. - Family history:: not pertinent. ROS: 10:30 Constitutional: Negative for fever, chills, and weight loss, Abdomen/GI: Negative for rt abdominal pain, nausea, vomiting, diarrhea, and constipation, MS/Extremity: Negative for injury and deformity, Skin: Negative for injury, rash, and discoloration, Psych: Negative for depression, anxiety, suicide ideation, homicidal ideation, and hallucinations. 10:30 Cardiovascular: Positive for chest pain, Negative for edema. 10:30 Respiratory: Positive for shortness of breath, Negative for cough. 10:30 Neuro: Positive for dizziness, Negative for altered mental status. Exam: 10:30 Constitutional: This is a well developed, well nourished patient who is awake, alert, rt and in no acute distress. Head/Face: Normocephalic, atraumatic. Neck: Trachea midline, no thyromegaly or masses palpated, and no cervical lymphadenopathy. Supple, full range of motion without nuchal rigidity, or vertebral point tenderness. No Meningismus. Chest/axilla: Normal chest wall appearance and motion. Nontender with no deformity. No lesions are appreciated. Cardiovascular: Regular rate and rhythm with a normal S1 and S2. No gallops, murmurs, or rubs. Normal PMI, no JVD. No pulse deficits. Respiratory: Lungs have equal breath sounds bilaterally, clear to auscultation and percussion. No rales, rhonchi or wheezes noted. No increased work of breathing, no retractions or nasal flaring. Abdomen/GI: Soft, non-tender, with normal bowel sounds. No distension or tympany. No guarding or rebound. No evidence of tenderness throughout. Skin: Warm, dry with normal turgor. Normal color with no rashes, no lesions, and no evidence of cellulitis. MS/ Extremity: Pulses equal, no cyanosis. Neurovascular intact. Full, normal range of motion. Neuro: Awake and alert, GCS 15, oriented to person, place, time, and situation. Cranial nerves II-XII grossly intact. Motor strength 5/5 in all extremities. Sensory grossly intact. Cerebellar exam normal. Normal gait. Psych: Awake, alert, with orientation to person, place and time. Behavior, mood, and affect are within normal limits. 10:30 ECG was reviewed by the Attending Physician. Vital Signs: 10:18 BP 135 / 76; Pulse 92; Pulse Ox 98% on R/A; ap3 10:19 BP 135 / 76; Pulse 95; Resp 18; Pulse Ox 96% on R/A; Pain 8/10; ld1 11:13 BP 123 / 80; Pulse 79; Pulse Ox 100% ; ap3 11:50 BP 124 / 76; Pulse 76; Pulse Ox 98% on R/A; ap3 13:04 BP 114 / 70; Pulse 68; Pulse Ox 98% on R/A; ap3 13:45 BP 128 / 94; Pulse 67; Pulse Ox 99% on R/A; ap3 10:19 Pain Scale: Adult ld1 MDM: 10:07 Patient medically screened. rt 13:37 Differential diagnosis: Musculoskeletal pain, acute coronary syndrome, pneumonia, rt pneumothorax, pulmonary embolism. Data reviewed: vital signs, nurses notes, lab test result(s), EKG, radiologic studies. Consideration of Admission/Observation Escalation of care including admission/observation considered. Chest pain resolved in the emergency department, nonischemic EKG, normal initial troponin, repeat troponin is also undetectable. At this time, patient does not require admission to the hospital, I did instruct the patient to follow-up with cardiology as soon as possible for further testing. She was instructed return to the ED immediately if she develops return of her chest pain.. I considered the following discharge prescriptions or medication management in the emergency department Medications were administered in the Emergency Department. See MAR. Independent interpretation of the following test(s) in the Emergency Department X-Ray: My interpretation is No consolidation seen on interpretation of the x-ray images. Test considered but Not performed: CT: Low suspicion for pulmonary embolism, PE RC negative, does not require CT angiogram to rule out pulmonary embolism.. Care significantly affected by the following chronic conditions: Diabetes. Counseling: I had a detailed discussion with the patient and/or guardian regarding the historical points, exam findings, and any diagnostic results supporting the discharge/admit diagnosis, lab results, radiology results, the need for outpatient follow up, to return to the emergency department if symptoms worsen or persist or if there are any questions or concerns that arise at home. Response to treatment: the patient's symptoms have resolved after treatment, the patient's pain is gone. 13:42 Scoring Tools HEART Score: History: Moderately Suspicious (1) ECG: Non specific rt repolarization disturbance/ LBTB/ PM (1) Age: < or = 45 years (0) Risk Factors: 1 or 2 Risk factors (1) Troponin: < or = 1 x Normal limit (0) Total Score = 3. 01/24 10:11 Order name: Basic Metabolic Panel; Complete Time: 10:58 rt 01/24 10:11 Order name: CBC with Diff; Complete Time: 10:58 rt 01/24 10:11 Order name: LFT's; Complete Time: 10:58 rt 01/24 10:11 Order name: Magnesium; Complete Time: 10:58 rt 01/24 10:11 Order name: Troponin HS; Complete Time: 10:58 rt 01/24 11:21 Order name: BNP; Complete Time: 11:48 rt 01/24 11:53 Order name: Troponin High Sensitivity; Complete Time: 13:35 rt 01/24 10:11 Order name: XRAY Chest (1 view); Complete Time: 11:20 rt 01/24 10:11 Order name: EKG; Complete Time: 10:12 rt 01/24 10:11 Order name: Cardiac monitoring; Complete Time: rt 01/24 10:11 Order name: EKG - Nurse/Tech; Complete Time: rt 01/24 10:11 Order name: IV Saline Lock; Complete Time: rt 01/24 10:11 Order name: Labs collected and sent; Complete Time: rt 01/24 10:11 Order name: O2 Per Protocol; Complete Time: rt 01/24 10:11 Order name: O2 Sat Monitoring; Complete Time: : rt EC:30 Rate is 77 beats/min. Rhythm is regular, Normal Sinus Rhythm with No ectopy. QRS [place] rt is Normal. MS interval is normal. QRS interval is normal. QT interval is normal. No Q waves. T waves are Inverted in lead III. No ST changes noted. Interpreted by me. Administered Medications: : Drug: Aspirin PO Chewable Tablet 324 mg Route: PO; ap3 13:44 Follow up: Response: No adverse reaction ap3 10:17 Drug: Nitroglycerin Sublingual 0.4 mg Route: Sublingual; ap3 13:44 Follow up: Response: No adverse reaction ap3 Disposition Summary: 01/24/23 13:37 Discharge Ordered Location: Home rt Problem: new rt Symptoms: are resolved rt Condition: Stable rt Diagnosis - Chest pain, unspecified rt Followup: rt - With: Jeffery Munoz MD - When: 2 - 3 days - Reason: Discharge Instructions: - Discharge Summary Sheet rt - Nonspecific Chest Pain, Adult rt Forms: - Medication Reconciliation Form rt - Thank You Letter rt - Antibiotic Education rt - Prescription Opioid Use rt - Patient Portal Instructions rt - Leadership Thank You Letter rt Signatures: Dispatcher [employer] Charly Castaneda RN RN Betty Nava RN RN ap3 Viraj Kuhn MD MD rt
[2023-01-24 14:11] VITALS: O2SAT 98
[2023-01-24 14:12] VITALS: BP 114/70
--- NOTE | 2023-01-25 13:59 | EKG ---
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
== END 2023-01-24 13:44 | disposition home or self-care (01) ==
LOC: ER 10:01
DX: R07.9 Chest pain, unspecified (principal)
CPT/HCPCS: 36415; 71045; 80048; 80076; 83735; 83880; 84484; 85025; 93005; 99284